=== PATIENT | female | born 1945 | race Caucasian/White ===

== ENCOUNTER → 2020-03-26 | Outpatient (CLI) | payer MEDICARE, OTHER, SELFPAY ==
[2020-03-26 18:52] VITALS: BMI 22.9
[2020-03-26 21:57] LABS: Absolute Lymphocyte Count 1.15 X10^3/uL (0.83-4.51); Absolute Neutrophil Count 4.3 X10^3/uL (2.0-7.7); Basophil# 0.04 X10^3/uL; Basophil% 0.7 % (0-1); Eosinophil# 0.12 X10^3/uL; Hematocrit 42.5 % (37-47); Hemoglobin 14.1 g/dL (12.0-15.0); Lymphocyte # 1.15 X10^3/ul (4.0); Lymphocyte % 18.8 % (19-41); Mean Corp Hgb Conc 33.2 g/dL (32-36); Mean Corpuscular Hgb 31.8 pg (27.0-32.0); Mean Corpuscular Volume 95.7 fL (81-99); Mean Platelet Vol. 9.5 fl (6.2-12.0); Monocyte# 0.49 X10^3/uL; NRBC Flagged by Analyzer 0 % (0-5); Neutrophil % 70.2 % (47-70); Platelet Count 241 K/mm3 (150-450); RBC Distribution Width SD 45.8 fl (35.1-43.9); Red Blood Count 4.44 M/mm3 (4.2-5.4); White Blood Count 6.1 K/mm3 (4.4-11.0)
[2020-03-26 22:18] LABS: ALB/GLOB Ratio 1.2 RATIO (0.9-2.4); AST(SGOT) 21 U/L (15-37); Alanine Aminotransfer ALT/SGPT 30 U/L (13-56); Albumin, Serum 3.6 g/dL (3.2-5.0); Alkaline Phosphatase 81 U/L (45-117); Anion Gap 7 (5-15); BUN 15 mg/dL (7-18); BUN/Creat Ratio 27.2 RATIO (10-20); Calcium,Total 8.3 mg/dL (8.5-10.1); Chloride 107 mmol/L (98-107); Cholesterol 195 mg/dL (200); Creatinine, Serum 0.55 mg/dL (0.55-1.02); EST Glomerular Filtration Rate 114 mL/min (>60); Est Glom Filt Rate - Afr Amer 138 mL/min (>60); Globulin 2.9 g/dL (2.2-4.2); Glucose 92 mg/dL (74-106); High Density Lipoprotein 67 mg/dL; Potassium 3.9 mmol/L (3.5-5.1); Protein, Total 6.5 g/dL (6.4-8.2); Sodium Level 140 mmol/L (136-145); Thyroid Stim Hormone (TSH) 4.82 uIU/mL (0.358-3.74); Triglycerides 161 mg/dL; Very Low Density Lipoprotein 32 mg/dL (5-40)
== END | disposition home or self-care (01) ==
LOC: OLS.AHF 21:53 → LABSPEC 03-27 08:22
PROVIDERS: PCP Nurse Practitioner; Referring Provider Nurse Practitioner; Visit Provider Nurse Practitioner
DX: I10 Essential (primary) hypertension (principal); E03.9 Hypothyroidism, unspecified
CPT/HCPCS: 80053; 80061; 84443; 85025

== ENCOUNTER → 2020-05-26 | Outpatient (CLI) | payer MEDICARE, OTHER, SELFPAY ==
[2020-05-26 22:38] LABS: Thyroid Stim Hormone (TSH) 2.25 uIU/mL (0.358-3.74)
== END | disposition home or self-care (01) ==
PROVIDERS: PCP Nurse Practitioner; Referring Provider Nurse Practitioner; Visit Provider Nurse Practitioner
DX: E03.9 Hypothyroidism, unspecified (principal)
CPT/HCPCS: 84443

== ENCOUNTER → 2021-04-13 | Outpatient (CLI) | payer MEDICARE, OTHER, SELFPAY ==
[2021-04-13 23:38] LABS: Absolute Lymphocyte Count 1.13 X10^3/uL (0.83-4.51); Absolute Neutrophil Count 4.3 X10^3/uL (2.0-7.7); Basophil# 0.05 X10^3/uL; Basophil% 0.8 % (0-1); Eosinophil# 0.11 X10^3/uL; Eosinophils% 1.8 % (0-5); Hematocrit 38.8 % (37-47); Hemoglobin 13.1 g/dL (12.0-15.0); Lymphocyte # 1.13 X10^3/ul (0.83-4.51); Lymphocyte % 18.6 % (19-41); Mean Corp Hgb Conc 33.8 g/dL (32-36); Mean Corpuscular Volume 94.9 fL (81-99); Mean Platelet Vol. 9.5 fl (6.2-12.0); Monocyte# 0.43 X10^3/uL; Monocyte% 7.1 % (0-10); NRBC Flagged by Analyzer 0 % (0-5); Neutrophil # 4.31 X10^3/uL (2.7-7.7); Neutrophil % 70.7 % (47-70); Platelet Count 230 K/mm3 (150-450); RBC Distribution Width CV 12.6 % (11.6-14.6); RBC Distribution Width SD 43.8 fl (35.1-43.9); Red Blood Count 4.09 M/mm3 (4.2-5.4); White Blood Count 6.1 K/mm3 (4.4-11.0)
[2021-04-14 00:04] LABS: ALB/GLOB Ratio 1.3 RATIO (0.9-2.4); AST(SGOT) 22 U/L (15-37); Alanine Aminotransfer ALT/SGPT 28 U/L (13-56); Albumin, Serum 3.8 g/dL (3.2-5.0); Alkaline Phosphatase 79 U/L (45-117); Anion Gap 2 (5-15); BUN 9 mg/dL (7-18); BUN/Creat Ratio 17.2 RATIO (10-20); Calcium,Total 9.1 mg/dL (8.5-10.1); Chloride 106 mmol/L (98-107); Cholesterol 195 mg/dL (200); Creatinine, Serum 0.52 mg/dL (0.55-1.02); EST Glomerular Filtration Rate 121 mL/min (>60); Est Glom Filt Rate - Afr Amer 147 mL/min (>60); Glucose 88 mg/dL (74-106); High Density Lipoprotein 61 mg/dL; Potassium 4.4 mmol/L (3.5-5.1); Protein, Total 6.8 g/dL (6.4-8.2); Sodium Level 137 mmol/L (136-145); Thyroid Stim Hormone (TSH) 2.11 uIU/mL (0.358-3.74); Triglycerides 103 mg/dL; Very Low Density Lipoprotein 21 mg/dL (5-40)
== END | disposition home or self-care (01) ==
LOC: LABSPEC 23:27
PROVIDERS: PCP Nurse Practitioner; Visit Provider Nurse Practitioner
DX: I10 Essential (primary) hypertension (principal); E03.9 Hypothyroidism, unspecified
CPT/HCPCS: 80053; 80061; 84443; 85025

== ENCOUNTER → 2021-04-14 | Outpatient (CLI) | payer MEDICARE, OTHER, SELFPAY | END | disposition home or self-care (01) | PROVIDERS: PCP Nurse Practitioner; Visit Provider Nurse Practitioner | DX: I10 Essential (primary) hypertension (principal); E03.9 Hypothyroidism, unspecified ==

== ENCOUNTER → 2023-03-17 | Outpatient (CLI) | payer MEDICARE, OTHER, SELFPAY ==
[2023-03-17 21:23] LABS: Absolute Lymphocyte Count 1.33 X10^3/uL (0.83-4.51); Absolute Neutrophil Count 4.7 X10^3/uL (2.0-7.7); Basophil# 0.04 X10^3/uL; Basophil% 0.6 % (0-1); Eosinophil# 0.16 X10^3/uL; Eosinophils% 2.4 % (0-5); Hematocrit 43.8 % (37-47); Hemoglobin 14.6 g/dL (12.0-15.0); Lymphocyte # 1.33 X10^3/ul (0.83-4.51); Lymphocyte % 19.9 % (19-41); Mean Corp Hgb Conc 33.3 g/dL (32-36); Mean Corpuscular Hgb 32.7 pg (27.0-32.0); Mean Platelet Vol. 9.9 fl (6.2-12.0); Monocyte# 0.44 X10^3/uL; Monocyte% 6.6 % (0-10); NRBC Flagged by Analyzer 0 % (0-5); Neutrophil % 70.4 % (47-70); Platelet Count 207 K/mm3 (150-450); RBC Distribution Width SD 47.7 fl (35.1-43.9); Red Blood Count 4.47 M/mm3 (4.2-5.4); White Blood Count 6.7 K/mm3 (4.4-11.0)
[2023-03-17 22:20] LABS: ALB/GLOB Ratio 1.3 RATIO (0.9-2.4); AST(SGOT) 26 U/L (15-37); Alanine Aminotransfer ALT/SGPT 45 U/L (13-56); Albumin, Serum 3.6 g/dL (3.2-5.0); Alkaline Phosphatase 85 U/L (45-117); Anion Gap 5 (5-15); BUN 15 mg/dL (7-18); BUN/Creat Ratio 24.1 RATIO (10-20); Calcium,Total 9.1 mg/dL (8.5-10.1); Chloride 106 mmol/L (98-107); Cholesterol 169 mg/dL (200); Creatinine, Serum 0.62 mg/dL (0.55-1.02); EST Glomerular Filtration Rate 99 mL/min (>60); Est Glom Filt Rate - Afr Amer 119 mL/min (>60); Globulin 2.8 g/dL (2.2-4.2); Glucose 86 mg/dL (74-106); High Density Lipoprotein 56 mg/dL; Potassium 4.1 mmol/L (3.5-5.1); Protein, Total 6.4 g/dL (6.4-8.2); Sodium Level 137 mmol/L (136-145); Thyroid Stim Hormone (TSH) 2.22 uIU/mL (0.358-3.74); Triglycerides 71 mg/dL; Very Low Density Lipoprotein 14 mg/dL (5-40)
== END | disposition home or self-care (01) ==
PROVIDERS: PCP Nurse Practitioner; Visit Provider Nurse Practitioner
DX: I10 Essential (primary) hypertension (principal); E03.9 Hypothyroidism, unspecified
CPT/HCPCS: 80053; 80061; 84443; 85025

== ENCOUNTER → 2024-01-24 | Outpatient (CLI) | payer MEDICARE, OTHER, SELFPAY ==
[2024-01-24 22:19] LABS: Absolute Lymphocyte Count 1.18 X10^3/uL (0.83-4.51); Absolute Neutrophil Count 6.4 X10^3/uL (2.0-7.7); Basophil# 0.04 X10^3/uL; Basophil% 0.5 % (0-1); Eosinophil# 0.13 X10^3/uL; Eosinophils% 1.6 % (0-5); Hematocrit 44.8 % (37-47); Hemoglobin 14.9 g/dL (12.0-15.0); Lymphocyte # 1.18 X10^3/ul (0.83-4.51); Lymphocyte % 14.1 % (19-41); Mean Corp Hgb Conc 33.3 g/dL (32-36); Mean Corpuscular Hgb 31.9 pg (27.0-32.0); Mean Corpuscular Volume 95.9 fL (81-99); Mean Platelet Vol. 10.4 fl (6.2-12.0); Monocyte# 0.58 X10^3/uL; Monocyte% 6.9 % (0-10); NRBC Flagged by Analyzer 0 % (0-5); Neutrophil % 76.7 % (47-70); Platelet Count 225 K/mm3 (150-450); RBC Distribution Width CV 12.9 % (11.6-14.6); RBC Distribution Width SD 45.2 fl (35.1-43.9); Red Blood Count 4.67 M/mm3 (4.2-5.4); White Blood Count 8.4 K/mm3 (4.4-11.0)
[2024-01-24 22:46] LABS: ALB/GLOB Ratio 1.5 RATIO (0.9-2.4); AST(SGOT) 18 U/L (15-37); Alanine Aminotransfer ALT/SGPT 25 U/L (13-56); Alkaline Phosphatase 78 U/L (45-117); Anion Gap 5 (5-15); BUN 12 mg/dL (7-18); BUN/Creat Ratio 19.7 RATIO (10-20); Calcium,Total 9.8 mg/dL (8.5-10.1); Chloride 106 mmol/L (98-107); Creatinine, Serum 0.61 mg/dL (0.55-1.02); EST Glomerular Filtration Rate 101 mL/min (>60); Est Glom Filt Rate - Afr Amer 122 mL/min (>60); Globulin 2.7 g/dL (2.2-4.2); Glucose 88 mg/dL (74-106); Potassium 4.1 mmol/L (3.5-5.1); Protein, Total 6.7 g/dL (6.4-8.2); Sodium Level 139 mmol/L (136-145)
[2024-01-26 17:08] LABS: Deamidated Gliadin IgA 5 units (0-19); Deamidated Gliadin IgG 3 units (0-19); Endomysial Antibody IgA Negative (Negative); Immunoglobulin A 122 mg/dL (64-422); t-Transglutaminase IgA <2 U/mL (0-3)
== END | disposition home or self-care (01) ==
PROVIDERS: PCP Nurse Practitioner; Referring Provider Nurse Practitioner; Visit Provider Nurse Practitioner
DX: R19.7 Diarrhea, unspecified (principal); E03.9 Hypothyroidism, unspecified; I10 Essential (primary) hypertension; K21.9 Gastro-esophageal reflux disease without esophagitis
CPT/HCPCS: 80053; 82784; 83516; 84443; 85025; 86255

== ENCOUNTER → 2024-08-22 | Outpatient (CLI) | payer MEDICARE, OTHER, SELFPAY ==
[2024-08-23 00:40] LABS: ALB/GLOB Ratio 1.1 RATIO (0.9-2.4); AST(SGOT) 30 U/L (<=31); Alanine Aminotransfer ALT/SGPT 27 U/L (<=34); Albumin, Serum 1.5 g/dL (3.4-4.8); Alkaline Phosphatase 83 U/L (35-104); Anion Gap 19 (5-15); BUN 4 mg/dL (4-19); BUN/Creat Ratio 7.8 RATIO (10-20); CRP 6.75 mg/L (0.0-3.0); Chloride 104 mmol/L (98-108); Creatinine, Serum 0.56 mg/dL (0.70-1.20); EST Glomerular Filtration Rate 93 (>60); Globulin 1.4 g/dL (2.2-4.2); Glucose 90 mg/dL (70-99); Potassium 4.4 mmol/L (3.3-5.1); Protein, Total 2.9 g/dL (5.9-8.4); Rheumatoid Factor < 10.0 IU/mL (<15); Sodium Level 137 mmol/L (133-145); Total Bilirubin < 0.15 mg/dL (0.00-1.30)
[2024-08-24 11:08] LABS: Anti-Centromere B Ab <0.2 AI (0.0-0.9); Anti-Chromatin <0.2 AI (0.0-0.9); Anti-Jo <0.2 AI (0.0-0.9); Anti-Scleroderma-70 AB <0.2 AI (0.0-0.9); Anti-dsDNA Ab 4 IU/mL (0-9); RNP Ab <0.2 AI (0.0-0.9); SJOGREN'S Anti-SS-A test < 0.2 AI (0.0-0.9); SJOGREN'S Anti-SS-B test < 0.2 AI (0.0-0.9); Smith Ab <0.2 AI (0.0-0.9)
== END | disposition home or self-care (01) ==
PROVIDERS: PCP Nurse Practitioner; Referring Provider Nurse Practitioner; Visit Provider Nurse Practitioner
DX: R60.0 Localized edema (principal); H93.19 Tinnitus, unspecified ear; K52.832 Lymphocytic colitis; R19.7 Diarrhea, unspecified; R06.02 Shortness of breath; T50.905A Adverse effect of unspecified drugs, medicaments and biological substances, initial encounter
CPT/HCPCS: 80053; 84439; 84443; 86140; 86225; 86235; 86431

== ENCOUNTER → 2024-09-13 | Outpatient (CLI) | payer MEDICARE, OTHER, SELFPAY ==
[2024-09-13 22:53] LABS: Absolute Lymphocyte Count 0.91 X10^3/uL (0.83-4.51); Basophil# 0.04 X10^3/uL; Basophil% 0.7 % (0-1); Eosinophil# 0.07 X10^3/uL; Eosinophils% 1.3 % (0-5); Hematocrit 42.8 % (37-47); Hemoglobin 14.3 g/dL (12.0-15.0); Lymphocyte # 0.91 X10^3/ul (0.83-4.51); Lymphocyte % 16.6 % (19-41); Mean Corp Hgb Conc 33.4 g/dL (32-36); Mean Corpuscular Hgb 31.4 pg (27.0-32.0); Mean Corpuscular Volume 94.1 fL (81-99); Mean Platelet Vol. 10.8 fl (6.2-12.0); Monocyte# 0.48 X10^3/uL; Monocyte% 8.8 % (0-10); NRBC Flagged by Analyzer 0 % (0-5); Neutrophil # 3.96 X10^3/uL (2.7-7.7); Neutrophil % 72.4 % (47-70); Platelet Count 165 K/mm3 (150-450); RBC Distribution Width CV 13.4 % (11.6-14.6); RBC Distribution Width SD 46.7 fl (35.1-43.9); Red Blood Count 4.55 M/mm3 (4.2-5.4); White Blood Count 5.5 K/mm3 (4.4-11.0)
[2024-09-13 23:12] LABS: D-Dimer Quantitative (DVT/PE) 0.27 FEU/ug/m (0.27-0.49)
[2024-09-13 23:14] LABS: Pro- Brain NATRIURETIC PEPTIDE 963 pg/mL (<=1800)
== END | disposition home or self-care (01) ==
PROVIDERS: PCP Nurse Practitioner; Referring Provider Nurse Practitioner; Visit Provider Nurse Practitioner
DX: I50.9 Heart failure, unspecified (principal); R06.02 Shortness of breath; R60.0 Localized edema; R23.2 Flushing
CPT/HCPCS: 83880; 84443; 85025; 85379

== ENCOUNTER → 2024-09-26 | Outpatient (CLI) | payer MEDICARE, OTHER, SELFPAY ==
[2024-10-01 05:06] LABS: Alternaria tenuis <0.10 kU/L (Class 0); Ash, White <0.10 kU/L (Class 0); Aspergillus fumigatus <0.10 kU/L (Class 0); Bermuda Grass <0.10 kU/L (Class 0); Birch <0.10 kU/L (Class 0); Black Walnut <0.10 kU/L (Class 0); Cat Hair / Dander,Stand <0.10 kU/L (Class 0); Cedar, Mountain <0.10 kU/L (Class 0); Cladosporium herbarum <0.10 kU/L (Class 0); Cockroach, American <0.10 kU/L (Class 0); Cottonwood <0.10 kU/L (Class 0); D farinae Mite <0.10 kU/L (Class 0); D pteronyssinus <0.10 kU/L (Class 0); Dog Epithelia <0.10 kU/L (Class 0); Elm, American White <0.10 kU/L (Class 0); Immunoglobulin E 5 IU/mL (6-495); Maple/Box Elder <0.10 kU/L (Class 0); Mouse Urine <0.10 kU/L (Class 0); Mulberry, White <0.10 kU/L (Class 0); Oak, White <0.10 kU/L (Class 0); Pecan <0.10 kU/L (Class 0); Penicillium Notatum <0.10 kU/L (Class 0); Pigweed, Rough <0.10 kU/L (Class 0); Ragweed, Short/Common <0.10 kU/L (Class 0); Russian Thistle <0.10 kU/L (Class 0); Sheep Sorrel <0.10 kU/L (Class 0); Sycamore, American <0.10 kU/L (Class 0); Timothy Grass <0.10 kU/L (Class 0)
== END | disposition home or self-care (01) ==
PROVIDERS: PCP Nurse Practitioner; Referring Provider Internal Medicine Critical Care Medicine; Visit Provider Internal Medicine Critical Care Medicine
DX: J45.909 Unspecified asthma, uncomplicated (principal)
CPT/HCPCS: 36415; 82785; 86003

== ENCOUNTER → 2024-10-30 | Outpatient (CLI) | payer MEDICARE, OTHER, SELFPAY ==
[2024-10-30 13:54] VITALS: PULSE 60; PULSE 66; PULSE 72; PULSE 74; PULSE 79; PULSE 82; PULSE 86; PULSE 93; O2SAT 96; O2SAT 97; O2SAT 98; O2SAT 99
--- OUTSIDE RECORDS SUMMARY | 2024-10-30 21:46 | XMS RPT_ITS | CCD ---
Author Organization [facility] Care Team Providers Care Humanities Department Chair Name Role Phone Sabino Harvey Unavailable Unavailable Unavailable Unavailable Unavailable Blanca Coffey Unavailable Unavailable Unavailable Unavailable Unavailable David Bach MD Primary Care Provider David Bach MD Unavailable Queden ACID LEVELER.PRESIDENT [place], Tammy A Unavailable David Bach MD Primary Care Provider [phone] David Bach MD Unavailable Queden ACID LEVELER.PRESIDENT [place], Tammy A Unavailable PROVIDER, UNKNOWN Referring Unavailable GEO PARKINSON Attending Unavailable David Bach MD Primary Care Provider David Bach MD Unavailable Queden ACID LEVELER.ENE, Tammy A Unavailable Prem Felton MD Primary Care Provider Prem Felton MD Primary Care Provider Prem Felton MD Primary Care Provider Prem Felton MD Primary Care Provider Osbaldo Fowler Primary Care Provider NOAH LOWERY Attending Unavailable PREM FELTON Primary Care Unavailable OSBALDO FOWLER Primary Care Unavailable Malcolm ACID LEVELER.Osbaldo LUQUE Primary Care Provide r Osbaldo Fowler Primary Care Provider [phone] OSBALDO FOWLER Primary Care Unavailable ARSENIO COFFEY Attending Unava ilable FOWLER, OSBALDO L Primary Care Unavailable CHRISTOPH LIU Attending Unavailable FOWLER, OSBALDO L Primary Care Unavailable CECILE VARELA Attending Unavailable FOWLER, OSBALDO L Referring Unavailable FOWLER, OSBALDO L Primary Care Unavailable Fowler EXTENSION SERVICE SPECIALIST IN CHARGE-C, Osbaldo Primary Care Provider Fowler EXTENSION SERVICE SPECIALIST IN CHARGE-C, Osbaldo Attending Provider Fowler EXTENSION SERVICE SPECIALIST IN CHARGE-C, Osbaldo Referring Provider Fowler EXTENSION SERVICE SPECIALIST IN CHARGE-C, Osbaldo Primary Care Provider Fowler EXTENSION SERVICE SPECIALIST IN CHARGE-C, Osbaldo Attending Provider Fowler EXTENSION SERVICE SPECIALIST IN CHARGE-C, Osbaldo Referring Provider Fowler, Osbaldo Primary Care Unavailable Jorge Nicole Attending Unavailable Jorge Nicole Referring Unavailable Fowler, Osbaldo Referring Unavailable Fowler, Osbaldo Primary Care Unavailable Fowler, Osbaldo Attending Unavailable Fowler, Osbaldo Referring Unavailable Fowler, Osbaldo Primary Care Unavailable Fowler, Osbaldo Attending Unavailable Fowler, Osbaldo Primary Care Unavailable Jorge Nicole Attending Unavailable Fowler, Osbaldo Referring Unavailable Fowler, Osbaldo Referring Unavailable Fowler, Osbaldo Primary Care Unavailable Fowler, Osbaldo Attending Unavailable Julienne Wright DO Primary Care Provider FOWLER, OSBALDO Primary Care Unavailable FOWLER, OSBALDO Primary Care Unavailable FOWLER, OSBALDO Primary Care Unavailable GEO PARKINSON Attending Unavailable FOWLER, OSBALDO Primary Care Unavailable ESTERLE, JULIENNE Primary Care Unavailable FOWLER, OSBALDO Primary Care Unavailable FOWLER, OSBALDO Primary Care Unavailable FOWLER, OSBALDO Primary Care Unavailable FARIDA THOMAS Referring Unavailable FARIDA THOMAS Attending Unavailable JASON EVERETT Attending Unavailable FOWLER, OSBALDO L Primary Care Unavailable FOWLER, OSBALDO L Primary Care Unavailable BARI KELLEY Attending Unavailable Allergies Allergy Classification Reported Allergen(s) Allergy Type Date of Onset Reaction(s) Facility (2 sources) [facility]ib[facility] ([facility] Adhesive Tape; Translations: [ADHESIVE TAPE (ROSINS)] Propensity to adverse reactions 6 [facility] (20 sources) Sulfonamides (Antibiotic); Translations: [SULFA (SULFONAMIDE ANTIBIOTICS)] Propensity to adverse reactions to drug 0 Mental Status Change, Other [facility] (20 sources) Vancomycin; Translations: [VANCOMYCIN] Drug Allergy 8 Itching [facility] (18 sources) Contact Allergies [Other] Propensity to adverse reactions 0 Rash [facility] (18 sources) Food Allergies [Other] Propensity to adverse reactions 0 GI Upset [facility] (20 sources) Tetanus Vaccines And Toxoid; Translations: [TETANUS VACCINES AND TOXOID] Drug Intolerance 2 Swelling [facility] (18 sources) Tetanus Vaccines And Toxoid Drug Intolerance 2 Swelling [facility] (20 sources) Other; Translations: [OTHER] Propensity to adverse reactions 0 Rash [facility] (3 sources) Sulfonamides (Antibiotic) Allergy to substance 9 Edema, Trouble Breathing [facility] (1 source) Sulfonamides (Antibiotic) Drug allergy (disorder) 5 [facility] (1 source) Vancomycin Drug Allergy 5 [facility] Medications Current Medications Medication Drug Class(es) Dates Sig (Normalized) Sig (Original) acetaminophen 325 mg oral tablet (20 sources) Start: 06-20-2021 take 2 tablets by mouth every four hours as needed acetaminophen (TYLENOL) 325 mg tablet Take 2 tablets by mouth every 4 hours as needed for pain. 06/20/2021 Active Start: 06-20-2021 take 2 tablets by mo ut every six hours as needed acetaminophen (Tylenol) 325 MG tablet Take 650 mg by mouth every 6 hours as needed. 06/20/2021 Active Comment on above: Take 2 tablets by mo [facility] every 4 hours as needed for pain. adapalene 0.001 mg/mg topical gel (7 sources) Retinoid Start: 1 End: 2 adapalene (DIFFERIN) 0.1 % gel [The details of the medication are not available because there are pending changes by a home health clinician.] 0 05/13/2021 05/13/2022 Active Comment on above: [The details of the medication are not available because there are pending changes by a home health clinician.] amoxicillin 875 mg / clavulanate 125 mg oral tablet (18 sources) Penicillin-class Antibacterial Start: End: take 1 tablet by mouth twice daily amoxicillin-clavula manan potassium (AUGMENTIN) 875-125 mg per tablet Take 1 tablet by mouth two times a day for 10 days. 20 tablet 10/25/2024 11/04/2024 Active Start: 09-13-2024 Amoxicillin-Po t Clavulanate 875-125 mg tablet Active 1 {tbl} PO TWICE A DAY September 13, 2024 5:11pm Start: 10-26-2023 End: 11-07-2023 Amoxicillin-Pot Clavulanate 875-125 mg tablet Discontinued 1 {tbl} PO TWICE A DAY October 26, 2023 11:41am November 07, 2023 6:58pm Start: 05-12-2023 End: 10-19-2023 Amoxicillin-Pot Clavulanate 875-125 mg tablet Discontinued 1 {tbl} PO TWICE A DAY May 12, 2023 7:54pm October 19, 2023 2:59pm Start: 03-05-2022 End: 05-25-2022 Amoxicillin-Pot Clavulanate 875-125 mg tablet Discontinued 1 {tbl} PO TWICE A DAY March 05, 2022 3:07pm May 25, 2022 5:10pm Start: 03-05-2022 End: 05-25-2022 take 1 tablet by mouth twice daily Amoxicillin-Pot Clavulanate Discontinued 1 TABLET PO TWICE A DAY March 05, 2022 3:07pm May 25, 2022 5:10pm Start: 12-24-2020 End: 04-13-2021 Amoxicillin-Pot Clavulanate 875-125 mg tablet Discontinued 1 {tbl} PO TWICE A DAY December 24, 2020 12:00am April 13, 2021 4:59pm Start: 12-24-2020 End: 04-13-2021 take 1 tablet by mouth twice daily Amoxicillin-Pot Clavulanate Discontinued 1 TABLET PO TWICE A DAY December 24, 2020 12:00am April 13, 2021 4:59pm Start: 02-28-2020 End: 03-26-2020 Amoxicillin-Pot Clavulanate 875-125 mg tablet Discontinued 1 {tbl} PO TWICE A DAY February 28, 2020 12:00am March 26, 2020 6:58pm Start: 02-28-2020 End: 03-26-2020 take 1 tablet by mouth twice daily Amoxicillin-Pot Clavulanate Discontinued 1 TABLET PO TWICE A DAY February 28, 2020 12:00am March 26, 2020 6:58pm Start: 05-16-2019 End: 02-11-2020 Amoxicillin-Pot Clavulanate 875-125 mg tablet Discontinued 1 {tbl} PO TWICE A DAY May 16, 2019 1:00am February 11, 2020 4:08pm Start: 05-16-2019 End: 02-11-2020 take 1 tablet by mouth twice daily Amoxicillin-Pot Clavulanate Discontinued 1 TABLET PO TWICE A DAY May 16, 2019 1:00am February 11, 2020 4:08pm apixaban 5 mg oral tablet (20 sources) Factor Xa Inhibitor Start: 08-04-2022 End: 04-12-2024 take 1 tablet by mouth twice daily ELIQUIS 5 mg tab(s) Take 5 mg by mouth twice daily. 08/31/2022 Active Comment on above: Take 5 mg by mouth t wice daily. ascorbic acid 1000 mg oral tablet (20 sources) Vitamin C Start: 11-15-2018 take 1 g by mouth every six hours Ascorbic Acid (Vitamin C) 1,000 mg tablet Active 1 g PO EVERY 6 HOURS November 15, 2018 12:00am Start: 11-15-2018 take 1 g by mouth every six ho urs Ascorbic Acid (Vitamin C) Active 1 GM PO EVERY 6 HOURS November 15, 2018 12:00am take 1 tablet by mouth once lion y ascorbic acid, vitamin C, (VITAMIN C) 500 mg tablet Take 500 mg by mouth once daily. Active take 1 tablet by justino th every twenty-four hours as needed ascorbic acid (Vitamin C) 500 MG tablet Take 500 mg by mouth Daily as needed (during winter). Active Comment on above: Take 500 mg by mouth once daily. Ascorbic Acid / Bioflavonoid s (19 sources) Vitamin C ASCORBIC ACID/BIOFLAVONOIDS (RISHABH C ORAL) Take by mouth once daily. winter only Active ASCORBIC ACID/BI OFLAVONOIDS (RISHABH C ORAL) Take by mouth once daily. winter only 0 Active Comment on above: Take by mouth once d aily. winter only B Complex Vitamins (B-Complex/B-12) tablet (20 sources) take 1 tablet by mouth in the morning B Complex Vitamins (B-Complex/B-12) tablet Take 1 tablet by mouth in the morning. Active take 1 tablet by mouth in the mo rning B Complex Vitamins (B-Complex/B-12) tablet Take 1 tablet by mouth in the morning. 0 Active Bcomplex-C #13-folic acid 1 mg-vit D3 1,750 unit disintegrating tablet (1 source) Start: 11-15-2018 take 1 tablet by mouth once daily Bcomplex-C #13-folic acid 1 mg-vit D3 1,750 unit disintegrating tablet Active 1 TABLET PO DAILY November 15, 2018 12:00am Calcium Carb-Cholecalciferol (CALCIUM 1000 + D PO) (20 sources) Calcium Carb-Cholecalciferol (CALCIUM 1000 + D PO) Take 1,000 mg by mouth daily. Active Calcium Carb-Cho lecalciferol (CALCIUM 1000 + D PO) Take 1,000 mg by mouth daily. 0 Active Calcium Carbonate (18 sources) calcium carbonat e (CALCIUM 300 ORAL) Take by mouth. Active calcium carbonat e (CALCIUM 300 ORAL) Take by mouth. 0 Active Comment on above: Take by mouth. cholecalciferol 0.125 mg oral capsule (20 sources) Vitamin D Start: 05-13-2021 End: 08-04-2022 take 1 capsule by mouth once daily Cholecalciferol, Vitamin D3, 125 mcg (5,000 unit) cap Take 1 capsule by mouth once daily. 05/13/2021 Active Start: 11-15-2018 take 1 capsule by [facility] once daily Cholecalciferol (Vitamin D3) 2,000 unit capsule Active 2000 U PO DAILY November 15, 2018 12:00am Comment on above: Take 1 capsule by [facility] once daily. 1 ml denosumab 60 mg/ml prefilled syringe (20 sources) RANK Ligand Inhibitor Start: 08-18-2022 End: 08-12-2023 denosumab 60 mg injection (PROLIA) Start: 07-20-2022 denosumab (Pro mariela) injection 60 mg Start: 06-09-2022 End: 09-20-2023 denosumab (Prolia) 60 MG/ML solution prefilled syringe Indications: Age-related osteoporosis without current pathological fracture Inject 1 mL (60 mg) under the skin every 6 (six) months. 180 mL 0 06/09/2022 09/20/2023 Discontinued Start: 06-01-2021 End: 05-26-2022 denosumab 60 mg injection (P ROLIA) diclofenac sodium 0.01 mg/mg topical gel (20 sources) Nonsteroidal Anti-inflammatory Drug Start: 12-24-2022 End: 05-07-2024 apply 4 g topically once Diclofenac Sodium 1 % gel Active 4 g TOPICAL ONCE May 07, 2024 4:46pm apply to single knee, ankle, foot; for foot includes sole/toes/top of foot Start: 12-24-2022 apply 4 g topically once Diclo fenac Sodium Active 4 GM TOPICAL ONCE December 24, 2022 4:36pm apply to single knee, ankle, foot; for foot includes sole/toes/top of foot Start: 12-24-2022 Diclofenac Sod ium (Voltaren) 1 % gel APPLY FOUR grams topically once DIRECTED. APPLY to single knee, ankle, foot; for foot includes sole/toes/top OF foot. 12/24/2022 Active Start: 02-15-2020 End: 04-13-2021 apply 4 g topically once Diclofenac Sodium 1 % gel Di scontinued 4 g TOPICAL ONCE 50 February 15, 2020 12:00am April 13, 2021 5:00pm apply to single knee, ankle, foot; for foot includes sole/toes/top of foot Start: 02-15-2020 End: 04-13-2021 apply 4 g topically once Diclofenac Sodium Discontinu ed 4 GM TOPICAL ONCE February 15, 2020 12:00am April 13, 2021 5:00pm apply to single knee, ankle, foot; for foot includes sole/toes/top of foot lactobacillus rhamnosus gg [id number] unt oral capsule (20 sources) Start: 06-20-2021 take 1 capsule by mouth once daily lactobacillus rhamnosus (CULTURELLE) 10 billion cell capsule Take 1 capsule by mouth once daily. 06/20/2021 Active Start: 06-20-2021 End: 08-04-2022 take 1 capsule by mouth in the morning Lactobacillus Rhamnosus, GG, ( Probiotic Digestive Care) capsule Take 1 capsule by mouth in the morning. 0 06/20/2021 08/04/2022 Discontinued (Discontinued by another clinician) Comment on above: Take 1 capsule by [facility] once daily. levothyroxine sodium 0.137 mg oral tablet (20 sources) l-Thyroxine Start: take 1 tablet by mouth once daily Levothyroxine 137 mcg tablet Active 137 ug PO daily September 14, 2024 12:00am Start: 08-23-2024 End: 09-14-2024 take 1 tablet by mouth once daily Levothyroxine 125 mc g tablet Discontinued 125 ug PO daily August 23, 2024 12:00am September 14, 2024 11:08am Start: 03-27-2020 End: 09-14-2024 take 1 tablet by mouth once daily for thyroid dysfunction levothyroxine (SYNTHROID) 112 mcg tablet Indications: Hypothyroidism, unspecified type Take 1 tablet by mouth once daily. Take on empty stomach. For thyroid. 05/12/2020 Active Start: 06-05-2018 End: 03-27-2020 take 1 tablet by mouth once daily Levothyroxine 100 mc g tablet Discontinued 100 ug PO DAILY November 15, 2018 12:00am March 27, 2020 1:28pm Comment on above: Take 1 tablet by [facility] once daily. Take on empty stomach. For thyroid. loperamide hydrochloride 2 mg oral capsule (20 sources) Opioid Agonist Start: take 1 capsule by mouth every twelve hours as needed loperamide (IMODIUM) 2 mg cap(s) Take 1 capsule by mouth twice daily as needed for diarrhea. 07/17/2021 Active Start: 11-15-2018 End: 05-07-2024 Loperamide 2 mg capsule Disc ontinued 2 mg PO every 1 to 4 hours as needed for loose stool October 19, 2023 3:01pm May 07, 2024 4:45pm Comment on above: Take 1 capsule by [facility] twice daily as needed for diarrhea. losartan potassium 50 mg oral tablet (20 sources) Angiotensin 2 Receptor Zeke Start: 09-20-19 End: 05-07-20 take 1 tablet by mouth once daily losartan (COZAAR) 50 mg tablet Indications: Essential hypertension Take 1 tablet by mouth once daily. 05/13/2021 Active Comment on above: Take 1 tablet by justino [facility] once daily. metroNIDAZOLE 10 mg/ml topical cream (20 sources) Nitroimidazole Antimicrobial Start: 07-21-19 metroNIDAZOLE (NORITATE) 1 % cream Apply 1 application to affected area once daily. 07/21/2021 Active Start: 02-28-2020 End: 03-09-2020 take 1 tablet by mouth three times daily Metronidazole 250 mg tablet Discontinued 250 mg PO THREE TIMES A DAY 30 February 28, 2020 12:00am March 08, 2020 12:00am March 09, 2020 12:03am Start: 12-24-2019 End: 01-03-2020 take 1 tablet by mouth three times daily Metronidazole 250 mg tablet Discontinued 250 mg PO THREE TIMES A DAY 30 December 24, 2019 12:00am January 02, 2020 12:00am January 03, 2020 12:02am Start: 11-15-2018 End: 04-13-2021 Metronidazole 1 % cream Disc ontinued 1 NMA TOPICAL DAILY November 15, 2018 12:00am April 13, 2021 4:59pm Start: 11-15-2018 End: 04-13-2021 Metronidazole Discontinued 1 APPLIC TOPICAL DAILY November 15, 2018 12:00am April 13, 2021 4:59pm metroNIDAZOLE (M etrogel) 1 % gel Apply topically Daily as needed. With rosacea flare ups in summer Active Comment on above: Apply 1 application to affected area once daily. Fjuzevzbuoegi-Fm-Xxw n-Minerals (ONE-A-DAY WOMENS FORMULA) 27-0.4 mg ORAL Tab (19 sources) Start: 1 take 1 tablet by mouth once daily Kumfbhgmfmvvb-Ad-Xg on-Minerals (ONE-A-DAY WOMENS FORMULA) 27-0.4 mg ORAL Tab Take 1 tablet by mouth once daily. 60 tablet 0 02/09/2011 Active Comment on above: Take 1 tablet by justino once daily. NUTRITIONAL SUPPLEMENT/FIBER (JUICE PLUS FIBRE ORAL) (19 sources) take 2 capsules by mouth twice daily NUTRITIONAL SUPPLEMENT/FIBER (JUICE PLUS FIBRE ORAL) Take 2 capsules by mouth twice daily. Active take 2 capsules by mouth twice d aily NUTRITIONAL SUPPLEMENT/FIBER (JUICE PLUS FIBRE ORAL) Take 2 capsules by mouth twice daily. 0 Active Comment on above: Take 2 capsules by out twice daily. psyllium 3400 mg powder for oral suspension (20 sources) Start: 07-17-2021 take 1 dose by mouth twice daily as needed psyllium (METAMUCIL) 3.4 gram packet Take 1 Packet by mouth twice daily as needed. 07/17/2021 Active Start: 07-17-2021 End: 06-09-2022 take 1 dose by mouth every twelve hours as needed psyllium (Metamucil) 33 % powder Take 1 packet by mouth every 12 hours as needed. 0 07/17/2021 06/09/2022 Discontinued (Med list cleanup) Comment on above: [The details of the medication are not available because there are pending changes by a home health clinician.] valACYclovir 1000 mg oral tablet (2 sources) Herpesvirus Nucleoside Analog DNA Polymerase Inhibitor, Herpes Simplex Virus Nucleoside Analog DNA Polymerase Inhibitor, Herpes Zoster Virus Nucleoside Analog DNA Polymerase Inhibitor Start: Valacyclovir 1 gram tablet Active 2000 mg PO TWICE A DAY as needed for cold sores 4 May 07, 2024 1:00am vit A/vit C/vit E/zinc/copper (PRESERVISION AREDS ORAL) (2 sources) take 1 capsule by mouth twice daily vit A/vit C/vit E/zinc/copper (PRESERVISION AREDS ORAL) Take 1 capsule by mouth two times a day. Active Vit B Complex With C #13-Fa-D3 1-1,750 mg-unit tablet,disintegrating (2 sources) Start: 9 Vit B Complex With C #13-Fa-D3 1-1,750 mg-unit tablet,disintegratin g Active 1 {tbl} PO DAILY November 15, 2018 12:00am Vitamin B Complex (19 sources) take 1 tablet by mouth once daily vitamin b complex tab Take 1 tablet by mouth once daily. Active take 1 tablet by mouth once lion y vitamin b complex tab Take 1 tablet by mouth once daily. 0 Active Comment on above: Take 1 tablet by justino th once daily. Completed/Discontinued Medications Medication Drug Class(es) Dates Sig (Normalized) Sig (Original) acidophillous (3 sources) Start: 11-15-2018 End: 11-15-2021 acidophillous Discontinued PO November 15, 2018 12:00am April 13, 2021 5:01pm activia (3 sources) Start: 11-15-2018 End: 03-18-2023 activia Discontinued PO November 15, 2018 12:00am March 18, 2023 3:26pm alendronic acid 70 mg oral tablet (12 sources) Bisphosphonate Start: 11-15-2018 End: 03-05-2022 take 1 tablet by mouth every week Alendronate 70 mg tablet Discontinued 70 mg PO EVERY WEEK April 13, 2021 5:06pm March 05, 2022 3:02pm shaquilley opth drops (3 sources) Start: 11-15-2018 End: 10-19-2023 aloway opth drops Discontinued TOPICAL November 15, 2018 12:00am October 19, 2023 3:00pm Start: 11-15-2018 dayna serranoh ops Active TOPICAL November 15, 2018 12:00am amoxicillin 875 mg oral tablet (1 source) Penicillin-class Antibacterial Start: 04-22-2019 End: 05-03-2019 take 1 tablet by mouth twice daily, then take 0.5 tablet by mouth Amoxicillin 875 MG Oral Tablet TAKE 1 TABLET BID. CAN BREAK TABLETS IN HALF IF EASIER TO SWALLOW. Consider taking yogurt with medication to avoid yeast infection. Quantity: 20 Refills: 0 Blanca Coffey DO Start : 22-Apr-2019 End : 02-May-2019 Active azithromycin 250 mg oral tablet (3 sources) Macrolide Antimicrobial Start: 12-24-2022 End: 12-29-2022 take 2 tablets by mouth once daily, then take 1 tablet by mouth once daily at mealtime Azithromycin 250 mg tablet Discontinued 250 mg PO daily 6 December 24, 2022 12:00am December 28, 2022 12:00am December 29, 2022 12:03am 2 po qd for 1 day then 1 po qd for 4 days with food or after eating Bioflavonoid Products (RISHABH-C PO) (1 source) End: 06-09-2022 Bioflavonoid Products (RISHABH-C PO) Take by mouth daily. 0 06/09/2022 Discontinued (Med list cleanup) Calcium Carbonate Antacid (CALCIUM CARBONATE PO) (6 sources) End: 08-04-2022 Calcium Carbonate Antacid (CALCIUM CARBONATE PO) Take by mouth. 0 08/04/2022 Discontinued (Duplicate order) Calcium Carbonat e Antacid (CALCIUM CARBONATE PO) Take by mouth. 0 Active cefdinir 300 mg oral capsule (2 sources) Cephalosporin Antibacterial Start: 08-08-2024 End: 09-14-2024 take 1 capsule by mouth twice daily Cefdinir 300 mg capsule Discontinued 300 mg PO TWICE A DAY August 08, 2024 12:00am September 14, 2024 1:39pm ciprofloxacin 500 mg oral tablet (6 sources) Quinolone Antimicrobial Start: 12-27-2019 End: 03-26-2020 take 1 tablet by mouth twice daily Ciprofloxacin Hcl (Cipro) 500 mg tablet Discontinued 500 mg PO TWICE A DAY February 11, 2020 4:09pm March 26, 2020 6:58pm clarithromycin 500 mg oral tablet (2 sources) Macrolide Antimicrobial Start: 11-07-2023 End: 01-24-2024 take 1 tablet by mouth twice daily Clarithromycin 500 mg tablet Discontinued 500 mg PO TWICE A DAY November 07, 2023 12:00am January 24, 2024 3:53pm cyclobenzaprine hydrochloride 10 mg oral tablet (9 sources) Muscle Relaxant Start: 07-17-2021 End: 06-09-2022 cyclobenzaprine (Flexeril) 10 MG tablet TAKE 1 TABLET THREE TIMES DAILY NEEDED FOR MUSCLE SPASMS or pain 0 07/18/2021 06/09/2022 Discontinued (Med list cleanup) Start: 04-11-2019 take 1 tablet by justino [facility] at bedtime Cyclobenzaprine HCl - 10 MG Oral Tablet TAKE 1 TABLET AT BEDTIME. Quantity: 10 Refills: 0 Sabino Harvey MD Start : 11-Apr-2019 Active Comment on above: Take 1 tablet by justino [facility] three times daily as needed for muscle spasm or pain. dexamethasone 6 mg oral tablet (3 sources) Corticosteroid Start: End: take 1 tablet by mouth once daily Dexamethasone (Decadron) 6 mg tablet Discontinued 6 mg PO DAILY December 09, 2020 12:00am April 13, 2021 5:00pm dicyclomine hydrochloride 10 mg oral capsule (6 sources) Anticholinergic Start: End: take 1 capsule by mouth three times daily as needed dicyclomine (BENTYL) 10 mg capsule Indications: Functional diarrhea Take 1 capsule by mouth three times daily as needed. Take this at least 30 minutes before planned activity. 60 capsule 1 05/19/2020 12/19/2021 Discontinued Comment on above: Take 1 capsule by [facility] three times daily as needed. Take this at least 30 minutes before planned activity. docusate sodium 100 mg oral capsule (6 sources) Start: End: take 1 capsule by mouth twice daily docusate sodium (COLACE) 100 mg capsule Take 1 capsule by mouth twice daily. 0 07/17/2021 12/19/2021 Discontinued Comment on above: Take 1 capsule by [facility] twice daily. doxycycline hyclate 100 mg oral capsule (5 sources) Tetracycline-class Drug Start: End: take 1 capsule by mouth twice daily Doxycycline Hyclate 100 mg capsule Discontinued 100 mg PO TWICE A DAY October 19, 2023 12:00am November 07, 2023 6:58pm Start: 12-09-2020 End: 04-13-2021 take 1 capsule by mouth twice daily Doxycycline Hyclate 100 mg capsule Discontinued 100 mg PO TWICE A DAY December 09, 2020 12:00am April 13, 2021 5:00pm DULoxetine 30 mg delayed release oral capsule (7 sources) Serotonin and Norepinephrine Reuptake Inhibitor Start: 2021 End: 06-09-2022 take 1 capsule by mouth once daily DULoxetine (Cymbalta) [address] capsule Take 30 mg by mouth daily. 0 2021 06/09/2022 Discontinued (Med list cleanup) Comment on above: Take 1 capsule by [facility] once daily. fluticasone propionate 0.05 mg/actuat metered dose nasal spray (2 sources) Corticosteroid Start: 04-26-2018 take 2 spray(s) nasal route twice daily Fluticasone Propionate 50 MCG/ACT Nasal Suspension USE 2 SPRAYS IN EACH NOSTRIL TWICE DAILY Quantity: 16 Refills: 0 Start : 26-Apr-2018 Active ibuprofen 600 mg oral tablet (9 sources) Nonsteroidal Anti-inflammatory Drug Start: 02-11-2020 End: 08-04-2022 take 1 tablet by mouth every six hours as needed for pain Ibuprofen 600 mg tablet Discontinued 600 mg PO EVERY 6 HOURS as needed for pain 60 February 11, 2020 12:00am April 13, 2021 5:00pm lidocaine 0.04 mg/mg medicated patch (6 sources) Antiarrhythmic, Amide Local Anesthetic Start: 06-20-2021 End: 12-19-2021 apply 1 dose transdermal route once daily lidocaine (SALONPAS) 4 % patch Apply 1 Patch as directed once daily. 0 06/20/2021 12/19/2021 Discontinued Comment on above: Apply 1 Patch as dir ected once daily. Nutritional Supplements (JUICE PLUS FIBRE PO) (1 source) End: 06-09-2022 take 2 capsules by mouth in the morning Nutritional Supplements (JUICE PLUS FIBRE PO) Take 2 capsules by mouth in the morning and 2 capsules in the evening. 0 06/09/2022 Discontinued (Med list cleanup) polyethylene glycol 3350 37557 mg powder for oral solution (6 sources) Osmotic Laxative Start: 07-17-2021 End: 12-19-2021 polyethylene glycol 3350 (MIRALAX, GLYCOLAX) 17 gram packet Take 1 Packet by mouth once daily as needed for constipation. Dissolve dose in 4 - 8 ounces of liquid and take as directed. 0 07/17/2021 12/19/2021 Discontinued Comment on above: Take 1 Packet by justino once daily as needed for constipation. Dissolve dose in 4 - 8 ounces of liquid and take as directed. predniSONE 20 mg oral tablet (7 sources) Start: 10-19-2023 End: 11-07-2023 take 2 tablets by mouth once daily Prednisone 20 mg tablet Discontinued 40 mg PO DAILY October 26, 2023 11:41am November 07, 2023 6:58pm Start: 12-24-2022 End: 03-18-2023 take 2 tablets by mouth once daily Prednisone 20 mg tablet Discontinued 40 mg PO DAILY December 24, 2022 12:00am March 18, 2023 3:27pm Start: 12-24-2022 End: 03-18-2023 take 40 mg by mouth once daily Prednisone Discontinued 40 MG PO DAILY December 24, 2022 12:00am March 18, 2023 3:27pm sertraline 50 mg oral tablet (20 sources) Serotonin Reuptake Inhibitor Start: 01-24-2024 End: 05-07-2024 take 2 tablets by mouth once daily, then take 3 tablets by mouth once daily Sertraline 50 mg tablet Discontinued 50 mg PO daily January 24, 2024 12:00am May 07, 2024 4:45pm take with the Sertraline 100 mg = 150 mg per day Start: 01-11-2022 End: 05-07-2024 take 1 tablet by mouth once daily sertraline (ZOLOFT) 100 mg tablet Indications: Recurrent major depressive disorder, in partial remission Take 1 tablet by mouth once daily. 90 tablet 1 01/11/2022 Active Start: 01-11-2022 take 1 tablet by justino th once daily sertraline (ZOLOFT) 100 mg tablet Indications: Recurrent major depressive disorder, in partial remission (HCC) Take 1 tablet by mouth once daily. 90 tablet 1 01/11/2022 Active Start: 09-19-2018 End: 03-08-2022 take 1 tablet by mouth once daily Sertraline 100 mg tablet Discontinued 100 mg PO DAILY April 03, 2020 3:03pm April 13, 2021 5:07pm Comment on above: TAKE 1 TABLET BY JUSTINO TH EVERY DAY Take 1 tablet by justino th once daily. tumeric (3 sources) Start: 11-15-2018 End: 02-11-2020 tumeric Discontinued PO November 15, 2018 12:00am February 11, 2020 4:09pm Problems Active Problems Problem Classification Problem Date Documented Da te Episodic/Chronic Asthma (4 sources) Asthmatic bronchitis; Translations: [Unspecified asthma, uncomplicated] Onset: 5 12-12-2020 Chronic Cardiac dysrhythmias (20 sources) Atrial fibrillation; Translations: [Unspecified atrial fibrillation] Onset: 5 Resolved: 2 06-25-2021 Chronic Cataract (20 sources) Bilateral age-related nuclear cataracts; Translations: [Age-related nuclear cataract, bilateral] Onset: 9 06-20-2018 Chronic Chronic obstructive pulmonary disease and bronchiectasis (3 sources) Bronchitis; Translations: [Bronchitis, not specified as acute or chronic] 03-05-2022 Episodic Congestive heart failure; nonhypertensive (2 sources) Congestive heart failure; Translations: [Heart failure, unspecified] Onset: 5 09-13-2024 Chronic Diseases of mouth; excluding dental (1 source) Disturbance of oral epithelium; Translations: [Leukoplakia of oral mucosa, including tongue] 03-30-2023 Episodic Disorders of teeth and jaw (1 source) Jaw pain; Translations: [Jaw pain] 01-18-2023 Episodic E Codes: Adverse effects of medical drugs (2 sources) Allergic reaction to drug; Translations: [Adverse effect of unspecified drugs, medicaments and biological substances, initial encounter] 07-26-2024 Episodic Essential hypertension (20 sources) Essential hypertension; Translations: [Essential (primary) hypertension] Onset: 5 Resolved: 2 06-20-2021 Chronic Fever of unknown origin (3 sources) Hyperpyrexia; Translations: [Fever, unspecified] 12-09-2020 Episodic Fracture of upper limb (2 sources) Fracture of unspecified carpal bone, right wrist, initial encounter for closed fracture; Translations: [Closed extraarticular fracture of distal radius] Onset: 4 05-02-2024 Episodic Hypertension with complications and secondary hypertension (20 sources) Chronic kidney disease stage 3A ; Translations: [Hypertensive chronic kidney disease with stage 1 through stage 4 chronic kidney disease, or unspecified chronic kidney disease] Onset: 3 06-09-2022 Chronic Immunizations and screening for infectious disease (1 source) Viral screening status; Translations: [Encounter for screening for other viral diseases] 01-17-2023 Episodic Mood disorders (20 sources) Recurrent major depression in partial remission; Translations: [Major depressive disorder, recurrent, in partial remission] Onset: 2 Chronic Nausea and vomiting (3 sources) Nausea; Translations: [Nausea] 12-24-2019 Episodic Noninfectious gastroenteritis (2 sources) Lymphocytic colitis; Translations: [Lymphocytic colitis] 07-26-2024 Chronic Nutritional deficiencies (1 source) Vitamin D deficiency; Translations: [Vitamin D deficiency, unspecified] Chronic Open wounds of extremities (6 sources) Puncture wound of foot; Translations: [Puncture wound without foreign body, unspecified foot, initial encounter] 02-29-2020 Episodic Osteoporosis (20 sources) Osteoporosis; Translations: [Age-related osteoporosis without current pathological fracture] Onset: 3 Chronic Other acquired deformities (2 sources) Wrist joint deformity; Translations: [Unspecified acquired deformity of right forearm] 05-07-2024 Episodic Other bone disease and musculoskeletal deformities (2 sources) Metabolic bone disease; Translations: [Other specified disorders of bone, unspecified site] 11-10-2023 Episodic Other circulatory disease (2 sources) Orthostatic hypotension; Translations: [Orthostatic hypotension] Onset: 2 Episodic Other connective tissue disease (3 sources) Foreign body; Translations: [Residual foreign body in soft tissue] 03-08-2022 Episodic Other ear and sense organ disorders (2 sources) Tinnitus; Translations: [Tinnitus, unspecified ear] 08-23-2024 Episodic Other gastrointestinal disorders (3 sources) Diarrhea; Translations: [Diarrhea, unspecified] 02-11-2020 Episodic Other lower respiratory disease (5 sources) Cough; Translations: [Cough] 05-16-2019 Episodic Other lower respiratory disease (3 sources) Wheezing; Translations: [Wheezing] 12-09-2020 Episodic Other lower respiratory disease (3 sources) Dyspnea; Translations: [Shortness of breath] 08-22-2024 Episodic Other lower respiratory disease (2 sources) Shortness of breath; Translations: [Shortness of breath] Onset: 5 Episodic Other nervous system disorders (20 sources) Neuropathy; Translations: [Polyneuropathy, unspecified] Onset: 8 Resolved: 2 Chronic Other nervous system disorders (2 sources) Polyneuropathy, unspecified; Translations: [Polyneuropathy, unspecified] Onset: 2 Chronic Other nervous system disorders (20 sources) Idiopathic peripheral neuropathy; Translations: [Hereditary and idiopathic neuropathy, unspecified] Onset: 2 04-14-2022 Chronic Other nervous system disorders (3 sources) Sensory polyneuropathy; Translations: [Other hereditary and idiopathic neuropathies] Chronic Other nervous system disorders (1 source) Neoplasm related pain (acute) (chronic); Translations: [Malignant bone pain] Onset: 4 Chronic Other nervous system disorders (2 sources) Other hereditary and idiopathic neuropathies; Translations: [Other hereditary and idiopathic neuropathies] Onset: 4 Chronic Other nervous system disorders (2 sources) Atypical facial pain; Translations: [Atypical facial pain] 03-01-2023 Episodic Other non-traumatic joint disorders (3 sources) Shoulder pain; Translations: [Pain in right shoulder] 04-14-2021 Episodic Other non-traumatic joint disorders (1 source) Pain in right wrist; Translations: [Right wrist pain] Onset: 4 Episodic Other non-traumatic joint disorders (1 source) Pain of right wrist; Translations: [Pain in right wrist] 05-01-2024 Episodic Other screening for suspected conditions (not mental disorders or infectious disease) (7 sources) Patient encounter status; Translations: [Encounter for screening mammogram for malignant neoplasm of breast] Episodic Other skin disorders (6 sources) Foot callus; Translations: [Corns and callosities] 12-04-2020 Episodic Other skin disorders (1 source) Rash and other nonspecific skin eruption; Translations: [Facial rash] Onset: 5 Episodic Other upper respiratory infections (4 sources) Maxillary sinusitis; Translations: [Chronic maxillary sinusitis] Onset: 5 05-16-2019 Chronic Other upper respiratory infections (4 sources) Acute recurrent ethmoidal sinusitis; Translations: [Acute ethmoidal sinusitis] Onset: 5 10-25-2024 Episodic Otitis media and related conditions (5 sources) Otitis media of left ear; Translations: [Otitis media, unspecified, left ear] 12-26-2022 Episodic Pneumonia (except that caused by tuberculosis or sexually transmitted disease) (4 sources) Community acquired pneumonia; Translations: [Pneumonia] 12-09-2020 Episodic Residual codes; unclassified (2 sources) Bilateral periorbital edema; Translations: [Localized edema] 07-26-2024 Episodic Residual codes; unclassified (1 source) Face goes red; Translations: [Flushing] 09-13-2024 Episodic Residual codes; unclassified (1 source) Localized edema; Translations: [Localized edema] Onset: 5 Episodic Retinal detachments; defects; vascular occlusion; and retinopathy (20 sources) Epiretinal membrane of left eye; Translations: [Puckering of macula, left eye] Onset: 1 05-13-2021 Chronic Sprains and strains (1 source) Unspecified sprain of right wrist, initial encounter; Translations: [Sprain of right wrist, initial encounter] Onset: 5 Episodic Superficial injury; contusion (8 sources) Contusion of chest; Translations: [Contusion of unspecified front wall of thorax, initial encounter] Onset: 5 02-11-2020 Episodic Thyroid disorders (20 sources) Hypothyroidism; Translations: [Hypothyroidism, unspecified] Onset: 6 Chronic Unclassified (1 source) Other supraventricular tachycardia (HCC); Translations: [Other supraventricular tachycardia (HCC)] Onset: 4 Urinary tract infections (3 sources) Cystitis; Translations: [Cystitis, unspecified without hematuria] 02-11-2020 Episodic Viral infection (4 sources) Herpes labialis; Translations: [Herpesviral vesicular dermatitis] 05-07-2024 Episodic Past or Other Problems Problem Classification Problem Date Documented Da te Episodic/Chronic Abdominal pain (4 sources) Finding of sensation of abdomen; Translations: [Unspecified abdominal pain] Onset: 1 Resolved: 5 07-05-2014 Episodic Allergic reactions (4 sources) Allergic condition; Translations: [Allergy, unspecified, initial encounter] Onset: 7 Resolved: 5 07-05-2014 Episodic Cardiac dysrhythmias (20 sources) Sinus bradycardia; Translations: [Bradycardia, unspecified] Onset: 0 Resolved: 2 06-25-2021 Episodic Conditions associated with dizziness or vertigo (7 sources) Dizziness; Translations: [Dizziness and giddiness] Onset: 4 02-12-2020 Episodic Conduction disorders (20 sources) Left bundle-branch block, unspecified; Translations: [Atrioventricular block, first degree] Onset: 5 Resolved: 3 Chronic Diverticulosis and diverticulitis (4 sources) Diverticulitis; Translations: [Diverticulitis of intestine, part unspecified, without perforation or abscess without bleeding] Onset: 7 Resolved: 0 05-12-2020 Chronic E Codes: Fall (2 sources) Unspecified fall, initial encounter; Translations: [Fall, initial encounter] Onset: 3 Episodic Esophageal disorders (6 sources) Gastroesophageal reflux disease; Translations: [Gastro-esophageal reflux disease without esophagitis] Onset: 8 Resolved: 5 07-05-2014 Chronic Fracture of upper limb (20 sources) Closed fracture of olecranon process of ulna; Translations: [Displaced fracture of olecranon process without intraarticular extension of left ulna, subsequent encounter for closed fracture with routine healing] Onset: 6 Resolved: 3 06-20-2021 Episodic Genitourinary symptoms and ill-defined conditions (4 sources) Female stress incontinence; Translations: [Stress incontinence (female) (male)] Resolved: 5 07-05-2014 Chronic Malaise and fatigue (20 sources) Asthenia; Translations: [Weakness] Onset: 7 Resolved: 3 06-20-2021 Episodic Nervous system congenital anomalies (5 sources) Split cord malformation; 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] Onset: 8 Resolved: 0 05-13-2020 Chronic Nonspecific chest pain (1 source) Other chest pain; Translations: [Chest wall pain] Onset: 3 Episodic Osteoarthritis (9 sources) Degenerative joint disease involving multiple joints; Translations: [Polyosteoarthritis, unspecified] Onset: 4 Resolved: 5 07-05-2014 Chronic Other aftercare (4 sources) Follow-up status; Translations: [Encounter for other specified aftercare] Onset: 2 Resolved: 2 07-17-2021 Episodic Other and unspecified benign neoplasm (4 sources) Leiomyoma; Translations: [Benign neoplasm of connective and other soft tissue, unspecified] Onset: 1 Resolved: 5 07-05-2014 Episodic Other bone disease and musculoskeletal deformities (1 source) Other specified disorders of bone, unspecified site; Translations: [Malignant bone pain] Onset: 4 Episodic Other connective tissue disease (20 sources) Trochanteric bursitis; Translations: [Trochanteric bursitis, unspecified hip] Onset: 7 Resolved: 3 03-15-2017 Episodic Other connective tissue disease (20 sources) Non-traumatic partial tear of right rotator cuff; Translations: [Incomplete rotator cuff tear or rupture of right shoulder, not specified as traumatic] Onset: 1 Resolved: 3 09-29-2020 Episodic Other connective tissue disease (4 sources) Repeated falls; Translations: [Repeated falls] Onset: 2 Episodic Other connective tissue disease (20 sources) Recurrent falls ; Translations: [Repeated falls] Onset: 7 Resolved: 3 06-09-2022 Episodic Other connective tissue disease (4 sources) Pain in limb; Translations: [Pain in unspecified limb] Resolved: 6 06-16-2005 Episodic Other female genital disorders (4 sources) Polyp of corpus uteri; Translations: [Polyp of corpus uteri] Onset: 1 Resolved: 5 07-05-2014 Episodic Other fractures (1 source) Fracture of one rib, left side, initial encounter for closed fracture; Translations: [Closed fracture of one rib of left side, initial encounter] Onset: 3 Episodic Other gastrointestinal disorders (1 source) Diarrhea, unspecified; Translations: [Diarrhea, unspecified] Onset: 4 Episodic Other nervous system disorders (20 sources) Abnormal gait; Translations: [Unspecified abnormalities of gait and mobility] Onset: 7 Episodic Other non-traumatic joint disorders (1 source) Pain in right hip joint; Translations: [Pain in right hip] Onset: 7 Resolved: 0 05-12-2020 Episodic Other non-traumatic joint disorders (3 sources) Hip pain; Translations: [Pain in right hip] Onset: 7 Resolved: 0 05-12-2020 Episodic Other screening for suspected conditions (not mental disorders or infectious disease) (4 sources) Endometrium thickened; Translations: [Abnormal findings on diagnostic imaging of other specified body structures] Onset: 1 Resolved: 5 07-05-2014 Chronic Pathological fracture (20 sources) Pathological fracture due to osteoporosis; Translations: [Age-related osteoporosis with current pathological fracture, unspecified site, sequela] Onset: 4 Resolved: 3 Episodic Residual codes; unclassified (4 sources) Pain; Translations: [Pain, unspecified] Onset: 4 Resolved: 5 07-05-2014 Episodic Spondylosis; intervertebral disc disorders; other back problems (20 sources) Lumbosacral radiculitis; Translations: [Radiculopathy, lumbosacral region] Onset: 2 Resolved: 3 Episodic Suicide and intentional self-inflicted injury (20 sources) Suicidal thoughts; Translations: [Suicidal ideations] Onset: 2 Resolved: 3 06-26-2021 Episodic Syncope (6 sources) Vasovagal syncope; Translations: [Syncope and collapse] Onset: 4 Resolved: 5 07-05-2014 Episodic Thyroid disorders (20 sources) Disorder of thyroid gland; Translations: [Disorder of thyroid, unspecified] Onset: 0 Resolved: 2 03-24-2022 Episodic Unclassified (2 sources) Strain of muscle at thorax level; Translations: [Thoracic myofascial strain, initial encounter] Unclassified (1 source) Other supraventricular tachycardia (HCC); Translations: [Other supraventricular tachycardia (HCC)] Onset: 4 NEGATED: Highlighted row has not occurred!Residual codes; unclassified (2 sources) Disease Episodic Results Test Name Value Interpretation Reference Range Facility [facility] 10-25-2024 CNOV Office Visit (OTOLMM ) YENY TAVERA ([id number]) 1945 F Date Time Provider Department 10/25/24 1:30 PM JASON EVERETT OTOL During your visit today, we recorded the following information about you: Jason Everett MD 10/25/2024 2:40 PM Signed HPI Yeny Tavera is a 78 year old female who presents with sinobronchitis. Patient states for almost 6 weeks she has complained of facial pain swelling cough shortness of breath weakness. Patient was given Omnicef and amoxicillin patient was seen by pulmonary no treatment was rendered yet. Patient gives no history of asthma presently. ROS General Weight loss: No Fatigue: No Night sweats:No Cardiac Chest pain:No Fast heart rate:No Swelling in the feet:No Respiratory Short of breath:No Cough:No Wheezing:No Gastrointestinal Nausea:No Vomiting:No Indigestion:No Past medical history, family history, and social history reviewed. PE There were no vitals taken for this visit. General: Patient is awake, alert, NAD. Voice is normal. Skin: normal Eyes: Extraocular motion and Gaze is normal. Ears: Right external auditory canal is normal. TMJ: normal. Right tympanic membranes normal. Left external auditory canal is normal. Left tympanic membrane normal. Nose: Septum is normal. Turbinates are normal. Mute purulence left middle meatus Nasopharynx:normal Oral Cavity/Oropharynx: Lips normal Dentition normal Tongue normal. Tonsils normal. Palate and uvula normal. Pharynx posterior normal Hypopharynx: Base of tongue normal Pyriform sinus normal. Larynx: Vocal cords normal. Epiglottis normal. Post cricoid normal. Salivary glands: Parotid normal. Submandibular and sublingual normal. Thyroid: normal. Lymphatic/Neck: Lymph nodes normal. Neurologic: Facial nerve normal. CT brain reviewed Lungs clear ASSESSMENT/PLAN: 1. SOB (shortness of breath) - ICD9: 786.05, ICD10: R06.02 (primary diagnosis) 2. Acute recurrent ethmoidal sinusitis - ICD9: 461.2, ICD10: J01.21 3. PND (post-nasal drip) - ICD9: 784.91, ICD10: R09.82 Augmentin for 10 days May need to send formal CT sinus follow through with pulmonary Jason Everett MD Findings will be communicated to the referring physician via mail or electronic medical record. Allergies As of Date: 10/25/2024 Noted Allergy Reaction SULFA (SULFONAMIDE ANTIBIOTICS) 12/02/1999 1 - Mental Status Change Comments: Fever, hallucinations, rash, swelling TETNUS (TETANUS VACCINES AND TOXO*06/25/2021 7 - Swelling Date Reviewed: 10/25/2024 Reviewed by: Jason Everett MD - Fully Assessed Reason for Visit: Sinus Problem [99] Cmt: Pain collarbone up, pounding headache forehead and back of head. Face swollen and red. Sx for more than a month. Took atb x2 in july brain CT . Nasal drainage was green and brown to yellow an white. SOB. Primary Visit Diagnosis:SOB (shortness of breath) [R06.02] Other Visit Diagnoses:Acute recurrent ethmoidal sinusitis [J01.21] PND (post-nasal drip) [R09.82] Order(s):amoxicillin-c lavulanate potassium (AUGMENTIN) 875-125 mg per tabletTake 1 tablet by mouth two times a day for 10 days.Disp: 20 tabletRfl: 0 Prescriptions as of 10/25/2024 - amoxicillin-clavulanat e potassium (AUGMENTIN) 875-125 mg per tablet Take 1 tablet by mouth two times a day for 10 days. - vit A/vit C/vit E/zinc/copper (PRESERVISION AREDS ORAL) Take 1 capsule by mouth two times a day. - ELIQUIS 5 mg tab(s) Take 5 mg by mouth twice daily. - sertraline (ZOLOFT) 100 mg tablet Take 1 tablet by mouth once daily. - calcium carbonate (CALCIUM 300 ORAL) Take by mouth. - metroNIDAZOLE (NORITATE) 1 % cream Apply 1 application to affected area once daily. - loperamide (IMODIUM) 2 mg cap(s) Take 1 capsule by mouth twice daily as needed for diarrhea. - psyllium (METAMUCIL) 3.4 gram packet Take 1 Packet by mouth twice daily as needed. - acetaminophen (TYLENOL) 325 mg tablet Take 2 tablets by mouth every 4 hours as needed for pain. - lactobacillus rhamnosus (CULTURELLE) 10 billion cell capsule Take 1 capsule by mouth once daily. - losartan (COZAAR) 50 mg tablet Take 1 tablet by mouth once daily. - Cholecalciferol, Vitamin D3, 125 mcg (5,000 unit) cap Take 1 capsule by mouth once daily. - ascorbic acid, vitamin C, (VITAMIN C) 500 mg tablet Take 500 mg by mouth once daily. - levothyroxine (SYNTHROID) 112 mcg tablet Take 1 tablet by mouth once daily. Take on empty stomach. For thyroid. - ASCORBIC ACID/BIOFLAVONOIDS (RISHABH C ORAL) Take by mouth once daily. winter only - vitamin b complex tab Take 1 tablet by mouth once daily. - NUTRITIONAL SUPPLEMENT/FIBER (JUICE PLUS FIBRE ORAL) Take 2 capsules by mouth twice daily. - Nuhdojjutmrtw-Do-Nbvx- Minerals (ONE-A-DAY WOMENS FORMULA) 27-0.4 mg ORAL Tab Take 1 tablet by mouth once daily. Problem L (more content not included)... Normal [facility] 36on 10-05-2024 36 S: Patient spoke wit h [facility] nurse regarding cough. B: Onset of symptoms/concern: seen in office yesterday, 10/04/24 A: Patient was seen yesterday to establish care, reports a cough for the past 2-3 weeks, states provider was aware when seen, was a dry cough prior but today it's turned into a deep chest cough, greenish brown with streaks of blood in it, no fever. 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 R: Paged Dr. Wright- recommends and urgent care appointment at the after hours clinic. Patient notified, verbalized understanding, scheduled at the after hours clinic in [place] tomorrow, 10/06/24 at 1145, insurance coverage verified, address provided. Reason for Disposition Coughing up marco-colored (reddish-brown) sputum Protocols used: Cough - Acute [id number] [place] [address] Notified of Echo results [place] [address] ----- Message from RACHELLE Carrera CNP sent at 10/02/2024 4:32 PM EDT ----- ----- Message ----- From: Bari Guerrero DO Sent: 10/02/2024 4:15 PM EDT To: RACHELLE Benson CNP [facility] 36 Pt requesting result s of echo done 10/02/24. OC fu scheduled 11/20/24 [facility] Heart TransthoracicOrdere d By: Bari Guerrero on 10-02-2024 Ao Root Index 1.52 cm/m2 [facility] Work Phone: Aortic Arch 2.9 cm [facility] Work Phone: [phone] Aortic Root 2.7 cm [facility] Work Phone: [phone] Aortic Sinus Valsalva 2.7 cm [facility] Work Phone: [phone] Aortic Sinus Valsalva Index 1.52 cm/m2 [facility] Work Phone: [phone] Aortic valve Orifice area by US 2.5 cm2 [facility] Work Phone: [phone] Ascending Aorta 3.3 cm [facility] Work Phone: [phone] Ascending Aorta Index 1.85 cm/m2 [facility] Work Phone: Est. RA Pressure 15 mmHg [facility] Work Phone: Fractional Shortening 2D 29 % 28 - 44 % [facility] Work Phone: Interpretation and review of laboratory results Abnormal [facility] Work Phone: [phone] IVC Diameter 2.2 cm [facility] [employer] Work Phone: [phone] IVSd 1.1 cm Abnormal 0.6 - 0.9 cm [facility] Work Phone: [phone] LA Diameter 4 cm [facility] Work Phone: LA Size Index 2.25 cm/m2 [facility] Work Phone: [phone] LA Volume 2C 62 mL Abnormal 22 - 52 mL [facility] Work Phone: LA Volume 4C 68 mL Abnormal 22 - 52 mL [facility] [employer] Work Phone: LA Volume A/L 68 mL [facility] Work Phone: LA Volume BP 65 mL Abnormal 22 - 52 mL [facility] [employer] Work Phone: LA Volume Index 2C 35 mL/m2 Abnormal 16 - 34 mL/m2 [facility] Work Phone: LA Volume Index 4C 38 mL/m2 Abnormal 16 - 34 mL/m2 [facility] [employer] Work Phone: LA Volume Index A/L 38 mL/m2 16 - 34 mL/m2 [facility] Work Phone: LA Volume Index BP 37 ml/m2 Abnormal 16 - 34 ml/m2 [facility] Work Phone: LA/AO Root Ratio 1.48 [facility] Work Phone: Left ventricular Ejection fraction by US.2D+Calculated by biplane method of disks 50 % Abnormal 55 - 100 % [facility] Work Phone: LV EDV A2C 65 mL [facility] Work Phone: LV EDV A4C 103 mL [facility] Work Phone: LV EDV BP 82 mL 56 - 104 mL [facility] Work Phone: LV EDV Index A2C 37 mL/m2 [facility] Work Phone: LV EDV Index A4C 58 mL/m2 [facility] Work Phone: LV EDV Index BP 46 mL/m2 [facility] Work Phone: LV Ejection Fraction A2C 56 % [facility] Work Phone: LV Ejection Fraction A4C 44 % [facility] Work Phone: LV ESV A2C 29 mL [facility] Work Phone: LV ESV A4C 58 mL [facility] Work Phone: LV ESV BP 41 mL 19 - 49 mL [facility] Work Phone: LV ESV Index A2C 16 mL/m2 [facility] Work Phone: LV ESV Index A4C 33 mL/m2 [facility] Work Phone: LV ESV Index BP 23 mL/m2 [facility] Work Phone: LV Mass 2D 157.1 g 67 - 162 g [facility] Work Phone: LV Mass 2D Index 88.2 g/m2 43 - 95 g/m2 [facility] Work Phone: LV RWT Ratio 0.52 [facility] Work Phone: LVIDd 4.2 cm 3.9 - 5.3 cm [facility] Work Phone: LVIDd Index 2.36 cm/m2 [facility] Work Phone: LVIDs 3 cm [facility] Work Phone: LVIDs Index 1.69 cm/m2 [facility] [employer] Work Phone: LVOT Cardiac Output 5.8 liter/minute [facility] Work Phone: LVOT Diameter 1.8 cm [facility] [employer] Work Phone: LVOT Mean Gradient 2 mmHg [facility] [employer] Work Phone: LVOT Peak Gradient 3 mmHg [facility] [employer] Work Phone: LVOT Peak Velocity 0.9 m/s [facility] [employer] Work Phone: [phone] LVOT Stroke Volume Index 24.3 mL/m2 [facility] [employer] Work Phone: LVOT SV 43.2 ml [facility] [employer] Work Phone: LVOT VTI 17 cm [facility] [employer] Work Phone: LVPWd 1.1 cm Abnormal 0.6 - 0.9 cm [facility] [employer] Work Phone: MV A Velocity 0.24 m/s [facility] Work Phone: [phone] MV E Velocity 0.98 m/s [facility] Work Phone: MV E Wave Deceleration Time 226.2 ms [facility] [employer] Work Phone: MV E/A 4.08 [facility] [employer] Work Phone: RA Area 4C 73.6 mL [facility] Work Phone: RA Area 4C 70.4 mL [facility] Work Phone: RV Basal Dimension 3.2 cm [facility] Work Phone: RV Free Wall Peak S' 17 cm/s [facility] Work Phone: RV Longitudinal Dimension 5.6 cm [facility] Work Phone: [phone] RV Mid Dimension 2.5 cm [facility] Work Phone: [phone] RVSP 41 mmHg [facility] Work Phone: [phone] Sinotubular Junction 2.2 cm [facility] Work Phone: [phone] TAPSE 1.7 cm 1.7 cm [facility] Work Phone: [phone] TR Max Velocity 2.57 [facility]s [facility]: TR Peak Gradient 27 mmHg [facility] Work Phone: [phone] TR Peak Velocity PISA 2.9 m/s [facility] Work Phone: [phone] TR VTI 87.7 cm [facility] Work Phone: [phone] TV EROA 0.3 cm2 [facility] Work Phone: [phone] TV Nyquist Velocity 36 cm/s [facility] Work Phone: [phone] [facility] Work Phone: US Heart Transthoracicon Left Ventricle: Left ventricle size is normal. Mildly increased wall thickness. Low normal left ventricular systolic function. EF by 2D Simpsons Biplane is 50%. Global hypokinesis present. Low range normal Right Ventricle: Right ventricle size is normal. Pacemaker lead present in the right ventricle. Normal systolic function. TAPSE is normal. Tricuspid Valve: Valve structure is normal. Moderate (2+) regurgitation. Moderately elevated RVSP. RVSP is 41 mmHg. Left Atrium: Left atrium size is mildly increased (LA volume index 35-41 mL/m2). Right Atrium: Right atrium is mildly dilated. Pacemaker lead present in the right atrium. Aorta: Normal sized sinuses of Valsalva and ascending aorta. Pericardium: No pericardial effusion. Left Ventricle Left ventricle size is normal. Mildly increased wall thickness. Low normal left ventricular systolic function. EF by 2D Simpsons Biplane is 50%. Global hypokinesis present. Low range normal Indeterminate diastolic function. Right Ventricle Right ventricle size is normal. Pacemaker lead present in the right ventricle.Normal systolic function. TAPSE is normal. Left Atrium Left atrium size is mildly increased (LA volume index 35-41 mL/m2). Right Atrium Right atrium is mildly dilated. Pacemaker lead present in the right atrium. IVC/SVC IVC is mildly dilated. IVC diameter is dilated and decreases less than 50% during inspiration; therefore the estimated right atrial pressure is elevated (~15 mmHg). Mitral Valve Valve structure is normal. Trace regurgitation. No stenosis noted. Tricuspid Valve Valve structure is normal. Moderate (2+) regurgitation. Moderately elevated RVSP. RVSP is 41 mmHg. Aortic Valve Trileaflet. No cusp thickening. No cusp calcification. No regurgitation. No stenosis. Pulmonic Valve Valve structure is normal. Trace regurgitation. Ascending Aorta Normal sized sinuses of Valsalva and ascending aorta. Pericardium No pericardial effusion. Septum Interatrial septum was not well visualized. No interatrial shunt visualized on color Doppler. Study Details Image quality: adequate. Heart rate: 78 bpm. Blood pressure: 149/64 mmHg. No contrast was given. CV CPACS Allergen Resp. Area 5on 05-0 ALTERNARIA TEN <0.10 Normal Class 0 [facility] Comment on above: Order Comment: Reaso n for Exam: Asthma Performed By: #### L 100.0100, L500.4050, L501.9520, L3410.2350 #### [facility] [address] [place], [address] GM, WHITE <0.10 Normal Class 0 [facility] Comment on above: Order Comment: Reaso n for Exam: Asthma Performed By: #### L 100.0100, L500.4050, L501.9520, L3410.2350 #### [facility] [address] [place], [address] ASPERGILLUS FUM <0.10 Normal Class 0 [facility] Comment on above: Order Comment: Reaso n for Exam: Asthma Performed By: #### L 100.0100, L500.4050, L501.9520, L3410.2350 #### [facility] [address] [place], [address] BERMUDA GRASS <0.10 Normal Class 0 [facility] Comment on above: Order Comment: Reaso n for Exam: Asthma Performed By: #### L 100.0100, L500.4050, L501.9520, L3410.2350 #### [facility] [address] [place], [address] BIRCH <0.10 Normal Class 0 [facility] Comment on above: Order Comment: Reaso n for Exam: Asthma Performed By: #### L 100.0100, L500.4050, L501.9520, L3410.2350 #### [facility] [address] [place], [address] BLACK WALNUT <0.10 Normal Class 0 [facility] Comment on above: Order Comment: Reaso n for Exam: Asthma Performed By: #### L 100.0100, L500.4050, L501.9520, L3410.2350 #### [facility] [address] [place], [address] CAT HAIR/DANDER <0.10 Normal Class 0 [facility] Comment on above: Order Comment: Reaso n for Exam: Asthma Performed By: #### L 100.0100, L500.4050, L501.9520, L3410.2350 #### [facility] [address] [place], [address] CLADOSPOR HERB <0.10 Normal Class 0 [facility] Comment on above: Order Comment: Reaso n for Exam: Asthma Performed By: #### L 100.0100, L500.4050, L501.9520, L3410.2350 #### [facility] [address] [place], [address] COCKROACH,AMER <0.10 Normal Class 0 [facility] Comment on above: Order Comment: Reaso n for Exam: Asthma Performed By: #### L 100.0100, L500.4050, L501.9520, L3410.2350 #### [facility] [address] [place], [address] COMMENT Comment Normal . [facility] Comment on above: Order Comment: Reaso n for Exam: Asthma Result Comment: Daija casiano of Specific IgE Class Description of Class ----- < 0.10 0 Negative 0.10 - 0.31 0/I Equivocal/Low 0.32 - 0.55 I Low 0.56 - 1.40 II Moderate 1.41 - 3.90 III High 3.91 - 19.00 IV Very High 19.01 - 100.00 V Very High >100.00 Very High Performed By: #### L 100.0100, L500.4050, L501.9520, L3410.2350 #### [facility] [address] [place], [address] COTTONWOOD <0.10 Normal Class 0 [facility] Comment on above: Order Comment: Reaso n for Exam: Asthma Performed By: #### L 100.0100, L500.4050, L501.9520, L3410.2350 #### [facility] [address] [place], [address] D FARINAE MITE <0.10 Normal Class 0 [facility] Comment on above: Order Comment: Reaso n for Exam: Asthma Performed By: #### L 100.0100, L500.4050, L501.9520, L3410.2350 #### [facility] [address] [place], [address] D PTERONYSSINUS <0.10 Normal Class 0 [facility] Comment on above: Order Comment: Reaso n for Exam: Asthma Performed By: #### L 100.0100, L500.4050, L501.9520, L3410.2350 #### [facility] [address] [place], [address] DOG EPITHELIA <0.10 Normal Class 0 [facility] Comment on above: Order Comment: Reaso n for Exam: Asthma Performed By: #### L 100.0100, L500.4050, L501.9520, L3410.2350 #### [facility] [address] [place], [address] ELM,AMER WHITE <0.10 Normal Class 0 [facility] Comment on above: Order Comment: Reaso n for Exam: Asthma Performed By: #### L 100.0100, L500.4050, L501.9520, L3410.2350 #### [facility] [address] [place], [address] IMMUNOGLOB E 5 IU/mL Low 6-495 [facility] Comment on above: Order Comment: Reaso n for Exam: Asthma Performed By: #### L 100.0100, L500.4050, L501.9520, L3410.2350 #### [facility] [address] [place], [address] MAPLE/BOX ELDER <0.10 Normal Class 0 [facility] Comment on above: Order Comment: Reaso n for Exam: Asthma Performed By: #### L 100.0100, L500.4050, L501.9520, L3410.2350 #### [facility] [address] [place], [address] MOUNTAIN CEDAR <0.10 Normal Class 0 [facility] Comment on above: Order Comment: Reaso n for Exam: Asthma Performed By: #### L 100.0100, L500.4050, L501.9520, L3410.2350 #### [facility] [address] [place], [address] Mouse Urine <0.10 Normal Class 0 [facility] Comment on above: Order Comment: Reaso n for Exam: Asthma Performed By: #### L 100.0100, L500.4050, L501.9520, L3410.2350 #### [facility] [address] [place], [address] MULBERRY,WHITE <0.10 Normal Class 0 [facility] Comment on above: Order Comment: Reaso n for Exam: Asthma Performed By: #### L 100.0100, L500.4050, L501.9520, L3410.2350 #### [facility] [address] [place], [address] OAK, WHITE <0.10 Normal Class 0 [facility] Comment on above: Order Comment: Reaso n for Exam: Asthma Performed By: #### L 100.0100, L500.4050, L501.9520, L3410.2350 #### [facility] [address] [place], [address] PECAN <0.10 Normal Class 0 [facility] Comment on above: Order Comment: Reaso n for Exam: Asthma Performed By: #### L 100.0100, L500.4050, L501.9520, L3410.2350 #### [facility] [address] [place], [address] PEN NOTATUM <0.10 Normal Class 0 [facility] Comment on above: Order Comment: Reaso n for Exam: Asthma Performed By: #### L 100.0100, L500.4050, L501.9520, L3410.2350 #### [facility] [address] [place], [address] PIGWEED, ROUGH <0.10 Normal Class 0 [facility] Comment on above: Order Comment: Reaso n for Exam: Asthma Performed By: #### L 100.0100, L500.4050, L501.9520, L3410.2350 #### [facility] [address] [place], [address] RAGWEED SH/COM <0.10 Normal Class 0 [facility] Comment on above: Order Comment: Reaso n for Exam: Asthma Performed By: #### L 100.0100, L500.4050, L501.9520, L3410.2350 #### [facility] [address] [place], [address] IRISH THISTLE <0.10 Normal Class 0 [facility] Comment on above: Order Comment: Reaso n for Exam: Asthma Performed By: #### L 100.0100, L500.4050, L501.9520, L3410.2350 #### [facility] [address] [place], [address] SHEEP SORREL <0.10 Normal Class 0 [facility] Comment on above: Order Comment: Reaso n for Exam: Asthma Result Comment: Perf ormed at: - [facility] [id number] Mattress Specialist: Gagandeep Mccullough MD, Phone: [phone] Performed By: #### L 100.0100, L500.4050, L501.9520, L3410.2350 #### [facility] [address] [place], [address] SYCAMORE, AMER <0.10 Normal Class 0 [facility] Comment on above: Order Comment: Reaso n for Exam: Asthma Performed By: #### L 100.0100, L500.4050, L501.9520, L3410.2350 #### [facility] [address] [place], [address] THOMAS GRASS <0.10 Normal Class 0 [facility] Comment on above: Order Comment: Reaso n for Exam: Asthma Performed By: #### L 100.0100, L500.4050, L501.9520, L3410.2350 #### [facility] [address] [place], [address] Pulmonary Visit Reporton Pulmonary Visit Report [facility] [place] [address] [place] [address] OFFICE VISIT Date of Service: 09/26/24 MR#: [id number] Acct: [id number] Name: YENY TAVERA Rep #: [id number] : 1945 Provider: Dr. Jorge Nicole DO Age/Sex: 78/F Location: [facility] Status: Signed Assessment and Plan Assessment and Plan (1) SOB (shortness of breath): Status: Chronic Plan: The exact etiology for the patient's dyspnea is not entirely clear. She has no pre-existing lung conditions nor is she a smoker. Her oxygen saturations are normal at today's office visit. She does have a known history of atrial fibrillation and is status post pacemaker placement. According to the patient, however, her most recent cardiac workup was unremarkable. At this time, we will plan to obtain baseline pulmonary function studies along with a 6-minute walk test. Over concerns that she may also have a component of seasonal allergic rhinitis, we will obtain a RAST profile as well. In addition, I do feel that the patient's underlying anxiety may also be contributing to her perception of dyspnea. If this remains inadequately addressed at her follow-up office visit, will refer to psychiatry for further management and workup. Orders: Orders Simple Pulmonary Exercise Test 10/30/24 R06.02 - Shortness of breath PFT Complete - DLCO, Spirometry b/a bronchodilators, lung volumes 11/02/24 R06.02 - Shortness of breath Allergen Resp. Area 5 Today R06.02 - Shortness of breath HPI HPI Comments Details: The patient is a 78-year-old female who presents to the clinic today in referral for the evaluation of shortness of breath. The patient reported that she has been experiencing predominantly exertional dyspnea since July, but is unable to identify any precipitating or inciting factor. The patient does have a history of atrial fibrillation and is status post pacemaker placement. She is currently followed by Dr. Rucker of cardiology. According to the patient, the pumping function of her heart was last noted to be normal. The patient has never been diagnosed formally with asthma. She is a lifelong non-smoker, but does report prior secondhand smoke exposure. In addition to her dyspnea, she does have an occasional dry, nonproductive cough, but denies any chest tightness or wheezing. She does currently keep 1 dog as a pet in her home environment. She does not utilize any inhalers at her baseline. Again, according to the patient, her thyroid function has been checked recently and her Synthroid was recently adjusted by her primary care provider 2 weeks ago. She is systemically anticoagulated on Eliquis. She did have a recent normal outside chest x-ray along with a CT sinus, which demonstrated evidence of chronic sinusitis. In addition to all of the aforementioned, the patient did report the presence of underlying anxiety. Intake Vital Signs 08/22/24 10:30 09/26/24 08:41 Height 5 ft 8 in 5 ft 8 in Weight: 148 lb BMI 22.5 BP 142/84 H Blood Pressure Location Lt brachial Position Sitting Respiration 18 Pulse 70 Pulse Source Monitor Temp 95.3 F L Temperature Source Temporal Artery Pulse Oximetry (%) 99 Oxygen Delivery Method room air Intake Visit Reasons: Shortness of breath Headwaitress Required: No Accompanied by: Self Allergies Sulfa (Sulfonamide Antibiotics) Allergy (Severe, Verified 09/26/24 10:28) Edema, Trouble Breathing vancomycin Allergy (Severe, Verified 09/26/24 10:28) itchy scalp Medications ???Medication ???Instructions ???Recorded ???Confirmed ???Type Bcomplex-C #13-folic acid 1 mg-vit 1 tab PO DAILY 11/15/18 09/26/24 History D3 1,750 unit disintegrating tablet cholecalciferol (vitamin D3) 50 2,000 unit PO DAILY 11/15/1809/26 History mcg (2,000 unit) capsule apixaban 5 mg tablet (Eliquis) 5 mg PO BID #60 tabs 10/11/2308/30 Rx diclofenac sodium 1 % topical gel 4 g topical ONCE #50 grams 09/26/24 Rx losartan 50 mg tablet 50 mg PO DAILY #90 tabs 05/07/24 0 09/26/24 Rx sertraline 100 mg tablet 100 mg PO DAILY #90 tabs 05/07/24 09/26/24 Rx valacyclovir 1 gram tablet 2,000 mg (2 x 1 gram) PO BID PRN 1 07/08/23 09/26/24 Rx cold sores 1 day #4 tabs levothyroxine 137 mcg tablet 137 mcg PO QDAY #30 tabs 09/14/24 09/26/24 Rx coenzyme Q10 10 mg capsule 10 mg PO ONCE 09/26/24 09/26/24 Hi story vitamins A,C,R-lhkh-fsmpty 4,296 1 cap PO BID 09/26/24 09/26/24 His tory mcg-226 mg-90 mg capsule (PreserVision AREDS) Have you fallen in the past year?: Yes PFSH Medical History Lymphocytic colitis Cold sore Fracture of right wrist Pacemaker Foot callus Osteoarthritis Hypertension Hypothyroidism Seasonal (more content not included)... [facility] 36on 09-17-2024 36 Echo scheduled at [facility] 10/02/24 at 1pm. Pt informed [facility] 36on 09-14-2024 [address] z[address]on t Dr Parkinson ordered an Echo and spoke to Osbaldo Duran [facility] [address] Parkinson's recommendations [facility] 36 Called patient who said that Osbaldo Duran feels that swelling of her head and neck is from CHF 3 ED visit for facial pain diagnosed with sinus infection No swelling in feet or abdomen c/o SOB walking to mailbox Dr Parkinson spoke with Osbaldo Fowler will order an Echo [facility] 36 Pt lvm stating that she was seen by Osbaldo Fowler last night. Pt states that Osbaldo told her that there is defiantly wrong with her heart. Facial swelling and neck pain. Osbaldo told pt she has an irregular pt states she over all feels bad. Pt requesting an appt juana OC fu 10/2024 [facility] Absolute neutrophil countOrd ered By: Osbaldo Fowler on 09-13-2024 Neutrophils (Bld) [#/Vol] 4.0 10*3/uL 2.0-7.7 [facility] Basophil percentageOrdered B y: Osbaldo Fowler on 09-13-2024 Basophils/100 WBC (Bld) 0.7 % 0-1 [facility] CBC W/Diff, Automatedon 04-06 05-2024 Absolute Lymph 0.91 X10 3/uL Normal 0.83-4.51 [facility] Comment on above: Performed By: #### L 100.0100, L500.4050, L501.9520, L3410.2350 #### [facility] [address] [place], [address] Absolute Neut 4.0 X10 3/uL Normal 2.0-7.7 [facility] Comment on above: Performed By: #### L 100.0100, L500.4050, L501.9520, L3410.2350 #### [facility] [address] [place], [address] Basophils/100 WBC (Bld) 0.7 % Normal 0-1 [facility] Comment on above: Performed By: #### L 100.0100, L500.4050, L501.9520, L3410.2350 #### [facility] [address] [place], [address] Eosinophils/100 WBC (Bld) 1.3 % Normal 0-5 [facility] Comment on above: Performed By: #### L 100.0100, L500.4050, L501.9520, L3410.2350 #### [facility] [address] [place], [address] Erythrocyte distribution width (RBC) [Ratio] 13.4 % Normal 11.6-14.6 [facility] Comment on above: Performed By: #### L 100.0100, L500.4050, L501.9520, L3410.2350 #### [facility] [address] [place], [address] Hematocrit (Bld) [Volume fraction] 42.8 % Normal 37-47 [facility] Comment on above: Performed By: #### L 100.0100, L500.4050, L501.9520, L3410.2350 #### [facility] [address] [place], [address] Hemoglobin (Bld) [Mass/Vol] 14.3 g/dL Normal 12.0-15.0 [facility] Comment on above: Performed By: #### L 100.0100, L500.4050, L501.9520, L3410.2350 #### [facility] [address] [place], [address] IG% 0.200 Normal 0.0-0.9 [facility] Comment on above: Result Comment: IG% - Immature Granulocytes (promyelocytes, myelocytes and metamyelocytes) > 1% indicates that a LEFT SHIFT is Present. Performed By: #### L 100.0100, L500.4050, L501.9520, L3410.2350 #### [facility] [address] [place], [address] Lymphocytes/100 WBC (Bld) 16.6 % Low 19-41 [facility] Comment on above: Performed By: #### L 100.0100, L500.4050, L501.9520, L3410.2350 #### [facility] [address] [place], [address] MCH (RBC) [Entitic mass] 31.4 pg Normal 27.0-32.0 [facility] Comment on above: Performed By: #### L 100.0100, L500.4050, L501.9520, L3410.2350 #### [facility] [address] [place], [address] MCHC (RBC) [Mass/Vol] 33.4 g/dL Normal 32-36 [facility] Comment on above: Performed By: #### L 100.0100, L500.4050, L501.9520, L3410.2350 #### [facility] [address] [place], [address] MCV (RBC) [Entitic vol] 94.1 fL Normal 81-99 [facility] Comment on above: Performed By: #### L 100.0100, L500.4050, L501.9520, L3410.2350 #### [facility] [address] [place], [address] Monocytes/100 WBC (Bld) 8.8 % Normal 0-10 [facility] Comment on above: Performed By: #### L 100.0100, L500.4050, L501.9520, L3410.2350 #### [facility] [address] [place], [address] Neutrophils/100 WBC (Bld) 72.4 % High 47-70 [facility] Comment on above: Performed By: #### L 100.0100, L500.4050, L501.9520, L3410.2350 #### [facility] [address] [place], [address] Nucleated RBC (Bld) [#/Vol] 0 10*3/uL Normal 0-5 [facility] Comment on above: Performed By: #### L 100.0100, L500.4050, L501.9520, L3410.2350 #### [facility] [address] [place], [address] Platelet mean volume (Bld) [Entitic vol] 10.8 fL Normal 6.2-12.0 [facility] Comment on above: Performed By: #### L 100.0100, L500.4050, L501.9520, L3410.2350 #### [facility] [address] [place], [address] Platelets (Bld) [#/Vol] 165 10*3/uL Normal 150-450 [facility] Comment on above: Performed By: #### L 100.0100, L500.4050, L501.9520, L3410.2350 #### [facility] [address] [place], [address] RBC (Bld) [#/Vol] 4.55 10*6/uL Normal 4.2-5.4 [facility] Comment on above: Performed By: #### L 100.0100, L500.4050, L501.9520, L3410.2350 #### [facility] [address] [place], [address] RDW SD 46.7 fl High 35.1-43.9 [facility] Comment on above: Performed By: #### L 100.0100, L500.4050, L501.9520, L3410.2350 #### [facility] [address] [place], [address] WBC (Bld) [#/Vol] 5.5 10*3/uL Normal 4.4-11.0 [facility] Comment on above: Performed By: #### L 100.0100, L500.4050, L501.9520, L3410.2350 #### [facility] [address] [place], [address] D-Dimer Quantitative (DVT/PE )on 09-13-2024 D-DIMER QUANT 0.27 FEU/ug/m Normal 0.27-0.49 [facility] Comment on above: Result Comment: NORM AL D-Dimer level (<0.50) indicates no DVT or PE. Performed By: #### L 100.0100, L500.4050, L501.9520, L3410.2350 #### [facility] [address] [place], [address] D-dimer measurement for deep venous thrombosisOrdered By: Osbaldo Fowler on 09-13-2024 D-Dimer Quantitative (PE/DVT) 0.27 FEU/ug/m 0.27-0.49 [facility] Comment on above: NORMAL D-Dimer level (<0.50) indicates no DVT or PE. Eosinophil percentageOrdered By: Osbaldo Fowler on 09-13-2024 Eosinophils/100 WBC (Bld) 1.3 % 0-5 [facility] Erythrocyte distribution wid th (RBC) [Ratio]Ordered By: Osbaldosrinath Fowler on 09-13-2024 Erythrocyte distribution width (RBC) [Entitic vol] 46.7 fL High 35.1-43.9 [facility] Erythrocyte distribution wid th ratioOrdered By: Osbaldosrinath Fowler on 09-13-2024 Erythrocyte distribution width (RBC) [Ratio] 13.4 % 11.6-14.6 [facility] Hematocrit Auto (Bld) [Volum e fraction]Ordered By: Osbaldosrinath Fowler on 09-13-2024 Hematocrit (Bld) [Volume fraction] 42.8 % 37-47 [facility] Hemoglobin measurementOrdere d By: Osbaldo Fowler on 09-13-2024 Hemoglobin (Bld) [Mass/Vol] 14.3 g/dL 12.0-15.0 [facility] Immature granulocytes/100 WB C Auto (Bld)Ordered By: Osbaldo Fowler on 09-13-2024 Immature granulocytes/100 WBC (Bld) 0.200 % 0.0-0.9 [facility] Comment on above: IG% - Immature Granu locytes (promyelocytes, myelocytes and metamyelocytes) > 1% indicates that a LEFT SHIFT is Present. L503.7505on 09-13-2024 Natriuretic peptide B (Bld) [Mass/Vol] 963 pg/mL Normal <=1800 [facility] Comment on above: Result Comment: Hear t Failure Unlikely: < 300 pg/mL Heart Failure Likely < 50 Years: > 450 pg/mL 50-75 Years: > 900 pg/mL >75 Years: > 1800 pg/mL Performed By: #### L 100.0100, L500.4050, L501.9520, L3410.2350 #### [facility] [address] [place], [address] Lymphocytes Auto (Unsp spec) [#/Vol]Ordered By: Osbaldo Fowler on 09-13-2024 Lymphocytes (Bld) [#/Vol] 0.91 10*3/uL 0.83-4.51 [facility] Lymphocytes/100 WBC Auto (Un sp spec)Ordered By: Osbaldo Fowler on 09-13-2024 Lymphocytes/100 WBC (Bld) 16.6 % Low 19-41 [facility] MCV (mean corpuscular volume ) determinationOrdered By: Osbaldo Fowler on 09-13-2024 MCV (RBC) [Entitic vol] 94.1 fL 81-99 [facility] Mean corpuscular hemoglobin (MCH) determinationOrdered By: Osbaldo Fowler on 09-13-2024 MCH (RBC) [Entitic mass] 31.4 pg 27.0-32.0 [facility] Mean corpuscular hemoglobin concentration (MCHC) determinationOrdered By: Osbaldo Fowler on 09-13-2024 MCHC (RBC) [Mass/Vol] 33.4 g/dL 32-36 [facility] Mean platelet volume determi nationOrdered By: Osbaldo Fowler on 09-13-2024 Platelet mean volume (Bld) [Entitic vol] 10.8 fL 6.2-12.0 [facility] Monocyte percentageOrdered B y: Osbaldo Fowler on 09-13-2024 Monocytes/100 WBC (Bld) 8.8 % 0-10 [facility] Natriuretic peptide.B prohor kacey N-Terminal [Mass/Vol]Ordered By: Osbaldo Fowler on 09-13-2024 Natriuretic peptide B (Bld) [Mass/Vol] 963 pg/mL <1800 [facility] Comment on above: Heart Failure Unlike ly: < 300 pg/mLHeart Failure Likely< 50 Years: > 450 pg/mL50-75 Years: > 900 pg/mL>75 Years: > 1800 pg/mL Neutrophil percentageOrdered By: Osbaldo Fowler on 09-13-2024 Neutrophils/100 WBC (Bld) 72.4 % High 47-70 [facility] Nucleated red blood cell per centageOrdered By: Osbaldo Fowler on 09-13-2024 Nucleated RBC/100 WBC (Bld) [Ratio] 0 % 0-5 [facility] Platelet countOrdered By: Fowler on 09-13-2024 Platelets (Bld) [#/Vol] 165 10*3/uL 150-450 [facility] RBC Auto (Bld) [#/Vol]Ordere d By: Osbaldo Douglasson on 09-13-2024 RBC (Bld) [#/Vol] 4.55 10*6/uL 4.2-5.4 [facility] TSH DL <= 0.005 mIU/L QnOrde red By: Osbaldo Fowler on 09-13-2024 Thyroid Stimulating Hormone (TSH) 4.300 uIU/mL High 0.300-4.200 [facility] Thyroid Stim Hormone (TSH)on 09-13-2024 TSH 4.300 uIU/mL High 0.300-4.200 [facility] Comment on above: Performed By: #### L 100.0100, L500.4050, L501.9520, L3410.2350 #### [facility] [address] [place], [address] White blood cell (WBC) count Ordered By: Osbalod Douglasson on 09-13-2024 WBC (Bld) [#/Vol] 5.5 10*3/uL 4.4-11.0 [facility] 36on 08-24-2024 36 Notified patient of device interrogation which was unchanged symptoms of rash swallowing discomfort with c/o thick throat headache need followed up by PCP Normal [facility] 36 Patient does not kno w how to send in remote will ask device clinic to assist her Normal [facility] 36 Pt lvm that she went to the ER in [place] as previously noted. Pt did not send remote reading Normal [facility] BEAN Comprehensive Panelon ANTI-DNA (DS)AB 4 IU/mL Normal 0-9 [facility] Comment on above: Result Comment: Nega tive <5 Equivocal 5 - 9 Positive >9 Performed By: #### L 501.6710, L505.7010, L3100.5440, L500.4050, L506.0400, L501.9520 #### [facility] [address] [place], [address] ANTISCLERODERM <0.2 Normal 0.0-0.9 [facility] Comment on above: Performed By: #### L 501.6710, L505.7010, L3100.5440, L500.4050, L506.0400, L501.9520 #### [facility] [address] [place], [address] 36on 08-23-2024 36 EKG reviewed, V-pace d with underlying atrial flutter . Will follow up with device check once completed Normal [place] [address] EKG received from Do ra Fowler, will forward to Liliana Anderson to review Normal [place] [address] We can do a remote device check Normal [place] [address] PC to patient, state s she is not experiencing any SOB, palpitations, CP, or syncope. C/O generalized body aches, neck pain, flushed skin, puffy face, blurry vision, wrist and collar bone pain. Recent ED visit for mechanical fall 08/03/24, did not hit head/ or have LOC, work-up unremarkable. Visited her PCP to discuss concerns, will review EKG once received. HX of CHB and PPM, 08/21 device showed rate controlled afib on Eliquis. Normal [facility] 36 Lvm w Osbaldo Dixon n to obtain EKG done 08/22/24. Pt HR 47 EKG done last night pt was told that she was bradycardic and throwing pvcs per pt. Pt will email the EKG Pt last seen 04/17/25 OC fu 11/20/24 Normal [facility] ALLIED HEALTHon 08-23-2024 ALLIED HEALTH HNO ID: [id number] Author: SARAH ESTRADA RT(R) Service: ? Author Type: Technologist Type: Allied Health Filed: 08/23/2024 14:38 Note Text: Radiology Service Progress Note PATIENT NAME: Yeny Tavera DATE OF SERVICE: August 23, 2024 TIME: 2:37 PM PATIENT IDENTITY VERIFICATION COMPLETED USING TWO (2) IDENTIFIERS: Name and Date of confirmed by patient verbally. FALL SCREENING: Has the patient had 2 falls in the last year or 1 fall with injury or currently using an Ambulatory Assistive Device (Walker, Cane, Wheelchair, Crutches, etc.)? No PATIENT GENDER DATA: Assigned female at . status: : No status: NO. PATIENT RELEVANT IMPLANT DATA REVIEWED: Yes PATIENT PRESENTS WITH AN IMPLANTABLE OR ATTACHED WOOD POLISHER: No RADIOLOGY DEPARTMENT: CT; Exam(s) Completed: Brain and Neck PERIPHERAL IV DATA: Not applicable SIGNED BY: Sarah Estrada, RT(R) August 23, 2024 2:37 PM Normal [facility] CBC W Auto Differential pane l (Bld)on 08-23-2024 Basophils (Bld) [#/Vol] 0.00 10*3/uL Normal <0.11 [facility] Comment on above: Order Comment: Speci men Type: BLOOD SPECIMENOrdering Facility: [facility] Address: [address] [place] [address] Performed By: #### 5 7021-8 ####[facility] LABCLIA [id number] [place] [address] [place] Basophils/100 WBC (Bld) 0.0 % Normal [facility] Comment on above: Order Comment: Speci men Type: BLOOD SPECIMENOrdering Facility: [facility] Address: [address] [place] [address] Performed By: #### 5 7021-8 ####[facility] LABCLIA [id number] [place] [address] [place] Differential cell count method Nom (Bld) Manual Normal [facility] Comment on above: Order Comment: Speci men Type: BLOOD SPECIMENOrdering Facility: [facility] Address: [address] [place] [address] Performed By: #### 5 7021-8 ####[facility] LABCLIA [id number] [place] [address] [place] Eosinophils (Bld) [#/Vol] 0.13 10*3/uL Normal <0.46 [facility] Comment on above: Order Comment: Speci men Type: BLOOD SPECIMENOrdering Facility: [facility] Address: [address] [place] [address] Performed By: #### 5 7021-8 ####[facility] LABCLIA [id number] [facility] [place] [address] [place] Eosinophils/100 WBC (Bld) 2.0 % Normal [facility] Comment on above: Order Comment: Speci men Type: BLOOD SPECIMENOrdering Facility: [facility] Address: [address] [place] [address] Performed By: #### 5 7021-8 ####[facility] LABCLIA [id number] [facility] [place] [address] [place] Erythrocyte distribution width (RBC) [Ratio] 13.4 % Normal 11.5-15.0 [facility] Comment on above: Order Comment: Speci men Type: BLOOD SPECIMENOrdering Facility: [facility] Address: [address] [place] [address] Performed By: #### 5 7021-8 ####[facility] LABCLIA [id number] [facility] [place] [address] [place] Giant platelets LM Ql (Bld) Occasional Normal [facility] Comment on above: Order Comment: Speci men Type: BLOOD SPECIMENOrdering Facility: [facility] Address: [address] [place] [address] Performed By: #### 5 7021-8 ####[facility] LABCLIA [id number] [facility] [place] [address] [place] Hematocrit (Bld) [Volume fraction] 44.3 % Normal 36.0-46.0 [facility] Comment on above: Order Comment: Speci men Type: BLOOD SPECIMENOrdering Facility: [facility] Address: [address] [place] [address] Performed By: #### 5 7021-8 ####[facility] LABCLIA [id number] [facility] [place] [address] [place] Hemoglobin (Bld) [Mass/Vol] 14.5 g/dL Normal 11.5-15.5 [facility] Comment on above: Order Comment: Speci men Type: BLOOD SPECIMENOrdering Facility: [facility] Address: [address] [place] [address] Performed By: #### 5 7021-8 ####[facility] LABCLIA [id number] [place] [address] [place] Lymphocytes (Bld) [#/Vol] 1.39 10*3/uL Normal 1.00-4.00 [facility] Comment on above: Order Comment: Speci men Type: BLOOD SPECIMENOrdering Facility: [facility] Address: [address] [place] [address] Performed By: #### 5 7021-8 ####[facility] LABCLIA [id number] [place] [address] [place] Lymphocytes/100 WBC (Bld) 21.0 % Normal [facility] Comment on above: Order Comment: Speci men Type: BLOOD SPECIMENOrdering Facility: [facility] Address: [address] [place] [address] Performed By: #### 5 7021-8 ####[facility] LABCLIA [id number] [place] [address] [place] MCH (RBC) [Entitic mass] 31.4 pg Normal 26.0-34.0 [facility] Comment on above: Order Comment: Speci men Type: BLOOD SPECIMENOrdering Facility: [facility] Address: [address] [place] [address] Performed By: #### 5 7021-8 ####[facility] LABCLIA [id number] [place] [address] [place] MCHC (RBC) [Mass/Vol] 32.7 g/dL Normal 30.5-36.0 [facility] Comment on above: Order Comment: Speci men Type: BLOOD SPECIMENOrdering Facility: [facility] Address: [address] [place] [address] Performed By: #### 5 7021-8 ####[facility] [id number] [facility] [place] [address] [place] MCV (RBC) [Entitic vol] 95.9 fL Normal 80.0-100.0 [facility] Comment on above: Order Comment: Speci men Type: BLOOD SPECIMENOrdering Facility: [facility] Address: [address] [place] [address] Performed By: #### 5 7021-8 ####[facility] LABCLIA [id number] [facility] [place] [address] [place] Monocytes (Bld) [#/Vol] 0.53 10*3/uL Normal <0.87 [facility] Comment on above: Order Comment: Speci men Type: BLOOD SPECIMENOrdering Facility: [facility] Address: [address] [place] [address] Performed By: #### 5 7021-8 ####[facility] LABCLIA [id number] [facility] [place] [address] [place] Monocytes/100 WBC (Bld) 8.0 % Normal [facility] Comment on above: Order Comment: Speci men Type: BLOOD SPECIMENOrdering Facility: [facility] Address: [address] [place] [address] Performed By: #### 5 7021-8 ####[facility] LABCLIA [id number] [facility] [place] [address] [place] Neutrophils (Bld) [#/Vol] 4.56 10*3/uL Normal 1.45-7.50 [facility] Comment on above: Order Comment: Speci men Type: BLOOD SPECIMENOrdering Facility: [facility] Address: [address] [place] [address] Performed By: #### 5 7021-8 ####[facility] LABCLIA [id number] [facility] [place] [address] [place] Neutrophils/100 WBC (Bld) 69.0 % Normal [facility] Comment on above: Order Comment: Speci men Type: BLOOD SPECIMENOrdering Facility: [facility] Address: [address] [place] [address] Performed By: #### 5 7021-8 ####[facility] LABCLIA [id number] [facility] [place] [address] [place] Nucleated RBC (Bld) [#/Vol] 10*3/uL Normal <0.01 [facility] Comment on above: Order Comment: Speci men Type: BLOOD SPECIMENOrdering Facility: [facility] Address: [address] [place] [address] Performed By: #### 5 7021-8 ####[facility] LABCLIA [id number] [facility] [place] [address] [facility] [place] Nucleated RBC/100 WBC (Bld) [Ratio] 0.0 /100 WBC Normal [facility] Comment on above: Order Comment: Speci men Type: BLOOD SPECIMENOrdering Facility: [facility] Address: [address] [place] [address] Performed By: #### 5 7021-8 ####[facility] LAB[facility] [id number] [facility] [place] [address] [place] Platelet mean volume (Bld) [Entitic vol] 9.5 fL Normal 9.0-12.7 [facility] Comment on above: Order Comment: Speci men Type: BLOOD SPECIMENOrdering Facility: [facility] Address: [address] [place] [address] Performed By: #### 5 7021-8 ####[facility]CLIA [id number] [facility] [place] [address] [place] Platelets (Bld) [#/Vol] 181 10*3/uL Normal 150-400 [facility] Comment on above: Order Comment: Speci men Type: BLOOD SPECIMENOrdering Facility: [facility] Address: [address] [place] [address] Performed By: #### 5 7021-8 ####[facility] LABCLIA [id number] [place] [address] [place] [facility] Platelets Estimate (Bld) [#/Vol] Adequate Normal [facility] Comment on above: Order Comment: Speci men Type: BLOOD SPECIMENOrdering Facility: [facility] Address: [address] [place] [address] Performed By: #### 5 7021-8 ####[facility] [id number] [facility] [place] [address] [place] RBC (Bld) [#/Vol] 4.62 10*6/uL Normal 3.90-5.20 [facility] Comment on above: Order Comment: Speci men Type: BLOOD SPECIMENOrdering Facility: [facility] Address: [address] [place] [address] Performed By: #### 5 7021-8 ####[facility] LABCLIA [id number] [facility] [place] [address] [facility] RED CELL MORPH Reviewed: unremarkable Normal [facility] Comment on above: Order Comment: Speci men Type: BLOOD SPECIMENOrdering Facility: [facility] Address: [address] [place] [address] Performed By: #### 5 7021-8 ####[facility] [id number] [facility] [place] [address] [facility] WBC (Bld) [#/Vol] 6.61 10*3/uL Normal 3.70-11.00 [facility] Comment on above: Order Comment: Speci men Type: BLOOD SPECIMENOrdering Facility: [facility] Address: [address] [place] [address] Performed By: #### 5 7021-8 ####[facility] [id number] [facility] [place] [address] [facility] CRPon 08-23-2024 C-REACTIVE PROT 6.75 mg/L High 0.0-3.0 [facility] Comment on above: Performed By: #### L 501.6710, L505.7010, L3100.5440, L500.4050, L506.0400, L501.9520 #### [facility] [address] [place], [address] CRP SerPl-mCncon 08-23-2024 CRP [Mass/Vol] 0.4 mg/dL Normal <0.9 [facility] Comment on above: Order Comment: Speci men Type: BLOOD SPECIMENOrdering Facility: [facility] Address: [address] [place] [address] Performed By: #### 3 016-3, 19008-5, 1987-, 64454-3 ####[facility] LABCLIA [id number] [place] [address] [facility] BRAIN WO IVCONon 08-24-[address] BRAIN WO IVCON * * *Final Report* * * DATE OF EXAM: Aug 23 2024 2:40PM [facility] 0504 - CT BRAIN WO IVCON / PROCEDURE REASON: Headache, new or worsening (Age >= 50y) * * * * Physician Interpretation * * * * EXAMINATION: CT BRAIN WO IVCON CLINICAL HISTORY: Headache, pain TECHNIQUE: Serial axial images without IV contrast were obtained from the vertex to the foramen magnum. MQ: CTBWO_3 CT Radiation dose: Integrated Dose-Length Product (DLP) for this visit = 795.52 mGy*cm CT Dose Reduction Employed: No dose reduction techniques were required COMPARISON: Previous studies with the most recent dated 11/16/2023. RESULT: Localizer images: No additional findings. Post-operative change: None. Acute change: No evidence of an acute infarct or other acute parenchymal process. Hemorrhage: No evidence of acute intracranial hemorrhage. ECASS hemorrhagic transformation score: Not Applicable Mass Lesion / Mass Effect: There is no evidence of an intracranial mass or extraaxial fluid collection. No significant mass effect. Chronic change: Scattered patchy foci of low attenuation are present within the supratentorial white matter, a nonspecific finding that most commonly represents mild small vessel disease. Parenchyma: There is mild generalized volume loss. The brain parenchyma is otherwise within normal limits for age. Ventricles: The ventricles are within normal limits of size and configuration for age. Paranasal sinuses and skull base: There is mucosal thickening involving the left maxillary sinus and many left ethmoid air cells. The skull base and imaged soft tissues are unremarkable. IMPRESSION: No acute intracranial abnormality. No significant change. Follow-up as indicated. [employer] Quality Control Technician: ERIC Transcribe Date/Time: Aug 23 2024 2:48P Dictated by : JANE MEDRANO MD This examination was interpreted and the report reviewed and electronically signed by: JANE MEDRANO MD on Aug 23 2024 2:52PM EST [id number] Normal [facility] CT NECK SOFT TISSUE WO IVCON on 08-23-2024 CT NECK SOFT TISSUE WO IVCON * * *Final Report* * * DATE OF EXAM: Aug 23 2024 2:40PM [facility] 0509 - CT NECK SOFT TISSUE WO IVCON / PROCEDURE REASON: Maxillary/facial abscess * * * * Physician Interpretation * * * * EXAMINATION: CT NECK SOFT TISSUE WITHOUT IV CONTRAST HISTORY: Maxillary/facial abscess. Facial pain. Throat pain. Technique: CT of the soft tissues of the neck without IV contrast. A series of contiguous helical scans were performed from the skull base to the aortic arch. M: CTNW_1 CT Dose-Length Product (DLP): 325.05 mGy*cm CT Dose Reduction Employed: No dose reduction techniques were required COMPARISON: No prior available. RESULT: Limitation: Evaluation for abscesses is limited given the lack of IV contrast administration. Lines, tubes, and devices: Port catheter in the left anterior chest wall, tip not included on this exam. Postoperative change: None apparent. Suprahyoid Neck: Nasopharynx and oropharynx appear normal. Parapharyngeal tissue planes are preserved. Oral cavity and floor of mouth appear normal within constraints of artifact from dental amalgam. Parotid and submandibular spaces are normal. Sales Ledger Administrator spaces appear normal. Infrahyoid Neck: Hypopharynx, larynx, and imaged infraglottic trachea appear normal. Imaged upper esophagus is unremarkable. Unenhanced thyroid gland is unremarkable. Lymph Nodes: No cervical lymphadenopathy by size criteria. Carotid Space: No masses. Orbits, Face and Skull Base: Orbital soft tissue planes are preserved. There is mucosal thickening in the anterior and middle left ethmoid air cells along with the left maxillary sinus. Possible small fluid level in the left maxillary sinus. The remaining paranasal sinuses are clear. Mastoid air cells and middle ear cavities are clear. No evidence of an osteolytic or osteoblastic process in the skull base. Imaged intracranial contents: No no mass effect or hydrocephalus. Cervical spine and remaining osseous structures: There is congenital fusion of the C7-T2 vertebra. Minimal anterolisthesis at the C3-C4 and C4-C5 levels. Moderate degenerative disc disease at the C4-C5 through the C6-C7 levels. Multilevel significant facet joint arthrosis. No discrete osteolytic or osteoblastic process. spondylotic changes in the visualized spine. Lung apices: No mass and no focal consolidation in imaged lung apices. Other: Not applicable. IMPRESSION: 1. Chronic sinusitis changes on the left, suspicious for obstruction of the left middle meatus. Acute sinusitis in the left maxillary sinus is difficult to exclude. Correlate clinically. 2. Congenital fusion of C7-T2 vertebra. Multilevel degenerative changes of the cervical spine. 3. No definite CT evidence of abscess in the neck. [employer] Quality Control Technician: [facility] Transcribe Date/Time: Aug 23 2024 3:12P Dictated by : YADIRA DYER MD This examination was interpreted and the report reviewed and electronically signed by: YADIRA DYER MD on Aug 23 2024 3:24PM EST [id number] Normal [facility] Comprehensive Metabolic Prof hion 08-23-2024 Albumin [Mass/Vol] 1.5 g/dL Low 3.4-4.8 [facility] Comment on above: Performed By: #### L 501.6710, L505.7010, L3100.5440, L500.4050, L506.0400, L501.9520 #### [facility] [address] [place], [address] Albumin/Globulin [Mass ratio] 1.1 {ratio} Normal 0.9-2.4 [facility] Comment on above: Performed By: #### L 501.6710, L505.7010, L3100.5440, L500.4050, L506.0400, L501.9520 #### [facility] [address] [place], [address] ALK PHOS 83 U/L Normal 35-104 [facility] Comment on above: Performed By: #### L 501.6710, L505.7010, L3100.5440, L500.4050, L506.0400, L501.9520 #### [facility] [address] [place], [address] ALT [Catalytic activity/Vol] 27 U/L Normal <=34 [facility] Comment on above: Performed By: #### L 501.6710, L505.7010, L3100.5440, L500.4050, L506.0400, L501.9520 #### [facility] [address] [place], [address] AST [Catalytic activity/Vol] 30 U/L Normal <=31 [facility] Comment on above: Performed By: #### L 501.6710, L505.7010, L3100.5440, L500.4050, L506.0400, L501.9520 #### [facility] [address] [place], [address] BUN/CRE 7.8 RATIO Low 10-20 [facility] Comment on above: Performed By: #### L 501.6710, L505.7010, L3100.5440, L500.4050, L506.0400, L501.9520 #### [facility] [address] [place], [address] Calcium [Mass/Vol] 8.0 mg/dL Normal 7.6-11.0 [facility] Comment on above: Performed By: #### L 501.6710, L505.7010, L3100.5440, L500.4050, L506.0400, L501.9520 #### [facility] [address] [place], [address] Chloride [Moles/Vol] 104 mmol/L Normal 98-108 [facility] Comment on above: Performed By: #### L 501.6710, L505.7010, L3100.5440, L500.4050, L506.0400, L501.9520 #### [facility] [address] [place], [address] CO2 [Moles/Vol] 14.0 mmol/L Low 21.0-32.0 [facility] Comment on above: Performed By: #### L 501.6710, L505.7010, L3100.5440, L500.4050, L506.0400, L501.9520 #### [facility] [address] [place], [address] Creatinine [Mass/Vol] 0.56 mg/dL Low 0.70-1.20 [facility] Comment on above: Performed By: #### L 501.6710, L505.7010, L3100.5440, L500.4050, L506.0400, L501.9520 #### [facility] [address] [place], [address] GAP 19 High 5-15 [facility] Comment on above: Performed By: #### L 501.6710, L505.7010, L3100.5440, L500.4050, L506.0400, L501.9520 #### [facility] [address] [place], [address] GFR/1.73 sq M.predicted among non-blacks MDRD (S/P/Bld) [Vol rate/Area] 93 mL/min/{1.73_m2} Normal >60 [facility] Comment on above: Result Comment: mL/m in/1.73m2 CKD-EPI Creatinine Equation (2020) Performed By: #### L 501.6710, L505.7010, L3100.5440, L500.4050, L506.0400, L501.9520 #### [facility] [address] [place], [address] Globulin (S) [Mass/Vol] 1.4 g/dL Low 2.2-4.2 [facility] Comment on above: Performed By: #### L 501.6710, L505.7010, L3100.5440, L500.4050, L506.0400, L501.9520 #### [facility] [address] [place], [address] Glucose [Mass/Vol] 90 mg/dL Normal 70-99 [facility] Comment on above: Performed By: #### L 501.6710, L505.7010, L3100.5440, L500.4050, L506.0400, L501.9520 #### [facility] [address] [place], [address] Potassium [Moles/Vol] 4.4 mmol/L Normal 3.3-5.1 [facility] Comment on above: Performed By: #### L 501.6710, L505.7010, L3100.5440, L500.4050, L506.0400, L501.9520 #### [facility] [address] [place], [address] Sodium [Moles/Vol] 137 mmol/L Normal 133-145 [facility] Comment on above: Performed By: #### L 501.6710, L505.7010, L3100.5440, L500.4050, L506.0400, L501.9520 #### [facility] [address] [place], [address] T BILI < 0.15 Normal 0.00-1.30 [facility] Comment on above: Performed By: #### L 501.6710, L505.7010, L3100.5440, L500.4050, L506.0400, L501.9520 #### [facility] [address] [place], [address] T PROT 2.9 g/dL Low 5.9-8.4 [facility] Comment on above: Performed By: #### L 501.6710, L505.7010, L3100.5440, L500.4050, L506.0400, L501.9520 #### [facility] [address] [place], [address] Urea nitrogen [Mass/Vol] 4 mg/dL Normal 4-19 [facility] Comment on above: Performed By: #### L 501.6710, L505.7010, L3100.5440, L500.4050, L506.0400, L501.9520 #### [facility] [address] [place], [address] Comprehensive metabolic 2000 panelon 08-23-2024 Albumin [Mass/Vol] 4.0 g/dL Normal 3.9-4.9 [facility] Comment on above: Order Comment: Speci men Type: BLOOD SPECIMENOrdering Facility: [facility] Address: [address] [place] [address] Performed By: #### 3 016-3, 78474-2, 1987-09, ####[facility] LABCLIA [id number] [place] [address] [place] ALP [Catalytic activity/Vol] 106 U/L Normal 34-123 [facility] Comment on above: Order Comment: Speci men Type: BLOOD SPECIMENOrdering Facility: [facility] Address: [address] [place], [place] [id number] Performed By: #### 3 016-3, 11839-9, 1987-09, ####[facility] [id number] [place] [address] [place] ALT With P-5'-P [Catalytic activity/Vol] 28 U/L Normal 7-38 [facility] Comment on above: Order Comment: Speci men Type: BLOOD SPECIMENOrdering Facility: [facility] Address: [address] [place] [address] Performed By: #### 3 016-3, 86441-3, 1987-09, ####[facility] LABCLIA [id number] [place] [address] [place] Anion gap [Moles/Vol] 13 mmol/L Normal 8-15 [facility] Comment on above: Order Comment: Speci men Type: BLOOD SPECIMENOrdering Facility: [facility] Address: [address] [place], [place] [address] Performed By: #### 3 016-3, 32634-7, 1987-09, ####[facility] LAB[facility] [id number] [place] [address] [place] AST With P-5'-P [Catalytic activity/Vol] 26 U/L Normal 13-35 [facility] Comment on above: Order Comment: Speci men Type: BLOOD SPECIMENOrdering Facility: [facility] Address: [address] [place] [address] Performed By: #### 3 016-3, , 1987-09, ####[facility] LABCL[facility] [id number] [place] [address] [place] Bilirubin [Mass/Vol] 0.2 mg/dL Normal 0.2-1.3 [facility] Comment on above: Order Comment: Speci men Type: BLOOD SPECIMENOrdering Facility: [facility] Address: [address] [place] [address] Performed By: #### 3 016-3, 95790-0, 1987-09, ####[facility] LAB[facility] [id number] [place] [address] [place] Calcium [Mass/Vol] 9.7 mg/dL Normal 8.5-10.2 [facility] Comment on above: Order Comment: Speci men Type: BLOOD SPECIMENOrdering Facility: [facility] Address: [address] [place] [address] Performed By: #### 3 016-3, , ####[facility] LABCLIA [id number] [facility] [place] [address] [place] Chloride [Moles/Vol] 104 mmol/L Normal 98-107 [facility] Comment on above: Order Comment: Speci men Type: BLOOD SPECIMENOrdering Facility: [facility] Address: [address] [place] [address] Performed By: #### 3 016-3, , ####[facility] [id number] [place] [address] [place] CO2 [Moles/Vol] 24 mmol/L Normal 22-30 [facility] Comment on above: Order Comment: Speci men Type: BLOOD SPECIMENOrdering Facility: [facility] Address: [address] [place] [address] Performed By: #### 3 016-3, , ####[facility] LABCL[facility] [id number] [place] [address] [place] Creatinine [Mass/Vol] 0.57 mg/dL Low 0.58-0.96 [facility] Comment on above: Order Comment: Speci men Type: BLOOD SPECIMENOrdering Facility: [facility] Address: [address] [place] [address] Performed By: #### 3 016-3, , ####[facility] LABCL[facility] [id number] [place] [address] [facility] Creatinine and Glomerular filtration rate.predicted panel (S/P/Bld) 93 mL/min/1.73m??? Normal >=60 [facility] Comment on above: Order Comment: Speci men Type: BLOOD SPECIMENOrdering Facility: [facility] Address: [address] [place] [address] Result Comment: Treva mated Glomerular Filtration Rate (eGFR) is calculated using the 2020 CKD-EPI creatinine equation. This equation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 ILR-DEVICE MODEL [id number] Reveal LINQ ILR-DEVICE SERIAL NUMBER [id number] ILR-DEVICE IMPLANT DATE 09/26/2013 ILR-DEVICE IMPLANTED BY DOCTOR 1 Large fiber neuropathy 08/04/2017 Osteoporosis, unspecified 2005 on fosamax T-score -2.4 nl vit D 02/07 dxa no change losest T-score -2.6 spine Partial nontraumatic tear of right rotator cuff 09/29/2020 Recurrent falls 03/15/2017 Recurrent major depressive disorder, in partial remission ([facility]) Torn meniscus left knee Unspecified asthma(493.90) PAST SURGICAL HISTORY Procedure Laterality Date APPENDECTOMY 1950 COLONOSCOPY 03/22/2013 COLONOSCOPY 05/06/2007 EXC/CURTG BONE CYST/B9 TUMORTARSAL/METATARSAL 1965 excision of scar tissue Right foot HYSTEROSCOPY W/BX ENDO/POLYP 03/08/2011 hsyteroscopy polypectomy and DANDC OVARIAN CYSTECTOMY UNI/BI 1986 dermoid cyst, right ovary TONSILLECTOMY PRIMARY/SECONDARY XTRNL PT ACTIV ECG TRANSMIS W/POLI removed 2018 FAMILY HISTORY Problem Relation Age of Onset Cataract Father Glaucoma Father other (adrenal insufficiency) Father at age 87, vent tachycardia Cataract Mother Glaucoma Mother other (arrthymias) Mother CHF and osteoporosis, at 94 yrs Cancer Paternal Grandmother 92 unknown primary, metastatic Breast Cancer Paternal Aunt 55 @ dx. Living; born 1910 other (lung cancer) Brother other (alzheimers) Sister Down syndrome Social History Tobacco Use Smoking status: Never Smokeless tobacco: Never Vaping Use Vaping status: Never Used Substance and Sexual Activity Alcohol use: Yes Comment: 2 5oz. wine per month. Drug use: No Sexual activity: Yes Partners: Male Comment: ALLERGIES Allergen Reactions Sulfa (Sulfonamide * Mental Status Change Fever, hallucinations, rash, swelling Tetnus [Tetanus Vac* Swelling Adhesive Tape (Jenna* skin irritation Contact Allergies [* Rash wool, itching and skin peels off Food Allergies [Oth* GI Upset allergic to beans- GI upset eye swelling Vancomycin Itching Review of Systems Constitutional: Negative for chills and fever. Eyes: Negative for visual disturbance. Respiratory: Negative for shortness of breath. Cardiovascular: Negative for chest pain. Musculoskeletal: Negative for back pain and neck pain. Skin: Positive for wound. Negative for rash. Neurological: Negative for weakness and numbness. Physical Exam Vitals [08/03/24 1439] BP Pulse Temp Temp src Resp SpO2 Weight Height 152/68 71 36.2 ?C (97.1 ?F) Temporal 18 100 % 65.8 kg (145 lb) -- Physical Exam Vitals and nursing note reviewed. Constitutional: Appearance: Normal appearance. HENT: Head: Normocephalic and atraumatic. Nose: Nose normal. Mouth/Throat: Mouth: Mucous membranes are moist. Pharynx: Oropharynx is clear. Eyes: Extraocular Movements: Extraocular movements intact. Conjunctiva/sclera: Conjunctivae normal. Pupils: Pupils are equal, round, and reactive to light. Cardiovascular: Rate and Rhythm: Normal rate and regular rhythm. Pulmonary: Effort: Pulmonary effort is normal. Breath sounds: Normal breath sounds. Chest: Chest wall: No tenderness. Abdominal: General: Bowel sounds are normal. Palpations: Abdomen is soft. Musculoskeletal: General: Tenderness present. Normal range of motion. Cervical back (more content not included)... Normal [facility] XR ELBOW 2V AP/LAT RTon XR ELBOW 2V AP/LAT RT * * *Final Report* * * DATE OF EXAM: Aug 03 2024 3:18PM LDX 5323 - XR ELBOW 2V AP/LAT RT / PROCEDURE REASON: Elbow trauma, no prior imaging * * * * Physician Interpretation * * * * RIGHT ELBOW, AP AND LATERAL: CLINICAL INDICATION: Right elbow pain following recent mechanical fall. History of osteoporosis. COMPARISON: Right elbow radiographs 11/10/2023 and bone mineral densitometry 02/08/2023. The bones appear demineralized. Distal humeral articulations are maintained. There is no distal humeral fat pad displacement. There is no acute displaced fracture. There is mild soft tissue swelling posterior elbow. IMPRESSION: No acute osseous abnormality. [employer]le House Quality Control Technician: [facility] Transcribe Date/Time: Aug 03 2024 3:28P Dictated by : ARNOL HUI MD This examination was interpreted and the report reviewed and electronically signed by: ARNOL HUI MD on Aug 03 2024 3:44PM EST [id number] Normal [facility] XR FEMUR 2V AP/LAT RTon XR FEMUR 2V AP/LAT RT * * *Final Report* * * DATE OF EXAM: Aug 03 2024 3:18PM LDX 5333 - XR FEMUR 2V AP/LAT RT / PROCEDURE REASON: Upper leg trauma, no prior imaging * * * * Physician Interpretation * * * * RIGHT UPPER LEG, AP AND LATERAL: CLINICAL INDICATION: Right upper leg pain following recent mechanical fall. History of osteoporosis. COMPARISON: Right knee radiographs 11/10/2023, bone mineral densitometry 05/18/2021 and pelvis and right hip radiographs 12/02/2018. AP and lateral radiographs of the proximal upper leg including the hip joint and distal lower leg including the knee joint are submitted. The bones appear demineralized. There is no acute femur fracture. Proximal and distal femoral articulations are maintained. Mild degenerative changes at the hip joint. There is a well-corticated ossific structure redemonstrated projecting inferiorly at the hip joint. There is no sizable suprapatellar fusion. IMPRESSION: No acute radiographic abnormality. [employer]le House Quality Control Technician: [facility] Transcribe Date/Time: Aug 03 2024 3:23P Dictated by : ARNOL HUI MD This examination was interpreted and the report reviewed and electronically signed by: ARNOL HUI MD on Aug 03 2024 3:44PM EST [id number] Normal [facility] XR WRIST 4V PA/LAT/OBL/SCAPH RTon 08-03-2024 XR WRIST 4V PA/LAT/OBL/SCAPH RT * * *Final Report* * * DATE OF EXAM: Aug 03 2024 3:18PM LDX 5273 - XR WRIST 4V PA/LAT/OBL/SCAPH RT / PROCEDURE REASON: Trauma * * * * Physician Interpretation * * * * RIGHT WRIST, PA, OBLIQUE, ULNAR FLEXION AND LATERAL: CLINICAL INDICATION: Right wrist pain following recent mechanical fall. History of osteoporosis. COMPARISON: Right wrist radiographs 11/10/2023 and 12/07/2021. The bones appear demineralized. There is plate and screw fixation hardware dorsal distal radius. Hardware appears intact. There is horizontal linear lucency/sclerosis distal radial metaphyseal level. There are a couple of discrete round lucencies more proximal distal radius, possible ghost tracks. There is absence of the distal ulna distal to the level of the metaphysis. There are moderately advanced degenerative type changes at the thumb CMC joint. IMPRESSION: Postoperative changes distal radius with intact volar plate and screw fixation hardware. Horizontal linear lucency/sclerosis distal radial metaphyseal level which may represent healing/healed fracture or osteotomy. Likely surgical absence of the distal ulna requiring correlation with additional surgical information. Degenerative changes at the thumb CMC joint. If there is persistent clinical concern for scaphoid injury based on physical exam findings close follow-up wrist radiographs are recommended. Bottle [employer] Quality Control Technician: [facility] Transcribe Date/Time: Aug 03 2024 3:33P Dictated by : ARNOL HUI MD This examination was interpreted and the report reviewed and electronically signed by: ARNOL HUI MD on Aug 03 2024 3:44PM EST [id number] [facility] 3607-03-2024 36 Clearance completed and faxed [facility] 06-20-2024 36 Clearance received from [facility] for removal of dental implant no dos. LS 04/17/24 OC fu 11/20/2024 [facility] 36on 05-17-2024 36 Received form, went back and spoke to MA in device team. Nothing on form specifies magnet to cover PPM. Device team noted, typically PPM do not need magnet. Emailed [facility] back with information. [facility] 36 Received clearance form from [facility]. Placed on device teams desk for review. [facility] 36 Received call from [facility] inquiring if a magnet can be placed over device. Advised [facility] to send clearance over for device team and [facility] to review. [place] [address]on 05-14-2024 36 Clearance completed and faxed. Fax confirmation received [place] [address]on 05-11-2024 36 Clearance received from [facility] for sx 05/21/24 [facility] CNOVon 05-02-2024 CNOV Office Visit (STOHST ) YENY TAVERA ([id number]) 1945 F Date Time Provider Department 05/02/24 2:15 PM BARI KELLEY During your visit today, we recorded the following information about you: Bari Kelley MD, PhD 05/09/2024 12:27 PM Signed May 02, 2024 CHIEF COMPLAINT: Right wrist pain HPI: Yeny Tavera is a 78 year old right HD female who presents to clinic with right wrist pain as well as numbness and tingling. Patient states that she had a fall in October 2023 where she broke her wrist and was treated nonoperatively in a cast. She states that ever since then she has had numbness and tingling in her first 3 fingers as well as ulnar-sided wrist pain that initiated since her rehab. She was evaluated and treated by her surgeon at outside facility who recommended multiple procedures so she is here today for second opinion to discuss this. ASSESSMENT: 78 year old female with right first CMC arthritis, right healed distal radius fracture with positive ulnar variance, right carpal tunnel syndrome PLAN: Due to patient's history, exam, and imaging patient is likely experiencing majority of her symptoms related to her positive ulnar variance s/p nonoperative management of right distal radius fracture as well as right first CMC arthritis and carpal tunnel syndrome. We did discuss further plan of care regarding operative versus nonoperative intervention including risk benefits of both. After thorough discussion we agreed with recommendation from her primary surgeon to proceed with operative intervention. All questions were addressed and answered. Patient will follow-up with her primary surgeon. Discussed with patient that if she changes her mind, we would be happy to schedule her for surgery with our team. Patient will otherwise follow-up with us as needed. OBJECTIVE: There were no vitals filed for this visit. There is no height or weight on file to calculate BMI. General: NAD Eyes: Pupils not pinpointed, not overly dilated, anicteric Neck: Full range of motion Cardiovascular: Palpable pulse and brisk capillary refill (<2 sec) to all fingers Lymphatic: Inspection of the arm/hand reveals no lymphedema and palpation of epitrochlear nodes is unremarkable. Respiratory: Respirations even and unlabored, no audible wheezing Integumentary: Inspection of skin reveals no breaks or obvious lesions except for those noted below. Neuro: Intact sensation to light touch over the median, ulnar, and radial nerve distributions. Psychiatric: No obvious anxiety, well kempt, normal affect. Appropriate response to pain. Musculoskeletal: Able to flex and extend all fingers at the DIP and PIP. Able to retropulse the thumb, abduct all fingers against resistance. Patient has about 30 degrees of wrist flexion and 60 degrees of wrist extension, she has about 30 degrees of supination but full pronation to about 90 degrees, tenderness palpation over the ulnar aspect of the wrist with obvious swelling over the ulnar head, positive grind test of the first CMC, patient does have positive Durkan's, Phalen's, and Tinel's at the wrist reproducing numbness and tingling in the first 3 digits in the median nerve distribution IMAGING: Radiographs of the right wrist were obtained on 04/13 at outside facility which were personally reviewed by me and demonstrate well-healed distal radius fracture with loss of height and angulation and positive ulnar variance, she also has severe degenerative changes at the first CMC joint with erosion of the trapezium Supporting Subjective Information Below: Past Medical History: 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 Diverticulitis 09/11/2016 Epiretinal membrane Left Epiretinal membrane (ERM) of left eye 05/13/2021 Esophageal reflux 07/21/2007 Essential hypertension 04/04/2015 Female stress incontinence Generalized osteoarthrosis, unspecified site Greater trochanteric bursitis 03/15/2017 Human papillomavirus in conditions classified elsewhere and of unspecified site Hypothyroidism 06/16/2005 implantable loop recorder 08/22/2014 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 Normal [facility] Office Visiton 04-17-2024 Follow-up visit [id number] Yeny Tavera 1945 F Date Provider Department Center 04/17/2024 [id number] [facility] DO None Family History Problem Relation Age of Onset Arrhythmia Mother Arrhythmia Father Family Status - Relation Status Age at Mother Father Level of Service:99267 [place] OFFICE/OUTPATIENT ESTABLISHED MOD MDM 30 MIN Reason for Visit and Comments: Bradycardia [716764] - CHB PPM Atrial Fibrillation [80] - PAF Rapid Heart Rate [547054] - Atrial Tachycardia Fall [504071] - Frequent Falls with Sensory Polyneuropathy Hypothyroidism [143] Normal [facility] Progress Noteon 04-17-2024 Progress Note [facility] [place] Cardiology/Electrophys iology Follow Up Clinic Note Chief Complaint: Chief Complaint Patient presents with Bradycardia CHB PPM Atrial Fibrillation PAF Rapid Heart Rate Atrial Tachycardia Fall Frequent Falls with Sensory Polyneuropathy Hypothyroidism History of Present Illness: Yeny Tavera is a 78 y.o. female referred here in Feb 2020 by Osbaldo Fowler CNP for dizziness and syncope. 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 Her dizziness/syncope started in 2012. Dr. Rene diagnosed a peripheral neuropathy and a dysautonomia. An ECG showed a LBBB and an event recorder then showed episodes of nocturnal junctional bradycardia. In 2013 an EPS showed prolonged AH and HV and she had an ILR implanted. A tilt table test soon after was abnormal and she was diagnosed with neurocardiogenic syncope. In [address] Fuller who saw some AFib on the ILR, but decided against OAC b/o her frequent falls. At her last visit with Dr Rene in May 2019, she was told she had a large fiber neuropathy. Her ILR battery depleted and she was never found to have a bradycardia. In Dec 2021 , she c/o of frequent unexplained falls while walking preceded by some dizziness. An event monitor showed an episode of complete AV block with a ventricular escape in the 20s on the first evening. We implanted a PPM in Mar 2022. She returns today feeling well. She has not gotten dizzy since the pacer. She has had an occasional fall, the last one in October 2023 leading to a wrist fracture. She has a polyneuropathy and her balance is poor. She is active in the yard and can go to the gym without symptoms. Device Interrogation today shows a normal functioning dual-chamber [employer] PPM. Ventricular pacing and sensing thresholds and lead impedances are within normal. She has been in an atrial tachyarrhythmia since September 2023 c/w Aflutter/Afib and ATach. Her ventricular response remains mostly paced and she is unaware of any palpitation, SOB, SHAH, or decrease in exercise tolerance. She is atrially pacing 11% % and V pacing 76% of the time. A stress echo in Jun 2019 showed that she exercised to 13.7 mets without ischemia Assessment and Plan: 1. Complete AV block/dizziness/Syncop e: As above, it sounds like at [facility] she was thought to have neurocardiogenic/ dysautonomic syncope. The event monitor in Mar 2022 showed a clear episode of third-degree AV block. She had a long first degree AV block, sinus bradycardia, and a LBBB on ECG. She also had unexplained falls and dizziness/syncope. She has had no further dizzy spells, but continues to have some mechanical/balance related falls. 2. Paroxysmal atrial tachyarrhythmias/AFib. She does not recall being told she had this, but it was clearly documented on the ILR at [facility]. On today's pacemaker interrogation she has been in an atypical atrial flutter/atrial fibrillation since September 2023. She is asymptomatic and mostly V-paced. I started her on OAC after some discussion in Jul 2022 as her CHADS Vasc score is 4. We will continue with a rate controlling strategy Past Medical History: Past Medical History: Diagnosis Date Asthma Atrial fibrillation (HCC) 02/20/2020 Bradycardia 02/20/2020 CHB (complete heart block) (HCC) 04/13/2022 CHB (complete heart block) (HCC) Diverticulitis First degree AV block History of electrophysiologic study 09/26/2013 Hypertension Large fiber neuropathy 02/20/2020 LBBB (left bundle branch block) 02/20/2020 Lumbosacral radiculitis 06/19/2021 Thyroid disease 02/20/2020 Hypothyroidism Tilt table evaluation 10/08/2013 Past Surgical History Past Surgical History: Procedure Laterality Date APPENDECTOMY CARDIAC ELECTROPHYSIOLOGY PROCEDURE Left 04/15/2022 Performed by Galileo Ortiz MD at [facility] Cardiac Cath/EP Lab CVHX LOOP RECORDER EVALUATION 09/26/2013 removed 11/08/2017 FOOT SURGERY HYSTEROSCOPY OOPHORECTOMY PACEMAKER (HISTORICAL) TONSILLECTOMY Family History Family History Problem Relation Name Age of Onset Arrhythmia Mother Arrhythmia Father Social History Social History Tobacco Use Smoking status: Never Passive exposure: Never Smokeless tobacco: Never Vaping Use Vaping status: Never Used Substance Use Topics Alcohol use: Yes Alcohol/week: 1.0 standard drink of alcohol Types: 1 Glasses of wine per week Comment: occasional wine Drug use: Never Comment: caffeine: 1 cup coffee/day Medications: Reviewed Allergies: Reviewed Review of Systems: All other systems were reviewed and are negative other than as noted in the HPI. Physical Examination: Vitals: Blood pressure 114/74, pulse 78, height 5' 7 (1.702 m), weight 154 lb (69.9 kg), SpO2 98%. Constitutional: Appears well kept and looks stated age; in NAD Psychiatric: A &O x3 Mood is pleasant; Affect is appropriate Musculoskeletal: Normocephalic; no joint swelling; (more content not included)... [facility] 36on 04-12-2024 36 Called and spoke to pharmacy, they said patient never filled it and the RX was from August RIZWAN-09/20 OC CBC-01/20 CMP-01/20 CR-0.61 Labs in CE 04/10 date [facility] 36 Pt called in for a refill of apixaban (Eliquis) 5 MG tablet 1 tab q12H Pt would like this sent to [facility] Gillian [facility] 09/20/2023 NOV 04/17/2024 [place] [address]39on 03-07-2024 36 Clearance completed and faxed [address] 03-06-2024 [address] 03-01-2024 36 Clearance received from [facility] for colonoscopy TBD Last see 09/20/23 fu 04/17/24 [facility] C diff Tox gens Stl Ql SYDNI+p robeon 01-31-2024 C. difficile toxin genes SYDNI+probe Ql (Stl) Negative Normal Negative for C. difficile toxin by PCR [facility] Comment on above: Order Comment: Speci men Type: STOOL SPECIMENOrdering Facility: [facility] Address: [address] [place] [address] Performed By: #### 5 4067-4 ####[facility] [id number] [address] [place] FECAL LACTOFERRIN/LEUKOCYTES on 01-31-2024 Lactoferrin IA Ql (Stl) Negative for lactoferrin, which may indicate the absence of fecal white blood cells Normal Negative [facility] Comment on above: Order Comment: Speci lizabeth Type: STOOL SPECIMENOrdering Facility: [facility] Address: [address] [place] [address] Performed By: #### F ECWBC ####[facility] [id number] [address] [place] G lamblia+Cryptosp Ag Stl Ql IAon 01-31-2024 G. lamblia+Cryptosporidium sp Ag IA Ql (Stl) CRYPTOSPORIDIUM ANTIGEN BY EIA: Negative for Cryptosporidium by EIA. GIARDIA ANTIGEN BY EIA: Negative for Giardia lamblia by EIA. Normal [facility] Comment on above: Performed By: #### 4 8059-0 #### [facility] CLIA [id number] OF [facility] Gastrointestinal pathogens i dentified SYDNI+probe Nom (Stl)on 01-31-2024 Campylobacter sp DNA SYDNI+probe Nom (Unsp spec) Not detected Normal Not Detected [facility] Comment on above: Order Comment: Speci men Type: STOOL SPECIMENOrdering Facility: [facility] Address: [address] [place] [address] Performed By: #### 7 9390-1 ####[facility] LABCLIA [id number] [address] [place] Salmonella sp DNA SYDNI+probe Ql (Unsp spec) Not detected Normal Not Detected [facility] Comment on above: Order Comment: Speci men Type: STOOL SPECIMENOrdering Facility: [facility] Address: [address] [place] [address] Performed By: #### 7 9390-1 ####[facility] LABCLIA [id number] [address] [place] Shiga toxin stx gene SYDNI+probe Nom (Unsp spec) Not detected Normal Not Detected [facility] Comment on above: Order Comment: Speci men Type: STOOL SPECIMENOrdering Facility: [facility] Address: [address] [place] [address] Performed By: #### 7 9390-1 ####[facility] LABCLIA [id number] [place] [address] [place] Shigella sp DNA SYDNI+probe Ql (Unsp spec) Not detected Normal Not Detected [facility] Comment on above: Order Comment: Speci men Type: STOOL SPECIMENOrdering Facility: [facility] Address: [address] [place] [address] Performed By: #### 7 9390-1 ####[facility] LABCLIA [id number] [place] [id number] [place] Hemoccult Stl Ql IAon 2023 Lower GI hemoglobin IA Ql (Stl) Negative Normal Negative [facility] Comment on above: Order Comment: Speci men Type: STOOL SPECIMENOrdering Facility: [facility] Address: [address] [place] [address] Performed By: #### 2 9771-3 ####[facility] LABCLIA [id number] [place] [address] [place] Celiac AB,Comprehensiveon ANTIGLIADIN IGA 5 units Normal 0-19 [facility] Comment on above: Result Comment: Nega tive 0 - 19 Weak Positive 20 - 30 Moderate to Strong Positive >30 Performed By: #### L 100.0100, L500.4050, L501.9520, L3410.2350 #### [facility] [address], [address] ANTIGLIADIN IGG 3 units Normal 0-19 [facility] Comment on above: Result Comment: Nega tive 0 - 19 Weak Positive 20 - 30 Moderate to Strong Positive >30 Performed By: #### L 100.0100, L500.4050, L501.9520, L3410.2350 #### [facility] [address] [place], [address] ENDOMYSIAL IGA Negative Normal Negative [facility] Comment on above: Performed By: #### L 100.0100, L500.4050, L501.9520, L3410.2350 #### [facility] [address] [place], [address] IMMUNOGLOB A QN 122 mg/dL Normal 64-422 [facility] Comment on above: Result Comment: Perf ormed at: CB - [facility] [address], [place], [place] [id number] Mattress Specialist: Brandt Lazcano PhD, Phone: [phone] Performed By: #### L 100.0100, L500.4050, L501.9520, L3410.2350 #### [facility] [address] [place], [address] tTG IGA <2 Normal 0-3 [facility] Comment on above: Result Comment: Nega tive 0 - 3 Weak Positive 4 - 10 Positive >10 Tissue Transglutaminase (tTG) has been identified as the endomysial antigen. Studies have demonstr- ated that endomysial IgA antibodies have over 99% specificity for gluten sensitive enteropathy. Performed By: #### L 100.0100, L500.4050, L501.9520, L3410.2350 #### [facility] [address] [place], [address] tTG IGG 4 U/mL Normal 0-5 [facility] Comment on above: Result Comment: Nega tive 0 - 5 Weak Positive 6 - 9 Positive >9 Performed By: #### L 100.0100, L500.4050, L501.9520, L3410.2350 #### [facility] [address] [place], [address] CBC W/Diff, Automatedon 08-2 Absolute Lymph 1.18 X10 3/uL Normal 0.83-4.51 [facility] Comment on above: Performed By: #### L 100.0100, L500.4050, L501.9520, L3410.2350 #### [facility] [address] [place], [address] Absolute Neut 6.4 X10 3/uL Normal 2.0-7.7 [facility] Comment on above: Performed By: #### L 100.0100, L500.4050, L501.9520, L3410.2350 #### [facility] [address] [place], [address] Basophils/100 WBC (Bld) 0.5 % Normal 0-1 [facility] Comment on above: Performed By: #### L 100.0100, L500.4050, L501.9520, L3410.2350 #### [facility] [address] [place], [address] Eosinophils/100 WBC (Bld) 1.6 % Normal 0-5 [facility] Comment on above: Performed By: #### L 100.0100, L500.4050, L501.9520, L3410.2350 #### [facility] [address] [place], [address] Erythrocyte distribution width (RBC) [Ratio] 12.9 % Normal 11.6-14.6 [facility] Comment on above: Performed By: #### L 100.0100, L500.4050, L501.9520, L3410.2350 #### [facility] [address] [place], [address] Hematocrit (Bld) [Volume fraction] 44.8 % Normal 37-47 [facility] Comment on above: Performed By: #### L 100.0100, L500.4050, L501.9520, L3410.2350 #### [facility] [address] [place], [address] Hemoglobin (Bld) [Mass/Vol] 14.9 g/dL Normal 12.0-15.0 [facility] Comment on above: Performed By: #### L 100.0100, L500.4050, L501.9520, L3410.2350 #### [facility] [address] [place], [address] IG% 0.200 Normal 0.0-0.9 [facility] Comment on above: Result Comment: IG% - Immature Granulocytes (promyelocytes, myelocytes and metamyelocytes) > 1% indicates that a LEFT SHIFT is Present. Performed By: #### L 100.0100, L500.4050, L501.9520, L3410.2350 #### [facility] [address] [place], [address] Lymphocytes/100 WBC (Bld) 14.1 % Low 19-41 [facility] Comment on above: Performed By: #### L 100.0100, L500.4050, L501.9520, L3410.2350 #### [facility] [address] [place], [address] MCH (RBC) [Entitic mass] 31.9 pg Normal 27.0-32.0 [facility] Comment on above: Performed By: #### L 100.0100, L500.4050, L501.9520, L3410.2350 #### [facility] [address] [place], [address] MCHC (RBC) [Mass/Vol] 33.3 g/dL Normal 32-36 [facility] Comment on above: Performed By: #### L 100.0100, L500.4050, L501.9520, L3410.2350 #### [facility] [address] [place], [address] MCV (RBC) [Entitic vol] 95.9 fL Normal 81-99 [facility] Comment on above: Performed By: #### L 100.0100, L500.4050, L501.9520, L3410.2350 #### [facility] [address] [place], [address] Monocytes/100 WBC (Bld) 6.9 % Normal 0-10 [facility] Comment on above: Performed By: #### L 100.0100, L500.4050, L501.9520, L3410.2350 #### [facility] [address] [place], [address] Neutrophils/100 WBC (Bld) 76.7 % High 47-70 [facility] Comment on above: Performed By: #### L 100.0100, L500.4050, L501.9520, L3410.2350 #### [facility] [address] [place], [address] Nucleated RBC (Bld) [#/Vol] 0 10*3/uL Normal 0-5 [facility] Comment on above: Performed By: #### L 100.0100, L500.4050, L501.9520, L3410.2350 #### [facility] [address] [place], [address] Platelet mean volume (Bld) [Entitic vol] 10.4 fL Normal 6.2-12.0 [facility] Comment on above: Performed By: #### L 100.0100, L500.4050, L501.9520, L3410.2350 #### [facility] [address] [place], [address] Platelets (Bld) [#/Vol] 225 10*3/uL Normal 150-450 [facility] Comment on above: Performed By: #### L 100.0100, L500.4050, L501.9520, L3410.2350 #### [facility] [address] [place], [address] RBC (Bld) [#/Vol] 4.67 10*6/uL Normal 4.2-5.4 [facility] Comment on above: Performed By: #### L 100.0100, L500.4050, L501.9520, L3410.2350 #### [facility] [address] [place], [address] RDW SD 45.2 fl High 35.1-43.9 [facility] Comment on above: Performed By: #### L 100.0100, L500.4050, L501.9520, L3410.2350 #### [facility] [address] [place], [address] WBC (Bld) [#/Vol] 8.4 10*3/uL Normal 4.4-11.0 [facility] Comment on above: Performed By: #### L 100.0100, L500.4050, L501.9520, L3410.2350 #### [facility] [address] [place], [address] Comprehensive Metabolic Prof [facility] 01-24-2024 Albumin [Mass/Vol] 4.0 g/dL Normal 3.2-5.0 [facility] Comment on above: Performed By: #### L 100.0100, L500.4050, L501.9520, L3410.2350 #### [facility] [address] [place], [address] Albumin/Globulin [Mass ratio] 1.5 {ratio} Normal 0.9-2.4 [facility] Comment on above: Performed By: #### L 100.0100, L500.4050, L501.9520, L3410.2350 #### [facility] [address] [place], [address] ALK P 78 U/L Normal 45-117 [facility] Comment on above: Performed By: #### L 100.0100, L500.4050, L501.9520, L3410.2350 #### [facility] [address] [place], [address] ALT [Catalytic activity/Vol] 25 U/L Normal 13-56 [facility] Comment on above: Performed By: #### L 100.0100, L500.4050, L501.9520, L3410.2350 #### [facility] [address] [place], [address] AST [Catalytic activity/Vol] 18 U/L Normal 15-37 [facility] Comment on above: Performed By: #### L 100.0100, L500.4050, L501.9520, L3410.2350 #### [facility] [address] [place], [address] Bilirubin [Mass/Vol] 0.50 mg/dL Normal 0.20-1.00 [facility] Comment on above: Result Comment: For patients on eltrombopag therapy, use of Dimension [place] TBIL is not recommended. Performed By: #### L 100.0100, L500.4050, L501.9520, L3410.2350 #### [facility] [address] [place], [address] BUN/CRE 19.7 RATIO Normal 10-20 [facility] Comment on above: Performed By: #### L 100.0100, L500.4050, L501.9520, L3410.2350 #### [facility] [address] [place], [address] CA,Total 9.8 mg/dL Normal 8.5-10.1 [facility] Comment on above: Performed By: #### L 100.0100, L500.4050, L501.9520, L3410.2350 #### [facility] [address] [place], [address] Chloride [Moles/Vol] 106 mmol/L Normal 98-107 [facility] Comment on above: Performed By: #### L 100.0100, L500.4050, L501.9520, L3410.2350 #### [facility] [address] [place], [address] CO2 [Moles/Vol] 28.0 mmol/L Normal 21.0-32.0 [facility] Comment on above: Performed By: #### L 100.0100, L500.4050, L501.9520, L3410.2350 #### [facility] [address] [place], [address] Creatinine [Mass/Vol] 0.61 mg/dL Normal 0.55-1.02 [facility] Comment on above: Result Comment: The validity of the calculated GFR GFRAA in patients over 70 years has not been determined. Clinical correlation is essential. Performed By: #### L 100.0100, L500.4050, L501.9520, L3410.2350 #### [facility] [address] [place], [address] EST GFR - AA 122 mL/min Normal >60 [facility] Comment on above: Result Comment: Afri can [place] GFR Calc Performed By: #### L 100.0100, L500.4050, L501.9520, L3410.2350 #### [facility] [address] [place], [address] GAP 5 Normal 5-15 [facility] Comment on above: Performed By: #### L 100.0100, L500.4050, L501.9520, L3410.2350 #### [facility] [address] [place], [address] GFR/1.73 sq M.predicted among non-blacks MDRD (S/P/Bld) [Vol rate/Area] 101 mL/min/{1.73_m2} Normal >60 [facility] Comment on above: Result Comment: Non- GFR Calc Performed By: #### L 100.0100, L500.4050, L501.9520, L3410.2350 #### [facility] [address] [place], [address] Globulin (S) [Mass/Vol] 2.7 g/dL Normal 2.2-4.2 [facility] Comment on above: Performed By: #### L 100.0100, L500.4050, L501.9520, L3410.2350 #### [facility] [address] [place], [address] Glucose [Mass/Vol] 88 mg/dL Normal 74-106 [facility] Comment on above: Performed By: #### L 100.0100, L500.4050, L501.9520, L3410.2350 #### [facility] [address] [place], [address] Potassium [Moles/Vol] 4.1 mmol/L Normal 3.5-5.1 [facility] Comment on above: Performed By: #### L 100.0100, L500.4050, L501.9520, L3410.2350 #### [facility] [address] [place], [address] Sodium [Moles/Vol] 139 mmol/L Normal 136-145 [facility] Comment on above: Performed By: #### L 100.0100, L500.4050, L501.9520, L3410.2350 #### [facility] [address] [place], [address] T PROT 6.7 g/dL Normal 6.4-8.2 [facility] Comment on above: Performed By: #### L 100.0100, L500.4050, L501.9520, L3410.2350 #### [facility] [address] [place], [address] Urea nitrogen [Mass/Vol] 12 mg/dL Normal 7-18 [facility] Comment on above: Performed By: #### L 100.0100, L500.4050, L501.9520, L3410.2350 #### [facility] [address] [place], [address] Thyroid Stim Hormone (TSH)on 01-24-2024 TSH 3.440 uIU/mL Normal 0.358-3.740 [facility] Comment on above: Performed By: #### L 100.0100, L500.4050, L501.9520, L3410.2350 #### [facility] [address] [place], [address] COLLAGEN BINDING ASSAYon vWf.collagen binding activity actual/normal IA (PPP) [Relative ratio] 88 % Normal 41-161 [facility] Comment on above: Order Comment: Makenna barone Type: BLOOD SPECIMENOrdering Facility: [facility] Address: [address] [place] [address] Result Comment: This test was developed and its performance characteristics determined by [facility] [place] ([facility]). It has not been cleared or approved by the FDA. -[facility] is regulated under CLIA as qualified to perform high-complexity testing. This test is used for clinical purposes. It should not be regarded as investigational or for research. Performed By: #### C BA ####[facility] [id number] [place] [id number] [place] Collagen crosslinked C-telop eptide [Mass/Vol]on 12-19-2023 C TELOPEPTIDE, BETA CROSS LINKED 549 pg/mL Normal 152-858 [facility] Comment on above: Order Comment: Makenna barone Type: BLOOD SPECIMENOrdering Facility: [facility] Address: [address] [place] [address] Performed By: #### 4 1171-0 ####[facility] [id number] [address] [address] [place] 36on 11-25-[address] Parkinson's last note, she has episodes of AF lasting up to a month. Rates are controlled. She is anticoagulated. Would make no changes unless he feels otherwise. Normal [facility] 36 Add on remote for AF burden >24 hours. Continued AFib/flutter since 10/23/23. Patient has h/o PAF with long episodes. AF burden 17% since 01/18/23. On Eliquis. No BB/AAD on med list. V rates adequate per histogram review. Normal [facility] ALLIED HEALTHon 11-16-2023 ALLIED HEALTH HNO ID: [id number] Author: DONALD MORALES RT(R) Service: Radiology Author Type: Technologist Type: Allied Health Filed: 11/16/2023 15:47 Note Text: Radiology Service Progress Note PATIENT NAME: Yeny Tavera DATE OF SERVICE: November 16, 2023 TIME: 3:47 PM PATIENT IDENTITY VERIFICATION COMPLETED USING TWO (2) IDENTIFIERS: Name and Date of confirmed by patient verbally. FALL SCREENING: Has the patient had 2 falls in the last year or 1 fall with injury or currently using an Ambulatory Assistive Device (Walker, Cane, Wheelchair, Crutches, etc.)? Emergency Room Patient: Screened in ED PATIENT GENDER DATA: Female. status: : No status: NO. PATIENT RELEVANT IMPLANT DATA REVIEWED: Not Applicable PATIENT PRESENTS WITH AN IMPLANTABLE OR ATTACHED WOOD POLISHER: No RADIOLOGY DEPARTMENT: CT; Exam(s) Completed: Brain and Spine PERIPHERAL IV DATA: Not applicable SIGNED BY: RT Za(R) November 16, 2023 3:47 PM [facility] CT BRAIN WO IVCONon 11-16-[address] BRAIN WO IVCON * * *Final Report* * * DATE OF EXAM: Nov 16 2023 3:38PM [facility] 0504 - CT BRAIN WO IVCON / PROCEDURE REASON: Head trauma, moderate-severe * * * * Physician Interpretation * * * * EXAMINATION: CT BRAIN WO IVCON CLINICAL HISTORY: Head trauma. TECHNIQUE: Serial axial images without IV contrast were obtained from the vertex to the foramen magnum. MQ: CTBWO_3 CT Radiation dose: Integrated Dose-Length Product (DLP) for this visit = 706.22 mGy*cm CT Dose Reduction Employed: No dose reduction techniques were required COMPARISON: January 27, 2023. RESULT: Localizer images: Unremarkable. Post-operative change: None. Acute change: No evidence of an acute infarct or other acute parenchymal process. Hemorrhage: No evidence of acute intracranial hemorrhage. ECASS hemorrhagic transformation score: Not Applicable Mass Lesion / Mass Effect: There is no evidence of an intracranial mass or extraaxial fluid collection. No significant mass effect. Chronic change: Scattered patchy foci of low attenuation are present within supratentorial white matter which is a nonspecific finding but likely represents mild microvascular ischemia. Parenchyma: There is no significant volume loss. The brain parenchyma is otherwise within normal limits for age. Ventricles: The ventricles are within normal limits of size and configuration for age. Paranasal sinuses and skull base: The visualized paranasal sinuses are grossly clear. The skull base and imaged soft tissues are unremarkable. IMPRESSION: No acute intracranial abnormality. [employer] Quality Control Technician: PSCB Transcribe Date/Time: Nov 16 2023 3:45P Dictated by : JASON ACEVEDO MD This examination was interpreted and the report reviewed and electronically signed by: JASON ACEVEDO MD on Nov 16 2023 3:51PM EST [id number] [facility] CT CERVICAL SPINE WO IVCONon 11-16-2023 CT CERVICAL SPINE WO IVCON * * *Final Report* * * DATE OF EXAM: Nov 16 2023 3:46PM [facility] 0505 - CT CERVICAL SPINE WO IVCON / PROCEDURE REASON: Spine fracture, cervical, traumatic * * * * Physician Interpretation * * * * EXAMINATION: CT CERVICAL SPINE WO IVCON CLINICAL HISTORY: Spine fracture, cervical, traumatic. Multiple falls in the past 2 weeks. TECHNIQUE: Spiral, high resolution axial unenhanced images were obtained from the skull base to the cervicothoracic junction with sagittal and coronal planar reconstructions. MQ: CTCSPWO_5 CT Radiation dose: Integrated CT Dose-Length Product (DLP) for this visit = 188.51 mGy*cm CT Dose Reduction Employed: No dose reduction techniques were required COMPARISON: CT cervical spine 12/07/2021. RESULT: Counting reference: Craniocervical junction. Anatomic Variants: None. Director Learning (topogram) images: No additional findings. Alignment: Straightening of the cervical spine, unchanged. Craniocervical junction: Craniocervical junction is normal. Osseous structures/fracture: No evidence of a lytic or blastic process in the visualized spine. No evidence of acute or chronic fracture. Cervical soft tissues: The paraspinal soft tissues are within normal limits. Degenerative changes: Severe intervertebral disc space narrowing at C5-C6 and C6-C7. Incomplete osseous fusion of C7-T2. Nonfused spinous process of C6. Multilevel osteophytes predominantly at C5-C7. Severe facet arthropathy at the bilateral C2-C3, left C3-C4, and bilateral C5-C6. Severe narrowing of the left C3-C4 foramina and right C4-C5 foramina. No high-grade spinal canal stenosis. IMPRESSION: No acute osseous findings. Multilevel spondylosis with severe degenerative changes involving C5-C7, as described. Anatomic Variant: None. Assume 7 cervical vertebrae with counting from the craniocervical junction. [employer] Quality Control Technician: PSCB Transcribe Date/Time: Nov 16 2023 4:08P Dictated by : CHELSI SHULTZ MD This examination was interpreted and the report reviewed and electronically signed by: CHELSI SHULTZ MD on Nov 16 2023 4:16PM EST [id number] [facility] ED NOTEon 11-16-2023 ED NOTE HNO ID: [id number] Author: ANA AGUIRRE RN Service: Nursing Author Type: Registered Nurse Type: ED Notes Filed: 11/16/2023 17:06 Note Text: Patient leaves pleasant and cooperative, alert and oriented x 3 with regular and easy respirations. Discharge instructions discussed. There are no additional questions for the provider. Will follow up as directed or return to ED for worsening or life threatening symptoms. [facility] ED NOTE HNO ID: [id number] Author: JAIMEE MELENDEZ RN Service: Emergency Medicine Author Type: Registered Nurse Type: ED Notes Filed: 11/16/2023 15:08 Note Text: Pt got tangled up in dog and blanket, fell hit head no loc, 3 days ago, called PCP and was told to go to ED. Pt also fell last week. This is the 2nd fall in 2 weeks. [facility] ED PROV NOTEon 11-16-2023 ED PROV NOTE HNO ID: [id number] Author: CHRISTOPH LIU MD Service: Emergency Medicine Author Type: Physician Type: ED Provider Notes Filed: 11/17/2023 01:07 Note Text: ED Provider Note Patient Name: Yeny Tavera : 1945 SERVICE DATE: 11/16/23 History Patient presents with: Fall HPI This is a 78-year-old female with history as below, pertinent history of A-fib maintained on Eliquis presenting at the direction of her doctor for assessment after a fall that occurred 3 days ago. History is provided by patient. Reports that she tripped in her room, her foot got tied up in a blanket resulting in her falling to her side hitting the right side of her head on the wall. Denies LOC. No headache lightheadedness or dizziness. No blurred vision double vision loss of vision. No nausea or vomiting. Was overall doing well. 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 Diverticulitis 09/11/2016 Epiretinal membrane Left Epiretinal membrane (ERM) of left eye 05/13/2021 Esophageal reflux 07/21/2007 Essential hypertension 04/04/2015 Female stress incontinence Generalized osteoarthrosis, unspecified site Greater trochanteric bursitis 03/15/2017 Human papillomavirus in conditions classified elsewhere and of unspecified site Hypothyroidism 06/16/2005 implantable loop recorder 08/22/2014 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 ILR-DEVICE MODEL [id number] Reveal LINQ ILR-DEVICE SERIAL NUMBER [id number] ILR-DEVICE IMPLANT DATE 09/26/2013 ILR-DEVICE IMPLANTED BY DOCTOR 1 Large fiber neuropathy 08/04/2017 Osteoporosis, unspecified 2005 on fosamax T-score -2.4 nl vit D 02/07 dxa no change losest T-score -2.6 spine Partial nontraumatic tear of right rotator cuff 09/29/2020 Recurrent falls 03/15/2017 Recurrent major depressive disorder, in partial remission (HCC) Torn meniscus left knee Unspecified asthma(493.90) PAST SURGICAL HISTORY Procedure Laterality Date APPENDECTOMY 1950 COLONOSCOPY 03/22/2013 COLONOSCOPY 05/06/2007 EXC/CURTG BONE CYST/B9 TUMORTARSAL/METATARSAL 1965 excision of scar tissue Right foot HYSTEROSCOPY W/BX ENDO/POLYP 03/08/2011 hsyteroscopy polypectomy and DANDC OVARIAN CYSTECTOMY UNI/BI 1986 dermoid cyst, right ovary TONSILLECTOMY PRIMARY/SECONDARY XTRNL PT ACTIV ECG TRANSMIS W/POLI removed 2017 FAMILY HISTORY Problem Relation Age of Onset Cataract Father Glaucoma Father other (adrenal insufficiency) Father at age 87, vent tachycardia Cataract Mother Glaucoma Mother other (arrthymias) Mother CHF and osteoporosis, at 94 yrs Cancer Paternal Grandmother 92 unknown primary, metastatic Breast Cancer Paternal Aunt 55 @ dx. Living; born [birth year] other (lung cancer) Brother other (alzheimers) Sister Down syndrome Social History Tobacco Use Smoking status: Never Smokeless tobacco: Never Vaping Use Vaping Use: Never used Substance and Sexual Activity Alcohol use: Yes Comment: 2 5oz. wine per month. Drug use: No Sexual activity: Yes Partners: Male Comment: ALLERGIES Allergen Reactions Sulfa (Sulfonamide * Mental Status Change Fever, hallucinations, rash, swelling Tetnus [Tetanus Vac* Swelling Adhesive Tape (Jenna* skin irritation Contact Allergies [* Rash wool, itching and skin peels off Food Allergies [Oth* GI Upset allergic to beans- GI upset eye swelling Vancomycin Itching Review of Systems As per HPI Physical Exam Vitals [11/16/23 1445] BP Pulse Temp Temp src Resp SpO2 Weight Height 123/73 70 36.3 ?C (97.3 ?F) -- 16 96 % 66.7 kg (147 lb) 1.702 m (5' 7) Physical Exam PRIMARY SURVEY Airway is intact Breath sounds present bilaterally and symmetric Bilateral radial, femoral, DP and PT pulses are palpated and symmetric GCS 15 SECONDARY SURVEY Head is atraumatic, normocephalic. No outward signs of trauma. PERRL TM clear without hemotympanum Midface stable Nares are clear without any septal hematoma or active bleeding. Oropharynx is clear without any intraoral trauma. No findings of malocclusion. Trachea midline without deviation. No evidence of JVD. No midline cervical tenderness palpation, step-off or deformity. Chest is atraumatic. No outward signs of trauma. No crepitus or deformity on palpation. No tenderness. Breath sounds present bilateral and symmetric without wheezing, rales or rhonchi. No increased work of breathing, no accessory muscle usage. Heart is regular rate a (more content not included)... [facility] ALLIED HEALTHon 11-10-2023 ALLIED HEALTH HNO ID: [id number] Author: DANIEL IBARRA RT(R) Service: Radiology Author Type: Technologist Type: Allied Health Filed: 11/10/2023 11:34 Note Text: Radiology Service Progress Note PATIENT NAME: Yeny Tavera DATE OF SERVICE: November 10, 2023 TIME: 11:34 AM PATIENT IDENTITY VERIFICATION COMPLETED USING TWO (2) IDENTIFIERS: Name and Date of confirmed by patient verbally and Name and Date of confirmed by identification band. FALL SCREENING: Has the patient had 2 falls in the last year or 1 fall with injury or currently using an Ambulatory Assistive Device (Walker, Cane, Wheelchair, Crutches, etc.)? Emergency Room Patient: Screened in ED PATIENT GENDER DATA: Female. status: : No status: NO. PATIENT RELEVANT IMPLANT DATA REVIEWED: Not Applicable PATIENT PRESENTS WITH AN IMPLANTABLE OR ATTACHED WOOD POLISHER: No RADIOLOGY DEPARTMENT: General X-ray: Exam(s) Completed: Lower Extremity X-Ray(s): Knee, AP / LAT Right Upper Extremity X-Ray(s): Elbow, right and Wrist, bilateral PERIPHERAL IV DATA: Not applicable SIGNED BY: RT Katina(R) November 10, 2023 11:34 AM [facility] ED NOTEon 11-10-2023 ED NOTE HNO ID: [id number] Author: THOMAS THEODORE RN Service: ? Author Type: Registered Nurse Type: ED Notes Filed: 11/10/2023 13:16 Note Text: Discharge instructions d/w pt at bedside. Stated understanding with no further questions for this nurse. Encouraged f/u with PCP and referring doctors given. Stated understanding. Prescription(S) were given X1. [facility] ED NOTE HNO ID: [id number] Author: THOMAS THEODORE RN Service: ? Author Type: Registered Nurse Type: ED Notes Filed: 11/10/2023 12:20 Note Text: Medic (Kylee) at bedside to splint [facility] ED NOTE HNO ID: [id number] Author: JACQUELINE NICHOLS, DELLA Service: ? Author Type: Registered Nurse Type: ED Notes Filed: 11/10/2023 10:17 Note Text: Pt to ED with c/o mechanical fall this am, pt tripped and fell onto bilateral wrists, and right knee. Denies hitting head. Denies LOC. Right wrist +swelling. Small abrasion to right knee. Pain in left wrist as well. [facility] ED PROV NOTEon 11-10-2023 ED PROV NOTE HNO ID: [id number] Author: TOMMY GODOY APRN.ENE Service: Emergency Medicine Author Type: Nurse Practitioner Type: ED Provider Notes Filed: 11/10/2023 13:05 Note Text: ED Provider Note Patient Name: Yeny Tavera : 1945 SERVICE DATE: 11/10/23 History Patient presents with: Fall Patient is a 77-year-old female with a past medical history of A-fib currently on Eliquis, bradycardia with history of pacemaker insertion, essential hypertension, hypothyroidism, osteopenia, osteoporosis, asthma, major depressive disorder, presenting to the ED for complaints of fall. Patient states she was on her way to her senior exercise class, when her pocket got caught by erect front bumper of the vehicle, causing her to lose her balance and fall. Patient states that she braced her fall with her hands, and is experiencing bilateral wrist pain, right greater than left. She currently states her pain is 8 out of 10, sharp stabbing in nature, worse with movement, she has not taken anything, the pain does not radiate. She also mentions hitting her right knee and right elbow. Mentions abrasions to both. She denies any lightheadedness or dizziness, no complaints of fever or chills, no loss of consciousness or head trauma. 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 Diverticulitis 09/11/2016 Epiretinal membrane Left Epiretinal membrane (ERM) of left eye 05/13/2021 Esophageal reflux 07/21/2007 Essential hypertension 04/04/2015 Female stress incontinence Generalized osteoarthrosis, unspecified site Greater trochanteric bursitis 03/15/2017 Human papillomavirus in conditions classified elsewhere and of unspecified site Hypothyroidism 06/16/2005 implantable loop recorder 08/22/2014 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 ILR-DEVICE MODEL [id number] Reveal LINQ ILR-DEVICE SERIAL NUMBER [id number] ILR-DEVICE IMPLANT DATE 09/26/2013 ILR-DEVICE IMPLANTED BY DOCTOR 1 Large fiber neuropathy 08/04/2017 Osteoporosis, unspecified 2005 on fosamax T-score -2.4 nl vit D 02/07 dxa no change losest T-score -2.6 spine Partial nontraumatic tear of right rotator cuff 09/29/2020 Recurrent falls 03/15/2017 Recurrent major depressive disorder, in partial remission ([facility]) Torn meniscus left knee Unspecified asthma(493.90) PAST SURGICAL HISTORY Procedure Laterality Date APPENDECTOMY 1950 COLONOSCOPY 03/22/2013 COLONOSCOPY 05/06/2007 EXC/CURTG BONE CYST/B9 TUMORTARSAL/METATARSAL 1965 excision of scar tissue Right foot HYSTEROSCOPY W/BX ENDO/POLYP 03/08/2011 hsyteroscopy polypectomy and DANDC OVARIAN CYSTECTOMY UNI/BI 1986 dermoid cyst, right ovary TONSILLECTOMY PRIMARY/SECONDARY XTRNL PT ACTIV ECG TRANSMIS W/POLI removed 2017 FAMILY HISTORY Problem Relation Age of Onset Cataract Father Glaucoma Father other (adrenal insufficiency) Father at age 87, vent tachycardia Cataract Mother Glaucoma Mother other (arrthymias) Mother CHF and osteoporosis, at 94 yrs Cancer Paternal Grandmother 92 unknown primary, metastatic Breast Cancer Paternal Aunt 55 @ dx. Living; born [birth year] other (lung cancer) Brother other (alzheimers) Sister Down syndrome Social History Tobacco Use Smoking status: Never Smokeless tobacco: Never Vaping Use Vaping Use: Never used Substance and Sexual Activity Alcohol use: Yes Comment: 2 5oz. wine per month. Drug use: No Sexual activity: Yes Partners: Male Comment: ALLERGIES Allergen Reactions Sulfa (Sulfonamide * Mental Status Change Fever, hallucinations, rash, swelling Tetnus [Tetanus Vac* Swelling Adhesive Tape (Jenna* skin irritation Contact Allergies [* Rash wool, itching and skin peels off Food Allergies [Oth* GI Upset allergic to beans- GI upset eye swelling Vancomycin Itching Review of Systems Constitutional: Negative for activity change, appetite change, chills, fatigue and fever. HENT: Negative for congestion, rhinorrhea, sinus pain, sore throat and trouble swallowing. Eyes: Negative for photophobia, redness and visual disturbance. Respiratory: Negative for cough, shortness of breath and wheezing. Cardiovascular: Negative for chest pain and leg swelling. Gastrointestinal: Negative for abdominal distention, abdominal pain, diarrhea, nausea and vomiting. Endocrine: Negative for polydipsia, polyphagia and polyuria. Genitourinary: Negative for decreased urine volume, flank pain and frequency. Musculoskeletal: Positive for arthralgias and myalgias. Negative for back pain. Skin: Positive for wound (Multiple abrasions). (more content not included)... [facility] XR ELBOW 3V AP/LAT/OTHER RTo n 11-10-2023 XR ELBOW 3V AP/LAT/OTHER RT * * *Final Report* * * DATE OF EXAM: Nov 10 2023 11:33AM MDX 5325 - XR ELBOW 3V AP/LAT/OTHER RT / PROCEDURE REASON: Elbow trauma, no prior imaging * * * * Physician Interpretation * * * * EXAMINATION / TECHNIQUE: XR ELBOW 3V AP/LAT/OTHER RT PATIENT/TECHNOLOGIST PROVIDED HISTORY: FALL TRAUMA CLINICAL INFORMATION ( PROVIDED BY ORDERING CLINICIAN) : Elbow trauma, no prior imaging COMPARISON: None RESULT: No acute fracture or dislocation. No elbow joint effusion. Joint spaces are maintained. Tiny enthesophyte at the origin of the common extensor tendon. IMPRESSION: No acute osseous abnormality. [employer] Quality Control Technician: ToothpickB Transcribe Date/Time: Nov 10 2023 11:38A Dictated by : DAYRON GARCIA MD This examination was interpreted and the report reviewed and electronically signed by: DAYRON GARCIA MD on Nov 10 2023 11:39AM EST [id number] [facility] XR KNEE 2V AP/LAT RTon 11-09 XR KNEE 2V AP/LAT RT * * *Final Report* * * DATE OF EXAM: Nov 10 2023 11:33AM MDX 5207 - XR KNEE 2V AP/LAT RT / PROCEDURE REASON: Trauma * * * * Physician Interpretation * * * * EXAMINATION / TECHNIQUE: XR KNEE 2V AP/LAT RT PATIENT/TECHNOLOGIST PROVIDED HISTORY: FALL TRAUMA CLINICAL INFORMATION ( PROVIDED BY ORDERING CLINICIAN) : Trauma COMPARISON: 02/17/2020 RESULT: No acute fracture or dislocation. No significant knee joint effusion. Minimal osteophytic lipping in the tibiofemoral compartments, similar to prior. Quadriceps tendon insertional enthesophyte. IMPRESSION: No acute osseous abnormality. Bottle [employer] Quality Control Technician: PSCB Transcribe Date/Time: Nov 10 2023 11:37A Dictated by : DAYRON GARCIA MD This examination was interpreted and the report reviewed and electronically signed by: DAYRON GARCIA MD on Nov 10 2023 11:38AM EST [id number] [facility] XR WRIST 4V PA/LAT/OBL/SCAPH LTon 11-10-2023 XR WRIST 4V PA/LAT/OBL/SCAPH LT * * *Final Report* * * DATE OF EXAM: Nov 10 2023 11:33AM MDX 5272 - XR WRIST 4V PA/LAT/OBL/SCAPH LT / PROCEDURE REASON: Trauma * * * * Physician Interpretation * * * * EXAM: XR WRIST 4V PA/LAT/OBL/SCAPH LT, XR WRIST 4V PA/LAT/OBL/SCAPH RT HISTORY: Trauma Bilateral wrist pain status post fall VIEWS: PA, oblique, lateral and navicular both wrists. COMPARISON: 1122 FINDINGS: Right wrist: Comminuted intra-articular fracture of the distal right radius with mild dorsal angulation. The scaphoid is flexed volarly with abnormally increased scapholunate angle. There is capitolunate joint space narrowing. There is severe trapeziometacarpal joint space narrowing with osteophytes and radial subluxation of first metacarpal. Left wrist: There has been interval trapeziectomy. There is an old healed fracture of the distal left radius and positive ulnar variance. No acute fracture is identified. There is radiocarpal joint space narrowing and marginal spurring. The scapholunate distance is slightly increased and there is narrowing of capitolunate and hamatolunate articulations. IMPRESSION: Acute distal right radius fracture. Old healed distal left radius fracture and positive ulnar variance. No clear evidence of acute fracture at the left wrist. Additional chronic features detailed above. [employer] Quality Control Technician: ERIC Transcribe Date/Time: Nov 10 2023 11:34A Dictated by : Joyce ZAPATA MD This examination was interpreted and the report reviewed and electronically signed by: Joyce ZAPATA MD on Nov 10 2023 11:48AM EST [id number] [facility] XR WRIST 4V PA/LAT/OBL/SCAPH RTon 11-10-2023 XR WRIST 4V PA/LAT/OBL/SCAPH RT * * *Final Report* * * DATE OF EXAM: Nov 10 2023 11:33AM MDX 5273 - XR WRIST 4V PA/LAT/OBL/SCAPH RT / PROCEDURE REASON: Trauma * * * * Physician Interpretation * * * * EXAM: XR WRIST 4V PA/LAT/OBL/SCAPH LT, XR WRIST 4V PA/LAT/OBL/SCAPH RT HISTORY: Trauma Bilateral wrist pain status post fall VIEWS: PA, oblique, lateral and navicular both wrists. COMPARISON: 1122 FINDINGS: Right wrist: Comminuted intra-articular fracture of the distal right radius with mild dorsal angulation. The scaphoid is flexed volarly with abnormally increased scapholunate angle. There is capitolunate joint space narrowing. There is severe trapeziometacarpal joint space narrowing with osteophytes and radial subluxation of first metacarpal. Left wrist: There has been interval trapeziectomy. There is an old healed fracture of the distal left radius and positive ulnar variance. No acute fracture is identified. There is radiocarpal joint space narrowing and marginal spurring. The scapholunate distance is slightly increased and there is narrowing of capitolunate and hamatolunate articulations. IMPRESSION: Acute distal right radius fracture. Old healed distal left radius fracture and positive ulnar variance. No clear evidence of acute fracture at the left wrist. Additional chronic features detailed above. Bottle [employer] Quality Control Technician: ERIC Transcribe Date/Time: Nov 10 2023 11:34A Dictated by : Joyce ZAPATA MD This examination was interpreted and the report reviewed and electronically signed by: Joyce ZAPATA MD on Nov 10 2023 11:48AM EST [id number] [facility] Absolute lymphocyte countOrd ered By: Osbaldo Fowler on 03-17-2023 Lymphocytes Auto (Unsp spec) [#/Vol] 1.33 10*3/uL 0.83-4.51 [facility] Basophil percentageOrdered B y: Osbaldo Fowler on 03-17-2023 Basophils/100 WBC (Bld) 0.6 % 0-1 [facility] Bilirubin [Mass/Vol] 0.30 mg/dL 0.20-1.00 [facility] Comment on above: For patients on eltr ombopag therapy, use of Dimension [place] TBIL is not recommended. Chloride [Moles/Vol] 106 mmol/L 98-107 [facility] Cholesterol [Mass/Vol] 169 mg/dL <200 [facility] Comment on above: <200 mg/dL Desirable 200-240 mg/dL Borderline >240 mg/dL High Risk Eosinophils/100 WBC (Bld) 2.4 % 0-5 [facility] Glucose [Mass/Vol] 86 mg/dL 74-106 [facility] Neutrophils (Bld) [#/Vol] 4.7 10*3/uL 2.0-7.7 [facility] Neutrophils/100 WBC (Bld) 70.4 % 47-70 [facility] Potassium [Moles/Vol] 4.1 mmol/L 3.5-5.1 [facility] Protein [Mass/Vol] 6.4 g/dL 6.4-8.2 [facility] Sodium [Moles/Vol] 137 mmol/L 136-145 [facility] Triglyceride [Mass/Vol] 71 mg/dL <199 [facility] Comment on above: The drugs N-Acetylcy steine and Metamizole may falsely depress this assay.Serum Triglycerides Reference Interval Normal <150 mg/dL Borderline high 150 - 199 mg/dL High 200 - 499 mg/dL Very High > or = 500 mg/dL WBC (Bld) [#/Vol] 6.7 10*3/uL 4.4-11.0 [facility] Blood erythrocytes count (nu mber/volume)Ordered By: Osbaldo Fowler on 03-17-2023 RBC (Bld) [#/Vol] 4.47 10*6/uL 4.2-5.4 [facility] Blood hemoglobin measurement (mass/volume)Ordered By: Osbaldo Fowler on 03-17-2023 Hemoglobin (Bld) [Mass/Vol] 14.6 g/dL 12.0-15.0 [facility] Blood lymphocytes/100 leukoc ytesOrdered By: Osbaldo Fowler on 03-17-2023 Lymphocytes/100 WBC (Bld) 19.9 % 19-41 [facility] Blood monocytes/100 leukocyt esOrdered By: Osbaldo Fowler on 03-17-2023 Monocytes/100 WBC (Bld) 6.6 % 0-10 [facility] Blood platelet mean volumeOr dered By: Osbaldo Fowler on 03-17-2023 Platelet mean volume (Bld) [Entitic vol] 9.9 fL 6.2-12.0 [facility] Determination of erythrocyte mean corpuscular volume (MCV)Ordered By: Osbaldo Fowler on 03-17-2023 MCV (RBC) [Entitic vol] 98.0 fL 81-99 [facility] Hematocrit Auto (Bld) [Volum e fraction]Ordered By: Osbaldo Fowler on 03-17-2023 Hematocrit (Bld) [Volume fraction] 43.8 % 37-47 [facility] - Chemistry and C hemistry - challengeOrdered By: Osbaldo Fowler on 03-17-2023 ALP [Catalytic activity/Vol] 85 U/L 45-117 [facility] ALT [Catalytic activity/Vol] 45 U/L 13-56 [facility] CO2 [Moles/Vol] 26.0 mmol/L 21.0-32.0 [facility] Globulin (S) [Mass/Vol] 2.8 g/dL 2.2-4.2 [facility] Urea nitrogen/Creatinine [Mass ratio] 24.1 mg/mg 10-20 [facility] - Hematology and Cell countsOrdered By: Osbaldo Fowler on 03-17-2023 Erythrocyte distribution width (RBC) [Entitic vol] 47.7 fL 35.1-43.9 [facility] Erythrocyte distribution width (RBC) [Ratio] 13.0 % 11.6-14.6 [facility] Immature granulocytes/100 WBC (Bld) 0.100 % 0.0-0.9 [facility] Comment on above: IG% - Immature Granu locytes (promyelocytes, myelocytes and metamyelocytes) > 1% indicates that a LEFT SHIFT is Present. MCH (RBC) [Entitic mass] 32.7 pg 27.0-32.0 [facility] Nucleated RBC/100 WBC (Bld) [Ratio] 0 % 0-5 [facility] MCHC Auto (RBC) [Mass/Vol]Or dered By: Osbaldo Fowler on 03-17-2023 MCHC (RBC) [Mass/Vol] 33.3 g/dL 32-36 [facility] No Panel InformationOrdered By: Osbaldo Fowler on 03-17-2023 Estimated GFR (MDRD) Amer 119 mL/min >60 [facility] Comment on above: GFR Calc Estimated GFR (MDRD) Non-Af Amer 99 mL/min >60 [facility] Comment on above: Non- GFR Calc Thyroid Stimulating Hormone (TSH) 2.22 uIU/mL 0.358-3.74 [facility] Platelets bldOrdered By: Goldy Fowler on 03-17-2023 Platelets (Bld) [#/Vol] 207 10*3/uL 150-450 [facility] Serum or plasma albumin bhavya urement (mass/volume)Ordered By: Osbaldo Fowler on 03-17-2023 Albumin [Mass/Vol] 3.6 g/dL 3.2-5.0 [facility] Serum or plasma albumin/glob ulin mass ratioOrdered By: Osbaldo Fowler on 03-17-2023 Albumin/Globulin [Mass ratio] 1.3 {ratio} 0.9-2.4 [facility] Serum or plasma calcium bhavya urement (mass/volume)Ordered By: Osbaldo Fowler on 03-17-2023 Calcium [Mass/Vol] 9.1 mg/dL 8.5-10.1 [facility] Serum or plasma cholesterol in HDL measurement (mass/volume)Ordered By: Osbaldo Fowler on 03-17-2023 Cholesterol in HDL [Mass/Vol] 56 mg/dL >40 [facility] Comment on above: The drugs N-Acetylcy steine and Metamizole may falsely depress this assay. Reference Range HDL <40 mg/dL Low HDL Cholesterol HDL >or= 60 mg/dL High HDL Cholesterol Serum or plasma cholesterol in VLDL measurement (mass/volume)Ordered By: Osbaldo Fowler on 03-17-2023 Cholesterol in VLDL [Mass/Vol] 14 mg/dL 5-40 [facility] Serum or plasma creatinine m easurement (mass/volume)Ordered By: Osabldo Fowler on 03-17-2023 Creatinine [Mass/Vol] 0.62 mg/dL 0.55-1.02 [facility] Comment on above: The validity of the calculated GFR & GFRAA in patients over 70 years has not been determined. Clinical correlation is essential. Serum or plasma low density lipoprotein (LDL) cholesterol measurement (mass/volume)Ordered By: Osbaldo Fowler on 03-17-2023 Cholesterol in LDL [Mass/Vol] 99 mg/dL 0-130 [facility] Serum or plasma urea nitroge n measurement (mass/volume)Ordered By: Osbaldo Fowler on 03-17-2023 Urea nitrogen [Mass/Vol] 15 mg/dL 7-18 [facility] Thin prep Papanicolaou smear with manual screeningOrdered By: Osbaldo Fowler on 03-17-2023 Thin prep Papanicolaou smear with manual screening 26 U/L 15-37 [facility] Thin prep Papanicolaou smear with manual screening 5 5-15 [facility] No Panel Informationon 03-01 [facility] ALLIED HEALTHon 01-27-2023 ALLIED HEALTH HNO ID: [id number] Author: Juanita Rhodes CT Service: Radiology Author Type: Technologist Type: Allied Health Filed: 01/27/2023 10:17 AM Note Text: Radiology Service Progress Note PATIENT NAME: Yeny Tavera DATE OF SERVICE: January 27, 2023 TIME: 10:17 AM PATIENT IDENTITY VERIFICATION COMPLETED USING TWO (2) IDENTIFIERS: Name and Date of confirmed by patient verbally and Name and Date of confirmed by identification band. FALL SCREENING: Has the patient had 2 falls in the last year or 1 fall with injury or currently using an Ambulatory Assistive Device (Walker, Cane, Wheelchair, Crutches, etc.)? Emergency Room Patient: Screened in ED PATIENT GENDER DATA: Female. status: : No status: NO. PATIENT RELEVANT IMPLANT DATA REVIEWED: Not Applicable RADIOLOGY DEPARTMENT: CT; Exam(s) Completed: Brain PERIPHERAL IV DATA: Not applicable SIGNED BY: Juanita Kev Gentilerin, CT January 27, 2023 10:[address] [facility] [address] BRAIN WO IVCONon 01-28-20 CT BRAIN WO IVCON * * *Final Report* * * DATE OF EXAM: Jan 27 2023 10:19AM [facility] [id number] - CT BRAIN WO IVCON / PROCEDURE REASON: Subarachnoid hemorrhage (SAH) suspected * * * * Physician Interpretation * * * * EXAMINATION: CT BRAIN WO IVCON CLINICAL HISTORY: Subarachnoid hemorrhage suspected. TECHNIQUE: Serial axial images without IV contrast were obtained from the vertex to the foramen magnum. MQ: [id number] CT Radiation dose: Integrated Dose-Length Product (DLP) for this visit = 831 mGy*cm CT Dose Reduction Employed: Automated exposure control(AEC) and iterative recon COMPARISON: CT brain 12/07/2021 RESULT: Post-operative change: None. Acute change: No evidence of an acute infarct or other acute parenchymal process. Hemorrhage: No evidence of acute intracranial hemorrhage. ECASS hemorrhagic transformation score: Not Applicable Mass Lesion / Mass Effect: There is no evidence of an intracranial mass or extraaxial fluid collection. No significant mass effect. Chronic change: Scattered patchy foci of low attenuation are present within supratentorial white matter which is a nonspecific finding but likely represents mild microvascular ischemia. Parenchyma: There is no significant volume loss. The brain parenchyma is otherwise within normal limits for age. Ventricles: The ventricles are within normal limits of size and configuration for age. Paranasal sinuses and skull base: Mild mucosal thickening in the left ethmoid air cells. The remaining visualized paranasal sinuses and mastoid air cells are well aerated. The skull base and imaged soft tissues are unremarkable. Director Learning (topogram) images: Unremarkable. IMPRESSION: No acute intracranial abnormality. [facility] Quality Control Technician: PSCB Transcribe Date/Time: Jan 27 2023 11:07A Dictated by : MICHELLE PINA MD This examination was interpreted and the report reviewed and electronically signed by: MICHELLE PINA MD on Jan 27 2023 11:10AM EST [id number] [facility] ED NOTEon 01-27-2023 ED NOTE HNO ID: [id number] Author: Jose Loomis RN Service: Nursing Author Type: Registered Nurse Type: ED Notes Filed: 01/27/2023 11:47 AM Note Text: Pt discharged to home in stable condition. No noted distress - respirations equal and unlabored. AVS and medications reviewed. Pt verbalized understanding and importance of follow up care. No questions for this RN at this time. [facility] ED NOTE HNO ID: [id number] Author: Wendy Beltran RN Service: ? Author Type: Registered Nurse Type: ED Notes Filed: 01/27/2023 9:48 AM Note Text: Pt to ED with left side pain and right elbow pain after fall that occurred this morning. Pt states she was at an exercise class and tripped over someone's walker. Denies hitting her head/LOC. Pt is on blood thinners. [facility] ED PROV NOTEon 01-27-2023 ED PROV NOTE HNO ID: [id number] Author: Noah Lowery MD Service: ? Author Type: Physician Type: ED Provider Notes Filed: 01/27/2023 11:33 AM Note Text: ED Provider Note Patient Name: Yeny Tavera : 1945 SERVICE DATE: 01/27/23 History Patient presents with: Fall Patient is a 77-year-old female, with a history of asthma, osteoporosis, hypertension, A-fib with pacemaker, multiple other medical problems, who comes in with left chest wall pain from a fall. The patient was walking into an exercise class. She excellently tripped over someone's walker while carrying a cup of coffee. She landed on her left side. She says her left ribs hurt. She is concerned because she has a pacemaker and is on Eliquis. She says she was dazed initially. She is not sure if she hit her head. She does not think she was knocked out. She denies any aches or new visual complaints. She denies any new neck or back pain. She did scrape her knees although denies any major knee pain. She was able to walk in and drive here. There is no dizziness or syncope involved. She denies any trouble breathing. No abdominal or urinary complaints. No new localizing numbness or weakness. No current illnesses. No other associated complaints. 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 Diverticulitis 09/11/2016 Epiretinal membrane Left Epiretinal membrane (ERM) of left eye 05/13/2021 Esophageal reflux 07/21/2007 Essential hypertension 04/04/2015 Female stress incontinence Generalized osteoarthrosis, unspecified site Greater trochanteric bursitis 03/15/2017 Human papillomavirus in conditions classified elsewhere and of unspecified site Hypothyroidism 06/16/2005 implantable loop recorder 08/22/2014 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 ILR-DEVICE MODEL [id number] Reveal LINQ ILR-DEVICE SERIAL NUMBER [id number] ILR-DEVICE IMPLANT DATE 09/26/2013 ILR-DEVICE IMPLANTED BY DOCTOR 1 Large fiber neuropathy 08/04/2017 Osteoporosis, unspecified 2005 on fosamax T-score -2.4 nl vit D 02/07 dxa no change losest T-score -2.6 spine Partial nontraumatic tear of right rotator cuff 09/29/2020 Recurrent falls 03/15/2017 Recurrent major depressive disorder, in partial remission ([facility]) Torn meniscus left knee Unspecified asthma(493.90) PAST SURGICAL HISTORY Procedure Laterality Date APPENDECTOMY 1950 COLONOSCOPY 03/22/2013 COLONOSCOPY 05/06/2007 EXC/CURTG BONE CYST/B9 TUMORTARSAL/METATARSAL 1965 excision of scar tissue Right foot HYSTEROSCOPY W/BX ENDO/POLYP 03/08/2011 hsyteroscopy polypectomy and DANDC OVARIAN CYSTECTOMY UNI/BI 1986 dermoid cyst, right ovary TONSILLECTOMY PRIMARY/SECONDARY XTRNL PT ACTIV ECG TRANSMIS W/POLI removed 2017 FAMILY HISTORY Problem Relation Age of Onset Cataract Father Glaucoma Father other (adrenal insufficiency) Father at age 87, vent tachycardia Cataract Mother Glaucoma Mother other (arrthymias) Mother CHF and osteoporosis, at 94 yrs Cancer Paternal Grandmother 92 unknown primary, metastatic Breast Cancer Paternal Aunt 55 @ dx. Living; born 1910 other (lung cancer) Brother other (alzheimers) Sister Down syndrome Social History Tobacco Use Smoking status: Never Smokeless tobacco: Never Vaping Use Vaping Use: Never used Substance and Sexual Activity Alcohol use: Yes Comment: 2 5oz. wine per month. Drug use: No Sexual activity: Yes Partners: Male Comment: ALLERGIES Allergen Reactions Sulfa (Sulfonamide * Mental Status Change Fever, hallucinations, rash, swelling Tetnus [Tetanus Vac* Swelling Adhesive Tape (Jenna* skin irritation Contact Allergies [* Rash wool, itching and skin peels off Food Allergies [Oth* GI Upset allergic to beans- GI upset eye swelling Vancomycin Itching Review of Systems Constitutional: Negative. HENT: Negative. Eyes: Negative. Respiratory: Negative for shortness of breath. Complains of left chest wall pain. Cardiovascular: Negative. Gastrointestinal: Negative. Genitourinary: Negative. Musculoskeletal: Negative for arthralgias, back pain and neck pain. Skin: Negative. Neurological: Negative for syncope and headaches. Psychiatric/Behavioral : Positive for confusion. Physical Exam Vitals [01/27/23 0946] BP Pulse Temp Temp src Resp SpO2 Weight Height 153/78 (!) 54 36.6 ?C (97.9 ?F) Temporal 18 99 % 65.8 kg (145 lb) -- Physical Exam Vitals and nursing note reviewed. Constitutional: Appearance: Normal appearance. She is well-developed. She is not toxic-appearing. Comments: Patient appears somewhat uncomfortable although nontoxic. HENT: Head: Normocephalic and at (more content not included)... Normal [facility] XR RIB/CHST 3V AP RIB/OBL/CH ST Bahman 01-27-2023 XR RIB/CHST 3V AP RIB/OBL/CHST L * * *Final Report* * * DATE OF EXAM: Jan 27 2023 10:21AM MDX [id number] - XR RIB/CHST 3V AP RIB/OBL/CHST L / PROCEDURE REASON: Rib fracture suspected, traumatic * * * * Physician Interpretation * * * * EXAMINATION: XR RIB/CHST 3V AP RIB/OBL/CHST L PATIENT/TECHNOLOGIST PROVIDED HISTORY: FALL CLINICAL INFORMATION: 77 years old Female with Rib fracture suspected, traumatic. COMPARISON: CT chest 12/07/2021 TECHNIQUE: LEFT XR RIB/CHST 3V AP RIB/OBL/CHST L 3 views. Frontal chest and images of the left ribs RESULT: Ribs: LEFT chest wall pacemaker generator device obscures portion of the LEFT hemithorax with leads terminating in the RIGHT atrium and RIGHT ventricle. Minimally displaced fracture of the LEFT anterolateral 5th rib. Lungs and pleura: No consolidation. No discernible pleural effusion or pneumothorax. Cardiomediastinal silhouette: Normal cardiomediastinal silhouette. Other: Mild dextroscoliosis of the mid-upper thoracic spine. Endplate degenerative changes in the thoracic spine. IMPRESSION: Minimally displaced fracture of the LEFT anterolateral 5th rib. [facility] Quality Control Technician: ERIC Transcribe Date/Time: Jan 27 2023 11:10A Dictated by : JOSE ANGEL CUTLER DO This examination was interpreted and the report reviewed and electronically signed by: JOSE ANGEL CUTLER DO on Jan 27 2023 11:19AM EST [id number] Normal [facility] CBC panel Auto (Bld)on 01-18 Erythrocyte distribution width (RBC) [Ratio] 12.8 % 11.0 - 15.0 % [facility] Hematocrit (Bld) [Volume fraction] 44.6 % 35.0 - 45.0 % [facility] Hemoglobin (Bld) [Mass/Vol] 15.0 g/dL 11.7 - 15.5 g/dL [facility] MCH (RBC) [Entitic mass] 31.6 pg 27. 0 - 33.0 pg [facility] MCHC (RBC) [Mass/Vol] 33.6 g/dL 32.0 - 36.0 g/dL [facility] MCV (RBC) [Entitic vol] 94.1 fL 80.0 - 100.0 fL [facility] Platelet mean volume (Bld) [Entitic vol] 9.6 fL 7.5 - 12.5 fL [facility] Platelets (Bld) [#/Vol] 188 10*3/uL [facility] RBC (Bld) [#/Vol] 4.74 10*6/uL [facility] WBC (Bld) [#/Vol] 5.3 10*3/uL [facility] Comprehensive metabolic 1998 panelon 01-18-2023 Albumin [Mass/Vol] 4.2 g/dL 3.6 - 5.1 g/dL [facility] Albumin/Globulin [Mass ratio] 2.2 {ratio} [facility] ALP [Catalytic activity/Vol] 57 U/L 37 - 153 U/L [facility] ALT [Catalytic activity/Vol] 29 U/L 6 - 29 U/L [facility] AST [Catalytic activity/Vol] 26 U/L 10 - 35 U/L [facility] Bilirubin [Mass/Vol] 0.7 mg/dL 0.2 - 1 .2 mg/dL [facility] Calcium [Mass/Vol] 9.4 mg/dL 8.6 - 10. 4 mg/dL [facility] Chloride [Moles/Vol] 105 mmol/L 98 - 11 0 mmol/L [facility] CO2 [Moles/Vol] 26 mmol/L 20 - 32 mmol/L [facility] Creatinine [Mass/Vol] 0.65 mg/dL 0.60 - 1.00 mg/dL [facility] GFR/1.73 sq M.predicted among non-blacks MDRD (S/P/Bld) [Vol rate/Area] 90 mL/min/{1.73_m2} > OR = 60 mL/min/1.73m 2 [facility] Globulin (S) [Mass/Vol] 1.9 g/dL [facility] Glucose [Mass/Vol] 90 mg/dL 65 - 99 mg/dL [facility] Comment on above: Fasting reference interval Potassium [Moles/Vol] 4.5 mmol/L 3.5 - 5.3 mmol/L [facility] Protein [Mass/Vol] 6.1 g/dL 6.1 - 8.1 g/dL [facility] Sodium [Moles/Vol] 137 mmol/L 135 - 146 mmol/L [facility] Urea nitrogen [Mass/Vol] 12 mg/dL 7 - 25 mg/d L [facility] Urea nitrogen/Creatinine [Mass ratio] SEE NOTE: [facility] Comment on above: Not Reported: BUN an d Creatinine are within reference range. Hemoglobin A1con 01-18-2023 HbA1c (Bld) [Mass fraction] 5.4 % [facility] Comment on above: For the purpose of s creening for the presence of diabetes: <5.7% Consistent with the absence of diabetes 5.7-6.4% Consistent with increased risk for diabetes (prediabetes) > or =6.5% Consistent with diabetes This assay result is consistent with a decreased risk of diabetes. Currently, no consensus exists regarding use of hemoglobin A1c for diagnosis of diabetes in children. According to [place] Diabetes Association (ADA) guidelines, hemoglobin A1c <7.0% represents optimal control in non- diabetic patients. Different metrics may apply to specific patient populations. Standards of Medical Care in Diabetes(ADA). Hepatitis C antibodyon 01-18 HCV Ab IA Ql Non-Reactive NON-REACTIVE [facility] Comment on above: HCV antibody was non-reactive. There is no laboratory evidence of HCV infection. In most cases, no further action is required. However, if recent HCV exposure is suspected, a test for HCV RNA (test code 36270) is suggested. For additional information please refer to http://education.Data3Sixty/faq/YIP83w8 (This link is being provided for informational/ educational purposes only.) Lipid 1996 panelon 3 Cholesterol [Mass/Vol] 194 mg/dL [facility] - 200 mg/dL [facility] Cholesterol in HDL [Mass/Vol] 67 mg/dL > OR = 50 [facility] Cholesterol in LDL [Mass/Vol] 110 mg/dL High mg/dL (calc) [facility] Comment on above: Reference range: <10 0 Desirable range <100 mg/dL for primary prevention; <70 mg/dL for patients with CHD or diabetic patients with > or = 2 CHD risk factors. LDL-C is now calculated using the Yakov-Kaufman calculation, which is a validated novel method providing better accuracy than the Friedewald equation in the estimation of LDL-C. Yakov RICHTER et al. KRYSTAL. 2013;310(19): 2053-2507 (http://education.1010data.Merkle/faq/RNW191) Cholesterol non HDL [Mass/Vol] 127 mg/dL [facility] Comment on above: For patients with di abetes plus 1 major ASCVD risk factor, treating to a non-HDL-C goal of <100 mg/dL (LDL-C of <70 mg/dL) is considered a therapeutic option. Cholesterol.total/Choles terol in HDL [Mass ratio] 2.9 {ratio} [facility] Interpretation and review of laboratory results Abnormal [facility] Triglyceride [Mass/Vol] 80 mg/dL [facility] - 150 mg/dL [facility] No Panel Informationon 01-18 [facility] TSHon 01-18-2023 TSH Qn 1.47 m[IU]/L [facility] SCREENINGon 12-03-2021 [facility] Vital Signs Date Time Vital Sign Value Performing Clinician Facility 10-02-2024 12:52-0400 Body height 170.2 cm Farida Thomas ACID LEVELER - [employer]IDENT [place] Work Phone: [facility] 10-02-2024 12:52-0400 Body mass index (BMI) [Ratio] 23.18 kg/m2 Farida Thomas ACID LEVELER - [employer] [place] Work Phone: [facility] 10-02-2024 12:52-0400 Body weight 67.13 kg Farida Thomas ACID LEVELER - [employer] [place] Work Phone: [facility] 09-13-2024 17:09-0400 Body height 172.72 cm Osbaldo Fowler EXTENSION SERVICE SPECIALIST IN CHARGE-C Work Phone: [facility] 09-13-2024 17:09-0400 Body mass index (BMI) [Ratio] 24.1 kg/m2 Osbaldo Fowler EXTENSION SERVICE SPECIALIST IN CHARGE-C Work Phone: [facility] 09-13-2024 17:09-0400 Body temperature 97.7 [degF] Osbaldo Fowler EXTENSION SERVICE SPECIALIST IN CHARGE-C Work Phone: [facility] 09-13-2024 17:09-0400 Body weight 72.12 kg Osbaldo Fowler EXTENSION SERVICE SPECIALIST IN CHARGE-C Work Phone: [facility] 09-13-2024 17:09-0400 Diastolic blood pressure 70 mm[Hg] Osbaldo Fowler EXTENSION SERVICE SPECIALIST IN CHARGE-C Work Phone: [facility] 09-13-2024 17:09-0400 Heart rate 56 /min Osbaldo Fowler EXTENSION SERVICE SPECIALIST IN CHARGE-C Work Phone: [facility] 09-13-2024 17:09-0400 Respiratory rate 18 /min Osbaldo Fowler EXTENSION SERVICE SPECIALIST IN CHARGE-C Work Phone: [facility] 09-13-2024 17:09-0400 SaO2% (BldA) [Mass fraction] 98 % Osbaldo Fowler EXTENSION SERVICE SPECIALIST IN CHARGE-C Work Phone: [facility] 09-13-2024 17:09-0400 Systolic blood pressure 142 mm[Hg] Osbaldo Fowler EXTENSION SERVICE SPECIALIST IN CHARGE-C Work Phone: [facility] 08-22-2024 10:30-0400 Body height 172.72 cm Osbaldo Fowler EXTENSION SERVICE SPECIALIST IN CHARGE-C Work Phone: [facility] 08-22-2024 10:30-0400 Body mass index (BMI) [Ratio] 21.4 kg/m2 Osbaldo Fowler EXTENSION SERVICE SPECIALIST IN CHARGE-C Work Phone: [facility] 08-22-2024 10:30-0400 Body temperature 97 [degF] Osbaldo Fowler EXTENSION SERVICE SPECIALIST IN CHARGE-C Work Phone: [facility] 08-22-2024 10:30-0400 Body weight 63.95 kg Osbaldo Fowler EXTENSION SERVICE SPECIALIST IN CHARGE-C Work Phone: [facility] 08-22-2024 10:30-0400 Diastolic blood pressure 80 mm[Hg] Osbaldo Fowler EXTENSION SERVICE SPECIALIST IN CHARGE-C Work Phone: [facility] 08-22-2024 10:30-0400 Heart rate 42 /min Osbaldo Fowler EXTENSION SERVICE SPECIALIST IN CHARGE-C Work Phone: [facility] 08-22-2024 10:30-0400 Respiratory rate 18 /min Osbaldo Fowler EXTENSION SERVICE SPECIALIST IN CHARGE-C Work Phone: [facility] 08-22-2024 10:30-0400 SaO2% (BldA) [Mass fraction] 97 % Osbaldo Fowler EXTENSION SERVICE SPECIALIST IN CHARGE-C Work Phone: [facility] 08-22-2024 10:30-0400 Systolic blood pressure 120 mm[Hg] Osbaldo Fowler EXTENSION SERVICE SPECIALIST IN CHARGE-C Work Phone: [facility] 05-07-2024 14:21-0500 Body mass index (BMI) [Ratio] 22.6 kg/m2 Osbaldo Fowler EXTENSION SERVICE SPECIALIST IN CHARGE-C Work Phone: [facility] 05-07-2024 14:21-0500 Body temperature 97.7 [degF] Osbaldosrinath DouglasFowler EXTENSION SERVICE SPECIALIST IN CHARGE-C Work Phone: [facility] 05-07-2024 14:21-0500 Body weight 67.58 kg Osbaldo Fowler EXTENSION SERVICE SPECIALIST IN CHARGE-C Work Phone: [facility] 05-07-2024 14:21-0500 Diastolic blood pressure 60 mm[Hg] Osbaldo Fowler EXTENSION SERVICE SPECIALIST IN CHARGE-C Work Phone: [facility] 05-07-2024 14:21-0500 Heart rate 69 /min Osbaldo Malcolm EXTENSION SERVICE SPECIALIST IN CHARGE-C Work Phone: [facility] 05-07-2024 14:21-0500 Respiratory rate 18 /min Osbaldo Malcolm EXTENSION SERVICE SPECIALIST IN CHARGE-C Work Phone: [facility] 05-07-2024 14:21-0500 SaO2% (BldA) [Mass fraction] 98 % Osbaldo Malcolm EXTENSION SERVICE SPECIALIST IN CHARGE-C Work Phone: [facility] 05-07-2024 14:21-0500 Systolic blood pressure 122 mm[Hg] Osbaldo Malcolm EXTENSION SERVICE SPECIALIST IN CHARGE-C Work Phone: [facility] 04-17-2024 13:46-0500 Body height 170.2 cm Geo Parkinson MD Work Phone: [facility] 04-17-2024 13:46-0500 Body mass index (BMI) [Ratio] 24.12 kg/m2 Geo Parkinson MD Work Phone: [facility] 04-17-2024 13:46-0500 Body weight 69.85 kg Geo Parkinson MD Work Phone: [facility] 04-17-2024 13:46-0500 Diastolic blood pressure 74 mm[Hg] Geo Parkinson MD Work Phone: [facility] 04-17-2024 13:46-0500 Heart rate 78 /min Geo Parkinson MD Work Phone: [facility] 04-17-2024 13:46-0500 SaO2% (BldA) [Mass fraction] 98 % Geo Parkinson MD Work Phone: [facility] 04-17-2024 13:46-0500 Systolic blood pressure 114 mm[Hg] Geo Parkinson MD Work Phone: [facility] 09-20-2023 13:33-0400 Body height 170.2 cm Geo Parkinson MD Work Phone: [facility] 09-20-2023 13:33-0400 Body mass index (BMI) [Ratio] 24.12 kg/m2 Geo Parkinson MD Work Phone: [facility] 09-20-2023 13:33-0400 Body weight 69.85 kg Geo Parkinson MD Work Phone: [facility] 09-20-2023 13:33-0400 Diastolic blood pressure 64 mm[Hg] Geo Parkinson MD Work Phone: [facility] 09-20-2023 13:33-0400 Heart rate 76 /min Geo Parkinson MD Work Phone: [facility] 09-20-2023 13:33-0400 SaO2% (BldA) [Mass fraction] 98 % Geo Parkinson MD Work Phone: [facility] 09-20-2023 13:33-0400 Systolic blood pressure 136 mm[Hg] Geo Parkinson MD Work Phone: [facility] 03-18-2023 15:25-0400 Body height 172.72 cm [facility] 03-18-2023 15:25-0400 Body mass index (BMI) [Ratio] 22.9 kg/m2 [facility] 03-18-2023 15:25-0400 Body temperature 97 [degF] [facility] 03-18-2023 15:25-0400 Body weight 68.49 kg [facility] 03-18-2023 15:25-0400 Diastolic blood pressure 60 mm[Hg] [facility] 03-18-2023 15:25-0400 Heart rate 84 /min [facility] 03-18-2023 15:25-0400 Respiratory rate 18 /min [facility] 03-18-2023 15:25-0400 SaO2% (BldA) [Mass fraction] 99 % [facility] 03-18-2023 15:25-0400 Systolic blood pressure 124 mm[Hg] [facility] 01-18-2023 13:54-0400 Body mass index (BMI) [Ratio] 23.07 kg/m2 Chair 3 [facility] 01-18-2023 13:54-0400 Body temperature 97.11 [degF] Chair 3 [facility] 01-18-2023 13:54-0400 Body weight 66.81 kg Chair 3 [facility] 01-18-2023 13:54-0400 Diastolic blood pressure 63 mm[Hg] Chair 3 [facility] 01-18-2023 13:54-0400 Heart rate 63 /min Chair 3 [facility] 01-18-2023 13:54-0400 Respiratory rate 18 /min Chair 3 [facility] 01-18-2023 13:54-0400 SaO2% (BldA) [Mass fraction] 98 % Chair 3 [facility] 01-18-2023 13:54-0400 Systolic blood pressure 128 mm[Hg] Chair 3 [facility] 01-18-2023 13:09-0400 Body height 170.2 cm Geo Parkinson MD Work Phone: [facility] 01-18-2023 13:09-0400 Body mass index (BMI) [Ratio] 23.02 kg/m2 Geo Parkinson MD Work Phone: [facility] 01-18-2023 13:09-0400 Body weight 66.68 kg Geo Parkinson MD Work Phone: [facility] 01-18-2023 13:09-0400 Diastolic blood pressure 70 mm[Hg] Geo Parkinson MD Work Phone: [facility] 01-18-2023 13:09-0400 Heart rate 60 /min Geo Parkinson MD Work Phone: [facility] 01-18-2023 13:09-0400 SaO2% (BldA) [Mass fraction] 98 % Geo Parkinson MD Work Phone: [facility] 01-18-2023 13:09-0400 Systolic blood pressure 120 mm[Hg] Geo Parkinson MD Work Phone: [facility] 01-17-2023 11:31-0400 Body height 170.2 cm Prem Felton MD Work Phone: [facility] 01-17-2023 11:31-0400 Body mass index (BMI) [Ratio] 22.71 kg/m2 Prem Felton MD Work Phone: [facility] 01-17-2023 11:31-0400 Body weight 65.77 kg Prem Felton MD Work Phone: [facility] 01-17-2023 11:31-0400 Diastolic blood pressure 79 mm[Hg] Prem Felton MD Work Phone: [facility] 01-17-2023 11:31-0400 Heart rate 61 /min Prem Felton MD Work Phone: [facility] 01-17-2023 11:31-0400 SaO2% (BldA) [Mass fraction] 97 % Prem Felton MD Work Phone: [facility] 01-17-2023 11:31-0400 Systolic blood pressure 144 mm[Hg] Prem Felton MD Work Phone: [facility] 12-24-2022 16:32-0400 Body mass index (BMI) [Ratio] 21.9 kg/m2 [facility] 12-24-2022 16:32-0400 Body temperature 97.5 [degF] [facility] 12-24-2022 16:32-0400 Body weight 65.31 kg [facility] 12-24-2022 16:32-0400 Diastolic blood pressure 60 mm[Hg] [facility] 12-24-2022 16:32-0400 Heart rate 59 /min [facility] 12-24-2022 16:32-0400 Respiratory rate 18 /min [facility] 12-24-2022 16:32-0400 SaO2% (BldA) [Mass fraction] 98 % [facility] 12-24-2022 16:32-0400 Systolic blood pressure 110 mm[Hg] [facility] 09-20-2022 11:45-0400 Body height 170.2 cm Katlyn Mayes MD Work Phone: [facility] 09-20-2022 11:45-0400 Body weight 68.04 kg Katlyn Mayes MD Work Phone: [facility] 09-20-2022 11:45-0400 Diastolic blood pressure 86 mm[Hg] Katlyn Mayes MD Work Phone: [facility] 09-20-2022 11:45-0400 Heart rate 59 /min Katlyn Mayes MD Work Phone: [facility] 09-20-2022 11:45-0400 Respiratory rate 16 /min Katlyn Mayes MD Work Phone: [facility] 09-20-2022 11:45-0400 SaO2% (BldA) [Mass fraction] 99 % Katlyn Mayes MD Work Phone: [facility] 09-20-2022 11:45-0400 Systolic blood pressure 148 mm[Hg] Katlyn Mayes MD Work Phone: [facility] 08-04-2022 08:54-0500 Body height 172.1 cm Geo Parkinson MD Work Phone: [facility] 08-04-2022 08:54-0500 Body mass index (BMI) [Ratio] 23.74 kg/m2 Geo Parkinson MD Work Phone: [facility] 08-04-2022 08:54-0500 Body weight 70.31 kg Geo Parkinson MD Work Phone: [facility] 08-04-2022 08:54-0500 Diastolic blood pressure 70 mm[Hg] Geo Parkinson MD Work Phone: [facility] [employer] 08-04-2022 08:54-0500 Heart rate 60 /min Geo Parkinson MD Work Phone: [facility] [employer] 08-04-2022 08:54-0500 SaO2% (BldA) [Mass fraction] 98 % Geo Parkinson MD Work Phone: [facility] [employer] 08-04-2022 08:54-0500 Systolic blood pressure 136 mm[Hg] Geo Parkinson MD Work Phone: [facility] [employer] 07-20-2022 15:08-0500 Body mass index (BMI) [Ratio] 23.85 kg/m2 Chair 2 [facility] 07-20-2022 15:08-0500 Body temperature 96.91 [degF] Chair 2 [facility] 07-20-2022 15:08-0500 Body weight 70.63 kg Chair 2 [facility] [employer] 07-20-2022 15:08-0500 Diastolic blood pressure 70 mm[Hg] Chair 2 [facility] [employer] 07-20-2022 15:08-0500 Heart rate 63 /min Chair 2 [facility] 07-20-2022 15:08-0500 Respiratory rate 16 /min Chair 2 [facility] [employer] 07-20-2022 15:08-0500 SaO2% (BldA) [Mass fraction] 97 % Chair 2 [facility] [employer] 07-20-2022 15:08-0500 Systolic blood pressure 138 mm[Hg] Chair 2 [facility] [employer] 06-09-2022 13:44-0500 Body height 172.1 cm Prem Felton MD Work Phone: [facility] [employer] 06-09-2022 13:44-0500 Body mass index (BMI) [Ratio] 23.59 kg/m2 Prem Felton MD Work Phone: [facility] [employer] 06-09-2022 13:44-0500 Body temperature 98.4 [degF] Prem Felton MD Work Phone: [facility] [employer] 06-09-2022 13:44-0500 Body weight 69.85 kg Prem Felton MD Work Phone: [facility] [employer] 06-09-2022 13:44-0500 Diastolic blood pressure 81 mm[Hg] Prem Felton MD Work Phone: [employer] 06-09-2022 13:44-0500 Heart rate 64 /min Prem Felton MD Work Phone: [employer] 06-09-2022 13:44-0500 SaO2% (BldA) [Mass fraction] 98 % Prem Felton MD Work Phone: [employer] 06-09-2022 13:44-0500 Systolic blood pressure 136 mm[Hg] Prem Felton MD Work Phone: [employer] 06-01-2022 12:57-0500 Body height 171.5 cm Geo Parkinson MD Work Phone: [employer] 06-01-2022 12:57-0500 Body mass index (BMI) [Ratio] 23.3 kg/m2 Geo Parkinson MD Work Phone: [employer] 06-01-2022 12:57-0500 Body weight 68.49 kg Geo Parkinson MD Work Phone: [employer] 06-01-2022 12:57-0500 Diastolic blood pressure 64 mm[Hg] Geo Parkinson MD Work Phone: [employer] 06-01-2022 12:57-0500 Heart rate 60 /min Geo Parkinson MD Work Phone: [employer] 06-01-2022 12:57-0500 SaO2% (BldA) [Mass fraction] 97 % Geo Parkinson MD Work Phone: [employer] 06-01-2022 12:57-0500 Systolic blood pressure 102 mm[Hg] Geo Parkinson MD Work Phone: [employer] 2021 15:04-0400 Body temperature 97.11 [degF] David Bach MD Work Phone: [facility] 2021 15:04-0400 Body weight 68.49 kg David Bach MD Work Phone: [facility] 2021 15:04-0400 Diastolic blood pressure 70 mm[Hg] David Bach MD Work Phone: [facility] 2021 15:04-0400 Heart rate 52 /min David Bach MD Work Phone: [facility] 2021 15:04-0400 Respiratory rate 12 /min David Bach MD Work Phone: [facility] 2021 15:04-0400 Systolic blood pressure 124 mm[Hg] David Bach MD Work Phone: [facility] 04-22-2019 19:02-0500 BMI (Body Mass Index) 22.71 kg/m2 Sabino [facility] Work Phone: 04-22-2019 19:02-0500 Body Temperature 98 [degF] Sabino [facility] Work Phone: 04-22-2019 19:02-0500 Body weight 65.77 kg Sabino Harvey [facility] Work Phone: 04-22-2019 19:02-0500 BP Diastolic 73 mm[Hg] Sabino [facility] Work Phone: 04-22-2019 19:02-0500 BP Systolic 153 mm[Hg] Sabino Harvey [facility] Work Phone: 04-22-2019 19:02-0500 BSA (Body Surface Area) 1.76 m2 Sabino Harvey [facility] Work Phone: 04-22-2019 19:02-0500 Height 170.18 cm Sabino Harvey [facility] Work Phone: 04-22-2019 19:02-0500 Pulse (Heart Rate) 52 /min [facility] Work Phone: 04-22-2019 19:02-0500 Pulse Oximetry 99 % [facility] Work Phone: 04-22-2019 19:02-0500 Respiratory Rate 16 /min [facility] Work Phone: 04-22-2019 19:02-0500 4 1 [facility] Work Phone: Comment on above: Pain Scale 04-11-2019 16:37-0500 BMI (Body Mass Index) 22.71 kg/m2 Sabino [facility] Work Phone: 04-11-2019 16:37-0500 Body Temperature 97.8 [degF] Sabino Harvey [facility] Work Phone: 04-11-2019 16:37-0500 Body weight 65.77 kg Sabino Harvey [facility] Work Phone: 04-11-2019 16:37-0500 BP Diastolic 69 mm[Hg] Sabino Harvey [facility] Work Phone: 04-11-2019 16:37-0500 BP Systolic 149 mm[Hg] Sabino Harvey [facility] Work Phone: 04-11-2019 16:37-0500 BSA (Body Surface Area) 1.76 m2 Sabino Harvey [facility] Work Phone: 04-11-2019 16:37-0500 Height 170.18 cm Sabino Harvey [facility] Work Phone: 04-11-2019 16:37-0500 Pulse (Heart Rate) 53 /min Sabino Harvey [facility] Work Phone: 04-11-2019 16:37-0500 Pulse Oximetry 98 % Sabino Harvey [facility] Work Phone: 04-11-2019 16:37-0500 Respiratory Rate 16 /min Sabino Harvey [facility] Work Phone: 04-11-2019 16:37-0500 9 1 Sabino Harvey [facility] Work Phone: Comment on above: Pain Scale Encounters Encounter Date Encounter Type Care Provider Facility Start: 10-25-2024 End: 10-25-2024 Patient encounter procedure Jason Everett MD Work Phone: Otolaryngology Comment on above: SOB (shortness of br eath) (Primary Dx); Acute recurrent ethmoidal sinusitis; PND (post-nasal drip) Start: 10-25-2024 End: 10-25-2024 ambulatory JASON EVERETT Facility:[facility] Start: 10-10-2024 End: 10-10-2024 ambulatory JULIENNESrinath WRIGHT [facility] Start: 10-05-2024 End: 10-05-2024 [facility] Start: 10-05-2024 End: 10-05-2024 Patient encounter procedure [facility] Start: 10-02-2024 End: 10-02-2024 Subsequent hospital visit by physician Farida Thomas ACID LEVELER - [employer] [place] Work Phone: [facility] Comment on above: Paroxysmal atrial fi brillation (HCC) Start: 10-02-2024 End: 10-02-2024 ambulatory OSBALDO FOWLER [facility] Start: 09-26-2024 End: 09-26-2024 ambulatory Osbaldo Fowler Facility:[facility] Start: 09-26-2024 End: 09-26-2024 ambulatory Osbaldo Fowler Facility:[facility] Start: 09-14-2024 End: 09-14-2024 Orders Only Farida Thomas ACID LEVELER - [employer] [place] Work Phone: [facility] [place] Comment on above: Paroxysmal atrial fi brillation (HCC) (Primary Dx) Appointment Request Start: 09-13-2024 End: 09-13-2024 ambulatory Osbaldo Fowler EXTENSION SERVICE SPECIALIST IN CHARGE-C Work Phone: [facility] Work Phone: Start: 09-13-2024 End: 09-13-2024 Patient encounter procedure Osbaldo Fowler EXTENSION SERVICE SPECIALIST IN CHARGE-C -Laboratory, Specimen Work Phone: Start: 09-13-2024 End: 09-13-2024 ambulatory Osbaldo Fowler Facility:[facility] Start: 08-24-2024 End: 08-24-2024 ambulatory OSBALDO [facility] Start: 08-23-2024 End: 08-23-2024 Emergency department patient visit OSBALDO FOWLER Facility:[facility] Start: 08-22-2024 End: 08-22-2024 ambulatory Osbaldo Fowler EXTENSION SERVICE SPECIALIST IN CHARGE-C Work Phone: [facility] Work Phone: Start: 08-22-2024 End: 08-22-2024 Patient encounter procedure Osbaldo Fowler EXTENSION SERVICE SPECIALIST IN CHARGE-C -Laboratory, Specimen Work Phone: Start: 08-22-2024 End: 08-22-2024 ambulatory Osbaldo Fowler Facility:[facility] Start: 08-03-2024 End: 08-03-2024 Emergency department patient visit OSBALDO FOWLER Facility:[facility] Start: 07-11-2024 End: 07-11-2024 ambulatory OSBALDO FOWLER [facility] Start: 05-11-2024 End: 05-14-2024 Telephone encounter Geo Parkinson MD Work Phone: [facility] Comment on above: Cardiac Clear[facility] Start: 05-02-2024 End: 05-02-2024 ambulatory OSBALDO FOWLER Facility:[facility] Start: 05-02-2024 End: 05-02-2024 Patient encounter procedure Bari Kelley MD, PhD Work Phone: Orthopaedics Comment on above: Closed extra-articul ar fracture of distal end of right radius with malunion (Primary Dx); Diastematomyelia (HCC); Arthritis of carpometacarpal (CMC) joint of right thumb Start: 05-01-2024 End: 05-01-2024 Orders Only Bari Kelley MD, PhD Work Phone: Orthopaedics Comment on above: Pain in right wrist (Primary Dx) Start: 04-17-2024 End: 04-17-2024 ambulatory [facility] Start: 04-17-2024 End: 04-17-2024 Office outpatient visit 25 minutes Geo Parkinson MD Work Phone: [facility] Comment on above: Persistent atrial fi brillation (HCC) (Primary Dx); CHB (complete heart block) (HCC); Pacemaker; Frequent falls; Acquired hypothyroidism; Sensory polyneuropathy; PAT (paroxysmal atrial tachycardia) (HCC); Postural dizziness with near syncope Start: 04-12-2024 End: 04-12-2024 Refill Geo Parkinson MD Work Phone: [facility] Start: 02-08-2024 End: 02-08-2024 ambulatory [facility] Start: 01-24-2024 End: 01-24-2024 ambulatory Osbaldo Fowler Facility:[facility] Start: 12-19-2023 End: 12-19-2023 ambulatory OSBALDO FOWLER Facility:[facility] Start: 11-25-2023 End: 11-25-2023 ambulatory [facility] Start: 11-24-2023 ambulatory [facility] Q Comment on above: MRI-NEEDING INFO Start: 11-24-2023 E-mail encounter tim m caregiver [facility] Provider MRI Q Start: 11-16-2023 End: 11-16-2023 Emergency department patient visit OSBALDO FOWLER Facility:[facility] Start: 11-10-2023 End: 11-10-2023 Emergency department patient visit OSBALDO FOWLER Facility:[facility] Start: 10-26-2023 End: 10-26-2023 ambulatory [facility] Start: 09-20-2023 End: 09-20-2023 Office outpatient visit 25 minutes Geo Parkinson MD Work Phone: [facility] Comment on above: Paroxysmal atrial fi brillation (HCC) (Primary Dx); CHB (complete heart block) (CMS/HCC) (HCC); Pacemaker; Frequent falls; Acquired hypothyroidism; Sensory polyneuropathy Start: 08-31-2023 Refill Geo mcginnis MD Work Phone: [facility] Start: 04-29-2023 Telephone encounter Prem pandey MD Work Phone: [facility] Comment on above: other Appointment Start: 03-17-2023 End: 03-17-2023 ambulatory [facility] Work Phone: Start: 03-17-2023 End: 03-17-2023 Patient encounter procedure [facility]-Laboratory, Specimen Work Phone: Start: 03-08-2023 Telephone encounter Prem pandey MD Work Phone: [facility] Comment on above: OTHER (Returning gertrudis ses call ) Start: 03-01-2023 End: 03-01-2023 Subsequent hospital visit by physician [facility] Work Phone: [facility] Comment on above: Atypical facial pain [G50.1] Start: 02-25-2023 End: 02-25-2023 Patient encounter procedure Vincent Gurrola DDS Work Phone: Dentistry Comment on above: Atypical facial pain (Primary Dx); 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, including tongue Start: 02-14-2023 Telephone encounter Prem pandey MD Work Phone: [facility] Comment on above: returning call Start: 02-09-2023 Documentation procedure Mammog chuy Coordinator [facility] Start: 02-09-2023 Letter encounter Mammography Coordinator [place] [facility] NOT LISTED Start: 02-08-2023 End: 02-08-2023 Subsequent hospital visit by physician Mammo/Bone Density [facility] Comment on above: Encounter for screen ing mammogram for malignant neoplasm of breast [Z12.31] Age-related osteopor osis without current pathological fracture [M81.0] Start: 01-27-2023 End: 01-27-2023 Emergency department patient visit NOAH LOWERY Facility:[facility] Start: 01-18-2023 End: 01-18-2023 Orders Only Franklin Boss MD Work Phone: [facility] Comment on above: Jaw pain (Primary Dx ) Arrived Start: 01-18-2023 End: 01-18-2023 Office outpatient visit 25 minutes Geo Parkinson MD Work Phone: [facility] Comment on above: Paroxysmal atrial fi brillation (CMS/HCC) (HCC) (Primary Dx); CHB (complete heart block) (CMS/HCC) (HCC); Pacemaker; Idiopathic peripheral neuropathy; Frequent falls; Acquired hypothyroidism Start: 01-17-2023 End: 01-17-2023 Assay of hemosiderin, quant Prem Felton MD Work Phone: [facility] Work Phone: Start: 01-17-2023 End: 01-17-2023 Patient encounter procedure Prem Felton MD Work Phone: [facility] Comment on above: Routine [facility] examination at [facility] care facility (Primary Dx); Benign hypertension with stage 3a chronic kidney disease (HCC); CHB (complete heart block) (CMS/HCC) (HCC); Recurrent major depressive disorder, in partial remission (HCC); Paroxysmal atrial fibrillation (CMS/HCC) (HCC); Acquired hypothyroidism; Need for hepatitis C screening test; Abnormal finding of blood chemistry, unspecified; Age-related osteoporosis without current pathological fracture; Encounter for screening mammogram for malignant neoplasm of breast Start: 01-11-2023 Telephone encounter Prem pandey MD Work Phone: [facility] Comment on above: Pre-visit Planning Start: 09-20-2022 End: 09-20-2022 Patient encounter procedure Katlyn Mayes MD Work Phone: Neurology Comment on above: Sensory polyneuropat hy (Primary Dx); Radiculopathy, lumbar region Start: 09-01-2022 Telephone encounter Geo alexandre MD Work Phone: [facility] Comment on above: Advice Only Start: 08-06-2022 Telephone encounter David del rosario MD Work Phone: [facility] Comment on above: Orders Start: 08-04-2022 End: 08-04-2022 Office outpatient visit 25 minutes Geo Parkinson MD Work Phone: [facility] Comment on above: Paroxysmal atrial fi brillation (CMS/HCC) (HCC) (Primary Dx); CHB (complete heart block) (CMS/HCC) (HCC); Pacemaker Start: 07-20-2022 End: 07-20-2022 ambulatory Prem Felton MD Work Phone: [facility] Comment on above: Age-related osteopor osis without current pathological fracture (Primary Dx) Start: 06-10-2022 Orders Only [facility] Comment on above: Age-related osteopor osis without current pathological fracture (Primary Dx) Start: 06-09-2022 End: 06-09-2022 Office outpatient new 45 minutes Prem Felton MD Work Phone: [facility] Comment on above: Age-related osteopor osis without current pathological fracture (Primary Dx); Acquired hypothyroidism; Recurrent major depressive disorder, in partial remission (HCC); Benign hypertension with stage 3a chronic kidney disease (HCC); CHB (complete heart block) (CMS/HCC) (HCC) Start: 06-09-2022 Telephone encounter Prem pandey MD Work Phone: [facility] Comment on above: Care Coordination; I njections (PROLIA) Start: 06-01-2022 End: 06-01-2022 Office outpatient visit 15 minutes Geo Parkinson MD Work Phone: [facility] Comment on above: CHB (complete heart block) (CMS/HCC) (HCC) (Primary Dx); Postural dizziness with near syncope; Frequent falls; Pacemaker; Paroxysmal atrial fibrillation (CMS/HCC) (HCC) Start: 02-17-2022 End: 02-17-2022 Nursing evaluation of patient and report Mi Nurse Work Phone: Family Medicine [place] Comment on above: Osteoporosis, unspec ified (Primary Dx) Start: 02-16-2022 ambulatory UNKNOWN PROVIDER [facility] Start: 12-16-2021 Telephone encounter David del rosario MD Work Phone: [facility] Comment on above: Medication Update Start: 12-03-2021 Documentation procedure Mammog chuy Coordinator [facility] Start: 12-03-2021 Letter encounter Mammography Coordinator [place] [facility] NOT LISTED Start: 12-03-2021 End: 12-03-2021 Subsequent hospital visit by physician Mammo/Bone Density [facility] Comment on above: Screening mammogram for breast cancer [Z12.31] Start: 11-23-2021 Telephone encounter David del rosario MD Work Phone: [facility] Comment on above: Orders Lost Item (Sunglasse s) Start: 2021 End: 2021 Patient encounter procedure David Bach MD Work Phone: [facility] Comment on above: Lumbosacral radiculi tis (Primary Dx); Recurrent major depressive disorder, in partial remission (HCC); Large fiber neuropathy; Impaired gait; Hypothyroidism, unspecified type; Age-related osteoporosis with current pathological fracture, sequela; Vitamin D deficiency Start: 04-22-2019 Patient encounter procedure Sabino Harvey [facility] Work Phone: Start: 04-11-2019 Patient encounter procedure Sabino Harvey [facility] Work Phone: Start: 02-27-2002 End: 06-16-2005 Patient encounter status [facility] Provider Sean lovett Procedures Date Procedure Procedure Detail Performing Clinician Start: 10-02-2024 Echo tthrc r-t 2d w/wom-mode compl spec&colr d Farida Thomas ACID LEVELER - [employer] [place] Work Phone: Start: 08-23-2024 Thyrotropin [Units/v olume] in Serum or Plasma Farida Thomas ACID LEVELER - [employer] [place] Work Phone: Start: 03-01-2023 Ct maxillofacial w/o contrast material Vincent Gurrola DDS Work Phone: Start: 01-17-2023 Comprehensive metabo lic panel Prem Felton MD Work Phone: Start: 01-17-2023 Lipid panel Prem pandey MD Work Phone: Start: 01-17-2023 End: 01-17-2023 Thyrotropin [Units/volume] in Serum or Plasma Prem Felton MD Work Phone: Start: 01-17-2023 Lipid 1996 panel - S anatoly or Plasma Prem Felton MD Work Phone: Start: 12-03-2021 Screening mammograph y bi 2-view breast inc cad Beatris Padmini ACID LEVELER.[employer] [place] Work Phone: Start: 10-31-2020 Lipid 1996 panel - S anatoly or Plasma Geo Parkinson MD Work Phone: Start: 04-22-2019 Follow-up visit Start: 04-22-2019 Follow-up visit Start: 04-11-2019 Follow-up visit Plan of Treatment Date Care Activity Detail Author Start: 02-24-2030 DTaP/Tdap/Td Vaccines (4 - Td or Tdap) DTaP/Tdap/Td Vaccines (4 - Td or Tdap) [facility] Start: 02-24-2030 Urine microalbumin profile [facility] Start: 01-18-2028 Lipid panel Lipid Panel [facility] Start: 08-24-2027 Diabetes Screening Diabetes Screening [facility] Start: 01-17-2026 Diabetes Screening Diabetes Screening [facility] Start: 10-31-2025 Lipid panel Lipid Panel [facility] Start: 10-02-2025 Echocardiography Echocardiogram [facility] Start: 08-23-2025 Thyroid stimulating hormone measurement TSH Level [facility] Start: 02-08-2025 Screening for osteoporosis [facility] Start: 11-23-2024 DIABETES SCREEN DIABETES SCREEN [facility] Start: 11-20-2024 End: 11-20-2024 Patient encounter procedure 11/20/2024 1:15 PM EDT Office Visit [facility] [place] [address] [place] [phone] Geo Parkinson MD [address] [place] [address] [facility] [place] Start: 10-10-2024 End: 10-10-2024 Professional / ancillary services management 10/10/2024 4:00 PM EDT Ancillary Procedure [facility] [place] [address] [place] [address] [facility] [place] Start: 10-02-2024 End: 10-02-2024 Patient encounter procedure 10/02/2024 1:00 PM EDT Appointment [facility] [address] [facility] [address] [place] [phone] Farida Thomas, ACID LEVELER - PRESIDENT [place] [address] [place] [address] [facility] Start: 09-26-2024 Covid-19 Vaccine ( season) Covid-19 Vaccine ( season) [facility] Start: 09-14-2024 End: 09-14-2026 US Heart Transthoracic Transthoracic echocardiogram (TTE) complete with contrast, bubble, strain, and 3D PRN CV Echocardiography Routine Paroxysmal atrial fibrillation (HCC) Expected: 09/14/2024 (Approximate), Expires: 09/14/2026 [facility] Work Phone: Comment on above: Expected: 09/14/2024 (Approximate), Expi res: 09/14/2026 Start: 07-11-2024 End: 07-11-2024 Professional / ancillary services management 07/11/2024 7:30 AM EST Ancillary Procedure [facility] [place] [address] [place] [address] [facility] [place] Start: 06-20-2024 DIABETES SCREEN DIABETES SCREEN [facility] Start: 05-30-2024 Advance Directive Discussion Advance Directive Discussion [facility] Start: 05-02-2024 End: 05-02-2024 Patient encounter procedure 05/02/2024 2:15 PM EST Office Visit Orthopaedics [address] [place] [address] Bari Kelley MD, PhD [address] [address] PATIENT WILL HAND CARRY XRAYS THAT WERE DONE LAST WEEK [facility] Comment on above: PATIENT WILL HAND CARRY XRAYS THAT WERE DONE LAST WEEK Start: 04-17-2024 End: 04-17-2024 Patient encounter procedure [facility] Start: 02-17-2024 Medicare Annual Wellness (AWV) Medicare Annual Wellness (AWV) [facility] Start: 02-09-2024 Screening for osteoporosis Bone Density Scan [facility] Start: 01-29-2024 COVID-19 Vaccine ( season) COVID-19 Vaccine () [facility] Start: 01-29-2024 Covid-19 Vaccine ( season) Covid-19 Vaccine () [facility] Start: 01-29-2024 Influenza vaccination [facility] Start: 01-18-2024 Creatinine measurement Creatinine Level [facility] Start: 01-18-2024 Potassium measurement Potassium Level [facility] Start: 01-18-2024 Thyroid stimulating hormone measurement TSH Level [facility] Start: 12-21-2023 End: 12-21-2023 Professional / ancillary services management 12/21/2023 8:00 AM EDT Ancillary Procedure [facility] [address] [place] [address] [facility] Start: 09-20-2023 End: 09-20-2023 Patient encounter procedure 09/20/2023 1:30 PM EDT Office Visit [facility] [address] [facility] [address] [place] [phone] Geo Parkinson MD [address] [place] [address] [facility] Start: 07-27-2023 Covid-19 Vaccine ( season) Covid-19 Vaccine () [facility] Start: 07-20-2023 Depression Monitoring Depression Monitoring [facility] Start: 07-20-2023 Depresssion Monitoring Depresssion Monitoring [facility] Start: 07-06-2023 End: 07-06-2023 Professional / ancillary services management 07/06/2023 8:00 AM EST Ancillary Procedure [facility] [address] [place] [address] [facility] Start: 05-30-2023 Advance Directive Discussion Advance Directive Discussion [facility] Start: 03-08-2023 End: 03-08-2023 Professional / ancillary services management [facility] Start: 01-28-2023 Covid-19 Vaccine () Covid-19 Vaccine () [facility] Start: 01-28-2023 Influenza vaccination Influenza Vaccine (#1) [facility] Start: 01-18-2023 End: 01-18-2023 ambulatory 01/18/2023 Infusion Infusion Therapy Prem Felton MD [address] [facility] [address] [place] [address] [facility] Start: 01-17-2023 End: 03-19-2024 DBT Breast - bilateral screening Bilateral screening mammogram with tomosynthesis Imaging Routine Encounter for screening mammogram for malignant neoplasm of breast Expected: 01/17/2023, Expires: 03/19/2024 [facility] Work Phone: Comment on above: Expected: 01/17/2023, Expires: Start: 01-17-2023 End: 01-18-2024 DXA Skeletal system.axial Views for bone density DEXA bone density axial skeleton Imaging Routine Age-related osteoporosis without current pathological fracture Expected: 01/17/2023, Expires: 01/18/2024 [facility] Comment on above: Expected: 01/17/2023, Expires: Start: 12-08-2022 End: 12-08-2022 Patient encounter procedure 12/08/2022 Office Visit Family Medicine Prem Felton MD [address] [place] [address] [facility] Start: 12-01-2022 End: 12-01-2022 Patient encounter procedure 12/01/2022 Office Visit Cardiology Geo Parkinson MD [address] [place] [address] [facility] Start: 2022 ANNUAL PCP TEAM CHRONIC DISEASE VISIT ANNUAL PCP TEAM CHRONIC DISEASE VISIT [facility] Start: 2022 BP CONTROLLED (<130/80) BP CONTROLLED (<130/80) [facility] Start: 08-04-2022 End: 08-04-2022 Patient encounter procedure 08/04/2022 Office Visit Cardiology Geo Parkinson MD [address] [place] [address] [facility] Start: 07-17-2022 Covid-19 Vaccine (6 - Moderna series) Covid-19 Vaccine (6 - Moderna series) [facility] Start: 06-09-2022 End: 06-09-2023 Comprehensive metabolic 1998 panel - Serum or Plasma Comprehensive metabolic panel Lab Routine Age-related osteoporosis without current pathological fracture Expected: 06/09/2022 (Approximate), Expires: 06/09/2023 [facility] Work Phone: Comment on above: Expected: 06/09/2022 (Approximate), Expi res: 06/09/2023 Start: 05-30-2022 ADVANCE DIRECTIVE DISCUSSION ADVANCE DIRECTIVE DISCUSSION [facility] Start: 05-14-2022 End: 07-14-2022 25-hydroxyvitamin D3 [Mass/volume] in Serum or Plasma VITAMIN D 25 HYDROXY Lab Routine Vitamin D deficiency Expected: 05/14/2022, Expires: 07/14/2022 [facility] Work Phone: Comment on above: Expected: 05/14/2022, Expires: 3 Start: 05-14-2022 End: 07-14-2022 CBC panel - Blood by Automated count CBC Lab Routine Large fiber neuropathy Expected: 05/14/2022, Expires: 07/14/2022 [facility] Work Phone: Comment on above: Expected: 05/14/2022, Expires: 3 Start: 05-14-2022 End: 07-14-2022 Comprehensive metabolic 2000 panel - Serum or Plasma COMP METABOLIC PANEL Lab Routine Age-related osteoporosis with current pathological fracture, sequela Expected: 05/14/2022, Expires: 07/14/2022 [facility] Work Phone: Comment on above: Expected: 05/14/2022, Expires: 3 Start: 05-14-2022 End: 07-14-2022 Thyrotropin [Units/volume] in Serum or Plasma TSH BLD Lab Routine Hypothyroidism, unspecified type Expected: 05/14/2022, Expires: 07/14/2022 [facility] Work Phone: Comment on above: Expected: 05/14/2022, Expires: 3 Start: 01-28-2022 Influenza vaccination INFLUENZA (#1) [facility] Start: 10-29-2021 COVID-19 VACCINE (5 - Booster for Moderna series) COVID-19 VACCINE (5 - Booster for Moderna series) [facility] Start: 05-30-2021 ADVANCE DIRECTIVE DISCUSSION ADVANCE DIRECTIVE DISCUSSION [facility] Start: 11-13-2019 RSV Immunization for Adults (1 - 1-dose 75+ series) RSV Immunization for Adults (1 - 1-dose 75+ series) [facility] Start: 2004 RSV Immunization aged 60 or older (1 - 1-dose 60+ series) RSV Immunization aged 60 or older (1 - 1-dose 60+ series) [facility] Start: 2004 RSV Vaccine (1 - 1-dose 60+ series) RSV Vaccine (1 - 1-dose 60+ series) [facility] Start: 1962 Anxiety Screening Anxiety Screening [facility] Start: 1962 BP CONTROLLED (<130/80) BP CONTROLLED (<130/80) [facility] Start: 1962 Diabetes mellitus screening Diabetes Screening [facility] Start: 1962 Hepatitis C screening Hepatitis C Screening [facility] Start: 1944 Hepatitis B Vaccines (1 of 3 - 3-dose series) Hepatitis B Vaccines (1 of 3 - 3-dose series) [facility] Start: 1944 Medicare Annual Wellness (AWV) Medicare Annual Wellness (AWV) [facility] Start: 1944 Screening for osteoporosis Bone Density Scan [facility] Start: 1944 Thyroid stimulating hormone measurement TSH Level [facility] Cortisol [Mass/volum e] in Serum or Plasma [facility] RE-EVALUATION - LIMI NIKOLAS, PROBLEM FOCUSED (ESTABLISHED PATIENT; NOT POST-OPERATIVE VISIT) RE-EVALUATION - LIMITED, PROBLEM FOCUSED (ESTABLISHED PATIENT; NOT POST-OPERATIVE VISIT) Dental Routine 1 Occurrences starting 02/25/2023 [facility] Work Phone: Comment on above: 1 Occurrences starting 02/25/2023 End: 12-23-2022 Screening mammography bi 2-view breast inc cad JESÚS SCREENING Radiology Routine Screening mammogram for breast cancer 1 Occurrences starting 11/23/2021 until 12/23/2022 [facility] Work Phone: Comment on above: 1 Occurrences starting 11/23/2021 until 12/23/2022 End: 05-31-2025 XR Wrist - right 4 Views XR WRIST INJURY 4V PA/LAT/OBL/SCAPH RIGHT Radiology Routine Pain in right wrist 1 Occurrences starting 05/01/2024 until 05/31/2025 [facility] Work Phone: Comment on above: 1 Occurrences starting 05/01/2024 until 05/31/2025 [facility] Immunizations Immunization Date Immunization Notes [facility]23 influenza virus vacc ine, unspecified formulation Brai Kelley MD, PhD Work Phone: [facility] 03-16-2022 Covid-19, Moderna Bivalent Booster, (Age 18y+), Im, 50 Mcg/d Geo Parkinson MD Work Phone: [facility] 03-16-2022 Influenza, High-dose Seasonal, Quadrivalent, Preservative Free Geo Parkinson MD Work Phone: [facility] 03-16-2022 influenza virus vacc ine, unspecified formulation Prem Felton MD Work Phone: [facility] 02-14-2021 influenza, high-dose , quadrivalent vaccine (FLUZONE HIGH DOSE QUADRIVALENT) David Bach MD Work Phone: [facility] Work Phone: 07-31-2020 COVID-19 vaccine, fu ll dose (MODERNA) David Bach MD Work Phone: [facility] Work Phone: 07-03-2020 COVID-19 vaccine, fu ll dose (MODERNA) David Bach MD Work Phone: [facility] Work Phone: 03-05-2020 zoster vaccine recombinant David Bach MD Work Phone: [facility] Work Phone: 02-25-2020 tetanus toxoid, redu jake diphtheria toxoid, and acellular pertussis vaccine, adsorbed David Bach MD Work Phone: [facility] 02-11-2020 influenza, high-dose , quadrivalent vaccine (FLUZONE HIGH DOSE QUADRIVALENT) David Bach MD Work Phone: [facility] Work Phone: 07-09-2019 tetanus toxoid, redu jake diphtheria toxoid, and acellular pertussis vaccine, adsorbed David Bach MD Work Phone: [facility] 07-09-2019 zoster vaccine recombinant David Bach MD Work Phone: [facility] 03-19-2019 influenza, high dose seasonal, preservative-free David Bach MD Work Phone: [facility] Work Phone: 03-17-2018 influenza, high dose seasonal, preservative-free David Bach MD Work Phone: [facility] Work Phone: 01-02-2015 pneumococcal conjuga te vaccine, 13 valent David Bach MD Work Phone: [facility] 07-05-2014 pneumococcal polysaccharide vaccine, 23 valent David Bach MD Work Phone: [facility] 03-07-2014 influenza, seasonal, injectable David Bach MD Work Phone: [facility] 03-03-2013 influenza, seasonal, injectable David Bach MD Work Phone: [facility] Work Phone: 04-24-2012 influenza virus vacc ine, unspecified formulation David Bach MD Work Phone: [facility] 02-09-2011 influenza virus vacc ine, unspecified formulation David Bach MD Work Phone: [facility] 11-03-2010 tuberculin skin test ; purified protein derivative solution, intradermal Bari Kelley MD, PhD Work Phone: [facility] 11-03-2009 tuberculin skin test ; purified protein derivative solution, intradermal Bari Kelley MD, PhD Work Phone: [facility] 07-14-2009 pneumococcal polysaccharide vaccine, 23 valent David Bach MD Work Phone: [facility] 03-31-2009 novel influenza-H1N1 -09, preservative-free, injectable David Bach MD Work Phone: [facility] Work Phone: 01-27-2009 tetanus toxoid, redu jake diphtheria toxoid, and acellular pertussis vaccine, adsorbed David Bach MD Work Phone: [facility] 01-27-2009 zoster vaccine, live David Bach MD Work Phone: [facility] 11-11-2008 tuberculin skin test ; purified protein derivative solution, intradermal Bari Kelley MD, PhD Work Phone: [facility] 11-22-2007 tuberculin skin test ; purified protein derivative solution, intradermal Bari Kelley MD, PhD Work Phone: [facility] 11-03-2005 tuberculin skin test ; purified protein derivative solution, intradermal Bari Kelley MD, PhD Work Phone: [facility] 05-19-2004 pneumococcal polysaccharide vaccine, 23 valent David Bach MD Work Phone: [facility] 07-01-1998 tetanus and diphther ia toxoids, adsorbed, preservative free, for adult use (2 Lf of tetanus toxoid and 2 Lf of diphtheria toxoid) David Bach MD Work Phone: [facility] Work Phone: Payers Date Payer Category Payer Self-pay [id number] [id number] 2023 Unknown [id number] 2015 Medicare supplementa l policy (as second payer) [employer] [id number] 2015 Private Health Insurance [facility] AARP SUPPLEMENT [id number] 2015-Present [phone] [address] [place] [address] Indemnity [id number] 2015 Private Health Insurance [id number] 2015 Unknown 2015 Unknown [id number] 2013 Medicare MEDICARE MEDICAR E A AND B [id number] 2013-Present [phone] [address] [address] [place] [address] Medicare [id number] 2013 Medicare [id number] 2013 Medicare [id number] 1944 Unknown [id number] Unknown [id number] Unknown [id number] Unknown [id number] Unknown [id number] Unknown [id number] Social History Date Type Detail Facility Assertion Unknown if ever smoked [facility] Work Phone: Start: 02-09-2011 End: 09-20-2022 Tobacco smoking status NHIS Never smoked tobacco [facility] Work Phone: Start: 2021 End: 10-25-2024 Alcohol intake Current drinker of alcohol (finding) [facility] Start: 05-13-2021 End: 06-09-2022 History SDOH Alcohol Frequency 2 [facility] Start: 05-13-2021 End: 06-09-2022 History SDOH Alcohol Std Drinks 1 [facility] Start: 05-12-2020 History SDOH Alcohol Comment 2 5oz. wine per month. [facility] Start: 05-11-2021 End: 06-09-2022 History SDOH Social Connections Phone 4 [facility] Start: 05-11-2021 End: 06-09-2022 History SDOH Social Connections Orthodoxy 3 [facility] Start: 05-11-2021 End: 06-09-2022 History SDOH Physical Activity DPW 6 [facility] Start: 05-11-2021 History SDOH Physica l Activity MPS 7 [facility] Start: 05-09-2020 Education 17 [facility] Start: 1945 Sex Assigned At Female [facility] Start: 11-02-2021 End: 01-17-2023 Exposure to SARS-CoV-2 (event) Not sure [facility] Work Phone: Start: 02-09-2011 End: 09-20-2022 Tobacco use and exposure Smokeless tobacco non-user [facility] Start: 06-09-2022 History SDOH Social Connections Phone 5 [facility] Start: 03-24-2022 Alcohol Comment occasional wine [facility] Start: 01-17-2023 End: 01-28-2023 Alcohol intake [facility] Start: 06-09-2022 End: 01-28-2023 Humiliation, Afraid, Rape, and Kick questionnaire [HARK] [facility] Within the last year , have you been afraid of your partner or ex-partner? Patient refused [facility] Do you belong to any clubs or organizations such as methodist groups, unions, fraternal or athletic groups, or school groups? Yes [facility] Are you now , , , , never or living with a partner? [facility] How often to you hav e a drink containing alcohol? Monthly or less [facility] How many standard drinks containing alcohol do you have on a typical day? 1 or 2 [facility] How often do you hav e 6 or more drinks on 1 occasion? Never [facility] Do you feel stress - tense, restless, nervous, or anxious, or unable to sleep at night because your mind is troubled all the time - these days [OSQ] Not at all [facility] (I/We) worried wheth er (my/our) food would run out before (I/we) got money to buy more. Never true [facility] In the past 12 month s, was there a time when you were not able to pay the mortgage or rent on time? No [facility] Start: 06-28-2019 Gender identity Identifies as female gender (finding) [facility] Start: 06-28-2019 Sexual orientation Heterosexual (fin ding) [facility] How hard is it for y ou to pay for the very basics like food, housing, medical care, and heating Not very hard [facility] Do you feel stress - tense, restless, nervous, or anxious, or unable to sleep at night because your mind is troubled all the time - these days [OSQ] Only a little [facility] Start: 12-28-2021 End: 09-19-2024 Sex Female (finding) [facility] Tobacco smoking stat us HIIS Unknown if ever smoked [facility] Work Phone: NEGATED: Highlighted rowStart: NINF History of tobacco use Passive smoker [facility] Medical Equipment Procedure Code Equipment Code Equipment Origin al Text Equipment Identifier Dates Lead Ingevity Pl us Pace 52cm - [id number] - [id number] Start: 04-15-2022 Pacemaker Cardia c [place]entio Standard W4.45 Cm X H5.02 Cm Od.[address] Waite: Is1 Rv: Is1 C1785 - [id number] - [id number] Start: 04-15-[address] us Pace 59cm - [id number] - [id number] Start: 04-15-2022 Loop Recorder-Lnq11 Reveal [id number] Start: 09-26-2013 Pacemaker- 22 [id number] Start: 04-14-2022 Comment on above: Description: PM-BSC L111 Essentio MRI [id number] RA Lead [facility] [id number] RV Lead [facility] [id number] Functional Status Date Assessment Result Facility 07-18-2021 Are you deaf, or do you have serious difficulty hearing No 07/18/2021 10:35 AM Verónica Mcginnis, DELLA No [facility] 07-18-2021 Are you blind, or do you have serious difficulty seeing, even when wearing glasses No 07/18/2021 10:35 AM Verónica Mcginnis, DELLA No [facility] 07-18-2021 Do you have serious difficulty walking or climbing stairs No 07/18/2021 10:35 AM Verónica Mcginnis RN No [facility] 07-18-2021 Do you have difficul ty dressing or bathing No 07/18/2021 10:35 AM Verónica Mcginnis, DELLA No [facility] 07-18-2021 Because of a physica l, mental, or emotional condition, do you have difficulty doing errands alone such as visiting a physician's office or shopping Yes 07/18/2021 10:35 AM Verónica Mcginnis, DELLA Yes [facility] NEGATED: Highlighted row Functional performance Functional status health issues are not documented Disease [facility] Work Phone: Mental Status Date Assessment Result Facility 07-18-2021 Because of a physical, mental, or emotional condition, do you have serious difficulty concentrating, remembering, or making decisions Yes 07/18/2021 10:35 AM Verónica Mcginnis RN Yes [facility] NEGATED: Highlighted row Cognitive function [Interpretation] Cognitive status health issues are not documented Disease [facility] Work Phone: Clinical Notes 06-20-2021 to 10-25-2024 Jason Everett MD - 10/25/2024 2:39 PM EDTTelephone Encounter - Kaylene Christy RN - 10/05/2024 3:59 PM EDTTelephone Encounter - Kaylene Christy RN - 10/05/2024 3:59 PM EDT Note Date & Type Note Facility 10-25-2024 Note HNO ID: [id number] Author: JASON EVERETT MD Service: ? Author Type: Physician Type: Progress Notes Filed: 10/25/2024 14:40 Note Text: HPI Yeny Tavera is a 78 year old female who presents with sinobronchitis. Patient states for almost 6 weeks she has complained of facial pain swelling cough shortness of breath weakness. Patient was given Omnicef and amoxicillin patient was seen by pulmonary no treatment was rendered yet. Patient gives no history of asthma presently. ROS General Weight loss: No Fatigue: No Night sweats:No Cardiac Chest pain:No Fast heart rate:No Swelling in the feet:No Respiratory Short of breath:No Cough:No Wheezing:No Gastrointestinal Nausea:No Vomiting:No Indigestion:No Past medical history, family history, and social history reviewed. PE There were no vitals taken for this visit. General: Patient is awake, alert, NAD. Voice is normal. Skin: normal Eyes: Extraocular motion and Gaze is normal. Ears: Right external auditory canal is normal. TMJ: normal. Right tympanic membranes normal. Left external auditory canal is normal. Left tympanic membrane normal. Nose: Septum is normal. Turbinates are normal. Mute purulence left middle meatus Nasopharynx:normal Oral Cavity/Oropharynx: Lips normal Dentition normal Tongue normal. Tonsils normal. Palate and uvula normal. Pharynx posterior normal Hypopharynx: Base of tongue normal Pyriform sinus normal. Larynx: Vocal cords normal. Epiglottis normal. Post cricoid normal. Salivary glands: Parotid normal. Submandibular and sublingual normal. Thyroid: normal. Lymphatic/Neck: Lymph nodes normal. Neurologic: Facial nerve normal. CT brain reviewed Lungs clear ASSESSMENT/PLAN: 1. SOB (shortness of breath) - ICD9: 786.05, ICD10: R06.02 (primary diagnosis) 2. Acute recurrent ethmoidal sinusitis - ICD9: 461.2, ICD10: J01.21 3. PND (post-nasal drip) - ICD9: 784.91, ICD10: R09.82 Augmentin for 10 days May need to send formal CT sinus follow through with pulmonary Jason Everett MD Findings will be communicated to the referring physician via mail or electronic medical record. [facility] 10-25-2024 History of Presen t illness Narrative HPI Yeny Tavera is a 78 year old female who presents with sinobronchitis. Patient states for almost 6 weeks she has complained of facial pain swelling cough shortness of breath weakness. Patient was given Omnicef and amoxicillin patient was seen by pulmonary no treatment was rendered yet. Patient gives no history of asthma presently. ROS General Weight loss: No Fatigue: No Night sweats:No Cardiac Chest pain:No Fast heart rate:No Swelling in the feet:No Respiratory Short of breath:No Cough:No Wheezing:No Gastrointestinal Nausea:No Vomiting:No Indigestion:No Past medical history, family history, and social history reviewed. PE There were no vitals taken for this visit. General: Patient is awake, alert, NAD. Voice is normal. Skin: normal Eyes: Extraocular motion and Gaze is normal. Ears: Right external auditory canal is normal. TMJ: normal. Right tympanic membranes normal. Left external auditory canal is normal. Left tympanic membrane normal. Nose: Septum is normal. Turbinates are normal. Mute purulence left middle meatus Nasopharynx:normal Oral Cavity/Oropharynx: Lips normal Dentition normal Tongue normal. Tonsils normal. Palate and uvula normal. Pharynx posterior normal Hypopharynx: Base of tongue normal Pyriform sinus normal. Larynx: Vocal cords normal. Epiglottis normal. Post cricoid normal. Salivary glands: Parotid normal. Submandibular and sublingual normal. Thyroid: normal. Lymphatic/Neck: Lymph nodes normal. Neurologic: Facial nerve normal. CT brain reviewed Lungs clear ASSESSMENT/PLAN: 1. SOB (shortness of breath) - ICD9: 786.05, ICD10: R06.02 (primary diagnosis) 2. Acute recurrent ethmoidal sinusitis - ICD9: 461.2, ICD10: J01.21 3. PND (post-nasal drip) - ICD9: 784.91, ICD10: R09.82 Augmentin for 10 days May need to send formal CT sinus follow through with pulmonary Jason Everett MD Findings will be communicated to the referring physician via mail or electronic medical record. documented in this encounter [facility] 10-05-2024 Telephone encounter Note S: Patient spoke with [facility] nurse regarding cough. B: Onset of symptoms/concern: seen in office yesterday, 10/04/24 A: Patient was seen yesterday to establish care, reports a cough for the past 2-3 weeks, states provider was aware when seen, was a dry cough prior but today it's turned into a deep chest cough, greenish brown with streaks of blood in it, no fever. 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 R: Paged Dr. Wright- recommends and urgent care appointment at the after hours clinic. Patient notified, verbalized understanding, scheduled at the after hours clinic in [place] tomorrow, 10/06/24 at 1145, insurance coverage verified, address provided. Reason for Disposition Coughing up marco-colored (reddish-brown) sputum Protocols used: Cough - Acute Xcgijiggym-KTVWY-OC [facility] 10-05-2024 Miscellaneous Notes S: Patient spoke with [facility] nurse regarding cough. B: Onset of symptoms/concern: seen in office yesterday, 10/04/24 A: Patient was seen yesterday to establish care, reports a cough for the past 2-3 weeks, states provider was aware when seen, was a dry cough prior but today it's turned into a deep chest cough, greenish brown with streaks of blood in it, no fever. 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 R: Paged Dr. Wright- recommends and urgent care appointment at the after hours clinic. Patient notified, verbalized understanding, scheduled at the after hours clinic in [place] tomorrow, 10/06/24 at 1145, insurance coverage verified, address provided. Reason for Disposition Coughing up marco-colored (reddish-brown) sputum Protocols used: Cough - Acute Tqjdvbnwwh-[id number] documented in this encounter [facility] 09-17-2024 Telephone encounter Note Echo scheduled at [facility] 10/02/24 at 1pm. Pt informed [facility] 09-17-2024 Miscellaneous Notes Echo scheduled at [facility] 10/02/24 at 1pm. Pt informed Notified patient that Dr Parkinson ordered an Echo and spoke to Osbaldo Duran Echo ordered per Dr. Parkinson's recommendations Called patient who said that Osbaldo Duran feels that swelling of her head and neck is from [facility] 3 ED visit for facial pain diagnosed with sinus infection No swelling in feet or abdomen c/o SOB walking to mailbox Dr Parkinson spoke with Osbaldo Fowler will order an Echo Pt lvm stating that she was seen by Osbaldo Fowler last night. Pt states that Osbaldo told her that there is defiantly wrong with her heart. Facial swelling and neck pain. Osbaldo told pt she has an irregular pt states she over all feels bad. Pt requesting an appt juana OC fu 10/2024 documented in this encounter [facility] 09-14-2024 Telephone encounter Note Notified patient that Dr Parkinson ordered an Echo and spoke to Osbaldo Duran [facility] 09-14-2024 Telephone encounter Note Echo ordered per Dr. Parkinson's recommendations [facility] Work Phone: 09-14-2024 Telephone encounter Note Called patient who said that Osbaldo Duran feels that swelling of her head and neck is from [facility] 325 ED visit for facial pain diagnosed with sinus infection No swelling in feet or abdomen c/o SOB walking to mailbox Dr Parkinson spoke with Osbaldo Fowler will order an Echo [facility] 09-14-2024 Telephone encounter Note Pt lvm stating that she was seen by Osbaldo Fowler last night. Pt states that Osbaldo told her that there is defiantly wrong with her heart. Facial swelling and neck pain. Osbaldo told pt she has an irregular pt states she over all feels bad. Pt requesting an appt juana OC fu 10/2024 [facility] 08-23-2024 Note SARS-COV-2 (AGENT OF COVID-19) RNA: Not detected INFLUENZA A RNA: Not detected INFLUENZA B RNA: Not detected RESPIRATORY SYNCYTIAL VIRUS (RSV) RNA: Not detected [facility] Comment on above: Performed By: #### [id number] ####[facility] LABCLIA [id number] [place] [address] [facility] 08-08-2024 Evaluation note Diagnosis Onset Date Resolution Allergic reaction due to correct medicinal substance properly administered acute August 08, 2024 5:16pm Maxillary sinusitis acute August 08, 2024 5:16pm Periorbital edema of both eyes acute August 08, 2024 5:16pm Right wrist deformity acute Jul 5:16pm Diarrhea acute August 22 4:51pm Hypothyroidism acute July 4:51pm Shortness of breath acute August 22, 2024 4:51pm Tinnitus acute August 22 4:51pm Atrial fibrillation and flutter acute September 13, 2024 4:23pm Facial flushing acute August 4:23pm Shortness of breath acute September 13, 2024 4:23pm [facility] Work Phone: 1(720) 220-584112-19-2024 Telephone encounter Note* Telephone Encounter - Catherine Guadalupe - 05/17/2024 10:43 AM EST Received form, went back and spoke to MA in device team. Nothing on form specifies magnet to cover PPM. Device team noted, typically PPM do not need magnet. Emailed [facility] back with information. [id number] Miscellaneous Notes* Telephone Encounter - Catherine Guadalupe - 05/17/2024 10:43 AM EST Received form, went back and spoke to BROCK in device team. Nothing on form specifies magnet to cover PPM. Device team noted, typically PPM do not need magnet. Emailed [facility] back with information. * Telephone Encounter - Catherine Guadalupe - 05/17/2024 10:25 AM EST Received clearance form from [facility]. Placed on device teams desk for review. * Telephone Encounter - Catherine Guadalupe - 05/17/2024 8:57 AM EST Received call from [facility] inquiring if a magnet can be placed over device. Advised [facility] to send clearance over for device team and OC to review. * Telephone Encounter - Veronica Diaz - 05/14/2024 8:59 AM EST Clearance completed and faxed. Fax confirmation received * Telephone Encounter - Veronica Diaz - 05/11/2024 8:33 AM EST Clearance received from [facility] for sx 05/21/24 documented [facility] [id number] Telephone encounter Note* Telephone Encounter - Catherine Guadalupe - 05/17/2024 10:25 AM EST Received clearance form from [facility]. Placed on device teams desk for review. [facility] [id number] Telephone encounter Note* Telephone Encounter - Catherine Guadalupe - 05/17/2024 8:57 AM EST Received call from [facility] inquiring if a magnet can be placed over device. Advised [facility] to send clearance over for device team and OC to review. [facility] [id number] Telephone encounter Note* Telephone Encounter - Veronica Diaz - 05/14/2024 8:59 AM EST Clearance completed and faxed. Fax confirmation received [facility] [id number] Telephone encounter Note* Telephone Encounter - Veronica Joe - 05/11/2024 8:33 AM EST Clearance received from [facility] for sx 05/21/24 [facility] [id number] Evaluation note* Diagnosis Onset Date Resolution Status Admit Date Cold sore acute May 07, 2024 3:17pm Hypothyroidism acute May 072023 3:17pm Right wrist deformity acute Dec er 2023 3:17pm Hypertension chronic April 3:17pm Allergic reaction due to correct medicinal substance properly administered acute July 5:16pm Maxillary sinusitis acute August 08, 2024 5:16pm Periorbital edema of both eyes acute August 08, 2024 5:16pm Right wrist deformity acute Jul 5:16pm Diarrhea acute August 22 4:51pm Hypothyroidism acute July 4:51pm Shortness of breath acute August 22, 2024 4:51pm Tinnitus acute August 22 4:51pm [facility] Work Phone: 1(632) 430-736912-04-2024 NoteHNO ID: [id number] Author: BARI KELLEY MD, PhD Service: ? Author Type: Physician Type: Progress Notes Filed: 05/09/2024 12:27 Note Text: May 02, 2024 CHIEF COMPLAINT: Right wrist pain HPI: Yeny Tavera is a 78 year old right HD female who presents to clinic with right wrist pain as well as numbness and tingling. Patient states that she had a fall in October 2023 where she broke her wrist and was treated nonoperatively in a cast. She states that ever since then she has had numbness and tingling in her first 3 fingers as well as ulnar-sided wrist pain that initiated since her rehab. She was evaluated and treated by her surgeon at outside facility who recommended multiple procedures so she is here today for second opinion to discuss this. ASSESSMENT: 78 year old female with right first CMC arthritis, right healed distal radius fracture with positive ulnar variance, right carpal tunnel syndrome PLAN: Due to patient's history, exam, and imaging patient is likely experiencing majority of her symptoms related to her positive ulnar variance s/p nonoperative management of right distal radius fracture as well as right first CMC arthritis and carpal tunnel syndrome. We did discuss further plan of care regarding operative versus nonoperative intervention including risk benefits of both. After thorough discussion we agreed with recommendation from her primary surgeon to proceed with operative intervention. All questions were addressed and answered. Patient will follow-up with her primary surgeon. Discussed with patient that if she changes her mind, we would be happy to schedule her for surgery with our team. Patient will otherwise follow-up with us as needed. OBJECTIVE: There were no vitals filed for this visit. There is no height or weight on file to calculate BMI. General: NAD Eyes: Pupils not pinpointed, not overly dilated, anicteric Neck: Full range of motion Cardiovascular: Palpable pulse and brisk capillary refill (<2 sec) to all fingers Lymphatic: Inspection of the arm/hand reveals no lymphedema and palpation of epitrochlear nodes is unremarkable. Respiratory: Respirations even and unlabored, no audible wheezing Integumentary: Inspection of skin reveals no breaks or obvious lesions except for those noted below. Neuro: Intact sensation to light touch over the median, ulnar, and radial nerve distributions. Psychiatric: No obvious anxiety, well kempt, normal affect. Appropriate response to pain. Musculoskeletal: Able to flex and extend all fingers at the DIP and PIP. Able to retropulse the thumb, abduct all fingers against resistance. Patient has about 30 degrees of wrist flexion and 60 degrees of wrist extension, she has about 30 degrees of supination but full pronation to about 90 degrees, tenderness palpation over the ulnar aspect of the wrist with obvious swelling over the ulnar head, positive grind test of the first CMC, patient does have positive Durkan's, Phalen's, and Tinel's at the wrist reproducing numbness and tingling in the first 3 digits in the median nerve distribution IMAGING: Radiographs of the right wrist were obtained on 04/13 at outside facility which were personally reviewed by me and demonstrate well-healed distal radius fracture with loss of height and angulation and positive ulnar variance, she also has severe degenerative changes at the first CMC joint with erosion of the trapezium Supporting Subjective Information Below: Past Medical History: PAST MEDICAL HISTORY Diagnosis Date A-fib ([facility]) Abnormality of gait 03/24/2017 Bradycardia 05/12/2020 Closed fracture of olecranon process of left ulna with routine healing 06/20/2021 Closed nondisplaced fracture of distal pole of scaphoid of left wrist with routine healing 11/13/2020 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 Diverticulitis 09/11/2016 Epiretinal membrane Left Epiretinal membrane (ERM) of left eye 05/13/2021 Esophageal reflux 07/21/2007 Essential hypertension 04/04/2015 Female stress incontinence Generalized osteoarthrosis, unspecified site Greater trochanteric bursitis 03/15/2017 Human papillomavirus in conditions classified elsewhere and of unspecified site Hypothyroidism 06/16/2005 implantable loop recorder 08/22/2014 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 ILR-DEVICE MODEL [id number] Reveal LINQ ILR-DEVICE SERIAL NUMBER [id number] ILR-DEVICE IMPLANT DATE 09/26/2013 ILR-DEVICE IMPLANTED BY DOCTOR 1 Large fiber neuropathy 08/04/2017 Osteoporosis, unspecified 2005 on fosamax T-score -2.4 nl vit D 02/07 dxa no change losest T-score -2.6 spine Partial nontraumatic tear of right rotator cuff 09/29/2020 Recurrent falls 03/15/2017 Recurrent major depressive disorder, in partial remission ([facility]) Torn meniscus left knee Unspecified asthma(493.90) Past Surgical History: PAST SURGICAL HISTORY Procedure Laterality Date APPENDECTOMY 1950 COLONOSCOPY 03/22/2013 COLONOS (more content not included)...[facility]12-04-2024 History of Present illness Narrative* Bari Kelley MD, PhD - 05/02/2024 2:36 PM EST May 02, 2024 CHIEF COMPLAINT: Right wrist pain HPI: Yeny Tavera is a 78 year old right HD female who presents to clinic with right wrist painas well as numbness and tingling. Patient states that she had a fall in October 2023 where she broke her wrist and was treated nonoperatively in a cast. She states that ever since then she has had numbness and tingling in her first 3 fingers as well as ulnar-sided wrist pain that initiated since her rehab. She was evaluated and treated by her surgeon at outside facility who recommended multiple procedures so she is here today for second opinion to discuss this. ASSESSMENT: 78 year old female with right first CMC arthritis, right healed distal radius fracture with positive ulnar variance, right carpal tunnel syndrome PLAN: Due to patient's history, exam, and imaging patient is likely experiencing majority of her symptoms related to her positive ulnar variance s/p nonoperative management of right distal radius fracture as well as right first CMC arthritis and carpal tunnel syndrome. We did discuss further plan of care regarding operative versus nonoperative intervention including risk benefits of both. After thorough discussion we agreed with recommendation from her primary surgeon to proceed with operative intervention. All questions were addressed and answered. Patient will follow-up with her primary surgeon. Discussed with patient that if she changes her mind, we would be happy to schedule her for surg claudia with our team. Patient will otherwise follow-up with us as needed. OBJECTIVE: There were no vitals filed for this visit. There is no height or weight on file to calculate BMI. General: NAD Eyes: Pupils not pinpointed, not overly dilated, anicteric Neck: Full range of motion Cardiovascular: Palpable pulse and brisk capillary refill (<2 sec) to all fingers Lymphatic: Inspection of the arm/hand reveals no lymphedema and palpation of epitrochlear nodes is unremarkable. Respiratory: Respirations even and unlabored, no audible wheezing Integumentary: Inspection of skin reveals no breaks or obvious lesions except for those noted below. Neuro: Intact sensation to light touch over the median, ulnar, and radial nerve distributions. Psychiatric: No obvious anxiety, well kempt, normal affect. Appropriate response to pain. Musculoskeletal: Able to flex and extend all fingers at the DIP and PIP. Able to retropulse the thumb, abduct all fingers against resistance. Patient has about 30 degrees of wrist flexion and 60 degrees of wrist extension, she has about 30 degrees of supination but full pronation to about 90 degrees, tenderness palpation over the ulnar aspect of the wrist with obvious swelling over the ulnar head, positive grind test of the first CMC, patient does have positive Durkan's, Phalen's, and Tinel's at the wrist reproducing numbness and tingling in the first 3 digits in the median nerve distribution IMAGING: Radiographs of the right wrist were obtained on 04/13 at outside facility which were personally reviewed by me and demonstrate well-healed distal radius fracture with loss of height and angulation and positive ulnar variance, she also has severe degenerative changes at the first CMC joint with erosion of the trapezium Supporting Subjective Information Below: Past Medical History: PAST MEDICAL HISTORY Diagnosis Date A-fib ([facility]) Abnormality of gait 03/24/2017 Bradycardia 05/12/2020 Closed fracture of olecranon process of left ulna with routine healing 06/20/2021 Closed nondisplaced fracture of distal pole of scaphoid of left wrist with routine healing 11/13/2020 Diastematomyelia ([facility]) 05/03/2018 Diverticulitis 09/11/2016 Epiretinal membrane Left Epiretinal membrane (ERM) of left eye 05/13/2021 Esophageal reflux 07/21/2007 Essential hypertension 04/04/2015 Female stress incontinence Generalized osteoarthrosis, unspecified site Greater trochanteric bursitis 03/15/2017 Human papillomavirus in conditions classified elsewhere and of unspecified site Hypothyroidism 06/16/2005 implantable loop recorder 08/22/2014 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 ILR-DEVICE MODEL [id number] Reveal LINQ ILR-DEVICE SERIAL NUMBER [id number] ILR-DEVICE IMPLANT DATE 09/26/2013 ILR-DEVICE IMPLANTED BY DOCTOR 1 Large fiber neuropathy 08/04/2017 Osteoporosis, unspecified 2005 on fosamax T-score -2.4 nl vit D 02/07 dxa no change losest T-score -2.6 spine Partial nontraumatic tear of right rotator cuff 09/29/2020 Recurrent falls 03/15/2017 Recurrent major depressive disorder, in partial remission ([facility]) Torn meniscus left knee Unspecified asthma(493.90) Past Surgical History: PAST SURGICAL HISTORY Procedure Laterality Date APPENDECTOMY 1950 COLONOSCOPY 03/22/2013 COLONOSCOPY 05/06/2007 EXC/CURTG BONE CYST/B9 TUMORTARSAL/METATARSAL 1965 excision of scar tissue Right foot HYSTEROSCOPY W/BX ENDO/POLYP 03/08/2011 hsyteroscopy polypectomy and D&C OVARIAN CYSTECTOMY UNI/BI 1986 dermoid cyst, right ovary TONSILLECTOMY PRIMARY/SECONDARY <AGE 12 1950 XTRNL PT ACTIV ECG TRANSMIS W/R&I </30 DAYS 09/26/2013 removed 2017 Family History: FAMILY HISTORY Problem Relation Age of Onset Cataract Father Glaucoma Father other (adrenal insufficiency) Father at age 87, vent tachycardia Cataract Mother Glaucoma Mother other (arrthymias) Mother CHF and osteoporosis, at 94 yrs Cancer Paternal Grandmother 92 unknown primary, metastatic Breast Cancer Paternal Aunt 55 @ dx. Living; born 1910 other (lung cancer) Brother other (alzheimers) Sister Down syndrome Medications: Current Outpatient Medications Medication Sig Dispense Refill vit A/vit C/vit E/zinc/copper (PRESERVISION AREDS ORAL) Take 1 capsule by mouth two times a day. ELIQUIS 5 mg tab(s) Take 5 mg by mouth twice daily. sertraline (ZOLOFT) 100 mg tablet Take 1 tablet by mouth once daily. 90 tablet 1 calcium carbonate (CALCIUM 300 ORAL) Take by mouth. metroNIDAZOLE (NORITATE) 1 % cream Apply 1 application to affected area once daily. loperamide (IMODIUM) 2 mg cap(s) Take 1 capsule by mouth twice daily as needed for diarrhea. acetaminophen (TYLENOL) 325 mg tablet Take 2 tablets by mouth every 4 hours as needed for pain. lactobacillus rhamnosus (CULTURELLE) 10 billion cell capsule Take 1 capsule by mouth once daily. losartan (COZAAR) 50 mg tablet Take 1 tablet by mouth once daily. Cholecalciferol, Vitamin D3, 125 mcg (5,000 unit) cap Take 1 capsule by mouth once daily. ascorbic acid, vitamin C, (VITAMIN C) 500 mg tablet Take 500 mg by mouth once daily. levothyroxine (SYNTHROID) 112 mcg tablet Take 1 tablet by mouth once daily. Take on empty stomach. For thyroid. vitamin b complex tab Take 1 tablet by mouth once daily. Orhqrpoibedrp-Or-Vshw-Minerals (ONE-A-DAY WOMENS FORMULA) 27-0.4 mg ORAL Tab Take 1 tablet by mouthonce daily. 60 tablet 0 psyllium (METAMUCIL) 3.4 gram packet Take 1 Packet by mouth twice daily as needed. (Patient not taking: Reported on 05/02/2024) ASCORBIC ACID/BIOFLAVONOIDS (RISHABH C ORAL) Take by mouth once daily. winter only (Patient not taking: Reported on 05/02/2024) NUTRITIONAL SUPPLEMENT/FIBER (JUICE PLUS FIBRE ORAL) Take 2 capsules by mouth twice daily. No current facility-administered medications for this visit. Allergies: ALLERGIES Allergen Reactions Sulfa (Sulfonamide * Mental Status Change Fever, hallucinations, rash, swelling Tetnus [Tetanus Vac* Swelling Adhesive Tape (Jenna* skin irritation Contact Allergies [* Rash wool, itching and skin peels off Food Allergies [Oth* GI Upset allergic to beans- GI upset eye swelling Vancomycin Itching Referring Physician: N/A Hero Falcon DO ATTENDING NOTE: I personally performed a history and physical examination on Yeny Tavera to verify the one performed by Hero Falcon DO. I reviewed their findings, plan and note, and have made changes above as needed so that I agree with the documentation. I discussed the plan with the patient. Omer Kelley MD, PhD Hand & Upper Extremity Orthopaedic Staff Surgeon documented in [facility] NoteHNO ID: [id number] Author: BARI KELLEY MD, PhD Service: ? Author Type: Physician Type: Progress Notes Filed: 05/01/2024 14:57 Note Text[facility] History of Present illness Narrative* Bari Kelley MD, PhD - 05/01/2024 2:57 PM EST wrist documented in this [facility]11-19-2024 History of Present illness Narrative* Geo Parkinson MD - 04/17/2024 1:45 PM EST [facility] [place] [facility]Electrophysiology Follow Up Clinic Note Chief Complaint: Chief Complaint Patient presents with Bradycardia CHB PPM Atrial Fibrillation PAF Rapid Heart Rate Atrial Tachycardia Fall Frequent Falls with Sensory Polyneuropathy Hypothyroidism History of Present Illness: Yeny Tavera is a 78 y.o. female referred here in Feb 2020 by Osbaldo Fowler CNP for dizziness and syncope. 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 Her dizziness/syncope started in 2012. Dr. Rene diagnosed a peripheral neuropathy and a dysautonomia. An ECG showed aLBBB and an event recorder then showed episodes of nocturnal junctional bradycardia. In 2013 an EPSshowed prolonged AH and HV and she had an ILR implanted. A tilt table test soon after was abnormal and she was diagnosed with neurocardiogenic syncope. In [address] Fuller who saw some AFib on the ILR, but decided against OAC b/o her frequent falls. At her last visit with Dr Rene in May 2019 , she was told she had a large fiber neuropathy. Her ILR battery depleted and she was never found to have a bradycardia. In Dec 2021 , she c/o of frequent unexplained falls while walking preceded by some dizziness. An event monitor showed an episode of complete AV block with a ventricular escape inthe 20s on the first evening. We implanted a PPM in Mar 2022. She returns today feeling well. She has not gotten dizzy since the pacer. She has had an occasionalfall, the last one in October 2023 leading to a wrist fracture. She has a polyneuropathy and her balance is poor. She is active in the yard and can go to the gym without symptoms. Device Interrogation today shows a normal functioning dual-chamber [employer] PPM. Ventricular pacing and sensing thresholds and lead impedances are within normal. She has been in an atrial tachyarrhythmia since September 2023 c/w Aflutter/Afib and ATach. Her ventricular response remains mostly paced and she is unaware of any palpitation, SOB, SHAH, or decrease in exercise tolerance. She is atrially pacing 11% % and V pacing 76% of the time. A stress echo in Jun 2019 showed that she exercised to 13.7 mets without ischemia Assessment and Plan: 1. Complete AV block/dizziness/Syncope: As above, it sounds like at [facility] she was thought to have neurocardiogenic/ dysautonomic syncope. The event monitor in Mar 2022 showed a clear episode of third-degree AV block. She had a long first degree AV block, sinus bradycardia, and a LBBB on ECG. She alsohad unexplained falls and dizziness/syncope. She has had no further dizzy spells, but continues to have some mechanical/balance related falls. 2. Paroxysmal atrial tachyarrhythmias/AFib. She does not recall being told she had this, but it wasclearly documented on the ILR at [facility]. On today's pacemaker interrogation she has been in an atypical atrial flutter/atrial fibrillation since September 2023. She is asymptomatic and mostly V-paced. I started her on OAC after some discussion in Jul 2022 as her CHADS Vasc score is 4. We will continue with a rate controlling strategy Past Medical History: Past Medical History: Diagnosis Date Asthma Atrial fibrillation (HCC) 02/20/2020 Bradycardia 02/20/2020 CHB (complete heart block) (HCC) 04/13/2022 CHB (complete heart block) (HCC) Diverticulitis First degree AV block History of electrophysiologic study 09/26/2013 Hypertension Large fiber neuropathy 02/20/2020 LBBB (left bundle branch block) 02/20/2020 Lumbosacral radiculitis 06/19/2021 Thyroid disease 02/20/2020 Hypothyroidism Tilt table evaluation 10/08/2013 Past Surgical History Past Surgical History: Procedure Laterality Date APPENDECTOMY CARDIAC ELECTROPHYSIOLOGY PROCEDURE Left 04/15/2022 Performed by Galileo Ortiz MD at [facility] Cardiac Cath/EP Lab CVHX LOOP RECORDER EVALUATION 09/26/2013 removed 11/08/2017 FOOT SURGERY HYSTEROSCOPY OOPHORECTOMY PACEMAKER (HISTORICAL) TONSILLECTOMY Family History Family History Problem Relation Name Age of Onset Arrhythmia Mother Arrhythmia Father Social History Social History Tobacco Use Smoking status: Never Passive exposure: Never Smokeless tobacco: Never Vaping Use Vaping status: Never Used Substance Use Topics Alcohol use: Yes Alcohol/week: 1.0 standard drink of alcohol Types: 1 Glasses of wine per week Comment: occasional wine Drug use: Never Comment: caffeine: 1 cup coffee/day Medications: Reviewed Allergies: Reviewed Review of Systems: All other systems were reviewed and are negative other than as noted in the HPI. Physical Examination: Vitals: Blood pressure 114/74, pulse 78, height 5' 7 (1.702 m), weight 154 lb (69.9 kg), SpO2 98%. Constitutional: Appears well kept and looks stated age; in NAD Psychiatric: A &O x3 Mood is pleasant; Affect is appropriate Musculoskeletal: Normocephalic; no joint swelling; gait steady ; 5/5 muscle strength bilaterally inupper and lower extremities; no clubbing or cyanosis HEENT: Pupils are equal and round; Conjunctiva are not injected; Sclera are non- icteric; Airway andNares are patent; Ears without external abnormalities. Mucosa is pink; Dentition is normal Neck: Supple; No JVD or Bruits; No thyromegaly; No lymphadenopathy Chest: Left subclavicular wound healing well. No redness, hematoma, or warmth, or discharge. Respiratory: Lungs are clear with no rales or wheezes. Respiratory effort is normal and symmetricalbilaterally; Good air movement bilaterally Heart: RRR without ectopy; Nl S1 and S2 no mcrg Abdomen: NABS soft, non-tender, non-distended; no organomegaly; no obvious masses Extremities/Skin: No LE edema; Skin warm to touch and well perfused; skin discoloration is absent; Peripheral Pulses intact Neuro: sensation and motor function are grossly normal. Cranial Nerves are grossly intact Laboratory Tests: Lab Results Component Value Date WBC 5.3 01/17/2023 WBC 6.5 04/14/2022 WBC 6.1 10/31/2020 HGB 15.0 01/17/2023 HGB 14.8 04/14/2022 HGB 14.1 10/31/2020 HCT 44.6 01/17/2023 HCT 44.2 04/14/2022 MCV 94.1 01/17/2023 MCV 93.6 04/14/2022 MCV 95.7 10/31/2020 PLT 188 01/17/2023 PLT 213 04/14/2022 Lab Results Component Value Date NA 135 04/14/2022 NA 140 10/31/2020 K 4.6 04/14/2022 K 3.9 10/31/2020 CL 102 04/14/2022 CL 107 10/31/2020 CO2 26 01/17/2023 CO2 27 07/06/2022 CO2 24 04/14/2022 BUN 12 01/17/2023 BUN 12 07/06/2022 BUN 14 04/14/2022 CREATININE 0.65 01/17/2023 CREATININE 0.75 07/06/2022 CREATININE 0.64 04/14/2022 Lab Results Component Value Date HGBA1C 5.4 01/17/2023 Lab Results Component Value Date TSH 1.47 01/17/2023 Lab Results Component Value Date HDL 67 10/31/2020 Lab Results Component Value Date LDLCALC 96 10/31/2020 Lab Results Component Value Date TRIG 161 10/31/2020 Geo Parkinson MD DATE of SERVICE: 04/17/2024 documented in this [facility]11-14-2024 Telephone encounter Note* Telephone Encounter - Akilah Steinberg RN - 04/12/2024 3:07 PM EST Called and spoke to pharmacy, they said patient never filled it and the RX was from [facility] CBC8 CMP-8 CR-0.61 Labs in [place] 04/10 date [id number] Miscellaneous Notes* Telephone Encounter - Akilah Steinberg RN - 04/12/2024 3:07 PM EST Called and spoke to pharmacy, they said patient never filled it and the RX was from [facility] CBC CMP-8 CR-0.61 Labs in [place] 04/10 date * Telephone Encounter - Myrtle Max - 04/12/2024 2:43 PM EST Pt called in for a refill of apixaban (Eliquis) 5 MG tablet 1 tab q12H Pt [facility] 09/20/2023 NOV 04/17/2024 documented in this [facility]11-14-2024 Telephone encounter Note* Telephone Encounter - Myrtle Max - 04/12/2024 2:43 PM EST Pt called in for a refill of apixaban (Eliquis) 5 MG tablet 1 tab q12H Pt would like this sent to [facility] 09/20/2023 NOV 04/17/2024 [id number] Telephone encounter Note* Telephone Encounter - Shamika Rucker RT(R) - 11/25/2023 7:06 AM EDT Yeny I was able to get your pacemaker information from your [facility] chart. I have approved your MRI from asafety standpoint. One of our schedulers will call you in the coming days to schedule your appointment. Shamika Miguel(Jewels)(MR),[facility] MRI Safety Team [facility]06-28-2024 Miscellaneous Notes* Telephone Encounter - Shamika Rucker RT(R) - 11/25/2023 7:06 AM EDT Beck Booker was able to get your pacemaker information from your [facility] chart. I have approved your MRI from asafety standpoint. One of our schedulers will call you in the coming days to schedule your appointment. Shamika Miguel(Jewels)(MR),[facility] MRI Safety Team [facility] History of Present illness Narrative* Geo Parkinson MD - 09/20/2023 1:30 PM EDT [facility] [place] Cardiology/Electrophysiology Follow Up Clinic Note Chief Complaint: Chief Complaint Patient presents with Bradycardia CHB PPM Atrial Fibrillation PAF Rapid Heart Rate Atrial Tach Fall Frequent Falls with Sensory Polyneuropathy History of Present Illness: Yeny Tavera is a 77 y.o. female referred here in Feb 2020 by Osbaldo Fowler CNP for dizziness and syncope. 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 Her dizziness/syncope started in 2012. Dr. Rene diagnosed a peripheral neuropathy and a dysautonomia. An ECG showed aLBBB and an event recorder then showed episodes of nocturnal junctional bradycardia. In 2013 an EPSshowed prolonged AH and HV and she had an ILR implanted. A tilt table test soon after was abnormal and she was diagnosed with neurocardiogenic syncope. In [address] Fuller who saw some AFib on the ILR, but decided against OAC b/o her frequent falls. At her last visit with Dr Rene in May 2019 , she was told she had a large fiber neuropathy. Her ILR battery depleted and she was never found to have a bradycardia. In Dec 2021 , she c/o of frequent unexplained falls while walking preceded by some dizziness. An event monitor showed an episode of complete AV block with a ventricular escape inthe 20s on the first evening. We implanted a PPM in Mar 2022. She returns today feeling well. She has not gotten dizzy since the pacer. She has had an occasionalfall, but none in a while. She has a polyneuropathy and her balance is poor. She is active in the yard and can go to the gym without symptoms. Device Interrogation today shows a normal functioning dual-chamber [employer] PPM. Atrial and ventricular pacing and sensing thresholds and lead impedances are within normal. She continues to have episodes of atrial tachyarrhythmias c/w Aflutter/Afib and ATach. One recently lasted about a month. She is asymptomatic and with a paced VR. She is atrially pacing 41% % and V pacing 72% of the time. A stress echo in Jun 2019 showed that she exercised to 13.7 mets without ischemia Assessment and Plan: 1. Complete AV block/dizziness/Syncope: As above, it sounds like at [facility] she was thought to have neurocardiogenic/ dysautonomic syncope. The event monitor in Mar 2022 showed a clear episode of third-degree AV block. She had a long first degree AV block, sinus bradycardia, and a LBBB on ECG. She alsohad unexplained falls and dizziness/syncope. She has had no further dizzy spells, but continues to have some mechanical/balance related falls. 2. Paroxysmal atrial tachyarrhythmias/AFib. She does not recall being told she had this, but it wasclearly documented on the ILR at [facility]. On pacemaker interrogations she continues to have episodes ofatrial tachyarrhythmias lasting as long as a month. They are asymptomatic. I started her on OAC after some discussion in Jul 2022 as her CHADS Vasc score is 4. Past Medical History: Past Medical History: Diagnosis Date Asthma Atrial fibrillation (HCC) 02/20/2020 Bradycardia 02/20/2020 CHB (complete heart block) (CMS/HCC) (HCC) 04/13/2022 CHB (complete heart block) (CMS/HCC) (HCC) Diverticulitis First degree AV block History of electrophysiologic study 09/26/2013 Hypertension Large fiber neuropathy 02/20/2020 LBBB (left bundle branch block) 02/20/2020 Lumbosacral radiculitis 06/19/2021 Thyroid disease 02/20/2020 Hypothyroidism Tilt table evaluation 10/08/2013 Past Surgical History Past Surgical History: Procedure Laterality Date APPENDECTOMY CARDIAC ELECTROPHYSIOLOGY PROCEDURE Left 04/15/2022 Performed by Galileo Ortiz MD at [facility] Cardiac Cath/EP Lab CVHX LOOP RECORDER EVALUATION 09/26/2013 removed 11/08/2017 FOOT SURGERY HYSTEROSCOPY OOPHORECTOMY PACEMAKER (HISTORICAL) TONSILLECTOMY Family History Family History Problem Relation Name Age of Onset Arrhythmia Mother Arrhythmia Father Social History Social History Tobacco Use Smoking status: Never Passive exposure: Never Smokeless tobacco: Never Vaping Use Vaping Use: Never used Substance Use Topics Alcohol use: Yes Alcohol/week: 1.0 standard drink of alcohol Types: 1 Glasses of wine per week Comment: occasional wine Drug use: Never Comment: caffeine: 1 cup coffee/day Medications: Reviewed Allergies: Reviewed Review of Systems: All other systems were reviewed and are negative other than as noted in the HPI. Physical Examination: Vitals: Blood pressure 136/64, pulse 76, height 5' 7 (1.702 m), weight 154 lb (69.9 kg), SpO2 98%. Constitutional: Appears well kept and looks stated age; in NAD Psychiatric: A &O x3 Mood is pleasant; Affect is appropriate Musculoskeletal: Normocephalic; no joint swelling; gait steady ; 5/5 muscle strength bilaterally inupper and lower extremities; no clubbing or cyanosis HEENT: Pupils are equal and round; Conjunctiva are not injected; Sclera are non- icteric; Airway andNares are patent; Ears without external abnormalities. Mucosa is pink; Dentition is normal Neck: Supple; No JVD or Bruits; No thyromegaly; No lymphadenopathy Chest: Left subclavicular wound healing well. No redness, hematoma, or warmth, or discharge. Respiratory: Lungs are clear with no rales or wheezes. Respiratory effort is normal and symmetricalbilaterally; Good air movement bilaterally Heart: RRR without ectopy; Nl S1 and S2 no mcrg Abdomen: NABS soft, non-tender, non-distended; no organomegaly; no obvious masses Extremities/Skin: No LE edema; Skin warm to touch and well perfused; skin discoloration is absent; Peripheral Pulses intact Neuro: sensation and motor function are grossly normal. Cranial Nerves are grossly intact Laboratory Tests: Lab Results Component Value Date WBC 5.3 01/17/2023 WBC 6.5 04/14/2022 WBC 6.1 10/31/2020 HGB 15.0 01/17/2023 HGB 14.8 04/14/2022 HGB 14.1 10/31/2020 HCT 44.6 01/17/2023 HCT 44.2 04/14/2022 MCV 94.1 01/17/2023 MCV 93.6 04/14/2022 MCV 95.7 10/31/2020 PLT 188 01/17/2023 PLT 213 04/14/2022 Lab Results Component Value Date NA 135 04/14/2022 NA 140 10/31/2020 K 4.6 04/14/2022 K 3.9 10/31/2020 CL 102 04/14/2022 CL 107 10/31/2020 CO2 26 01/17/2023 CO2 27 07/06/2022 CO2 24 04/14/2022 BUN 12 01/17/2023 BUN 12 07/06/2022 BUN 14 04/14/2022 CREATININE 0.65 01/17/2023 CREATININE 0.75 07/06/2022 CREATININE 0.64 04/14/2022 Lab Results Component Value Date HGBA1C 5.4 01/17/2023 Lab Results Component Value Date TSH 1.47 01/17/2023 Lab Results Component Value Date HDL 67 10/31/2020 Lab Results Component Value Date LDLCALC 96 10/31/2020 Lab Results Component Value Date TRIG 161 10/31/2020 Radiology: Reviewed Geo Parkinson MD DATE of SERVICE: 09/20/2023 documented in this [place] [id number] Telephone encounter Note* Telephone Encounter - Veronica Diaz - 09/06/2023 9:57 AM EDT Pt requesting refill on eliquis Pharmacy confirmed [place] [id number] Miscellaneous Notes* Telephone Encounter - Veronica Diaz - 09/06/2023 9:57 AM EDT Pt requesting refill on eliquis Pharmacy confirmed * Telephone Encounter - Veronica Reyes RN - 08/31/2023 11:02 AM EDT If she call back will send in refill of Eliquis it has been 1 year * Telephone Encounter - Veronica Reyes RN - 08/31/2023 11:00 AM EDT RIZWAN 01-18-23 NOV 09-20-23 01-17-23 CBC,Bmp/creat 0.65 * Telephone Encounter - Veronica Diaz - 08/31/2023 10:10 AM EDT Pt lvm starting that she has left messages that she is requesting eliquis, pt states that she had afriend venegas for a 30d rx of eliquis. RC to pt to process request for eliquis, lvm instructing pt to return my call. documented in this [place] [address]-03-2024 Telephone encounter Note* Telephone Encounter - Veronica Reyes RN - 08/31/2023 11:02 AM EDT If she call back will send in refill of Eliquis it has been 1 year [id number] Miscellaneous Notes* Telephone Encounter - Veronica Reyes RN - 08/31/2023 11:02 AM EDT If she call back will send in refill of Eliquis it has been 1 year * Telephone Encounter - Veronica Reyes RN - 08/31/2023 11:00 AM EDT RIZWAN 01-18-23 09-20-23 01-17-23 CBC,Bmp/creat 0.65 * Telephone Encounter - Veronica Diaz - 08/31/2023 10:10 AM EDT Pt lvm starting that she has left messages that she is requesting eliquis, pt states that she had afriend venegas for a 30d rx of eliquis. RC to pt to process request for eliquis, lvm instructing pt to return my call. documented in this encounterSRivers[facility] [id number] Telephone encounter Note* Telephone Encounter - Veronica Reyes RN - 08/31/2023 11:00 AM EDT RIZWAN 01-18-23 09-20-23 01-17-23 CBC,Bmp/creat 0.65 [place] [id number] Telephone encounter Note* Telephone Encounter - Veronica Diaz - 08/31/2023 10:10 AM EDT Pt lvm starting that she has left messages that she is requesting eliquis, pt states that she had afriend venegas for a 30d rx of eliquis. RC to pt to process request for eliquis, lvm instructing pt to return my call. [facility] [id number] Telephone encounter Note* Telephone Encounter - Ibis Cordon - 05/19/2023 10:19 AM EST LVM #2 for patient informing of message below, advised to return call if needed. Please relay message to patient if returns call. Will send MC message to patient as well. [facility] [id number] Miscellaneous Notes* Telephone Encounter - Ibis Cordon - 05/19/2023 10:19 AM EST LVM #2 for patient informing of message below, advised to return call if needed. Please relay message to patient if returns call. Will send MC message to patient as well. * Telephone Encounter - Ibis Cordon - 05/10/2023 10:15 AM EST We were waiting on clearance from her dentist to continue Prolia, I still have not received anything. Upon looking in patient's chart there was a TE from Dr. Gurrola's office (dentistry) ; Telephone Encounter - Pratik Saenz - 04/29/2023 1:50 PM EST Santos De La Torreh, Pt has Osteonecrosis and was last seen with Dr. Gurrola in January. The patient needs clearance tocontinue getting her Prolia Shots for Bone building with Dr. Prem Burciaga. Can you please confirmthat the patient got the clearance? Please let me know, thank you! Pratik Telephone Encounter - Pratik Saenz - 05/05/2023 6:34 PM EST Lvm for pt notifying information below. Stated once the pt is ready to schedule an in person appt, give us a call. Gave call back number Looks as though they want patient to schedule an appointment with them for clearance. Called PT and LVM informing of above, advised to return call if needed. Please relay message to patient if she returns call. * Telephone Encounter - Jason Ramsay - 05/09/2023 1:29 PM EST Name of caller: yeny Contact phone number: [phone] Relationship to Patient: patient Provider: Dr. Felton Practice: [facility] Chief Complaint/Reason for Call: Patient is requesting a status update on Polia Injection. Please advise. Best time of day caller can be reached:any Patient advised that office/PCP has 24-48 business hours to return their call: No * Telephone Encounter - Ibis Cordon - 04/29/2023 1:46 PM EST Spoke with Kenneth, she stated she will refax mandible clearance to our office again. Provided her with fax number. * Telephone Encounter - Sia Alvarado - 04/29/2023 11:14 AM EST Name of caller: Kenneth Contact phone number: [phone] Relationship to Patient: [facility] Provider: Dr. Felton Practice: [facility] Chief Complaint/Reason for Call: Kenneth is calling from [facility] asking for what type of information is needed from their office so the patient can get the Prolia injection. Please advise. Best time of day caller can be reached: Any Patient advised that office/PCP has 24-48 business hours to return their call: No documented in this [facility]12-12-2023 Telephone encounter Note* Telephone Encounter - Ibis WatermanGlenna Cordon - 05/10/2023 10:15 AM EST We were waiting on clearance from her dentist to continue Prolia, I still have not received anything. Upon looking in patient's chart there was a TE from Dr. Gurrola's office (dentistry) ; Telephone Encounter - Pratik Saenz - 04/29/2023 1:50 PM EST Santos Hardy, Pt has Osteonecrosis and was last seen with Dr. Gurrola in January. The patient needs clearance tocontinue getting her Prolia Shots for Bone building with Dr. Prem Burciaga. Can you please confirmthat the patient got the clearance? Please let me know, thank you! Pratik Telephone Encounter - Pratik Saenz - 05/05/2023 6:34 PM EST Lvm for pt notifying information below. Stated once the pt is ready to schedule an in person appt, give us a call. Gave call back number Looks as though they want patient to schedule an appointment with them for clearance. Called PT and LVM informing of above, advised to return call if needed. Please relay message to patient if she returns call. [employer] [id number] Miscellaneous Notes* Telephone Encounter - Ibis Kerr Neris - 05/10/2023 10:15 AM EST We were waiting on clearance from her dentist to continue Prolia, I still have not received anything. Upon looking in patient's chart there was a TE from Dr. Gurrola's office (dentistry) ; Telephone Encounter - Pratik Saenz - 04/29/2023 1:50 PM EST Santos Hardy, Pt has Osteonecrosis and was last seen with Dr. Gurrola in January. The patient needs clearance tocontinue getting her Prolia Shots for Bone building with Dr. Prem Burciaga. Can you please confirmthat the patient got the clearance? Please let me know, thank you! Pratik Telephone Encounter - Pratik Saenz - 05/05/2023 6:34 PM EST Lvm for pt notifying information below. Stated once the pt is ready to schedule an in person appt, give us a call. Gave call back number Looks as though they want patient to schedule an appointment with them for clearance. Called PT and LVM informing of above, advised to return call if needed. Please relay message to patient if she returns call. * Telephone Encounter - Jason Ramsay - 05/09/2023 1:29 PM EST Name of caller: yeny Contact phone number: [phone] Relationship to Patient: patient Provider: Dr. Felton Practice: [facility] Chief Complaint/Reason for Call: Patient is requesting a status update on Polia Injection. Please advise. Best time of day caller can be reached:any Patient advised that office/PCP has 24-48 business hours to return their call: No * Telephone Encounter - Ibis Cordon - 04/29/2023 1:46 PM EST Spoke with Kenneth, she stated she will refax mandible clearance to our office again. Provided her with fax number. * Telephone Encounter - Sia Alvarado - 04/29/2023 11:14 AM EST Name of caller: Kenneth Contact phone number: [phone] Relationship to Patient: [facility] Provider: Dr. Felton Practice: [facility] Chief Complaint/Reason for Call: Kenneth is calling from [facility] asking for what type of information is needed from their office so the patient can get the Prolia injection. Please advise. Best time of day caller can be reached: Any Patient advised that office/PCP has 24-48 business hours to return their call: No documented in this encounterSRiverside Methodist [id number] Telephone encounter Note* Telephone Encounter - Jason Ramsay - 05/09/2023 1:29 PM EST Name of caller: yeny Contact phone number: [phone] Relationship to Patient: patient Provider: Dr. Felton Practice: [facility] Chief Complaint/Reason for Call: Patient is requesting a status update on Polia Injection. Please advise. Best time of day caller can be reached:any Patient advised that office/PCP has 24-48 business hours to return their call: No [facility] [id number] Miscellaneous Notes* Telephone Encounter - Jason Ramsay - 05/09/2023 1:29 PM EST Name of caller: yeny Contact phone number: [phone] Relationship to Patient: patient Provider: Dr. Felton Practice: [facility] Chief Complaint/Reason for Call: Patient is requesting a status update on Polia Injection. Please advise. Best time of day caller can be reached:any Patient advised that office/PCP has 24-48 business hours to return their call: No * Telephone Encounter - Ibis Cordon - 04/29/2023 1:46 PM EST Spoke with Kenneth, she stated she will refax mandible clearance to our office again. Provided her with fax number. * Telephone Encounter - Sia Alvarado - 04/29/2023 11:14 AM EST Name of caller: Kenneth Contact phone number: [phone] Relationship to Patient: [facility] Provider: Dr. Felton Practice: [facility] Chief Complaint/Reason for Call: Kenneth is calling from [facility] asking for what type of information is needed from their office so the patient can get the Prolia injection. Please advise. Best time of day caller can be reached: Any Patient advised that office/PCP has 24-48 business hours to return their call: No documented in this encounterSRiverside Methodist [id number] Miscellaneous Notes* Telephone Encounter - Pratik Saenz - 04/29/2023 1:50 PM EST Santos Hardy Pt has Osteonecrosis and was last seen with Dr. Gurrola in January. The patient needs clearance tocontinue getting her Prolia Shots for Bone building with Dr. Prem Burciaga. Can you please confirmthat the patient got the clearance? Please let me know, thank you! Pratik [address] [id number] documented in this encounterAden[facility] System12-[facility]-2023 Telephone encounter Note * Telephone Encounter - Ibis Cordon - 04/29/2023 1:46 PM EST Spoke with Kenneth, she stated she will refax mandible clearance to our office again. Provided her with fax number. [facility] [id number] Miscellaneous Notes* Telephone Encounter - Ibis Cordon - 04/29/2023 1:46 PM EST Spoke with Kenneth, she stated she will refax mandible clearance to our office again. Provided her with fax number. * Telephone Encounter - Sia Alvarado - 04/29/2023 11:14 AM EST Name of caller: Kenneth Contact phone number: [phone] [facility] Provider: Dr. Felton Practice: [facility] Chief Complaint/Reason for Call: Kenneth is calling from [employer] asking for what type of information is needed from their office so the patient can get the Prolia injection. Please advise. Best time of day caller can be reached: Any Patient advised that office/PCP has 24-48 business hours to return their call: No documented in this encounterSRiverside Methodist HospitalFwmjzm87-88-9227 Telephone encounter Note* Telephone Encounter - Sia Alvarado - 04/29/2023 11:14 AM EST Name of caller: Kenneth Contact phone number: [phone] Relationship to Patient: [facility] Provider: Dr. Felton Practice: [facility] Chief Complaint/Reason for Call: Kenneth is calling from [facility] asking for what type of information is needed from their office so the patient can get the Prolia injection. Please advise. Best time of day caller can be reached: Any Patient advised that office/PCP has 24-48 business hours to return their call: No [facility] [id number] Telephone encounter Note* Telephone Encounter - Sara Boss MA - 03/17/2023 9:51 AM EDT Phone call to [facility]. I left a detailed message asking for the mandible clearnace to be refaxed for Ms. Liang. I left our secure fax number and our back line phone number. Sara Boss MA [facility] [id number] Miscellaneous Notes* Telephone Encounter - Sara Boss MA - 03/17/2023 9:51 AM EDT Phone call to [facility]. I left a detailed message asking for the mandible clearnace to be refaxed for Ms. Liang. I left our secure fax number and our back line phone number. Sara Boss MA * Telephone Encounter - Sara Boss MA - 03/11/2023 3:50 PM EDT Phone call to Dentist office at: [phone]. I spoke with Kenneth and asked her to fax over the last office visit note/mandible clearance. Kenneth repeated our secure fax number back to me: [phone] Kenneth states that she will fax note immediately. NOTED. Dr. Felton requesting clearance prior to resuming Prolia. Ms. Yeny Tavera informed of the above and verbalized understanding. I will contact her once I receive direction from Dr. Felton. Sara Boss MA * Telephone Encounter - Sara Boss MA - 03/11/2023 3:39 PM EDT Images from the original note were not included. [facility] Outside Information CT FACIAL BONE/NABEEL WO IVCON Anatomical Region Laterality Modality Mandible -- Computed Tomography Impression IMPRESSION: 1. Moderate degree of soft tissue inflammatory changes of left maxillary and ethmoid sinuses with occlusion of the ostiomeatal complex. Small air-fluid level dependent portion left maxillary sinus. Leading CT diagnostic consideration is acute on chronic left side paranasal sinusitis, not significantly changed since 12/07/2021 CT. 2.Redemonstration of severe deviation midportion nasal septum towards right side of the septal spur markedly compromised right sinonasal cavity/middle meatus. Asymmetrically enlarged left inferior middle nasal turbinates. Soft tissue opacification left upper nasal cavity. 3.Mandible including TMJ joints appears intact without evidence of mandibular necrosis. Visualized oral cavity is unremarkable, limited due to artifact from dental hardware [employer] Quality Control Technician: PSCB Transcribe Date/Time: Mar 02 2023 7:28A Dictated by : ALBERTA LOJA MD This examination was interpreted and the report reviewed and electronically signed by: ALBERTA LOJA MD on Mar 02 2023 7:34AM EST Narrative * * *Final Report* * * DATE OF EXAM: Mar 01 2023 5:02PM [facility] 0507 - CT FACIAL BONE/NABEEL WO IVCON / PROCEDURE REASON: Atypical facial pain * * * * Physician Interpretation * * * * Telephone Encounter - Melodie Childs - 02/15/2023 1:11 PM EDT Message released to patient as written. Patient's further questions if applicable: Were all questions from office addressed or relayed to the patient from encounter: yes * Telephone Encounter - Prem Felton MD - 02/15/2023 7:46 AM EDT If having jaw concerns we would not want to go on Fosamax either. So await oral surgeons evaluation. Fortunately bone loss/growth is slow-years and years so being off meds is not a big problem now. * Telephone Encounter - Sara Boss MA - 02/14/2023 5:14 PM EDT Images from the original note were not included. Mammogram ok. Repeat 1 year Dexa Scan Status: Final result Dexa Scan: Result Notes Prem Felton MD 02/14/2023 3:12 PM EDT Still osteoporosis on bones. Cont Prolia Patient informed of Dr. Felton's result note/recommendation. Prior to disconnecting the phone call,I asked Ms. Tavera if she/he had any questions or concerns? Pt stated : About two weeks ago she went to have her Prolia injection, and was asked the same questions she is always asked before administering the Prolia. She answered yes to the jaw pain question. The nurseinstructed her to see her Dentist., and she did NOT receive the Prolia injection. Pt went to the Dentist and he believes that she needs to see an Oral Surgeon and an Public Safety Police. She has an appointment with Oral Surgeon ([facility]) upcoming. She has not scheduled with an Public Safety Police as of today(there is no one in her network) Pt is awaiting the oral surgeons recommendations. Pt would like to resume Fosamax in the interim. She states that she has tolerated this in the past.Preferred pharmacy [facility]. Pt will update our office after she see's the Oral Surgeon. Allergies verified with the patient. No changes. Please advise. Thank you Dr. Felton * Telephone Encounter - Cynthia Barnhart - 02/14/2023 4:58 PM EDT Name of caller: Yeny Contact phone number: [phone] Relationship to Patient: patient Provider: [facility] Practice: [facility] Chief Complaint/Reason for Call: Patient was returning a call to the office. I was unable to find anything in the chart to release to the patient. Please advise Best time of day caller can be reached: any Patient advised that office/PCP has 24-48 business hours to return their call: Yes documented in this encounterSRiverside Methodist HospitalGnxjhh21-20-6014 Telephone encounter Note* Telephone Encounter - Sara Boss MA - 03/11/2023 3:50 PM EDT Phone call to Dentist office at: [phone]. I spoke with Kenneth and asked her to fax over the last office visit note/mandible clearance. Kenneth repeated our secure fax number back to me: [phone] Kenneth states that she will fax note immediately. NOTED. Dr. Felton requesting clearance prior to resuming Prolia. Ms. Yeny Tavera informed of the above and verbalized understanding. I will contact her once I receive direction from Dr. Felton. Sara Boss MA [facility] [id number] Miscellaneous Notes* Telephone Encounter - Sara Boss MA - 03/11/2023 3:50 PM EDT Phone call to Dentist office at: [phone]. I spoke with Kenneth and asked her to fax over the last office visit note/mandible clearance. Kenneth repeated our secure fax number back to me: [phone] Kenneth states that she will fax note immediately. NOTED. Dr. Felton requesting clearance prior to resuming Prolia. Ms. Yeny Tavera informed of the above and verbalized understanding. I will contact her once I receive direction from Dr. Felton. Sara Boss MA * Telephone Encounter - Sara Boss MA - 03/11/2023 3:39 PM EDT Images from the original note were not included. [facility] Outside Information CT FACIAL BONE/NABEEL WO IVCON Anatomical Region Laterality Modality Mandible -- Computed Tomography Impression IMPRESSION: 1. Moderate degree of soft tissue inflammatory changes of left maxillary and ethmoid sinuses with occlusion of the ostiomeatal complex. Small air-fluid level dependent portion left maxillary sinus. Leading CT diagnostic consideration is acute on chronic left side paranasal sinusitis, not significantly changed since 12/07/2021 CT. 2.Redemonstration of severe deviation midportion nasal septum towards right side of the septal spur markedly compromised right sinonasal cavity/middle meatus. Asymmetrically enlarged left inferior middle nasal turbinates. Soft tissue opacification left upper nasal cavity. 3.Mandible including TMJ joints appears intact without evidence of mandibular necrosis. Visualized oral cavity is unremarkable, limited due to artifact from dental hardware [employer] Quality Control Technician: ERIC Transcribe Date/Time: Mar 02 2023 7:28A Dictated by : ALBERTA LOJA MD This examination was interpreted and the report reviewed and electronically signed by: ALBERTA LOJA MD on Mar 02 2023 7:34AM EST Narrative * * *Final Report* * * DATE OF EXAM: Mar 01 2023 5:02PM [facility] 0507 - CT FACIAL BONE/NABEEL WO IVCON / PROCEDURE REASON: Atypical facial pain * * * * Physician Interpretation * * * * Telephone Encounter - Melodie Amadeo - 02/15/2023 1:11 PM EDT Message released to patient as written. Patient's further questions if applicable: Were all questions from office addressed or relayed to the patient from encounter: yes * Telephone Encounter - Prem Felton MD - 02/15/2023 7:46 AM EDT If having jaw concerns we would not want to go on Fosamax either. So await oral surgeons evaluation. Fortunately bone loss/growth is slow-years and years so being off meds is not a big problem now. * Telephone Encounter - Sara Boss MA - 02/14/2023 5:14 PM EDT Images from the original note were not included. Mammogram ok. Repeat 1 year Dexa Scan Status: Final result Dexa Scan: Result Notes Prem Felton MD 02/14/2023 3:12 PM EDT Still osteoporosis on bones. Cont Prolia Patient informed of Dr. Felton's result note/recommendation. Prior to disconnecting the phone call,I asked Ms. Tavera if she/he had any questions or concerns? Pt stated : About two weeks ago she went to have her Prolia injection, and was asked the same questions she is always asked before administering the Prolia. She answered yes to the jaw pain question. The nurseinstructed her to see her Dentist., and she did NOT receive the Prolia injection. Pt went to the Dentist and he believes that she needs to see an Oral Surgeon and an Public Safety Police. She has an appointment with Oral Surgeon ([facility]) upcoming. She has not scheduled with an Public Safety Police as of today(there is no one in her network) Pt is awaiting the oral surgeons recommendations. Pt would like to resume Fosamax in the interim. She states that she has tolerated this in the past.[facility] pharmacy [facility] , [facility]. Pt will update our office after she see's the Oral Surgeon. Allergies verified with the patient. No changes. Please advise. Thank you Dr. Felton * Telephone Encounter - Cynthia Barnhart - 02/14/2023 4:58 PM EDT Name of caller: Yeny Contact phone number: [phone] Relationship to Patient: patient Provider: [facility] Practice: [facility] Chief Complaint/Reason for Call: Patient was returning a call to the office. I was unable to find anything in the chart to release to the patient. Please advise Best time of day caller can be reached: any Patient advised that office/PCP has 24-48 business hours to return their call: Yes documented in this [facility]10-13-2023 Telephone encounter Note* Telephone Encounter - Sara Boss MA - 03/11/2023 3:39 PM EDT Images from the original note were not included. [facility] Outside Information CT FACIAL BONE/NABEEL WO IVCON Anatomical Region Laterality Modality Mandible -- Computed Tomography Impression IMPRESSION: 1. Moderate degree of soft tissue inflammatory changes of left maxillary and ethmoid sinuses with occlusion of the ostiomeatal complex. Small air-fluid level dependent portion left maxillary sinus. Leading CT diagnostic consideration is acute on chronic left side paranasal sinusitis, not significantly changed since 12/07/2021 CT. 2.Redemonstration of severe deviation midportion nasal septum towards right side of the septal spur markedly compromised right sinonasal cavity/middle meatus. Asymmetrically enlarged left inferior middle nasal turbinates. Soft tissue opacification left upper nasal cavity. 3.Mandible including TMJ joints appears intact without evidence of mandibular necrosis. Visualized oral cavity is unremarkable, limited due to artifact from dental hardware [employer] Quality Control Technician: PSCB Transcribe Date/Time: Mar 02 2023 7:28A Dictated by : ALBERTA LOJA MD This examination was interpreted and the report reviewed and electronically signed by: ALBERTA LOJA MD on Mar 02 2023 7:34AM EST Narrative * * *Final Report* * * DATE OF EXAM: Mar 01 2023 5:02PM [facility] 0507 - CT FACIAL BONE/NABEEL WO IVCON / PROCEDURE REASON: Atypical facial pain * * * * Physician Interpretation * * * [facility] [id number] Telephone encounter Note* Telephone Encounter - Jr Hugo - 03/08/2023 12:08 PM EDT Name of caller: Yeny Contact phone number: [phone] Relationship to Patient: patient Provider: Dr. Felton Practice: [facility] Chief Complaint/Reason for Call: Pt retuning nurse call from triage call this morning question about hormone therapy. Pt did not want to go back in que for a call back. Pt phones doesn't accept number not recognized. Pt stated she would use [employer] Best time of day caller can be reached: any Patient advised that office/PCP has 24-48 business hours to return their call: N/A [facility] [id number] Miscellaneous Notes* Telephone Encounter - Jr Arias - 03/08/2023 12:08 PM EDT Name of caller: Yeny Contact phone number: [phone] Relationship to Patient: patient Provider: Dr. Felton Practice: [facility] Chief Complaint/Reason for Call: Pt retuning nurse call from triage call this morning question about hormone therapy. Pt did not want to go back in que for a call back. Pt phones doesn't accept number not recognized. Pt stated she would use [employer] Best time of day caller can be reached: any Patient advised that office/PCP has 24-48 business hours to return their call: N/A documented in this encounterSRiverside Methodist HospitalZvuzmy38-02-2513 Miscellaneous Notes* [facility] Maris Porras RT(R) - 03/01/2023 5:00 PM EDT Radiology Service Progress Note PATIENT NAME: Yeny Tavera DATE OF SERVICE: March 01, 2023 TIME: 5:14 PM PATIENT IDENTITY VERIFICATION COMPLETED USING TWO (2) IDENTIFIERS: Name and Date of confirmedby patient verbally. FALL SCREENING: Has the patient had 2 falls in the last year or 1 fall with injury or currently using an Ambulatory Assistive Device (Walker, Cane, Wheelchair, Crutches, etc.)? No PATIENT GENDER DATA: Female. status: : No status: NO. PATIENT RELEVANT IMPLANT DATA REVIEWED: Not Applicable RADIOLOGY DEPARTMENT: CT; Exam(s) Completed: Face/Mandible PERIPHERAL IV DATA: Not applicable SIGNED BY: RT Shelton(R) March 01, 2023 5:14 PM documented in this encounterAdena Health System09-29-2023 History of Present illness Narrative* Vincent Gurrola DDS - 02/25/2023 3:35 PM EDT [facility] Head and Neck Surgery open cut examiner Consultation CC: Ms Booker Monica Tavera seen to evaluate jaw pain and leukoplakia prior to a bisphosphonate therapy HPI: Pt is 77 year old y/o female is getting ready to start bisphosphonate therapy. Patient is having some diffuse jaw pain. 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 Review of Symptoms: Yes No Symptoms Yes No Symptoms X Facial pain X Spitting out blood X Pain with chewing X Bleeding gums X Recent dental work X Bleeding disorder X Lumps in the neck X Difficulty swallowing X Allergies sulfa, tetanus, adhesive tape, contact allergies, food allergies, vancomycin X Pain on swallowing X Shortness of breath X Bad breath X TMJ pain X Limited mouth opening X Dry mouth X Numbness or tingling X Headaches X Sinus pain X Fever X Chills X Hoarseness X Nausea/Vomiting X Snoring X Nose bleeding Past Medical History: 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 Diverticulitis 09/11/2016 Epiretinal membrane Left Epiretinal membrane (ERM) of left eye 05/13/2021 Esophageal reflux 07/21/2007 Essential hypertension 04/04/2015 Female stress incontinence Generalized osteoarthrosis, unspecified site Greater trochanteric bursitis 03/15/2017 Human papillomavirus in conditions classified elsewhere and of unspecified site Hypothyroidism 06/16/2005 implantable loop recorder 08/22/2014 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 ILR-DEVICE MODEL [id number] Reveal LINQ ILR-DEVICE SERIAL NUMBER [id number] ILR-DEVICE IMPLANT DATE 09/26/2013 ILR-DEVICE IMPLANTED BY DOCTOR 1 Large fiber neuropathy 08/04/2017 Osteoporosis, unspecified 2005 on fosamax T-score -2.4 nl vit D 02/07 dxa no change losest T-score -2.6 spine Partial nontraumatic tear of right rotator cuff 09/29/2020 Recurrent falls 03/15/2017 Recurrent major depressive disorder, in partial remission ([facility]) Torn meniscus left knee Unspecified asthma(493.90) Past Surgical History: PAST SURGICAL HISTORY Procedure Laterality Date APPENDECTOMY 1950 COLONOSCOPY 03/22/2013 COLONOSCOPY 05/06/2007 EXC/CURTG BONE CYST/B9 TUMORTARSAL/METATARSAL 1965 excision of scar tissue Right foot HYSTEROSCOPY W/BX ENDO/POLYP 03/08/2011 hsyteroscopy polypectomy and D&C OVARIAN CYSTECTOMY UNI/BI 1985 dermoid cyst, right ovary TONSILLECTOMY PRIMARY/SECONDARY <AGE 12 1950 XTRNL PT ACTIV ECG TRANSMIS W/R&I </30 DAYS 09/26/2013 removed 2017 Medication: n Current Outpatient Medications Medication Sig Dispense Refill ELIQUIS 5 mg tab(s) Take 5 mg by mouth twice daily. sertraline (ZOLOFT) 100 mg tablet Take 1 tablet by mouth once daily. 90 tablet 1 calcium carbonate (CALCIUM 300 ORAL) Take by mouth. metroNIDAZOLE (NORITATE) 1 % cream Apply 1 application to affected area once daily. loperamide (IMODIUM) 2 mg cap(s) Take 1 capsule by mouth twice daily as needed for diarrhea. psyllium (METAMUCIL) 3.4 gram packet Take 1 Packet by mouth twice daily as needed. (Patient taking differently: Take 1 Packet by mouth one time a week.) acetaminophen (TYLENOL) 325 mg tablet Take 2 tablets by mouth every 4 hours as needed for pain. lactobacillus rhamnosus (CULTURELLE) 10 billion cell capsule Take 1 capsule by mouth once daily. losartan (COZAAR) 50 mg tablet Take 1 tablet by mouth once daily. Cholecalciferol, Vitamin D3, 125 mcg (5,000 unit) cap Take 1 capsule by mouth once daily. ascorbic acid, vitamin C, (VITAMIN C) 500 mg tablet Take 500 mg by mouth once daily. levothyroxine (SYNTHROID) 112 mcg tablet Take 1 tablet by mouth once daily. Take on empty stomach. For thyroid. ASCORBIC ACID/BIOFLAVONOIDS (RISHABH C ORAL) Take by mouth once daily. winter only vitamin b complex tab Take 1 tablet by mouth once daily. Rjycgfngdlpri-Sm-Jibp-Minerals (ONE-A-DAY WOMENS FORMULA) 27-0.4 mg ORAL Tab Take 1 tablet by mouthonce daily. 60 tablet 0 NUTRITIONAL SUPPLEMENT/FIBER (JUICE PLUS FIBRE ORAL) Take 2 capsules by mouth twice daily. 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 wine per month. Drug use: No Family History: FAMILY HISTORY Problem Relation Age of Onset Cataract Father Glaucoma Father other (adrenal insufficiency) Father at age 87, vent tachycardia Cataract Mother Glaucoma Mother other (arrthymias) Mother CHF and osteoporosis, at 94 yrs Cancer Paternal Grandmother 92 unknown primary, metastatic Breast Cancer Paternal Aunt 55 @ dx. Living; born 1910 other (lung cancer) Brother other (alzheimers) Sister Down syndrome CLINICAL EXAMINATION: Extraoral, Head and Neck exam: Constitutional: general appearance of patient WD,WN No extraoral swelling or erythema Parotid and submandibular glands soft, nonpainful to palpation bilaterally No lesion noted on facial skin Facial palpitation exam reviews no swelling or no lymphadenopathy CN V1, V2, V3, CN VII intact bilaterally No neck masses noted Thyroid midline with no evidence of any swelling Musculoskeletal: TMJ joint seems to be normal. No poping upon opening Maximum mouth opening within normal range Intraoral Soft Tissues: Clear saliva extruded from bilateral [place]'s and Amelia's ducts Tongue soft and non-tender with no apparent lesions Buccal mucosa without lesions bilaterally Hard palate, soft palate, and pharynx are within normal limits no pathology visualized Floor of mouth without an evidence of pathology Gingival tissues are pink, firm, and stippled and without erythema or swelling Dentition: Full complements of maxillary and Mandibular teeth Radiographic examination: Panorex taken and reviewed demonstrates nothing abnormal seen in the x-ray. Was evaluated and no leukoplakia was seen at this present time. CT scan was taken on March 01 IMPRESSION: 1. Moderate degree of soft tissue inflammatory changes of left maxillary and ethmoid sinuses with occlusion of the ostiomeatal complex. Small air-fluid level dependent portion left maxillary sinus. Leading CT diagnostic consideration is acute on chronic left side paranasal sinusitis, not significantly changed since 12/07/2021 CT. 2.Redemonstration of severe deviation midportion nasal septum towards right side of the septal spur markedly compromised right sinonasal cavity/middle meatus. Asymmetrically enlarged left inferior middle nasal turbinates. Soft tissue opacification left upper nasal cavity. 3.Mandible including TMJ joints appears intact without evidence of mandibular necrosis. 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 Intraoral mucosa appeared to be pink and healthy. No tongue lesions or oropharyngeal lesions. Panorex and CT scan were negative for any type of bone inflammation or bone abnormalities RECOMMENDATIONS: Okay to start Prolia Communication to the requesting MD will be via electronic medical record or regular mail. [facility] in this [facility] Telephone encounter Note * Telephone Encounter - Melodie Childs - 02/15/2023 1:11 PM EDT Message released to patient as written. Patient's further questions if applicable: Were all questions from office addressed or relayed to the patient from encounter: yes [facility] [id number] Telephone encounter Note* Telephone Encounter - Prem Felton MD - 02/15/2023 7:46 AM EDT If having jaw concerns we would not want to go on Fosamax either. So await oral surgeons evaluation. Fortunately bone loss/growth is slow-years and years so being off meds is not a big problem now. [facility] [id number] Telephone encounter Note* Telephone Encounter - Sara Boss MA - 02/14/2023 5:14 PM EDT Images from the original note were not included. Mammogram ok. Repeat 1 year Dexa Scan Status: Final result Dexa Scan: Result Notes Prem Felton MD 02/14/2023 3:12 PM EDT Still osteoporosis on bones. Cont Prolia Patient informed of Dr. Felton's result note/recommendation. Prior to disconnecting the phone call,I asked Ms. Tavera if she/he had any questions or concerns? Pt stated : About two weeks ago she went to have her Prolia injection, and was asked the same questions she is always asked before administering the Prolia. She answered yes to the jaw pain question. The nurseinstructed her to see her Dentist., and she did NOT receive the Prolia injection. Pt went to the Dentist and he believes that she needs to see an Oral Surgeon and an Public Safety Police. She has an appointment with Oral Surgeon ([facility]) upcoming. She has not scheduled with an Public Safety Police as of today(there is no one in her network) Pt is awaiting the oral surgeons recommendations. Pt would like to resume Fosamax in the interim. She states that she has tolerated this in the past.Preferred pharmacy [facility]. Pt will update our office after she see's the Oral Surgeon. Allergies verified with the patient. No changes. Please advise. Thank you Dr. Felton [facility] [id number] Telephone encounter Note* Telephone Encounter - Cynthia Barnhart - 02/14/2023 4:58 PM EDT Name of caller: Yeny Contact phone number: [phone] Relationship to Patient: patient Provider: Jose Francisco Practice: [facility] Primary Chief Complaint/Reason for Call: Patient was returning a call to the office. I was unable to find anything in the chart to release to the patient. Please advise Best time of day caller can be reached: any Patient advised that office/PCP has 24-48 business hours to return their call: Yes [facility] [id number] Miscellaneous Notes* Letter - Coordinator, Mammography - 02/09/2023 1:15 PM EDT [address] [address] February 09, 2023 PID: [id number] Yeny Tavera [address] [place] [address] [place] [address] Dear Ms. Tavera, We are pleased to inform you that the results of your recent breast imaging exam on 02/08/2023 are normal. Early detection of cancer is very important. We also understand recommendations regarding breast cancer screening are controversial. Please discuss with your primary care provider which strategy is best for you and whether a mammogram is right for you. Your imaging studies and report will be kept on file at [facility] as part of your permanent medical record and are available for your continuing care. Thank you for allowing us to help in meeting your health care needs. Sincerely, Dr. Rosas Interpreting Radiologist [facility] (Normal over 40) documented in this encounterAdena Health System09-12-2023 History of Present illness Narrative* Martina Pierre, RT(R) - 02/08/2023 4:00 PM EDT Radiology Service Progress Note PATIENT NAME: Yeny Tavera DATE OF SERVICE: February 08, 2023 TIME: 4:11 PM PATIENT IDENTITY VERIFICATION COMPLETED USING TWO (2) IDENTIFIERS: Name and Date of confirmedby patient verbally. FALL SCREENING: Has the patient had 2 falls in the last year or 1 fall with injury or currently using an Ambulatory Assistive Device (Walker, Cane, Wheelchair, Crutches, etc.)? No PATIENT GENDER DATA: Female. status: : No status: N/A PATIENT RELEVANT IMPLANT DATA REVIEWED: Not Applicable RADIOLOGY DEPARTMENT: Mammography PERIPHERAL IV DATA: Not applicable SIGNED BY: RT Kyler([place]els) February 08, 2023 4:11 PM documented in this encounterAdena [facility] System09-12-2023 History of Present illness Narrative* Martina Pierre RT(R) - 02/08/2023 3:30 PM EDT Radiology Service Progress Note PATIENT NAME: Yeny Tavera DATE OF SERVICE: February 08, 2023 TIME: 4:10 PM PATIENT IDENTITY VERIFICATION COMPLETED USING TWO (2) IDENTIFIERS: Name and Date of confirmedby patient verbally. FALL SCREENING: Has the patient had 2 falls in the last year or 1 fall with injury or currently using an Ambulatory Assistive Device (Walker, Cane, Wheelchair, Crutches, etc.)? No PATIENT GENDER DATA: Female. status: : No status: N/A PATIENT RELEVANT IMPLANT DATA REVIEWED: Not Applicable RADIOLOGY DEPARTMENT: Bone Density PERIPHERAL IV DATA: Not applicable SIGNED BY: RT Kyler(Jewels) February 08, 2023 4:10 PM documented in this encounterAdena Health System08-22-2023 Telephone encounter Note * Telephone Encounter - Catherine Lyn - 01/18/2023 2:20 PM EDT Constanza from [facility] called to advise that pt had arrived for her Prolia injection with complaints of jaw pain. Dr Felton was out of office, I consulted with Dr Boss and Nisha and it was determined to ask pt to not have the injection until pt is evaluated by either dentist or oral max surgeon. Gera put referral in pt's chart. [facility] [id number] Miscellaneous Notes* Telephone Encounter - Catherine Lyn - 01/18/2023 2:20 PM EDT Constanza from [facility] called to advise that pt had arrived for her Prolia injection with complaints of jaw pain. Dr Felton was out of office, I consulted with Dr Boss and Nisha and it was determined to ask pt to not have the injection until pt is evaluated by either dentist or oral max surgeon. Gera put referral in pt's chart. * Telephone Encounter - Kristi Sin MA - 01/11/2023 8:56 AM EDT lmom w appt details and to call back for pre visit planning or come in 15 min early for rooming. Will call pt tomorrow for pvp. documented in this [facility]08[facility] History of Present illness Narrative* Constanza Wilkerson RN - 01/18/2023 2:00 PM EDT Arrival Note Infusion Patient is here for Prolia Labs were not ordered. 1400 Patient mentioned jaw pain during assessment. Dr. Felton called to discuss treatment plan and whether evaluation by a dentist is needed. [address] Felton's office, Dr. Boss determined to hold prolia shot today until patient is evaluated by her dentist or an oral maxillofacial surgeon and is cleared by them for her shot. Spoke with patient she is aware and agreeable to this plan. She was discharged ambulatory with no further questions or concerns. documented in this [place] [address]-22-2023 History of Present illness Narrative* Geo Parkinson MD - 01/18/2023 1:00 PM EDT [facility] [place] Cardiology/Electrophysiology Follow Up Clinic Note Chief Complaint: Chief Complaint Patient presents with Bradycardia CHB PPM Atrial Fibrillation PAF Rapid Heart Rate Atrial tachycardia OTHER Frequent falls with Sensory Polyneuropathy History of Present Illness: Yeny Tavera is a 77 y.o. female referred here in Feb 2020 by Osbaldo Fowler CNP for dizziness and syncope. 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 Her dizziness/syncope started in 2012. Dr. Rene diagnosed a peripheral neuropathy and a dysautonomia. An ECG showed aLBBB and an event recorder then showed episodes of nocturnal junctional bradycardia. In 2013 an EPSshowed prolonged AH and HV and she had an ILR implanted. A tilt table test soon after was abnormal and she was diagnosed with neurocardiogenic syncope. In [address] Fuller who saw some AFib on the ILR, but decided against OAC b/o her frequent falls. At her last visit with Dr Rene in May 2019 , she was told she had a large fiber neuropathy. Her ILR battery depleted and she was never found to have a bradycardia. In Dec 2021 , she c/o of frequent unexplained falls while walking preceded by some dizziness. An event monitor showed an episode of complete AV block with a ventricular escape inthe 20s on the first evening. We implanted a PPM in Mar 2022. She returns today feeling well. She has not gotten dizzy since the pacer. She has had an occasionalfall, but none in a bout a month. She has a polyneuropathy. She is active in the yard and can go [employer] without symptoms. Device Interrogation today shows a normal functioning dual-chamber [employer] PPM. Atrial and ventricular pacing and sensing thresholds and lead impedances are within normal. She continues to have episodes of atrial tachyarrhythmias c/w Aflutter/Afib and ATach lasting as long as 24-48 hours w ithout symptoms and with controlled VR. She is atrially pacing 60% and V pacing 70% of the time. When paced in AAI at 90 bpm she is in 2:1 AV block. A set her pacing thresholds to chronic values today. A stress echo in Jun 2019 showed that she exercised to 13.7 mets without ischemia Assessment and Plan: 1. Complete AV block/dizziness/Syncope: As above, it sounds like at [facility] she was thought to have neurocardiogenic/dysautonomic syncope. The event monitor in Mar 2022 showed a clear episode of third-degree AV block. She had a long first degree AV block, sinus bradycardia, and a LBBB on ECG. She also had unexplained falls and dizziness/syncope. She has had no further dizzy spells, but continues to have some mechanical/balance related falls. 2. Paroxysmal atrial tachyarrhythmias/AFib. She does not recall being told she had this, but it wasclearly documented on the ILR at [facility]. On pacemaker interrogations she continues to have episodes ofatrial tachyarrhythmias lasting 24-48 hours without symptoms. I started her on OAC after some discussion in Jul 2022 as her CHADS Vasc score is 4. Past Medical History: Past Medical History: Diagnosis Date Asthma Atrial fibrillation (CMS/HCC) ([facility]) 02/20/2020 Bradycardia 02/20/2020 CHB (complete heart block) (CMS/HCC) ([facility]) 04/13/2022 CHB (complete heart block) (CMS/HCC) ([facility]) Diverticulitis First degree AV block History of electrophysiologic study 09/26/2013 Hypertension Large fiber neuropathy 02/20/2020 LBBB (left bundle branch block) 02/20/2020 Lumbosacral radiculitis 06/19/2021 Thyroid disease 02/20/2020 Hypothyroidism Tilt table evaluation 10/08/2013 Past Surgical History Past Surgical History: Procedure Laterality Date APPENDECTOMY CARDIAC ELECTROPHYSIOLOGY PROCEDURE Left 04/15/2022 Performed by Galileo Ortiz MD at [facility] Cardiac Cath/EP Lab CVHX LOOP RECORDER EVALUATION 09/26/2013 removed 11/08/2017 FOOT SURGERY HYSTEROSCOPY OOPHORECTOMY PACEMAKER (HISTORICAL) TONSILLECTOMY Family History Family History Problem Relation Name Age of Onset Arrhythmia Mother Arrhythmia Father Social History Social History Tobacco Use Smoking status: Never Passive exposure: Never Smokeless tobacco: Never Vaping Use Vaping Use: Never used Substance Use Topics Alcohol use: Yes Alcohol/week: 1.0 standard drink of alcohol Types: 1 Glasses of wine per week Comment: occasional wine Drug use: Never Comment: caffeine: 1 cup coffee/day Medications: Reviewed Allergies: Reviewed Review of Systems: All other systems were reviewed and are negative other than as noted in the HPI. Physical Examination: Vitals: Blood pressure 120/70, pulse 60, height 5' 7 (1.702 m), weight 147 lb (66.7 kg), SpO2 98 %. Constitutional: Appears well kept and looks stated age; in NAD Psychiatric: A &O x3 Mood is pleasant; Affect is appropriate Musculoskeletal: Normocephalic; no joint swelling; gait steady ; 5/5 muscle strength bilaterally inupper and lower extremities; no clubbing or cyanosis HEENT: Pupils are equal and round; Conjunctiva are not injected; Sclera are non- icteric; Airway andNares are patent; Ears without external abnormalities. Mucosa is pink; Dentition is normal Neck: Supple; No JVD or Bruits; No thyromegaly; No lymphadenopathy Chest: Left subclavicular wound healing well. No redness, hematoma, or warmth, or discharge. Respiratory: Lungs are clear with no rales or wheezes. Respiratory effort is normal and symmetricalbilaterally; Good air movement bilaterally Heart: RRR without ectopy; Nl S1 and S2 no mcrg Abdomen: NABS soft, non-tender, non-distended; no organomegaly; no obvious masses Extremities/Skin: No LE edema; Skin warm to touch and well perfused; skin discoloration is absent; Peripheral Pulses intact Neuro: sensation and motor function are grossly normal. Cranial Nerves are grossly intact Laboratory Tests: Lab Results Component Value Date WBC 5.3 01/17/2023 WBC 6.5 04/14/2022 WBC 6.1 10/31/2020 HGB 15.0 01/17/2023 HGB 14.8 04/14/2022 HGB 14.1 10/31/2020 HCT 44.6 01/17/2023 HCT 44.2 04/14/2022 MCV 94.1 01/17/2023 MCV 93.6 04/14/2022 MCV 95.7 10/31/2020 PLT 188 01/17/2023 PLT 213 04/14/2022 Lab Results Component Value Date NA 135 04/14/2022 NA 140 10/31/2020 K 4.6 04/14/2022 K 3.9 10/31/2020 CL 102 04/14/2022 CL 107 10/31/2020 CO2 26 01/17/2023 CO2 27 07/06/2022 CO2 24 04/14/2022 BUN 12 01/17/2023 BUN 12 07/06/2022 BUN 14 04/14/2022 CREATININE 0.65 01/17/2023 CREATININE 0.75 07/06/2022 CREATININE 0.64 04/14/2022 Lab Results Component Value Date HGBA1C 5.4 01/17/2023 Lab Results Component Value Date TSH 1.47 01/17/2023 Lab Results Component Value Date HDL 67 10/31/2020 Lab Results Component Value Date LDLCALC 96 10/31/2020 Lab Results Component Value Date TRIG 161 10/31/2020 Radiology: Reviewed Geo Parkinson MD DATE of SERVICE: 01/18/2023 documented in this [facility] History of Present illness Narrative* Prem Felton MD - 01/17/2023 11:20 AM EDT Images from the original note were not included. [facility] [address] [facility] [facility] [address] [facility] [address] Dept: [phone] Dept 1. Routine general medical examination at health care facility Doing well. -Encouraged healthy lifestyle, exercise and diet. To obtain and maintain health weight. 2. Benign hypertension with stage 3a chronic kidney disease (HCC) Controlled -losartan 50 mg daily - Comprehensive metabolic panel; Future - CBC; Future - Lipid panel; Future - Hemoglobin A1c; Future - TSH; Future - Comprehensive metabolic panel - CBC - Lipid panel - Hemoglobin A1c - TSH 3. 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 Recurrent major depressive disorder, in partial remission ([facility]) Controlled -zoloft - Comprehensive metabolic panel; Future - CBC; Future - Lipid panel; Future - Hemoglobin A1c; Future - TSH; Future - Comprehensive metabolic panel - CBC - Lipid panel - Hemoglobin A1c - TSH 5. Paroxysmal atrial fibrillation (CMS/HCC) ([facility]) Stable -Eliquis -follows paperhanger assistant - Comprehensive metabolic panel; Future - CBC; Future - Lipid panel; Future - Hemoglobin A1c; Future - TSH; Future - Comprehensive metabolic panel - CBC - Lipid panel - Hemoglobin A1c - TSH 6. Acquired hypothyroidism Stable -levothyroxine - Comprehensive metabolic panel; Future - CBC; Future - Lipid panel; Future - Hemoglobin A1c; Future - TSH; Future - Comprehensive metabolic panel - CBC - Lipid panel - Hemoglobin A1c - TSH 7. Need for hepatitis C screening imelda - Hepatitis C antibody; Future - Hepatitis C antibody 8. Abnormal finding of blood chemistry, unspecified - Hemoglobin A1c; Future - Hemoglobin A1c 9. Age-related osteoporosis without current pathological fracture Prolia -check status - DEXA bone density axial skeleton; Future 10. Encounter for screening mammogram for malignant neoplasm of breast - Bilateral screening mammogram with tomosynthesis; Future Chief Complaint Patient presents with Medicare Annual Wellness Visit Subsequent Pt states she has been experiencing random skin bumps for the past week and they don't itch but feel irritated. Noticed them on arms and legs. States she has been working outside regularly. Says she was treated for an ear infection in November and she's wondering if it isn't cleared up all the way because her ear still aches and throat is a little sore. Discuss medication and possible effects on balance. HPI AWV. EXTENSION SERVICE SPECIALIST IN CHARGE here this year. She has HTN CKD 3a, paroxysmal afib, CHB with pacer (sees cardiology), depression, hypothyroidism, osteoporosis on Prolia. DXA 2020. Mild ear pain for about a month after traveling. Mild ST. I have reviewed and reconciled the medication list with the patient today. Current Outpatient Medications Medication Sig Dispense Refill acetaminophen (Tylenol) 325 MG tablet Take 650 mg by mouth every 6 hours as needed. apixaban (Eliquis) 5 MG tablet Take 1 tablet (5 mg) by mouth 2 times daily. 180 tablet 3 ascorbic acid (Vitamin C) 500 MG tablet Take 500 mg by mouth Daily as needed (during winter). B Complex Vitamins (B-Complex/B-12) tablet Take 1 tablet by mouth in the morning. Calcium Carb-Cholecalciferol (CALCIUM 1000 + D PO) Take 1,000 mg by mouth daily. denosumab (Prolia) 60 MG/ML solution prefilled syringe Inject 1 mL (60 mg) under the skin every 6 (six) months. 180 mL 0 Diclofenac Sodium (Voltaren) 1 % gel APPLY FOUR grams topically once DIRECTED. APPLY to single knee, ankle, foot; for foot includes sole/toes/top OF foot. levothyroxine (Synthroid, Levoxyl) 112 MCG tablet Take 112 mcg by mouth in the morning. loperamide (Imodium) 2 MG capsule Take 2 mg by mouth as needed for diarrhea. losartan (Cozaar) 50 MG tablet Take 1 tablet by mouth in the morning. metroNIDAZOLE (Metrogel) 1 % gel Apply topically Daily as needed. With rosacea flare ups in summer sertraline (Zoloft) 100 MG tablet Take 100 mg by mouth See administration instructions. 50 mg alternating with 100mg No current facility-administered medications for this visit. Also reviewed during this visit: Allergies Meds Problems The following health maintenance schedule was reviewed with the patient and provided in printed form in the after visit summary: Health Maintenance Topic Date Due TSH Level Never done Medicare Annual Wellness (AWV) Never done Bone Density Scan Never done Hepatitis C Screening Never done Influenza Vaccine (1) 01/28/2023 Depresssion Monitoring 07/20/2023 Lipid Panel 10/31/2025 DTaP/Tdap/Td Vaccines (4 - Td or Tdap) 02/24/2030 Pneumococcal Vaccine: 65+ Years Completed Zoster Vaccines Completed COVID-19 Vaccine Completed HIB Vaccines Aged Out IPV Vaccines Aged Out Hepatitis A Vaccines Aged Out Meningococcal Vaccine Aged Out Rotavirus Vaccines Aged Out HPV Vaccines Aged Out Hepatitis B Vaccines Discontinued List of current healthcare providers: Patient Care Team: Prem Felton MD as PCP - General (Family Medicine) Orders Placed This Encounter Procedures Bilateral screening mammogram with tomosynthesis Standing Status: Future Standing Expiration Date: 03/19/2024 DEXA bone density axial skeleton Standing Status: Future Standing Expiration Date: 01/18/2024 Comprehensive metabolic panel Standing Status: Future Number of Occurrences: 1 Standing Expiration Date: 01/18/2024 CBC Standing Status: Future Number of Occurrences: 1 Standing Expiration Date: 01/18/2024 Lipid panel Standing Status: Future Number of Occurrences: 1 Standing Expiration Date: 01/18/2024 Hemoglobin A1c Standing Status: Future Number of Occurrences: 1 Standing Expiration Date: 01/18/2024 TSH Standing Status: Future Number of Occurrences: 1 Standing Expiration Date: 01/18/2024 Hepatitis C antibody Standing Status: Future Number of Occurrences: 1 Standing Expiration Date: 01/18/2024 Subjective : Review of Systems Constitutional: Negative for appetite change, fatigue and unexpected weight change. Eyes: Negative for pain and visual disturbance. Respiratory: Negative for apnea, cough, chest tightness and shortness of breath. Cardiovascular: Negative for chest pain, palpitations and leg swelling. Gastrointestinal: Negative for abdominal distention, abdominal pain, anal bleeding, blood in stool,constipation, diarrhea, nausea, rectal pain and vomiting. Genitourinary: Negative for dysuria, frequency and hematuria. Musculoskeletal: Negative for arthralgias, back pain and gait problem. Skin: Negative for rash. Neurological: Negative for dizziness and headaches. Hematological: Negative for adenopathy. Does not bruise/bleed easily. Psychiatric/Behavioral: Negative for dysphoric mood and sleep disturbance. The patient is not nervous/anxious. Physical Exam Vitals and nursing note reviewed. Constitutional: General: She is not in acute distress. Appearance: Normal appearance. She is not ill-appearing, toxic-appearing or diaphoretic. HENT: Head: Normocephalic and atraumatic. Right Ear: Tympanic membrane normal. Left Ear: Tympanic membrane normal. Mouth/Throat: Mouth: Mucous membranes are moist. Pharynx: Oropharynx is clear. No oropharyngeal exudate or posterior oropharyngeal erythema. Eyes: General: No scleral icterus. Extraocular Movements: Extraocular movements intact. Conjunctiva/sclera: Conjunctivae normal. Pupils: Pupils are equal, round, and reactive to light. Cardiovascular: Rate and Rhythm: Normal rate and regular rhythm. Heart sounds: No murmur heard. Pulmonary: Effort: Pulmonary effort is normal. Breath sounds: Normal breath sounds. Abdominal: General: Abdomen is flat. Bowel sounds are normal. Palpations: Abdomen is soft. Tenderness: There is no abdominal tenderness. Musculoskeletal: Cervical back: Normal range of motion and neck supple. Right lower leg: No edema. Left lower leg: No edema. Neurological: General: No focal deficit present. Mental Status: She is alert and oriented to person, place, and time. Psychiatric: Mood and Affect: Mood normal. Behavior: Behavior normal. Thought Content: Thought content normal. Judgment: Judgment normal. Health Risk Assessment: General: General In general, how would you say your health is?: Very good In the past 7 days, have you experienced any of the following: New or Increased Pain, New or Increased Fatigue, Loneliness, Social Isolation, Stress or Anger?: (!) Yes Select all that apply: (!) New or Increased Pain, Loneliness Do you get the social and emotional suppport you need?: Yes Interventions: Pain Issues: Patient declines any further evaluation / treatment for this issue and Loneliness: Patient declines any further intervention for this issue Health Habits/Nutrition: Health Habits / Nutrition On average, how many days per week do you engage in moderate to strenous exercise (like a brisk walk)?: 7 days On average, how man minutes do you engage in exercise at this level?: 120 min Have you lost any weight without trying in the past 3 months? : Yes Have you seen the dentist within the past year?: Yes Hearing/ Vision: Hearing / Vision Do you or your family notice any trouble with your hearing that hasn't been managed with hearing aids?: No Do you have difficulty driving, watching TV, or doing any of your daily activities because of your eyesight?: No Have you had an eye exam within the past year?: Yes No results found. Safety: Safety Do you have a working smoke detector?: Yes Do you have any tripping hazards - loose or unsecured carpets or rugs?: (!) Yes Do you have any tripping hazards - clutter in doorways, halls, or stairs?: No Do you have either shower bars, grab bars, non-slip mats or non-slip surfaces in your shower or bathtub? : Yes Do all your stairways have a railing or banister? : Yes Do you fasten your seatbelt when you are in a car?: Yes Interventions: Home safety tips provided ADL: ADL In the past 7 days, did you need help from others to perform any of the following everyday activities: Eating, dressing, grooming,bathing, toileting, or walking / balance? : No In the past 7 days, did you need help from others to take care of any of the following: laundry, housekeeping, banking / finances,shopping, telephone use, food preparation, transportation, or taking medications? : No Living Will: Living Will Do you have a living will?: Yes Cognitive: Cognitive Screening: Mini-Cog Clock Drawing Test (CDT): 2 Words Recalled: 3 Total Score: 5 Total Score Interpretation: Normal Mini-Cog Fall Risk: Fall Risk One or more falls in the last year:: Yes Advised to use a cane or walker to get around safely:: Yes Feels unsteady when walking:: No Steadies self on furniture while walking at home:: Yes Worried about falling:: Yes Interventions: Depression Screening: Over the past 2 weeks, how often have you been bothered by any of the following problems? Little interest or pleasure in doing things: Not at all Feeling down, depressed, or hopeless: Not at all Patient Health Questionnaire-2 Score: 0 [place] Suicide Severity Rating Scale (Screener/Recent Self-Report) 1. Wish to be (Past 1 Month): No 2. Non-Specific Active Suicidal Thoughts (Past 1 Month): No 6. Suicidal Behavior (Lifetime): No Calculated C-SSRS Risk Score (Lifetime/Recent): No Risk Indicated Interventions: Tobacco Use: Social History Tobacco Use Smoking Status Never Passive exposure: Never Smokeless Tobacco Never Alcohol Use: Audit Alcohol Screening Q1: How often do you have a drink containing alcohol?: Monthly or less Q2: How many drinks containing alcohol do you have on a typical day when you are drinking?: 1 or 2 Q3: How often do you have six or more drinks on one occasion?: Never Audit-C Score: 1 Skip to questions 9-10?: 1 Objective : BP (!) 144/79 (BP Location: Left arm, Patient Position: Sitting, BP Cuff Size: Adult) Pulse 61 Ht 5' 7 (1.702 m) Wt 145 lb (65.8 kg) SpO2 97% BMI 22.71 kg/m No results found. documented in this [facility]08-21-2023 Instructions* Patient Instructions* Prem Felton MD - 01/17/2023 11:20 AM EDT Personalized Preventative Plan for Yeny Tavera - 01/17/2023 Medicare offers a range of preventative health benefits. Some of the tests and screenings are paid in full while others may be subject to a deductible, co- insurance, and / or copay. Some of these benefits include a comprehensive review of your medical history including lifestyle, illnesses that mayrun in your family, and various assessments and screenings as appropriate. After reviewing your medical record and screening and assessments performed today, your provider may have ordered immunizations, labs, imaging, and / or referrals for you. A list of these orders (if applicable) as well as your Preventative Care list are included within your After Visit Summary for your review. Other Preventative Recommendations: A preventive eye exam by an medical certification specialist is recommended every 1-2 years to screen for glaucoma, cataracts, macular degeneration, and other eye disorders. A preventive dental visit is recommended every 6 months. Try to get at least 150 minutes of exercise per week or 10,000 steps per day on a pedometer. You need 1200-1500mg of calcium and 5248-6320 international units of vitamin D per day. It is possible to meet your calcium requirement with diet alone, but a vitamin D supplement is usually necessary to meet this goal. When exposed to the sun, use a sunscreen that protects against both UVA and UVB radiation with an SPF of 30 or greater. Reapply every 2-3 hours or after sweating, drying off with a towel, or swimming. Always wear a seat belt when traveling in a car. Always wear a helmet when riding a bicycle or a motorcycle * Attachments The following attachments cannot be sent through Care Everywhere. * Preventing Falls in Older Adults (Telugu) * Rivaroxaban, ADULT (Telugu) * Edoxaban, ADULT (Telugu) documented in this encounterSRiverside Methodist [id number] Telephone encounter Note* Telephone Encounter - Kristi Sin MA - 01/11/2023 8:56 AM EDT lmom w appt details and to call back for pre visit planning or come in 15 min early for rooming. Will call pt tomorrow for pvp. [facility] [id number] History of Present illness Narrative* Katlyn Mayes MD - 09/20/2022 11:30 AM EDT Images from the original note were not included. General Neurology Outpatient Clinic - f/u visit Date: September 20, 2022 Patient Name: Yeny Tavera Referring physician: Katlyn Mayes [address] [facility] [address] Primary physician: David Bach [address] [place] [address] Reason for Evaluation: neuropathy f/u Previously seen 11/23/2021 for evaluation of falls. [place] to be multifactorial from combination neuropathy, R foot injury, and lumbar disease.. Noted to have history of R local foot injury and R lumbarradicular symptoms for which she was in PT and using TENS. 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 Plan for referral to massage and chiropractor, f/u with spine center, and continue home exercises Interval History: Went to [facility] 04/02/2022 with fall c/b L foot muscle strain. Had been walking her dog when she stepped off the side of the road, causing her to fall forwards and turn her left foot/ankle under. Landed on bilateral hands and R knee. She has had a few falls after our last visit and eventually had heart monitoring showing afib and bradycardia. She had a pacemaker placed in March and was started on Eliquis to prevent strokes. She has had just 2 falls since that time. One time in the year when she stepped into an unexpected hole and lost her balance. Another time also when she tripped. No major injuries. She feels otherwise well. She does notice more right sided low back pain after gardening for a while. Her feet will also sometimes cross over each other when she walks. She does walk 2miles/day for 6/7 days of the week. OUTPATIENT MEDICATIONS Current Outpatient Medications on File Prior to Visit Medication Sig sertraline (ZOLOFT) 100 mg tablet Take 1 tablet by mouth once daily. calcium carbonate (CALCIUM 300 ORAL) Take by mouth. metroNIDAZOLE (NORITATE) 1 % cream Apply 1 application to affected area once daily. loperamide (IMODIUM) 2 mg cap(s) Take 1 capsule by mouth twice daily as needed for diarrhea. psyllium (METAMUCIL) 3.4 gram packet Take 1 Packet by mouth twice daily as needed. (Patient taking differently: Take 1 Packet by mouth one time a week.) acetaminophen (TYLENOL) 325 mg tablet Take 2 tablets by mouth every 4 hours as needed for pain. lactobacillus rhamnosus (CULTURELLE) 10 billion cell capsule Take 1 capsule by mouth once daily. losartan (COZAAR) 50 mg tablet Take 1 tablet by mouth once daily. Cholecalciferol, Vitamin D3, 125 mcg (5,000 unit) cap Take 1 capsule by mouth once daily. ascorbic acid, vitamin C, (VITAMIN C) 500 mg tablet Take 500 mg by mouth once daily. levothyroxine (SYNTHROID) 112 mcg tablet Take 1 tablet by mouth once daily. Take on empty stomach. For thyroid. ASCORBIC ACID/BIOFLAVONOIDS (RISHABH C ORAL) Take by mouth once daily. winter only vitamin b complex tab Take 1 tablet by mouth once daily. NUTRITIONAL SUPPLEMENT/FIBER (JUICE PLUS FIBRE ORAL) Take 2 capsules by mouth twice daily. Kwmyllobbxlnl-Wg-Nwee-Minerals (ONE-A-DAY WOMENS FORMULA) 27-0.4 mg ORAL Tab Take 1 tablet by mouthonce daily. No current facility-administered medications on file prior to visit. 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 Diverticulitis 09/11/2016 Epiretinal membrane Left Epiretinal membrane (ERM) of left eye 05/13/2021 Esophageal reflux 07/21/2007 Essential hypertension 04/04/2015 Female stress incontinence Generalized osteoarthrosis, unspecified site Greater trochanteric bursitis 03/15/2017 Human papillomavirus in conditions classified elsewhere and of unspecified site Hypothyroidism 06/16/2005 implantable loop recorder 08/22/2014 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 ILR-DEVICE MODEL [id number] Reveal LINQ ILR-DEVICE SERIAL NUMBER [id number] ILR-DEVICE IMPLANT DATE 09/26/2013 ILR-DEVICE IMPLANTED BY DOCTOR 1 Large fiber neuropathy 08/04/2017 Osteoporosis, unspecified 2005 on fosamax T-score -2.4 nl vit D 02/07 dxa no change losest T-score -2.6 spine Partial nontraumatic tear of right rotator cuff 09/29/2020 Recurrent falls 03/15/2017 Recurrent major depressive disorder, in partial remission (HCC) Torn meniscus left knee Unspecified asthma(493.90) SURGICAL HISTORY PAST SURGICAL HISTORY Procedure Laterality Date APPENDECTOMY 1950 COLONOSCOPY 03/22/2013 COLONOSCOPY 05/06/2007 EXC/CURTG BONE CYST/B9 TUMORTARSAL/METATARSAL 1965 excision of scar tissue Right foot HYSTEROSCOPY W/BX ENDO/POLYP 03/08/2011 hsyteroscopy polypectomy and D&C OVARIAN CYSTECTOMY UNI/BI 1986 dermoid cyst, right ovary TONSILLECTOMY PRIMARY/SECONDARY <AGE 12 1950 XTRNL PT ACTIV ECG TRANSMIS W/R&I </30 DAYS 09/26/2013 removed 2017 SOCIAL HISTORY Social History Tobacco Use Smoking status: Never Smokeless tobacco: Never Vaping Use Vaping Use: Never used Substance Use Topics Alcohol use: Yes Comment: 2 5oz. wine per month. Drug use: No FAMILY HISTORY FAMILY HISTORY Problem Relation Age of Onset Cataract Father Glaucoma Father other (adrenal insufficiency) Father at age 87, vent tachycardia Cataract Mother Glaucoma Mother other (arrthymias) Mother CHF and osteoporosis, at 94 yrs Cancer Paternal Grandmother 92 unknown primary, metastatic Breast Cancer Paternal Aunt 55 @ dx. Living; born 1910 other (lung cancer) Brother other (alzheimers) Sister Down syndrome ALLERGIES ALLERGIES Allergen Reactions Sulfa (Sulfonamide * Mental Status Change Fever, hallucinations, rash, swelling Tetnus [Tetanus Vac* Swelling Adhesive Tape (Jenna* skin irritation Contact Allergies [* Rash wool, itching and skin peels off Food Allergies [Oth* GI Upset allergic to beans- GI upset eye swelling Vancomycin Itching REVIEW OF SYSTEMS: No fevers, chills No chest pain, palpitations. Does not feel her afib No SOB No abdominal pain See HPI re back pain, falls PHYSICAL EXAM: BP 148/86 (BP Site: Left Arm, BP Position: Sitting, BP Cuff Size: Regular Adult) Pulse (!) 59 Resp 16 Ht 170.2 cm (5' 7) Wt 68 kg (150 lb) SpO2 99% BMI 23.49 kg/m General appearance: Well appearing, alert, in no acute distress Head: Normocephalic, atraumatic. Neurological exam: Mental Status: Alert, oriented to person, place and time and Follows commands. Cranial Nerves: PERRL, visual perez intact to confrontation, extraocular movements intact, facial sensation intact, face symmetric, no facial droop or ptosis, hearing intact to finger rub bilaterally, no dysarthria, palate elevate symmetrically, tongue protrudes midline, and shoulder shrug intact and symmetric. Motor: Right Upper: Left Upper: Deltoid: 5 Deltoid: 5 Triceps: 5 Triceps: 5 Biceps: 5 Biceps: 5 Muffler Mechanic: 5 Muffler Mechanic: 5 Right Lower: Left Lower: Iliopsoas: 5 Iliopsoas: 5 Knee flexor: 5 Knee flexor: 5 Knee extensor: 5 Knee extensor: 5 Dorsiflexion: 5 Dorsiflexion: 5 Plantarflexion: 5 Plantarflexion: 5 Motor Tone: Right Upper: Normal tone Left Upper: Normal tone Right Lower: Normal tone Left Lower: Normal tone Reflexes: 2/4 bicpes brachioradialis, patellars Sensation: diminished vibration distal BLE in toes, intact equally at ankles and knees. Intact BLE to pinprick and touch. Decreased pinprick balls of R foot. Intact BUE to touch, temperature, vibration, proprioception, pinprick Coordination: Finger-to- nose-finger intact bilaterally and Vphb-hu-tmez intact bilaterally. Gait: normal-based. Independent tiptoe, heel. Unsteady but independent tandem Romberg: neg LABS/DATA: Component Latest Ref Rng & Units 11/23/2021 TSH 0.270 - 4.200 mIU/L 1.800 Vitamin D 25 Hydroxy 31.0 - 80.0 ng/mL 44.3 ASSESSMENT: 76 year old RH female with a history of HTN, hypothyroidism, depression, traumatic R foot injuries,diastematomyelia of lumbar spine who presents for follow-up of falls. Risk for falls likely multi-factorial with idiopathic sensory polyneuropathy on EMG, lumbar radiculopathy, and chronic local injury to R foot. Falls have also improved since pacemaker placement for afib. Occasional back pain likely arthritic in origin. Exam overall stable. PLAN: - continue routine exercise and strenghtening - use eyes to assess terrain for fall prevention - f/u prn I spent a total of 20 minutes on the date of the service which included preparing to see the patient, [id number] patient care, completing clinical documentation, obtaining and/or reviewing separately obtained history, performing a medically appropriate examination, counseling and educating the pat ient/family/caregiver, ordering medications, tests, or procedures, independently interpreting results (not separately reported), and communicating results to the patient/family/caregiver. Katlyn Mayes MD Staff, General Neurology Pager: [phone] CC: Referring Physician: Katlyn Mayes [address] [facility] [id number] PCP: David Bach [address] [place] [address] documented in this encounterAdena Health System04-13-2023 Telephone encounter Note * Telephone Encounter - Jacqueline Rizo - 09/09/2022 9:52 AM EDT Patient returned our phone call and unfortunately is over income for financial assistance options for Eliquis. Informed her to contact ins to discuss deductible and future costs. She is going to do so and will continue filling at her local pharmacy. Thank you! [facility] [id number] Miscellaneous Notes* Telephone Encounter - Jacqueline Rizo - 09/09/2022 9:52 AM EDT Patient returned our phone call and unfortunately is over income for financial assistance options for Eliquis. Informed her to contact ins to discuss deductible and future costs. She is going to do so and will continue filling at her local pharmacy. Thank you! * Telephone Encounter - Jacqueline Rizo - 09/01/2022 4:03 PM EDT LVM with patient to introduce [facility] services and discuss financial assistance options. We will make further attempts to contact the patient. [facility] . Thank you! * Telephone Encounter - Veronica Reyes RN - 09/01/2022 2:52 PM EDT Patient called back and she bought Eliquis but would like to have [facility] to review for any financial assistance with Eliquis * Telephone Encounter - Veronica Diaz - 09/01/2022 2:49 PM EDT Pt would like to try [facility] * Telephone Encounter - Veronica Reyes RN - 09/01/2022 9:14 AM EDT LMOAM that with her permission we can have [facility] look into financially helping with Eliquis and I can give her samples for now * Telephone Encounter - Veronica Diaz - 09/01/2022 8:31 AM EDT Pt states that she can not afford eliquis ($500), pt asking if there is something else she can take. documented in this encounterSRiverside Methodist [id number] Telephone encounter Note* Telephone Encounter - Jacqueline Rizo - 09/01/2022 4:03 PM EDT LVM with patient to introduce [facility] services and discuss financial assistance options. We will make further attempts to contact the patient. [facility] can be reached at . Thank you! [facility] [id number] Telephone encounter Note* Telephone Encounter - Veronica Reyes RN - 09/01/2022 2:52 PM EDT Patient called back and she bought Eliquis but would like to have [facility] to review for any financial assistance with Eliquis [facility] [id number] Telephone encounter Note* Telephone Encounter - Veronica Diaz - 09/01/2022 2:49 PM EDT Pt would like to try [facility] [id number] Telephone encounter Note* Telephone Encounter - Veronica Reyes RN - 09/01/2022 9:14 AM EDT LMOAM that with her permission we can have [facility] look into financially helping with Eliquis and I can give her samples for now [facility] [id number] Telephone encounter Note* Telephone Encounter - Veronica Diaz - 09/01/2022 8:31 AM EDT Pt states that she can not afford eliquis ($500), pt asking if there is something else she can take. [facility] [id number] Miscellaneous Notes* Telephone Encounter - Kyung Ryan LPN - 08/06/2022 9:06 AM EST Patient scheduled for nurse visit 08/18/22 to receive Prolia. Please place new administration order at this time. Kyung Ryan LPN documented in this encounterAdena Health System03-08-2023 History of Present illness Narrative* Geo Parkinson MD - 08/04/2022 8:45 AM EST [facility] [place] Cardiology/Electrophysiology Follow Up Clinic Note Chief Complaint: Chief Complaint Patient presents with Bradycardia CHB Atrial Fibrillation Atrial Tachycardia History of Present Illness: Yeny Tavera is a 76 y.o. female referred here in Feb 2020 by Osbaldo Fowler CNP for dizziness and syncope. 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 Her dizziness/syncope started in 2012. Dr. Rene diagnosed a peripheral neuropathy and a dysautonomia. An ECG showed aLBBB and an event recorder then showed episodes of nocturnal junctional bradycardia. In 2013 an EPSshowed prolonged AH and HV and she had an ILR implanted. A tilt table test soon after was abnormal and she was diagnosed with neurocardiogenic syncope. In [address] Fuller who saw some AFib on the ILR, but decided against OAC b/o her frequent falls. At her last visit with Dr Rene in May 2019 , she was told she had a large fiber neuropathy. Her ILR battery depleted and she was never found to have a bradycardia. In Dec 2021 , she c/o of frequent unexplained falls while walking preceded by some dizziness. An event monitor showed an episode of complete AV block with a ventricular escape inthe 20s on the first evening. We implanted a PPM in Mar 2022. She returns today feeling OK. Althoug hshe thinks she feels about the same, she has not gotten dizzy and has not fallen. She has some exertional shortness of breath going up stairs, but she can exercise at the gym. Device Interrogation today shows a normal functioning dual-chamber [employer] PPM. Atrial and ventricular pacing and sensing thresholds and lead impedances are within normal. She continues to have episodes of atrial tachyarrhythmias c/w Aflutter/Afib and Atach lasting as long as 24-48 hours w ithout symptoms and with controlled VR. She is atrially pacing 30% and V pacing 86% of the time. A stress echo in Jun 2019 showed that she exercised to 13.7 mets without ischemia Assessment and Plan: 1. Complete AV block/dizziness/Syncope: As above, it sounds like at [facility] she was thought to have neurocardiogenic/dysautonomic syncope. The event monitor in Mar 2022 showed a clear episode of third-degree AV block. She had a long first degree AV block, sinus bradycardia, and a LBBB by ECG, unexplained falls, and unexplained dizziness/syncope. I felt that a pacemaker was indicated. She has had no further falls or dizzy spells. 2. Paroxysmal atrial tachyarrhythmias/AFib. She does not recall being told she had this, but it wasclearly documented on the ILR at [facility]. On pacemaker interrogations she continues to have episodes ofatrial tachyarrhythmias lasting 24-48 hours without symptoms. I will start her on OAC, after some discussion, today as her CHADS Vasc score is 4. Past Medical History: Past Medical History: Diagnosis Date Asthma Atrial fibrillation (CMS/HCC) ([facility]) 02/20/2020 Bradycardia 02/20/2020 CHB (complete heart block) (CMS/HCC) ([facility]) 04/13/2022 CHB (complete heart block) (CMS/HCC) ([facility]) Diverticulitis First degree AV block History of electrophysiologic study 09/26/2013 Hypertension Large fiber neuropathy 02/20/2020 LBBB (left bundle branch block) 02/20/2020 Lumbosacral radiculitis 06/19/2021 Thyroid disease 02/20/2020 Hypothyroidism Tilt table evaluation 10/08/2013 Past Surgical History Past Surgical History: Procedure Laterality Date APPENDECTOMY CARDIAC ELECTROPHYSIOLOGY PROCEDURE Left 04/15/2022 Performed by Galileo Ortiz MD at [facility] Cardiac Cath/EP Lab CVHX LOOP RECORDER EVALUATION 09/26/2013 removed 11/08/2017 FOOT SURGERY HYSTEROSCOPY OOPHORECTOMY TONSILLECTOMY Family History Family History Problem Relation Name Age of Onset Arrhythmia Mother Arrhythmia Father Social History Social History Tobacco Use Smoking status: Never Passive exposure: Never Smokeless tobacco: Never Vaping Use Vaping Use: Never used Substance Use Topics Alcohol use: Yes Comment: occasional wine Drug use: Never Comment: caffeine: 1 cup coffee/day Medications: Reviewed Allergies: Reviewed Review of Systems: All other systems were reviewed and are negative other than as noted in the HPI. Physical Examination: Vitals: Blood pressure 136/70, pulse 60, height 5' 7.75 (1.721 m), weight 155 lb (70.3 kg), SpO2 98 %. Constitutional: Appears well kept and looks stated age; in NAD Psychiatric: A &O x3 Mood is pleasant; Affect is appropriate Musculoskeletal: Normocephalic; no joint swelling; gait steady ; 5/5 muscle strength bilaterally inupper and lower extremities; no clubbing or cyanosis HEENT: Pupils are equal and round; Conjunctiva are not injected; Sclera are non- icteric; Airway andNares are patent; Ears without external abnormalities. Mucosa is pink; Dentition is normal Neck: Supple; No JVD or Bruits; No thyromegaly; No lymphadenopathy Chest: Left subclavicular wound healing well. No redness, hematoma, or warmth, or discharge. Respiratory: Lungs are clear with no rales or wheezes. Respiratory effort is normal and symmetricalbilaterally; Good air movement bilaterally Heart: RRR without ectopy; Nl S1 and S2 no mcrg Abdomen: NABS soft, non-tender, non-distended; no organomegaly; no obvious masses Extremities/Skin: No LE edema; Skin warm to touch and well perfused; skin discoloration is absent; Peripheral Pulses intact Neuro: sensation and motor function are grossly normal. Cranial Nerves are grossly intact Laboratory Tests: Lab Results Component Value Date WBC 6.5 04/14/2022 WBC 6.1 10/31/2020 HGB 14.8 04/14/2022 HGB 14.1 10/31/2020 HCT 44.2 04/14/2022 MCV 93.6 04/14/2022 MCV 95.7 10/31/2020 PLT 213 04/14/2022 Lab Results Component Value Date NA 135 04/14/2022 NA 140 10/31/2020 K 4.6 04/14/2022 K 3.9 10/31/2020 CL 102 04/14/2022 CL 107 10/31/2020 CO2 27 07/06/2022 CO2 24 04/14/2022 CO2 36.0 10/31/2020 BUN 12 07/06/2022 BUN 14 04/14/2022 BUN 15 10/31/2020 CREATININE 0.75 07/06/2022 CREATININE 0.64 04/14/2022 CREATININE 0.55 10/31/2020 Lab Results Component Value Date HDL 67 10/31/2020 Lab Results Component Value Date LDLCALC 96 10/31/2020 Lab Results Component Value Date TRIG 161 10/31/2020 Radiology: Reviewed Geo Parkinson MD DATE of SERVICE: 08/04/2022 documented in this [facility]02[facility] History of Present illness Narrative* Piper Ennis RN - 07/20/2022 2:00 PM EST ARRIVAL NOTE INFUSION Patient is here for Prolia Labs were not ordered. Labs were drawn 07/06/22. 1525 Creat Clearance 70.04 ml/min, Calcium 9.5 mg/dl. Prolia given subcutaneous in left upper, posterior arm. Patient tolerated well and site benign. Reinforced to patient to follow up regularly withdentist and to report and dental issues or jaw pain immediately due to rare but serious adverse effects of osteonecrosis. Patient should continue to take Calcium and Vit D as recommended by physician. Patient understands adverse effects to report to physician office and next appointment is scheduled in 6 months. documented [facility] this [facility] Telephone encounter Note* Telephone Encounter - Ibis Cordon - 06/09/2022 3:[address] Felton came to my office while this patient was checking out to inform me that the patient would like to continue her Prolia injections through our office/infusion center. All forms were completed and signed by Dr. Felton, see media. The patient has medicare so no auth needs to be obtained. CMP already ordered. All forms given to Evelina at Infusion Center. Dr. Felton stated patient's last injection was around December 2021 which would make patient due for her next injection in June. Called patient to double check as these injections need to be 6 months apart. PT stated her last injection was on 01.07.2022. PT was informed of all above and will await a call from the Infusion Center to schedule her. She was also advised to complete CMP before her injection. Nothing further needed at this time. [id number] Miscellaneous Notes* Telephone Encounter - Ibis Cordon - 06/09/2022 3:[address] Felton came to my office while this patient was checking out to inform me that the patient would like to continue her Prolia injections through our office/infusion center. All forms were completed and signed by Dr. Felton, see [employer]. The patient has medicare so no auth needs to be obtained. CMP already ordered. All forms given to Evelina at [facility]fusion Center. Dr. Felton stated patient's last injection was around December 2021 which would make patient due for her next injection in June. Called patient to double check as these injections need to be 6 months apart. PT stated her last injection was on 01.07.2022. PT was informed of all above and will await a call from the Infusion Center to schedule her. She was also advised to complete CMP before her injection. Nothing further needed at this time. documented in this [facility] History of Present illness Narrative* Prem Felton MD - 06/09/2022 2:00 PM EST Images from the original note were not included. [facility] [id number] [facility] [id number] Visit type: Established Patient Reason for Visit: Annual Exam (Yeny Tavera is here today as a new patient to establish care, last routine labs 11/23/21. No refills needed. ) Assessment and Plan 1. Age-related osteoporosis without current pathological fracture Resume meds -update DXA when appropriate - Comprehensive metabolic panel; Future - Comprehensive metabolic panel - denosumab (Prolia) 60 MG/ML solution prefilled syringe; Inject 1 mL (60 mg) under the skin every 6 (six) months. Dispense: 180 mL; Refill: 0 2. Acquired hypothyroidism Stable on last labs -levothyroxine 3. Recurrent major depressive disorder, in partial remission (HCC) Controlled -sertraline 4. Benign hypertension with stage 3a chronic kidney disease (HCC) Controlled -losartan 50 mg dialy 5. CHB (complete heart block) (CMS/HCC) (HCC) Controlled -pacer with cardiology Follow up in about 6 months (around 12/07/2022) for awv , cpe 40, labs prior to next office visit, Jose Francisco. 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 She wanted an appt to meet new PCP. She reports she sees a Walk-in Primary Care provider for acute needs and has a PCP in [place] but too far to drive. She believes had CPE in last 6 months. She also sees paperhanger assistant She has CHB with pacer, HTN CKD 3a on losartan, osteoporosis on Prolia and she reports is overdue for this, depression on sertraline that is effective, and hypothyroidism on levothyroxine replacement. She still gets mammograms. Has no new concerns today. Taking medications fine. Review of Systems Constitutional: Negative for appetite change, fatigue and unexpected weight change. Eyes: Negative for pain and visual disturbance. Respiratory: Negative for apnea, cough, chest tightness and shortness of breath. Cardiovascular: Negative for chest pain, palpitations and leg swelling. Gastrointestinal: Negative for abdominal distention, abdominal pain, anal bleeding, blood in stool,constipation, diarrhea, nausea, rectal pain and vomiting. Genitourinary: Negative for dysuria, frequency and hematuria. Musculoskeletal: Negative for arthralgias, back pain and gait problem. Skin: Negative for rash. Neurological: Negative for dizziness and headaches. Hematological: Negative for adenopathy. Does not bruise/bleed easily. Psychiatric/Behavioral: Negative for dysphoric mood and sleep disturbance. The patient is not nervous/anxious. Allergies Allergen Reactions Sulfa Antibiotics Other Fever, hallucinations, rash, swelling Tetanus Toxoid Swelling Vancomycin Itching Other Rash skin irritation Other reaction(s): GI Upset allergic to beans- GI upset eye swelling wool, itching and skin peels off Outpatient Medications Prior to Visit Medication Sig Dispense Refill acetaminophen (Tylenol) 325 MG tablet Take 650 mg by mouth every 6 hours as needed. ascorbic acid (Vitamin C) 500 MG tablet Take 500 mg by mouth Daily as needed (during winter). B Complex Vitamins (B-Complex/B-12) tablet Take 1 tablet by mouth in the morning. Calcium Carbonate Antacid (CALCIUM CARBONATE PO) Take by mouth. cholecalciferol (Vitamin D-3) 125 MCG (5000 UT) capsule Take 5,000 Units by mouth Nightly. ibuprofen 600 MG tablet Take 600 mg by mouth every 6 hours as needed. Lactobacillus Rhamnosus, GG, ( Probiotic Digestive Care) capsule Take 1 capsule by mouth in the morning. levothyroxine (Synthroid, Levoxyl) 112 MCG tablet Take 112 mcg by mouth in the morning. loperamide (Imodium) 2 MG capsule Take 2 mg by mouth as needed for diarrhea. losartan (Cozaar) 50 MG tablet Take 1 tablet by mouth in the morning. metroNIDAZOLE (Metrogel) 1 % gel Apply topically. sertraline (Zoloft) 100 MG tablet Take 100 mg by mouth in the morning. cyclobenzaprine (Flexeril) 10 MG tablet TAKE 1 TABLET THREE TIMES DAILY NEEDED FOR MUSCLE SPASMSor pain denosumab (Prolia) 60 MG/ML solution prefilled syringe Inject 60 mg under the skin every 6 (six) months. Bioflavonoid Products (RISHABH-C PO) Take by mouth daily. DULoxetine (Cymbalta) [address] capsule Take 30 mg by mouth daily. Nutritional Supplements (JUICE PLUS FIBRE PO) Take 2 capsules by mouth in the morning and 2 capsules in the evening. psyllium (Metamucil) 33 % powder Take 1 packet by mouth every 12 hours as needed. No facility-administered medications prior to visit. Past Medical History: Diagnosis Date Asthma Atrial fibrillation (CMS/HCC) ([facility]) 02/20/2020 Bradycardia 02/20/2020 CHB (complete heart block) (CMS/HCC) ([facility]) 04/13/2022 CHB (complete heart block) (CMS/HCC) ([facility]) Diverticulitis First degree AV block History of electrophysiologic study 09/26/2013 Hypertension Large fiber neuropathy 02/20/2020 LBBB (left bundle branch block) 02/20/2020 Lumbosacral radiculitis 06/19/2021 Thyroid disease 02/20/2020 Hypothyroidism Tilt table evaluation 10/08/2013 Social History Socioeconomic History Marital status: Tobacco Use Smoking status: Never Passive exposure: Never Smokeless tobacco: Never Vaping Use Vaping Use: Never used Substance and Sexual Activity Alcohol use: Yes Comment: occasional wine Drug use: Never Comment: caffeine: 1 cup coffee/day Social Determinants of Health Financial Resource Strain: Low Risk Difficulty of Paying Living Expenses: Not hard at all Food Insecurity: No Food Insecurity Worried About Running Out of Food in the Last Year: Never true Ran Out of Food in the Last Year: Never true Transportation Needs: No Transportation Needs Lack of Transportation (Medical): No Lack of Transportation (Non-Medical): No Physical Activity: Sufficiently Active Days of Exercise per Week: 5 days Minutes of Exercise per Session: 60 min Stress: No Stress Concern Present Feeling of Stress : Not at all Social Connections: Moderately Integrated Frequency of Communication with Friends and Family: More than three times a week Frequency of Social Gatherings with Friends and Family: More than three times a week Attends [employer] Services: More than 4 times per year Active Member of Clubs or Organizations: Yes Attends Club or Organization Meetings: More than 4 times per year Marital Status: Intimate Partner Violence: Unknown Fear of Current or Ex-Partner: Patient refused Emotionally Abused: Patient refused Physically Abused: Patient refused Sexually Abused: Patient refused Housing Stability: Low Risk Unable to Pay for Housing in the Last Year: No Number of Places Lived in the Last Year: 1 Unstable Housing in the Last Year: No Past Surgical History: Procedure Laterality Date APPENDECTOMY CARDIAC ELECTROPHYSIOLOGY PROCEDURE Left 04/15/2022 Performed by Galileo Ortiz MD at [facility] Cardiac Cath/EP Lab CVHX LOOP RECORDER EVALUATION 09/26/2013 removed 11/08/2017 FOOT SURGERY HYSTEROSCOPY OOPHORECTOMY TONSILLECTOMY Past Surgical History: Procedure Laterality Date APPENDECTOMY CARDIAC ELECTROPHYSIOLOGY PROCEDURE Left 04/15/2022 Performed by Galileo Ortiz MD at [facility] Cardiac Cath/EP Lab CVHX LOOP RECORDER EVALUATION 09/26/2013 removed 11/08/2017 FOOT SURGERY HYSTEROSCOPY OOPHORECTOMY TONSILLECTOMY Family History Problem Relation Name Age of Onset Arrhythmia Mother Arrhythmia Father Objective BP 136/81 (BP Location: Right arm, Patient Position: Sitting, BP Cuff Size: Adult) Pulse 64 Temp 36.9 C (98.4 F) (Oral) Ht 5' 7.75 (1.721 m) Wt 154 lb (69.9 kg) SpO2 98% BMI 23.59 kg/m Patient Weight 06/09/22 154 lb (69.9 kg) 06/01/22 151 lb (68.5 kg) 05/05/22 145 lb (65.8 kg) Physical Exam Nursing note reviewed. Constitutional: Appearance: Normal appearance. Cardiovascular: Rate and Rhythm: Normal rate and regular rhythm. Pulmonary: Effort: Pulmonary effort is normal. Breath sounds: Normal breath sounds. Comments: Normal speaking effort Neurological: Mental Status: She is alert. Psychiatric: Mood and Affect: Mood normal. Behavior: Behavior normal. Thought Content: Thought content normal. Judgment: Judgment normal. Chart Clean Up: Medications Discontinued During This Encounter Medication Reason Nutritional Supplements (JUICE PLUS FIBRE PO) Med list cleanup Bioflavonoid Products (RISHABH-C PO) Med list cleanup DULoxetine (Cymbalta) [address] capsule Med list cleanup psyllium (Metamucil) 33 % powder Med list cleanup cyclobenzaprine (Flexeril) 10 MG tablet Med list cleanup denosumab (Prolia) 60 MG/ML solution prefilled syringe Reorder denosumab (Prolia) 60 MG/ML solution prefilled syringe Reorder Prem Felton MD 06/10/2022 9:02 AM documented in this [facility]01[facility] History of Present illness Narrative* Geo Parkinson MD - 06/01/2022 1:00 PM EST [facility] [place] Cardiology/Electrophysiology Follow Up Clinic Note Chief Complaint: Chief Complaint Patient presents with Bradycardia CHB History of Present Illness: Yeny Tavera is a 76 y.o. female referred here in Feb 2020 by Osbaldo Fowler CNP for dizziness and syncope. 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 Her dizziness/syncope started in 2012. Dr. Rene diagnosed a peripheral neuropathy and a dysautonomia. An ECG showed aLBBB and an event recorder then showed episodes of nocturnal junctional bradycardia. In 2013 an EPSshowed prolonged AH and HV and she had an ILR implanted. A tilt table test soon after was abnormal and she was diagnosed with neurocardiogenic syncope. In [address] Fuller who saw some AFib on the ILR, but decided against OAC b/o her frequent falls. At her last visit with Dr Rene in May 2019 , she was told she had a large fiber neuropathy. Her ILR battery depleted and she was never found to have a bradycardia. In December 2021 , she c/o of frequent unexplained falls while walking preceded by some dizziness. An event monitor showed an episode of complete AV block with a ventricular escapein the 20s on the first evening. She returns today after having a pacemaker put in in Mar 2022. She has some incisional itching, butthe wound looks well-healed, without hematoma or redness. She thinks she feels about the same. However, she has not fallen or gotten dizzy. She has some exertional shortness of breath going up stairs. Device interrogation today shows a normal functioning dual-chamber [employer] PPM. Atrial and ventricular pacing and sensing thresholds and lead impedances are within normal. She has had 2 episodes of an atrial tachyarrhythmia most consistent with an atrial tachycardia lasting as long as 46 hours in Apr 2022 This episode is most consistent with an atrial flutter with a ventricular responsein the 90s. She is atrially pacing 23% and V pacing 88% of the time. A stress echo in Jun 2019 showed that she exercised to 13.7 mets without ischemia Assessment and Plan: 1. Complete AV block/dizziness/Syncope: As above, it sounds like at [facility] she was thought to have neurocardiogenic/dysautonomic syncope. The event monitor in March showed a clear episode of third-degree AV block. She had a long first degree AV block, sinus bradycardia, and a LBBB by ECG, unexplained falls, and unexplained dizziness/syncope. I felt that a pacemaker was indicated. She has had no further falls or dizzy spells. We will see how she does in the long run. 2. Paroxysmal atrial tachyarrhythmias/AFib. She does not recall being told she had this, but it wasclearly documented on the ILR at [facility]. On the pacemaker interrogation she had 1 prolonged episode ofan atrial tachyarrhythmia that is most consistent with atrial flutter lasting 48 hours. I will monitor for now, but she may well need oral anticoagulation in the future. Past Medical History: Past Medical History: Diagnosis Date Asthma Atrial fibrillation (CMS/HCC) (HCC) 02/20/2020 Bradycardia 02/20/2020 CHB (complete heart block) (CMS/HCC) (HCC) 04/13/2022 CHB (complete heart block) (CMS/HCC) (HCC) Diverticulitis First degree AV block History of electrophysiologic study 09/26/2013 Hypertension Large fiber neuropathy 02/20/2020 LBBB (left bundle branch block) 02/20/2020 Lumbosacral radiculitis 06/19/2021 Thyroid disease 02/20/2020 Hypothyroidism Tilt table evaluation 10/08/2013 Past Surgical History Past Surgical History: Procedure Laterality Date APPENDECTOMY CARDIAC ELECTROPHYSIOLOGY PROCEDURE Left 04/15/2022 Performed by Galileo Ortiz MD at [facility] Cardiac Cath/EP Lab CVHX LOOP RECORDER EVALUATION 09/26/2013 removed 11/08/2017 FOOT SURGERY HYSTEROSCOPY OOPHORECTOMY TONSILLECTOMY Family History Family History Problem Relation Name Age of Onset Arrhythmia Mother Arrhythmia Father Social History Social History Tobacco Use Smoking status: Never Smokeless tobacco: Never Substance Use Topics Alcohol use: Yes Comment: occasional wine Drug use: Never Comment: caffeine: 1 cup coffee/day Medications: Reviewed Allergies: Reviewed Review of Systems: All other systems were reviewed and are negative other than as noted in the HPI. Physical Examination: Vitals: Blood pressure 102/64, pulse 60, height 5' 7.5 (1.715 m), weight 151 lb (68.5 kg), SpO2 97%. Constitutional: Appears well kept and looks stated age; in NAD Psychiatric: A &O x3 Mood is pleasant; Affect is appropriate Musculoskeletal: Normocephalic; no joint swelling; gait steady ; 5/5 muscle strength bilaterally inupper and lower extremities; no clubbing or cyanosis HEENT: Pupils are equal and round; Conjunctiva are not injected; Sclera are non- icteric; Airway andNares are patent; Ears without external abnormalities. Mucosa is pink; Dentition is normal Neck: Supple; No JVD or Bruits; No thyromegaly; No lymphadenopathy Chest: Left subclavicular wound healing well. No redness, hematoma, or warmth, or discharge. Respiratory: Lungs are clear with no rales or wheezes. Respiratory effort is normal and symmetricalbilaterally; Good air movement bilaterally Heart: RRR without ectopy; Nl S1 and S2 no mcrg Abdomen: NABS soft, non-tender, non-distended; no organomegaly; no obvious masses Extremities/Skin: No LE edema; Skin warm to touch and well perfused; skin discoloration is absent; Peripheral Pulses intact Neuro: sensation and motor function are grossly normal. Cranial Nerves are grossly intact Laboratory Tests: Lab Results Component Value Date WBC 6.5 04/14/2022 WBC 6.1 10/31/2020 HGB 14.8 04/14/2022 HGB 14.1 10/31/2020 HCT 44.2 04/14/2022 MCV 93.6 04/14/2022 MCV 95.7 10/31/2020 PLT 213 04/14/2022 Lab Results Component Value Date NA 135 04/14/2022 NA 140 10/31/2020 K 4.6 04/14/2022 K 3.9 10/31/2020 CL 102 04/14/2022 CL 107 10/31/2020 CO2 24 04/14/2022 CO2 36.0 10/31/2020 BUN 14 04/14/2022 BUN 15 10/31/2020 CREATININE 0.64 04/14/2022 CREATININE 0.55 10/31/2020 Lab Results Component Value Date HDL 67 10/31/2020 Lab Results Component Value Date LDLCALC 96 10/31/2020 Lab Results Component Value Date TRIG 161 10/31/2020 Radiology: Reviewed Geo Parkinson MD DATE of SERVICE: 06/01/2022 documented [facility] this [facility] History of Present illness Narrative* Kyung Ryan LPN - 02/17/2022 3:16 PM EDT Patient presents for Prolia injection. Denies any problems at this time. Patient instructed on any SE of medication, verbalized understanding and agreed to proceed with treatment. Tolerated injectionwell. Kyung Ryan LPN [facility]22 Miscellaneous Notes* Telephone Encounter - David Bach MD - 12/19/2021 11:26 AM EDT Patient's request for medication is as follows Signed Prescriptions Disp Refills sertraline (ZOLOFT) 100 mg tablet 90 tablet 1 Sig: Take 1 tablet by mouth once daily. FANI: No Authorizing Provider: DAVID BACH MD * Telephone Encounter - Constance Patel RN - 12/16/2021 12:43 PM EDT Patient calls to let provider know that she has quit taking the Cymbalta that is ordered d/t the way it was making her feel. Patient reports that while taking it she felt suicidal and that her friends noted a personality change. Patient has started back taking her sertraline 100 mg daily as orderedpreviously and is already starting to feel better. Patient hasn't taken Cymbalta for 3 days. Deniesany current suicidal thoughts, intent, or plan. Patient reports she has at least a month supply of sertraline And will call when needs a refill. Constance Patel RN documented in this encounterAden[facility]07-07-2022 Miscellaneous Notes* Letter - Mammography Coordinator - 12/03/2021 3:00 PM EDT [address] [address] December 03, 2021 PID: [id number] Yeny Tavera [address] [place] [address] Dear Ms. Tavera, We are pleased to inform you that the results of your recent breast imaging exam on 12/03/2021 are normal. Early detection of cancer is very important. We also understand recommendations regarding breast cancer screening are controversial. Please discuss with your primary care provider which strategy is best for you and whether a mammogram is right for you. Your imaging studies and report will be kept on file at [facility] as part of your permanent medical record and are available for your continuing care. Thank you for allowing us to help in meeting your health care needs. Sincerely, Dr. Flores Interpreting Radiologist [facility] (Normal over 40) documented in this encounterAdena [facility] System07-07-2022 History of Present illness Narrative* Martina Pierre, (R) - 12/03/2021 11:00 AM EDT Radiology Service Progress Note PATIENT NAME: Yeny Tavera DATE OF SERVICE: December 03, 2021 TIME: 10:46 AM PATIENT IDENTITY VERIFICATION COMPLETED USING TWO (2) IDENTIFIERS: Name and Date of confirmedby patient verbally. FALL SCREENING: Has the patient had 2 falls in the last year or 1 fall with injury or currently using an Ambulatory Assistive Device (Walker, Cane, Wheelchair, Crutches, etc.)? No PATIENT GENDER DATA: Female. status: : No status: N/A PATIENT RELEVANT IMPLANT DATA REVIEWED: Not Applicable RADIOLOGY DEPARTMENT: Mammography PERIPHERAL IV DATA: Not applicable SIGNED BY: RT Kyler(R) December 03, 2021 10:46 AM documented in this encounterAden[facility] System06-27-2022 Miscellaneous Notes* Telephone Encounter - Lindsay Florez - 11/23/2021 4:44 PM EDT Patient returned and picked up items. Lindsay Florez * Telephone Encounter - Lindsay Florez - 11/23/2021 4:41 PM EDT Patient left AVS and possibly a pair of sunglasses in the waiting room of Dr. Mayes's office. Called patient and left voicemail stating that we have these items for her at the front end assistant and they are available for pickup. Lindsay Florez documented in this encounterAdena [facility] System06-27-2022 Miscellaneous Notes* Telephone Encounter - Ibis Gray - 11/23/2021 4:25 PM EDT LM on patient's VM in first attempt to schedule mammogram screening. * Telephone Encounter - Constance Patel RN - 11/23/2021 12:59 PM EDT Patient calling the call center to schedule a Mammogram. No current order on file. Order pended. Last mammogram on 08/07/2020. Please call patient at [phone] once order placed to schedule. Constance Patel RN documented in this encounterAdena [facility] System06-16-2022 Instructions* Patient Instructions* David Bach MD - 2021 3:37 PM EDT STOP SERTRALINE AND TRY CYMBALTA DISCUSSED. MESSAGE FOR ISSUES, REFILLS, OR DOSE ADJUSTMENT. documented in this encounterAdena Health System06-16-2022 History of Present illness Narrative* David Bach MD - 2021 3:19 PM EDT This note was created using [employer]. Subjective Yeny Tavera is a 76 year old female. Admission from 06/20-07/18/21 summarized as follows: Patient presented to the ED due to debilitating lower back pain. She had a fall on 06/12 after slipping on black ice and was found to have a left olecranon fracture. She had a splint placed and was instructed to follow up with orthopedics. A few days later, the patient began experiencing back pain. She was seen in the ED on 06/17. She had a CT completed which showed degenerative changes foraminal narrowing and was discharged home. The patient's pain progressively worsened prompting her to return to the ED. Due to her intractable pain, it was felt she would benefit from admission for pain management and a therapy evaluation. Therapy saw the patient who felt she would benefit from rehab. Her pain was better managed, so it was felt she could transition to rehab. However, her therapy progress was initially slow due to worsening, uncontrolled back pain. She did see pain management but they were unable to do anything due to her new fracture in her left arm. She was evaluated by Dr. Felix for orthopedics without any new orders. She will remain in a splint and has a follow up appointment in the first week of July. Her pain medication was adjusted and her pain became more tolerable. A lumbar spine MRI was completed which showed inflammation of her sacrum, lumbar spinal stenosis, and broad-based disc bulging at her L5-S1. She has an appointment with a spine surgeon with [facility] the first week of July. Her heart rate remained bradycardic and her paperhanger assistant was notified. No new orders were obtained. She will also need to follow up with her PCP after discharge. She will be returning home with PT, OT, and fpc. She was much better. She saw clinical reimbursement specialist at [facility] and supportive care was recommended. Low back pain was ongoing in her lumbosacral area, interfering with some activities of daily living. she just completed home physical therapy. She missed her neurology consultation for abnormal gait Review of Systems Constitutional: Negative. Respiratory: Negative. Cardiovascular: Negative. Gastrointestinal: Negative. Musculoskeletal: Positive for back pain and gait problem. Psychiatric/Behavioral: Negative. ACTIVE PROBLEM LIST Recurrent Major Depressive Disorder, in Partial Remission ([facility]) Age-Related Osteoporosis With Current Pathological Fracture Hypothyroidism A-Fib ([facility]) Essential Hypertension Greater Trochanteric Bursitis Generalized Weakness Impaired Gait Large Fiber Neuropathy Age-Related Nuclear Cataract of Both Eyes Sinus Bradycardia Partial Nontraumatic Tear of Right Rotator Cuff Epiretinal Membrane (Erm) of Left Eye Lumbosacral Radiculitis Suicidal Ideation Closed Fracture of Olecranon Process of Left Ulna With Routine Healing Current Outpatient Medications Medication Sig metroNIDAZOLE (NORITATE) 1 % cream Apply 1 application to affected area once daily. loperamide (IMODIUM) 2 mg cap(s) Take 1 capsule by mouth twice daily as needed for diarrhea. psyllium (METAMUCIL) 3.4 gram packet Take 1 Packet by mouth twice daily as needed. (Patient taking differently: Take 1 Packet by mouth one time a week.) polyethylene glycol 3350 (MIRALAX, GLYCOLAX) 17 gram packet Take 1 Packet by mouth once daily as needed for constipation. Dissolve dose in 4 - 8 ounces of liquid and take as directed. docusate sodium (COLACE) 100 mg capsule Take 1 capsule by mouth twice daily. cyclobenzaprine (FLEXERIL) 10 mg tablet Take 1 tablet by mouth three times daily as needed for muscle spasm or pain. acetaminophen (TYLENOL) 325 mg tablet Take 2 tablets by mouth every 4 hours as needed for pain. lidocaine (SALONPAS) 4 % patch Apply 1 Patch as directed once daily. lactobacillus rhamnosus (CULTURELLE) 10 billion cell capsule Take 1 capsule by mouth once daily. losartan (COZAAR) 50 mg tablet Take 1 tablet by mouth once daily. Cholecalciferol, Vitamin D3, 125 mcg (5,000 unit) cap Take 1 capsule by mouth once daily. adapalene (DIFFERIN) 0.1 % gel Apply to affected area daily at bedtime. (Patient taking differently: Apply 1 application to affected area daily at bedtime.) dicyclomine (BENTYL) 10 mg capsule Take 1 capsule by mouth three times daily as needed. Take this at least 30 minutes before planned activity. ascorbic acid, vitamin C, (VITAMIN C) 500 mg tablet Take 500 mg by mouth once daily. levothyroxine (LEVOXYL) 112 mcg tablet Take 1 tablet by mouth once daily. Take on empty stomach. For thyroid. sertraline (ZOLOFT) 100 mg tablet TAKE 1 TABLET BY MOUTH EVERY DAY ASCORBIC ACID/BIOFLAVONOIDS (RISHABH C ORAL) Take by mouth once daily. winter only vitamin b complex tab Take 1 tablet by mouth once daily. NUTRITIONAL SUPPLEMENT/FIBER (JUICE PLUS FIBRE ORAL) Take 2 capsules by mouth twice daily. Yetxxuiisrmbb-Ci-Ytgj-Minerals (ONE-A-DAY WOMENS FORMULA) 27-0.4 mg ORAL Tab Take 1 tablet by mouthonce daily. Current Facility-Administered Medications Medication Dose Route Frequency denosumab 60 mg injection (PROLIA) 60 mg SUBCUTANEOUS Q 6 MONTH Objective BP 124/70 (BP Site: Left Arm, BP Position: Sitting, BP Cuff Size: Large Adult) Pulse (!) 52 Temp 36.2 C (97.1 F) (Temporal Artery) Resp 12 Wt 68.5 kg (151 lb) BMI 22.96 kg/m Physical Exam Constitutional: General: She is not in acute distress. Cardiovascular: Rate and Rhythm: Bradycardia present. Pulmonary: Breath sounds: Normal breath sounds. Musculoskeletal: General: No tenderness. Normal range of motion. Right lower leg: No edema. Left lower leg: No edema. Neurological: General: No focal deficit present. Mental Status: She is alert. Gait: Gait normal. Assessment and Plan 1. Lumbosacral radiculitis - ICD9: 724.4, ICD10: M54.17 (primary diagnosis) Chronic low back pain Shared Medical Decision Making was done: Medication: duloxetine. Benefits: Medication may help depression and chronic pain in the long term care social worker. Risks: Possible side effects were discussed. Possible interactions: sertraline. Warnings: n/a. Approved use or off label use: FDA approved. Duration: long term care social worker. - DULOXETINE 30 MG CAPSULE,DELAYED RELEASE. This replaces SERTRALINE from Osbaldo Fowler CNP. Message for side effects, refill if effective, or dosage adjustment if needed. 2. Recurrent major depressive disorder, in partial remission (HCC) - ICD9: 296.35, ICD10: F33.41 See above. - DULOXETINE 30 MG CAPSULE,DELAYED RELEASE 3. Large fiber neuropathy - ICD9: 355.9, ICD10: G62.9 Consider rescheduling missed neurology consultation. - CBC 4. Impaired gait - ICD9: 781.2, ICD10: R26.9 See #3 5. Hypothyroidism, unspecified type - ICD9: 244.9, ICD10: E03.9 - continue current dose of Synthroid - TSH BLD 6. Age-related osteoporosis with current pathological fracture, sequela - ICD9: 905.5, 733.01, ICD10: M80.00XS - continue tx with PROLIA - Reviewed the need for Calcium and Vitamin D supplements and weight bearing exercise as tolerated - COMP METABOLIC PANEL 7. Vitamin D deficiency - ICD9: 268.9, ICD10: E55.9 Recheck. 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 Pain in right hip 03/24/2017 05/12/2020 Recurrent falls 03/15/2017 08/11/2020 Diverticulitis 09/11/2016 05/12/2020 implantable loop recorder 08/22/20142019 Overview: 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 ILR-DEVICE MODEL LNQ11 Reveal LINQ ILR-DEVICE SERIAL NUMBER [id number] ILR-DEVICE IMPLANT DATE 09/26/2013 ILR-DEVICE IMPLANTED BY DOCTOR 1 Pain 10/16/2013 07/05/2014 Vasovagal syncope 10/08/2013 07/05/2014 CMC arthritis, thumb, degenerative 10/07/2013 07/05/2014 Thickened endometrium 02/18/2011 07/05/2014 Fibroids 02/18/2011 07/05/2014 Uterine polyp 02/18/2011 07/05/2014 Abdominal cramping 02/18/2011 07/05/2014 Esophageal reflux 07/21/2007 07/05/2014 Allergy, unspecified not elsewhere classified 07/05/2014 Closed fracture of unspecified phalanx or phalan ges of hand 04/08/2006 07/05/2014 Routine general medical exam ination at a health care facility 02/27/2002 06/16/2005 GENERAL OSTEOARTHROSIS 5 Female stress incontinence 07/05 Pain in limb 06/16/2005 documented as of this encounter (statuses as of 2021) [facility] of Past illness Narrative* Problem Noted Date Resolved Date Aftercare 06/20/2021 07/17/2021 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 Pain in right hip 03/24/2017 05/12/2020 Recurrent falls 03/15/2017 08/11/2020 Diverticulitis 09/11/2016 05/12/2020 implantable loop recorder 08/22/20142019 Overview: 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 ILR-DEVICE MODEL LNQ11 Reveal LINQ ILR-DEVICE SERIAL NUMBER [id number] ILR-DEVICE IMPLANT DATE 09/26/2013 ILR-DEVICE IMPLANTED BY DOCTOR 1 Pain 10/16/2013 07/05/2014 Vasovagal syncope 10/08/2013 07/05/2014 CMC arthritis, thumb, degenerative 10/07/2013 07/05/2014 Thickened endometrium 02/18/2011 07/05/2014 Fibroids 02/18/2011 07/05/2014 Uterine polyp 02/18/2011 07/05/2014 Abdominal cramping 02/18/2011 07/05/2014 Esophageal reflux 07/21/2007 07/05/2014 Allergy, unspecified not elsewhere classified 07/05/2014 Closed fracture of unspecified phalanx or phalan ges of hand 04/08/2006 07/05/2014 Routine general medical exam ination at a health care facility 02/27/2002 06/16/2005 GENERAL OSTEOARTHROSIS 02/06/201 5 Female stress incontinence 07/05 Pain in limb 06/16/2005 documented as of this encounter (statuses as of 11/23/2021) [facility] Narrative* Problem Noted Date Resolved Date Aftercare 06/20/2021 07/17/2021 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 Pain in right hip 03/24/2017 05/12/2020 Recurrent falls 03/15/2017 08/11/2020 Diverticulitis 09/11/2016 05/12/2020 implantable loop recorder 08/22/20142019 Overview: 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 ILR-DEVICE MODEL LNQ11 Reveal LINQ ILR-DEVICE SERIAL NUMBER [id number] ILR-DEVICE IMPLANT DATE 09/26/2013 ILR-DEVICE IMPLANTED BY DOCTOR 1 Pain 10/16/2013 07/05/2014 Vasovagal syncope 10/08/2013 07/05/2014 CMC arthritis, thumb, degenerative 10/07/2013 07/05/2014 Thickened endometrium 02/18/2011 07/05/2014 Fibroids 02/18/2011 07/05/2014 Uterine polyp 02/18/2011 07/05/2014 Abdominal cramping 02/18/2011 07/05/2014 Esophageal reflux 07/21/2007 07/05/2014 Allergy, unspecified not elsewhere classified 07/05/2014 Closed fracture of unspecified phalanx or phalan ges of hand 04/08/2006 07/05/2014 Routine general medical exam ination at a health care facility 02/27/2002 06/16/2005 GENERAL OSTEOARTHROSIS 5 Female stress incontinence 07/05 Pain in limb 06/16/2005 documented as of this encounter (statuses as of 11/23/2021) [facility] illness Narrative* Problem Noted Date Resolved Date Aftercare 06/20/2021 07/17/2021 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 Pain in right hip 03/24/2017 05/12/2020 Recurrent falls 03/15/2017 08/11/2020 Diverticulitis 09/11/2016 05/12/2020 implantable loop recorder 08/22/20142019 Overview: 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 ILR-DEVICE MODEL LNQ11 Reveal LINQ ILR-DEVICE SERIAL NUMBER [id number] ILR-DEVICE IMPLANT DATE 09/26/2013 ILR-DEVICE IMPLANTED BY DOCTOR 1 Pain 10/16/2013 07/05/2014 Vasovagal syncope 10/08/2013 07/05/2014 CMC arthritis, thumb, degenerative 10/07/2013 07/05/2014 Thickened endometrium 02/18/2011 07/05/2014 Fibroids 02/18/2011 07/05/2014 Uterine polyp 02/18/2011 07/05/2014 Abdominal cramping 02/18/2011 07/05/2014 Esophageal reflux 07/21/2007 07/05/2014 Allergy, unspecified not elsewhere classified 07/05/2014 Closed fracture of unspecified phalanx or phalan ges of hand 04/08/2006 07/05/2014 Routine general medical exam ination at a health care facility 02/27/2002 06/16/2005 GENERAL OSTEOARTHROSIS 5 Female stress incontinence 07/05 Pain in limb 06/16/2005 documented as of this encounter (statuses as of 12/04/2021) [facility] Narrative* Problem Noted Date Resolved Date Aftercare 06/20/2021 07/17/2021 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 Pain in right hip 03/24/2017 05/12/2020 Recurrent falls 03/15/2017 08/11/2020 Diverticulitis 09/11/2016 05/12/2020 implantable loop recorder 08/22/20142019 Overview: 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 ILR-DEVICE MODEL LNQ11 Reveal LINQ ILR-DEVICE SERIAL NUMBER [id number] ILR-DEVICE IMPLANT DATE 09/26/2013 ILR-DEVICE IMPLANTED BY DOCTOR 1 Pain 10/16/2013 07/05/2014 Vasovagal syncope 10/08/2013 07/05/2014 CMC arthritis, thumb, degenerative 10/07/2013 07/05/2014 Thickened endometrium 02/18/2011 07/05/2014 Fibroids 02/18/2011 07/05/2014 Uterine polyp 02/18/2011 07/05/2014 Abdominal cramping 02/18/2011 07/05/2014 Esophageal reflux 07/21/2007 07/05/2014 Allergy, unspecified not elsewhere classified 07/05/2014 Closed fracture of unspecified phalanx or phalan ges of hand 04/08/2006 07/05/2014 Routine general medical exam ination at a health care facility 02/27/2002 06/16/2005 GENERAL OSTEOARTHROSIS 5 Female stress incontinence 07/05 Pain in limb 06/16/2005 documented as of this encounter (statuses as of 12/05/2021) [facility] illness Narrative* Problem Noted Date Resolved Date Aftercare 06/20/2021 07/17/2021 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 Pain in right hip 03/24/2017 05/12/2020 Recurrent falls 03/15/2017 08/11/2020 Diverticulitis 09/11/2016 05/12/2020 implantable loop recorder 08/22/20142019 Overview: 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 ILR-DEVICE MODEL LNQ11 Reveal LINQ ILR-DEVICE SERIAL NUMBER [id number] ILR-DEVICE IMPLANT DATE 09/26/2013 ILR-DEVICE IMPLANTED BY DOCTOR 1 Pain 10/16/2013 07/05/2014 Vasovagal syncope 10/08/2013 07/05/2014 CMC arthritis, thumb, degenerative 10/07/2013 07/05/2014 Thickened endometrium 02/18/2011 07/05/2014 Fibroids 02/18/2011 07/05/2014 Uterine polyp 02/18/2011 07/05/2014 Abdominal cramping 02/18/2011 07/05/2014 Esophageal reflux 07/21/2007 07/05/2014 Allergy, unspecified not elsewhere classified 07/05/2014 Closed fracture of unspecified phalanx or phalan ges of hand 04/08/2006 07/05/2014 Routine general medical exam ination at a health care facility 02/27/2002 06/16/2005 GENERAL OSTEOARTHROSIS 5 Female stress incontinence 07/05 Pain in limb 06/16/2005 documented as of this encounter (statuses as of 12/19/2021) [facility] illness Narrative* Problem Noted Date Resolved Date Aftercare 06/20/2021 07/17/2021 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 Pain in right hip 03/24/2017 05/12/2020 Recurrent falls 03/15/2017 08/11/2020 Diverticulitis 09/11/2016 05/12/2020 implantable loop recorder 08/22/20142019 Overview: 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 ILR-DEVICE MODEL LNQ11 Reveal LINQ ILR-DEVICE SERIAL NUMBER [id number] ILR-DEVICE IMPLANT DATE 09/26/2013 ILR-DEVICE IMPLANTED BY DOCTOR 1 Pain 10/16/2013 07/05/2014 Vasovagal syncope 10/08/2013 07/05/2014 CMC arthritis, thumb, degenerative 10/07/2013 07/05/2014 Thickened endometrium 02/18/2011 07/05/2014 Fibroids 02/18/2011 07/05/2014 Uterine polyp 02/18/2011 07/05/2014 Abdominal cramping 02/18/2011 07/05/2014 Esophageal reflux 07/21/2007 07/05/2014 Allergy, unspecified not elsewhere classified 07/05/2014 Closed fracture of unspecified phalanx or phalan ges of hand 04/08/2006 07/05/2014 Routine general medical exam ination at a health care facility 02/27/2002 06/16/2005 GENERAL OSTEOARTHROSIS 5 Female stress incontinence 07/05 Pain in limb 06/16/2005 documented as of this encounter (statuses as of 02/17/2022) [facility] Narrative* Problem Noted Date Resolved Date Aftercare 06/20/2021 07/17/2021 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 Pain in right hip 03/24/2017 05/12/2020 Recurrent falls 03/15/2017 08/11/2020 Diverticulitis 09/11/2016 05/12/2020 implantable loop recorder 08/22/20142019 Overview: 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 ILR-DEVICE MODEL LNQ11 Reveal LINQ ILR-DEVICE SERIAL NUMBER [id number] ILR-DEVICE IMPLANT DATE 09/26/2013 ILR-DEVICE IMPLANTED BY DOCTOR 1 Pain 10/16/2013 07/05/2014 Vasovagal syncope 10/08/2013 07/05/2014 CMC arthritis, thumb, degenerative 10/07/2013 07/05/2014 Thickened endometrium 02/18/2011 07/05/2014 Fibroids 02/18/2011 07/05/2014 Uterine polyp 02/18/2011 07/05/2014 Abdominal cramping 02/18/2011 07/05/2014 Esophageal reflux 07/21/2007 07/05/2014 Allergy, unspecified not elsewhere classified 07/05/2014 Closed fracture of unspecified phalanx or phalan ges of hand 04/08/2006 07/05/2014 Routine general medical exam ination at a health care facility 02/27/2002 06/16/2005 GENERAL OSTEOARTHROSIS 5 Female stress incontinence 07/05 Pain in limb 06/16/2005 documented as of this encounter (statuses as of 09/03/2022) [facility] Narrative* Problem Noted Date Resolved Date Aftercare 06/20/2021 07/17/2021 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 Pain in right hip 03/24/2017 05/12/2020 Recurrent falls 03/15/2017 08/11/2020 Diverticulitis 09/11/2016 05/12/2020 implantable loop recorder 08/22/20142019 Overview: 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 ILR-DEVICE MODEL LNQ11 Reveal LINQ ILR-DEVICE SERIAL NUMBER [id number] ILR-DEVICE IMPLANT DATE 09/26/2013 ILR-DEVICE IMPLANTED BY DOCTOR 1 Pain 10/16/2013 07/05/2014 Vasovagal syncope 10/08/2013 07/05/2014 CMC arthritis, thumb, degenerative 10/07/2013 07/05/2014 Thickened endometrium 02/18/2011 07/05/2014 Fibroids 02/18/2011 07/05/2014 Uterine polyp 02/18/2011 07/05/2014 Abdominal cramping 02/18/2011 07/05/2014 Esophageal reflux 07/21/2007 07/05/2014 Allergy, unspecified not elsewhere classified 07/05/2014 Closed fracture of unspecified phalanx or phalan ges of hand 04/08/2006 07/05/2014 Routine general medical exam ination at a health care facility 02/27/2002 06/16/2005 GENERAL OSTEOARTHROSIS 5 Female stress incontinence 07/05 Pain in limb 06/16/2005 documented as of this encounter (statuses as of 09/20/2022) [facility] Narrative* Problem Noted Date Diagnosed Date Resolved Date Aftercare 06/20/2021 07/17/2021 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 Pain in right hip 03/24/2017 05/12/2020 Recurrent falls 03/15/2017 08/11/2020 Diverticulitis 09/11/2016 05/12/2020 implantable loop recorder 08/22/2014 Overview: 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 ILR-DEVICE MODEL LNQ11 Reveal LINQ ILR-DEVICE SERIAL NUMBER [id number] ILR-DEVICE IMPLANT DATE 09/26/2013 ILR-DEVICE IMPLANTED BY DOCTOR 1 Pain 10/16/2013 07/05/2014 Vasovagal syncope 10/08/2013 07/05/2014 CMC arthritis, thumb, degenerative 10/07/2013 07/05/2014 Thickened endometrium 02/18/20112014 Fibroids 02/18/2011 07/05/2014 Uterine polyp 02/18/2011 07/05/2014 Abdominal cramping 02/18/2011 5 Esophageal reflux 07/21/2007 07/05/2014 Allergy, unspecified not elsewhere classified 02/08/20 07 07/05/2014 Closed fracture of unspecifi ed phalanx or phalanges of hand 04/08/2006 07/05/2014 Routine general medical exam ination at a health care facility 02/27/2002 06/16/2005 GENERAL OSTEOARTHROSIS 07/05 Female stress incontinence 0 07/05/2014 Pain in limb 06/16/2005 documented as of this encounter (statuses as of 02/09/2023) [facility] Narrative* Problem Noted Date Diagnosed Date Resolved Date Aftercare 06/20/2021 07/17/2021 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 Pain in right hip 03/24/2017 05/12/2020 Recurrent falls 03/15/2017 08/11/2020 Diverticulitis 09/11/2016 05/12/2020 implantable loop recorder 08/22/2014 Overview: 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 ILR-DEVICE MODEL LNQ11 Reveal LINQ ILR-DEVICE SERIAL NUMBER [id number] ILR-DEVICE IMPLANT DATE 09/26/2013 ILR-DEVICE IMPLANTED BY DOCTOR 1 Pain 10/16/2013 07/05/2014 Vasovagal syncope 10/08/2013 07/05/2014 CMC arthritis, thumb, degenerative 10/07/2013 07/05/2014 Thickened endometrium 02/18/20112014 Fibroids 02/18/2011 07/05/2014 Uterine polyp 02/18/2011 07/05/2014 Abdominal cramping 02/18/2011 5 Esophageal reflux 07/21/2007 07/05/2014 Allergy, unspecified not elsewhere classified 02/08/20 07 07/05/2014 Closed fracture of unspecifi ed phalanx or phalanges of hand 04/08/2006 07/05/2014 Routine general medical exam ination at a health care facility 02/27/2002 06/16/2005 GENERAL OSTEOARTHROSIS 07/05 Female stress incontinence 0 07/05/2014 Pain in limb 06/16/2005 documented as of this encounter (statuses as of 02/11/2023) [facility] Narrative* Problem Noted Date Diagnosed Date Resolved Date Aftercare 06/20/2021 07/17/2021 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 Pain in right hip 03/24/2017 05/12/2020 Recurrent falls 03/15/2017 08/11/2020 Diverticulitis 09/11/2016 05/12/2020 implantable loop recorder 08/22/2014 Overview: 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 ILR-DEVICE MODEL LNQ11 Reveal LINQ ILR-DEVICE SERIAL NUMBER [id number] ILR-DEVICE IMPLANT DATE 09/26/2013 ILR-DEVICE IMPLANTED BY DOCTOR 1 Pain 10/16/2013 07/05/2014 Vasovagal syncope 10/08/2013 07/05/2014 CMC arthritis, thumb, degenerative 10/07/2013 07/05/2014 Thickened endometrium 02/18/20112014 Fibroids 02/18/2011 07/05/2014 Uterine polyp 02/18/2011 07/05/2014 Abdominal cramping 02/18/2011 5 Esophageal reflux 07/21/2007 07/05/2014 Allergy, unspecified not elsewhere classified 02/08/20 07 07/05/2014 Closed fracture of unspecifi ed phalanx or phalanges of hand 04/08/2006 07/05/2014 Routine general medical exam ination at a health care facility 02/27/2002 06/16/2005 GENERAL OSTEOARTHROSIS 07/05 Female stress incontinence 0 07/05/2014 Pain in limb 06/16/2005 documented as of this encounter (statuses as of 03/03/2023) [facility] Narrative* Problem Noted Date Diagnosed Date Resolved Date Aftercare 06/20/2021 07/17/2021 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 Pain in right hip 03/24/2017 05/12/2020 Recurrent falls 03/15/2017 08/11/2020 Diverticulitis 09/11/2016 05/12/2020 implantable loop recorder 08/22/2014 Overview: 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 ILR-DEVICE MODEL LNQ11 Reveal LINQ ILR-DEVICE SERIAL NUMBER [id number] ILR-DEVICE IMPLANT DATE 09/26/2013 ILR-DEVICE IMPLANTED BY DOCTOR 1 Pain 10/16/2013 07/05/2014 Vasovagal syncope 10/08/2013 07/05/2014 CMC arthritis, thumb, degenerative 10/07/2013 07/05/2014 Thickened endometrium 02/18/20112014 Fibroids 02/18/2011 07/05/2014 Uterine polyp 02/18/2011 07/05/2014 Abdominal cramping 02/18/2011 5 Esophageal reflux 07/21/2007 07/05/2014 Allergy, unspecified not elsewhere classified 02/08/20 07 07/05/2014 Closed fracture of unspecifi ed phalanx or phalanges of hand 04/08/2006 07/05/2014 Routine general medical exam ination at a health care facility 02/27/2002 06/16/2005 GENERAL OSTEOARTHROSIS 07/05 Female stress incontinence 0 07/05/2014 Pain in limb 06/16/2005 documented as of this encounter (statuses as of 03/31/2023) [facility]arrative* Problem Noted Date Diagnosed Date Resolved Date Aftercare 06/20/2021 07/17/2021 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 Pain in right hip 03/24/2017 05/12/2020 Recurrent falls 03/15/2017 08/11/2020 Diverticulitis 09/11/2016 05/12/2020 implantable loop recorder 08/22/2014 Overview: 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 ILR-DEVICE MODEL LNQ11 Reveal LINQ ILR-DEVICE SERIAL NUMBER [id number] ILR-DEVICE IMPLANT DATE 09/26/2013 ILR-DEVICE IMPLANTED BY DOCTOR 1 Pain 10/16/2013 07/05/2014 Vasovagal syncope 10/08/2013 07/05/2014 CMC arthritis, thumb, degenerative 10/07/2013 07/05/2014 Thickened endometrium 02/18/20112014 Fibroids 02/18/2011 07/05/2014 Uterine polyp 02/18/2011 07/05/2014 Abdominal cramping 02/18/2011 5 Esophageal reflux 07/21/2007 07/05/2014 Allergy, unspecified not elsewhere classified 02/08/20 07 07/05/2014 Closed fracture of unspecifi ed phalanx or phalanges of hand 04/08/2006 07/05/2014 Routine general medical exam ination at a health care facility 02/27/2002 06/16/2005 GENERAL OSTEOARTHROSIS 07/05 Female stress incontinence 0 07/05/2014 Pain in limb 06/16/2005 documented as of this encounter (statuses as of 04/29/2023) [facility] note* Diagnosis Lumbosacral radiculitis- Primary Thoracic or lumbosacral neuritis or radiculitis, unspecified Recurrent major depressive disorder, in partial remission (HCC) Large fiber neuropathy Impaired gait Abnormality of gait Hypothyroidism, unspecified type Age-related osteoporosis with current pathological fracture, sequela Vitamin D deficiency Unspecified vitamin D deficiency documented in this encounter [facility] note* Diagnosis Screening mammogram for breast cancer- Primary [facility] Diagnosis Screening mammogram for breast cancer [facility]* Diagnosis Recurrent major depressive disorder, in partial remission (HCC)- Primary documented in this encounter [facility] note* Diagnosis Osteoporosis, unspecified- Primary documented in this encounter [facility] note* Diagnosis Osteoporosis, unspecified- Primary Age-related osteoporosis with current pathological fracture, sequela documented in this encounter [facility] note* Diagnosis Sensory polyneuropathy- Primary Hereditary sensory neuropathy Radiculopathy, lumbar region Thoracic or lumbosacral neuritis or radiculitis, unspecified documented in this encounter [facility] note* Diagnosis Routine general medical examination at health care facility- Primary Routine general medical examination at a health care facility Benign hypertension with stage 3a chronic kidney disease (HCC) CHB (complete heart block) (CMS/HCC) (HCC) Atrioventricular block, complete Recurrent major depressive disorder, in partial remission (HCC) Paroxysmal atrial fibrillation (CMS/HCC) (HCC) Atrial fibrillation Acquired hypothyroidism Unspecified hypothyroidism Need for hepatitis C screening test Special screening examination for other specified viral diseases Abnormal finding of blood chemistry, unspecified Age-related osteoporosis without current pathological fracture Encounter for screening mammogram for malignant neoplasm of breast Encounter for adjustment or management of cardiac device documented in this encounter [facility] note* Diagnosis Paroxysmal atrial fibrillation (CMS/HCC) (HCC)- Primary Atrial fibrillation CHB (complete heart block) (CMS/HCC) (HCC) Atrioventricular block, complete Pacemaker Cardiac pacemaker in situ Idiopathic peripheral neuropathy Unspecified hereditary and idiopathic peripheral neuropathy Frequent falls Acquired hypothyroidism Unspecified hypothyroidism Encounter for adjustment or management of cardiac device documented in this encounter [facility] note* Diagnosis Jaw pain- Primary Encounter for adjustment or management of cardiac device [facility]* Diagnosis Atypical facial pain Atypical face pain documented in this encounter [facility] note* Diagnosis Onset Date Resolution Status Bronchitis acute Left otitis media acute Wheezing acute Hypothyroidism acute Hypertension chronic Hypothyroidism acute Hypertension [facility] Work Phone: Evaluation note* Diagnosis Atypical facial pain- Primary Atypical face pain 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 note* Diagnosis Persistent atrial fibrillation (HCC)- Primary Atrial fibrillation CHB (complete heart block) (HCC) Atrioventricular block, complete Pacemaker Cardiac pacemaker in situ Frequent falls Acquired hypothyroidism Unspecified hypothyroidism Sensory polyneuropathy Hereditary sensory neuropathy PAT (paroxysmal atrial tachycardia) (HCC) Paroxysmal supraventricular tachycardia Postural dizziness with near syncope Encounter for adjustment or management of cardiac device documented in this encounter [facility] note* Diagnosis Pain in right wrist- Primary Pain in joint, forearm documented in this encounter [facility] note* Diagnosis Closed extra-articular fracture of distal end of right radius with malunion- Primary Diastematomyelia (HCC) Diastematomyelia Arthritis of carpometacarpal (CMC) joint of right thumb documented in this encounter [facility] note* Diagnosis CHB (complete heart block) (CMS/HCC) (HCC)- Primary Atrioventricular block, complete Postural dizziness with near syncope Frequent falls Pacemaker Cardiac pacemaker in situ Paroxysmal atrial fibrillation (CMS/HCC) (HCC) Atrial fibrillation documented in this encounter 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 note* Diagnosis Age-related osteoporosis without current pathological fracture- Primary [facility]* Diagnosis Paroxysmal atrial fibrillation (CMS/HCC) (HCC)- Primary Atrial fibrillation CHB (complete heart block) (CMS/HCC) (HCC) Atrioventricular block, complete Pacemaker Cardiac pacemaker in situ Encounter for adjustment or management of cardiac device documented in this encounter [facility] note* Diagnosis Paroxysmal atrial fibrillation (HCC)- Primary Atrial fibrillation Encounter for adjustment or management of cardiac device documented in this encounter [facility] note* Diagnosis Paroxysmal atrial fibrillation (HCC) Atrial fibrillation Encounter for adjustment or management of cardiac device documented in this encounter [facility] note* Diagnosis SOB (shortness of breath)- Primary Shortness of breath Acute recurrent ethmoidal sinusitis Acute ethmoidal sinusitis PND (post-nasal drip) Postnasal drip documented in this encounter [facility] for referral (narrative)* Diagnostic Procedure Only (Routine) - Pending Review Specialty Diagnoses / Procedures Referred By Kennedi flannery Referred To Contact BR IMAGING Diagnoses Screening mammogram for breast cancer Procedures JESÚS SCREENING SCREENING MAMMOGRAPHY BI 2-VIEW BREAST INC Beatris Schaffer APRN.[employer] [address] [place] [address] [facility] Imaging [address] [place] [address] Referral ID Status Reason Start Date Expiration Date Visits Requested Visits Authorized [id number] Pending Review Auto-Generat ed Referral 11/23/2021 12/23/2022 1 1 [facility] for referral (narrative)* Diagnostic Procedure Only (Routine) - Closed Specialty Diagnoses / Procedures Referred By Knenedi flannery Referred To Contact BR IMAGING Diagnoses Screening mammogram for breast cancer Procedures JESÚS SCREENING SCREENING MAMMOGRAPHY BI 2-VIEW BREAST INC Beatris Schaffer APRN.[employer] [address] [place] [address] [facility] [address] [place] [address] Referral ID Status Reason Start Date Expiration Date V isits Requested Visits Authorized [id number] Closed Auto-Generate d Referral 11/23/2021 12/23/2022 1 1 [facility] for referral (narrative)* Consultation (Routine) - Pending Review Specialty Diagnoses / Procedures Referred By Contac t Referred To Contact Oral Surgery Diagnoses Jaw pain Procedures [place] OFFICE/OUTPATIENT NEW HIGH MDM 60-74 MINUTES Franklin Boss MD [address] [facility] [address] [place] [address] Thad Pedroza MD [address] [facility] [address] [place] [address] Referral ID Status Reason Start Date Expiration Date Visits Requested Visits Authorized [id number] Pending Review Specialty Services Required 01/18/2023 01/18/2024 1 1 [facility] for referral (narrative)* Diagnostic Procedure Only (Routine) - Authorized Specialty Diagnoses / Procedures Referred By Kennedi flannery Referred To Contact XR IMAGING Diagnoses Pain in right wrist Procedures XR WRIST INJURY 4V PA/LAT/OBL/SCAPH RIGHT RADEX WRIST COMPLETE MINIMUM 3 VIEWS Bari Kelley MD, PhD [address] [place] [address] [place] [address] Referral ID Status Reason Start Date Expiration Date Visits Requested Visits Authorized [id number] Authorized Auto-Generat ed Referral 05/01/2024 05/31/2025 1 1 [facility] for referral (narrative)No reason for referral information [facility]WC[facility] Work Phone: Reason for visit Narrative* Diagnostic Procedure Only (Routine) - Closed Specialty Diagnoses / Procedures Referred By Kennedi t Referred To Contact BR IMAGING Diagnoses Screening mammogram for breast cancer Procedures JESÚS SCREENING SCREENING MAMMOGRAPHY BI 2-VIEW BREAST INC Beatris Schaffer, ACID LEVELER.[employer] [address] [place] [address] Br Imaging [address] [place] [address] Referral ID Status Reason Start Date Expiration Date V isits Requested Visits Authorized [id number] Closed Auto-Generate d Referral 11/23/2021 12/23/2022 1 1 [facility] for visit Narrative* Imaging (Routine) - Closed Specialty Diagnoses / Procedures Referred By Kennedi t Referred To Contact Cardiology Diagnoses Paroxysmal atrial fibrillation (HCC) Procedures Transthoracic echocardiogram (TTE) complete with contrast, bubble, strain, and 3D PRN MN ECHO TTHRC R-T 2D W/WOM-MODE COMPL SPEC&COLR D MN TTE W OR WO FOL WCON,DOPPLER Farida Thomas, ACID LEVELER - [employer] [address] [place] [address] Phone: tel: fax: Referral ID Status Reason Start Date Expiration Date Visits Re quested Visits Authorized [id number] Closed 09/14/2024 09/14/2025 1 1 [employer] [facility] Summary Purpose Family History No Family History Records FoundNo Family History Records FoundNo Family History Records FoundNo Family History Records FoundNo Family History Records FoundNo Family History Records FoundNo Family History Records Found Advance Directives No Advanced Directives Records FoundDocuments on File Type Date Recorded Patient Readers' Advisory Service Librarian Expl anation Advance Directive(s) Advance Directive(s) 06/20/2021 4:04 PM Advance Directive(s) 06/19/2021 10:33 AM Advance Directive(s) 06/16/2021 10:03 AM Advance Directive(s) 06/12/2021 7:05 PM Advance Directive(s) 11/25/2020 3:15 PM Advance Directive(s) 11/13/2020 10:14 AM Advance Directive(s) 02/25/2020 1:01 PM Advance Directive(s) 01/26/2020 3:31 PM Advance Directive(s) 07/05/2019 1:05 PM Advance Directive(s) 10/19/2018 4:43 PM Advance Directive(s) 11/08/2017 7:17 AM Advance Directive(s) 02/20/2014 11:52 AM Advance Directive(s) 03/04/2011 5:39 PM Latest Code Status on File Code Status Date Activated Date Inactivated Comments Full Code 07/21/2021 1:00 PM Documents on File Type Date Recorded Patient Readers' Advisory Service Librarian Expl anation Advance Directive(s) Advance Directive(s) 06/20/2021 4:04 PM Advance Directive(s) 06/19/2021 10:33 AM Advance Directive(s) 06/16/2021 10:03 AM Advance Directive(s) 06/12/2021 7:05 PM Advance Directive(s) 11/25/2020 3:15 PM Advance Directive(s) 11/13/2020 10:14 AM Advance Directive(s) 02/25/2020 1:01 PM Advance Directive(s) 01/26/2020 3:31 PM Advance Directive(s) 07/05/2019 1:05 PM Advance Directive(s) 10/19/2018 4:43 PM Advance Directive(s) 11/08/2017 7:17 AM Advance Directive(s) 02/20/2014 11:52 AM Advance Directive(s) 03/04/2011 5:39 PM Latest Code Status on File Code Status Date Activated Date Inactivated Comments Full Code 07/21/2021 1:00 PM Documents on File Type Date Recorded Patient Readers' Advisory Service Librarian Expl anation Advance Directive(s) Advance Directive(s) 12/07/2021 6:09 PM Advance Directive(s) 06/20/2021 4:04 PM Advance Directive(s) 06/19/2021 10:33 AM Advance Directive(s) 06/16/2021 10:03 AM Advance Directive(s) 06/12/2021 7:05 PM Advance Directive(s) 11/25/2020 3:15 PM Advance Directive(s) 11/13/2020 10:14 AM Advance Directive(s) 02/25/2020 1:01 PM Advance Directive(s) 01/26/2020 3:31 PM Advance Directive(s) 07/05/2019 1:05 PM Advance Directive(s) 10/19/2018 4:43 PM Advance Directive(s) 11/08/2017 7:17 AM Advance Directive(s) 02/20/2014 11:52 AM Advance Directive(s) 03/04/2011 5:39 PM Latest Code Status on File Code Status Date Activated Date Inactivated Comments Full Code 07/21/2021 1:00 PM 12/07/2021 4:19 PM Documents on File Type Date Recorded Patient Readers' Advisory Service Librarian Expl anation Advance Directive(s) 02/20/2014 11:52 AM Advance Directive(s) 03/04/2011 5:39 PM Latest Code Status on File Code Status Date Activated Date Inactivated Comments Full Code 04/15/2022 9:06 AM 04/15/2022 5:49 PM Latest Code Status on File Code Status Date Activated Date Inactivated Comments Full Code 04/15/2022 9:06 AM 04/15/2022 5:49 PM Latest Code Status on File Code Status Date Activated Date Inactivated Comments Full Code 07/21/2021 1:00 PM 12/07/2021 4:19 PM Documents on File Type Date Recorded Patient Readers' Advisory Service Librarian Expl anation Advance Directive(s) 02/20/2014 11:52 AM Advance Directive(s) 03/04/2011 5:39 PM Latest Code Status on File Code Status Date Activated Date Inactivated Comments Full Code 07/21/2021 1:00 PM 12/07/2021 4:19 PM Date Activated Date Inactivated Comments 07/21/2021 1:00 PM 12/07/2021 4:19 PM Date Activated Date Inactivated Comments 04/15/2022 9:06 AM 04/15/2022 5:49 PM Date Activated Date Inactivated Comments 07/21/2021 1:00 PM 12/07/2021 4:19 PM Date Activated Date Inactivated Comments 04/15/2022 9:06 AM 04/15/2022 5:49 PM Medications Administered Section Inactive Administered Medications - up to 3 most recent administrations Medication Order MAR Action Action Date Dose Rate Site denosumab 60 mg injection (PROLIA) 60 mg, SUBCUTANEOUS, EVERY 6 MONTHS, 2 doses, First dose on 06/01/21 at 0000, Last dose on 11/28/21 at 0000, Allow To Come To Room Temperature Before Administration. REFRIGERATE Given 02/17/2022 3:17 PM EDT 60 mg Arm, Left Given 08/04/2021 2:09 PM EST 60 mg Ar m, Right Chief Complaint and Reason for Visit Chief Complaint Cough & Sinus lab(TSH) medication refills Reason for Visit Bronchitis Left otitis media Wheezing Hypothyroidism Hypertension Hypothyroidism Hypertension Chief Complaint Admit Date medication refills/right wrist pain Dece mber 2023 3:17pm F/up from hospital August 08, 2024 5:1 6pm Congestion/Sinus/EKG August 22, 2024 4: 51pm Reason for Visit Admit Date Cold sore May 07, 2024 3 :17pm Hypothyroidism May 07, 2024 3 :17pm Right wrist deformity May 07, 2024 3:17pm Hypertension May 07, 2024 3 :17pm Allergic reaction due to cor rect medicinal substance properly administered August 08, 2024 5:16pm Maxillary sinusitis August 08, 2024 5:1 6pm Periorbital edema of both eyes July 5:16pm Right wrist deformity August 08, 2024 5 :16pm Diarrhea August 22, 2024 4:5 1pm Hypothyroidism August 22, 2024 4:5 1pm Shortness of breath August 22, 2024 4:5 1pm Tinnitus August 22, 2024 4:5 1pm Chief Complaint Admit Date F/up from hospital August 08, 2024 5:1 6pm Congestion/Sinus/EKG August 22, 2024 4: 51pm Sinus infection/Labs September 13, 2024 4: 23pm Reason for Visit Admit Date Allergic reaction due to cor rect medicinal substance properly administered August 08, 2024 5:16pm Maxillary sinusitis August 08, 2024 5:1 6pm Periorbital edema of both eyes July 5:16pm Right wrist deformity August 08, 2024 5 :16pm Diarrhea August 22, 2024 4:5 1pm Hypothyroidism August 22, 2024 4:5 1pm Shortness of breath August 22, 2024 4:5 1pm Tinnitus August 22, 2024 4:5 1pm Atrial fibrillation and flutter September 132024 4:23pm Facial flushing September 13, 2024 4:2 3pm Shortness of breath September 13, 2024 4:2 3pm Reason for Referral Specialty Diagnoses / Procedures Referred By Kennedi t Referred To Contact CT IMAGING Diagnoses Atypical facial pain Procedures CT FACIAL BONE/NABEEL WO IVCON CT MAXILLOFACIAL W/O CONTRAST MATERIAL Vincent Gurrola, LIDYA [address] [place] [address] [place] [address] Referral ID Status Reason Start Date Expiration Date V isits Requested Visits Authorized [id number] Closed Auto-Generate d Referral 02/25/2023 03/26/2024 1 1 Additional Source Comments INFORMATION SOURCE (unrecogn ized section and content) DATE CREATED AUTHOR 04/22/2019 [facility] DATE CREATED AUTHOR AUTHOR'S ORGANIZ ATION 02/27/2022 [facility] DATE CREATED AUTHOR AUTHOR'S ORGANIZ ATION 11/11/2023 [facility] DATE CREATED AUTHOR AUTHOR'S ORGANIZ ATION 08/26/2024 [facility] DATE CREATED AUTHOR AUTHOR'S ORGANIZ ATION 10/04/2024 [facility] DATE CREATED AUTHOR AUTHOR'S ORGANIZ ATION 10/14/2024 [facility] DATE CREATED AUTHOR AUTHOR'S ORGANIZ ATION 10/27/2024 [facility] Source Comments (unrecognize d section and content) In the event this informatio n is protected by the Federal Confidentiality of Alcohol and Drug Abuse Patient Records regulations: The Federal rules restrict any use of the information to criminally investigate or prosecute any alcohol or drug abuse patient.[facility] System[facility] the event this information is protected by the Federal Confidentiality of Alcohol and Drug Abuse Patient Records regulations: The Federal rules restrict any use of the information to criminally investigate or prosecute any alcohol or drug abuse patient.[facility] System[facility] the event this information is protected by the Federal Confidentiality of Alcohol and Drug Abuse Patient Records regulations: The Federal rules restrict any use of the information to criminally investigate or prosecute any alcohol or drug abuse patient.[facility] SystemIn the event this information is protected by the Federal Confidentiality of Alcohol and Drug Abuse Patient Records regulations: The Federal rules restrict any use of the information to criminally investigate or prosecute any alcohol or drug abuse patient.[facility] SystemIn the event this information is protected by the Federal Confidentiality of Alcohol and Drug Abuse Patient Records regulations: The Federal rules restrict any use of the information to criminally investigate or prosecute any alcohol or drug abuse patient.[facility] SystemIn the event this information is protected by the Federal Confidentiality of Alcohol and Drug Abuse Patient Records regulations: The Federal rules restrict any use of the information to criminally investigate or prosecute any alcohol or drug abuse patient.[facility] SystemIn the event this information is protected by the Federal Confidentiality of Alcohol and Drug Abuse Patient Records regulations: The Federal rules restrict any use of the information to criminally investigate or prosecute any alcohol or drug abuse patient.[facility] SystemIn the event this information is protected by the Federal Confidentiality of Alcohol and Drug Abuse Patient Records regulations: The Federal rules restrict any use of the information to criminally investigate or prosecute any alcohol or drug abuse patient.[facility] System[facility] the event this information is protected by the Federal Confidentiality of Alcohol and Drug Abuse Patient Records regulations: The Federal rules restrict any use of the information to criminally investigate or prosecute any alcohol or drug abuse patient.[facility] SystemIn the event this information is protected by the Federal Confidentiality of Alcohol and Drug Abuse Patient Records regulations: The Federal rules restrict any use of the information to criminally investigate or prosecute any alcohol or drug abuse patient.[facility] SystemIn the event this information is protected by the Federal Confidentiality of Alcohol and Drug Abuse Patient Records regulations: The Federal rules restrict any use of the information to criminally investigate or prosecute any alcohol or drug abuse patient.[facility] SystemIn the event this information is protected by the Federal Confidentiality of Alcohol and Drug Abuse Patient Records regulations: The Federal rules restrict any use of the information to criminally investigate or prosecute any alcohol or drug abuse patient.[facility] SystemIn the event this information is protected by the Federal Confidentiality of Alcohol and Drug Abuse Patient Records regulations: The Federal rules restrict any use of the information to criminally investigate or prosecute any alcohol or drug abuse patient.[facility] SystemIn the event this information is protected by the Federal Confidentiality of Alcohol and Drug Abuse Patient Records regulations: The Federal rules restrict any use of the information to criminally investigate or prosecute any alcohol or drug abuse patient.[facility] SystemIn the event this information is protected by the Federal Confidentiality of Alcohol and Drug Abuse Patient Records regulations: The Federal rules restrict any use of the information to criminally investigate or prosecute any alcohol or drug abuse patient.[facility] SystemIn the event this information is protected by the Federal Confidentiality of Alcohol and Drug Abuse Patient Records regulations: The Federal rules restrict any use of the information to criminally investigate or prosecute any alcohol or drug abuse patient.[facility] SystemIn the event this information is protected by the Federal Confidentiality of Alcohol and Drug Abuse Patient Records regulations: The Federal rules restrict any use of the information to criminally investigate or prosecute any alcohol or drug abuse patient.[facility] SystemIn the event this information is protected by the Federal Confidentiality of Alcohol and Drug Abuse Patient Records regulations: The Federal rules restrict any use of the information to criminally investigate or prosecute any alcohol or drug abuse patient.[facility] SystemIn the event this information is protected by the Federal Confidentiality of Alcohol and Drug Abuse Patient Records regulations: The Federal rules restrict any use of the information to criminally investigate or prosecute any alcohol or drug abuse patient.[facility] Reason for Visit (unrecogniz ed section and content) Reason Comments OP Infusion Specialty Diagnoses / Procedures Referred By Kennedi flannery Referred To Contact Diagnoses Age-related osteoporosis without current pathological fracture Prem Felton MD [address] [facility] [address] [place] [address] [facility] [address] [place] [id number] Referral ID Status Reason Start Date Expiration Date V isits Requested Visits Authorized [id number] Pending Review 06/10/2022 12/07/2022 1 1 Reason Comments F/U 6 months Reason Comments Orders Reason Comments Lost Item Sunglasses Reason Comments Medication Update Reason Comments Imm/Inj Reason Comments Orders Reason Onset Date Comments Advice Only 09/01/2022 Reason Comments Follow Up Reason Comments Medicare Annual Wellness Visit Giorgio flannery Pt states she has been experiencing random skin bumps for the past week and they don't itch but feel irritated. Noticed them on arms and legs. States she has been working outside regularly. Says she was treated for an ear infection in November and she's wondering if it isn't cleared up all the way because her ear still aches and throat is a little sore. Discuss medication and possible effects on balance. Reason Comments Bradycardia CHB PPM Atrial Fibrillation PAF Rapid Heart Rate Atrial tachycardia OTHER Frequent falls with Sensory Polyneuropathy Reason Onset Date Comments Pre-visit Planning 01/11/2023 Specialty Diagnoses / Procedures Referred By Kennedi flannery Referred To Contact CT IMAGING Diagnoses Atypical facial pain Procedures CT FACIAL BONE/NABEEL WO IVCON CT MAXILLOFACIAL W/O CONTRAST MATERIAL Vincent Gurrola, DDS [address] [place] [address] Ct Imaging [id number] Referral ID Status Reason Start Date Expiration Date V isits Requested Visits Authorized [id number] Closed Auto-Generate d Referral 02/25/2023 03/26/2024 1 1 Reason Onset Date Comments returning call 02/14/2023 Reason Onset Date Comments OTHER 03/08/2023 Returning nurses call Reason Onset Date Comments other 04/29/2023 Reason Comments Appointment Reason Onset Date Comments Med Refill 08/31/2023 Reason Comments Bradycardia CHB PPM Atrial Fibrillation PAF Rapid Heart Rate Atrial Tach Fall Frequent Falls with Sensory Polyneuropathy Reason Onset Date Comments Med Refill 04/12/2024 apixaban (Eliqui s) 5 MG tablet 1 tab q12H Reason Comments Bradycardia CHB PPM Atrial Fibrillation PAF Rapid Heart Rate Atrial Tachycardia Fall Frequent Falls with Sensory Polyneuropathy Hypothyroidism Reason Comments New Pain Reason Comments Bradycardia CHB Reason Onset Date Comments Care Coordination 06/09/2022 Injections 06/09/2022 PROLIA Reason Comments Annual Exam Yeny Tavera is he re today as a new patient to establish care, last routine labs 11/23/21. No refills needed. Reason Comments Bradycardia CHB Atrial Fibrillation Atrial Tachycardia Reason Onset Date Comments Cardiac Clearance 05/11/2024 Reason Onset Date Comments Appointment Request 09/14/2024 Reason Onset Date Comments Cough 10/05/2024 Reason Comments Sinus Problem Pain collarbone up, pounding headache forehead and back of head. Face swollen and red. Sx for more than a month. Took atb x2 [place]uly brain [place] . Nasal drainage was green and brown to yellow an white. SOB. Care Teams (unrecognized sec tion and content) Humanities Department Chair Relationship Specialty Start Date End Date David Bach MD [address] [place], [place] [id number] PCP - General Internal Medicine 05/25/21 David Bach MD [address] [place], [place] [id number] Home Care Physician Internal Medicine 07/15/21 Tammy Valle, ACID LEVELER.[employer] [place] [address] [place] [address] Referring Family Practice 07/20/21 Humanities Department Chair Relationship Specialty Start Date End Date David Bach MD [address] [facility] [place] [address] PCP - General Internal Medicine 05/25/21 David Bach MD [address] [facility] [place] [address] Home Care Physician Internal Medicine 07/15/21 Tammy Valle, ACID LEVELER.[employer] [place] [address] [place] [address] Referring Family Practice 07/20/21 Humanities Department Chair Relationship Specialty Start Date End Date David Bach MD [address] [facility] [place] [address] PCP - General Internal Medicine 05/25/21 David Bach MD [address] [facility] [place] [address] Home Care Physician Internal Medicine 07/15/21 Tammy Valle, ACID LEVELER.[employer] [place] [address] [place] [address] Referring Family Practice 07/20/21 Humanities Department Chair Relationship Specialty Start Date End Date David Bach MD [address] [facility] [place] [address] PCP - General Internal Medicine 05/25/21 David Bach MD [address] [facility] [place] [address] Home Care Physician Internal Medicine 07/15/21 Tammy Valle, ACID LEVELER.[employer] [place] [address] [place] [address] Referring Family Practice 07/20/21 Humanities Department Chair Relationship Specialty Start Date End Date David Bach MD [address] [facility] [place] [address] PCP - General Internal Medicine 05/25/21 David Bach MD [address] [facility] [place] [address] Home Care Physician Internal Medicine 07/15/21 Tammy Valle, ACID LEVELER.[employer] [place] [address] [place] [address] Referring Family Practice 07/20/21 Humanities Department Chair Relationship Specialty Start Date End Date David Bach MD [address] [facility] [place] [address] PCP - General Internal Medicine 05/25/21 David Bach MD [address] [facility] [place] [address] Home Care Physician Internal Medicine 07/15/21 Tammy Valle, ACID LEVELER.[employer] [place] [address] [place] [address] Referring Family Practice 07/20/21 Humanities Department Chair Relationship Specialty Start Date End Date David Bach MD [address] [facility] [place] [address] PCP - General Internal Medicine 05/25/21 David Bach MD [address] [facility] [place] [address] Home Care Provider Internal Medicine 07/15/21 Tammy Valle, ACID LEVELER.[employer] [place] [address] [place] [address] Referring Family Medicine 07/20/21 Humanities Department Chair Relationship Specialty Start Date End Date David Bahc MD [address] [facility] [place] [address] PCP - General Internal Medicine 05/25/21 David Bach MD [address] [facility] [place] [address] Home Care Provider Internal Medicine 07/15/21 Tammy Valle, ACID LEVELER.[employer] [place] [address] [place] [address] Referring Family Medicine 07/20/21 Humanities Department Chair Relationship Specialty Start Date End Date Prem Felton MD [facility] [place] [address] PCP - General Family Medicine 06/09/22 Humanities Department Chair Relationship Specialty Start Date End Date David Bach MD [address] [facility] [place] [address] PCP - General Internal Medicine 05/25/21 David Bach MD [address] [facility] [place] [address] Home Care Provider Internal Medicine 07/15/21 Tammy Valle, ACID LEVELER.[employer] [place] [address] [place] [address] Referring Family Medicine 07/20/21 Humanities Department Chair Relationship Specialty Start Date End Date Prem Felton MD [facility] [place] [address] PCP - General Family Medicine 06/09/22 Humanities Department Chair Relationship Specialty Start Date End Date Prem Felton MD [facility] [place] [address] PCP - General Family Medicine 06/09/22 Humanities Department Chair Relationship Specialty Start Date End Date Prem Felton MD [address] [place] [address] PCP - General Family Medicine 06/09/22 Humanities Department Chair Relationship Specialty Start Date End Date Prem Felton MD [address] [place] [address] PCP - General Family Medicine 06/09/22 Humanities Department Chair Relationship Specialty Start Date End Date Prem Felton MD [address] [place] [address] PCP - General Family Medicine 01/27/23 David Bach MD [address] [place], [place] [id number] Home Care Provider Internal Medicine 07/15/21 Tammy Valle, ACID LEVELER.[employer] [place] [address] [place], [place] [phone] Referring Family Medicine 07/20/21 Humanities Department Chair Relationship Specialty Start Date End Date Prem Felton MD [facility] [place] [address] PCP - General Family Medicine 01/27/23 David Bach MD [address] [place], [place] [address] Home Care Provider Internal Medicine 07/15/21 Tammy Valle, ACID LEVELER.[employer] [place] [address] [place], [place] [phone] Referring Family Medicine 07/20/21 Humanities Department Chair Relationship Specialty Start Date End Date Prem Felton MD [address] [place] [address] PCP - General Family Medicine 01/27/23 David Bach MD [address] [facility] [place] [address] Home Care Provider Internal Medicine 07/15/21 Tammy Valle, ACID LEVELER.[employer] [place] [address] [place] [address] Referring Family Medicine 07/20/21 Humanities Department Chair Relationship Specialty Start Date End Date Prem Felton MD [facility] [place] [address], [place] [address] PCP - General Family Medicine 06/09/22 Humanities Department Chair Relationship Specialty Start Date End Date Prem Felton MD [facility] [place] [address], [place] [id number] PCP - General Family Medicine 06/09/22 Team Status: Active Member Role Status Dates Osbaldo Fowler EXTENSION SERVICE SPECIALIST IN CHARGE, EXTENSION SERVICE SPECIALIST IN CHARGE-C Primary Care Provider Active Team Status: Inactive Member Role Status Dates Osbaldo Fowler EXTENSION SERVICE SPECIALIST IN CHARGE, EXTENSION SERVICE SPECIALIST IN CHARGE-C Primary Care Pr ovider, Attending Provider, Referring Provider Active Team Status: Inactive Member Role Status Dates Osbaldo Fowler EXTENSION SERVICE SPECIALIST IN CHARGE, EXTENSION SERVICE SPECIALIST IN CHARGE-C Primary Care Provider, Attend ing Provider Active Humanities Department Chair Relationship Specialty Start Date End Date Prem Felton MD [address] [place], [place] [phone] PCP - General Family Medicine 06/09/22 Humanities Department Chair Relationship Specialty Start Date End Date Prem Felton MD [address] [place], [place] [phone] PCP - General Family Medicine 01/27/23 David Bach MD [address] [place], [place] [address] Home Care Provider Internal Medicine 07/15/21 Tammy Valle, ACID LEVELER.[employer] [place] [address] [place], [place] [phone] Referring Family Medicine 07/20/21 Humanities Department Chair Relationship Specialty Start Date End Date Prem Felton MD [address] [place], [place] [phone] PCP - General Family Medicine 06/09/22 Humanities Department Chair Relationship Specialty Start Date End Date Prem Felton MD [facility] [place], [place] [phone] PCP - General Family Medicine 01/27/23 David Bach MD [facility] [place], [place] [address] Home Care Provider Internal Medicine 07/15/21 Tammy Valle, ACID LEVELER.[employer] [place] [address] [place] [address] Referring Family Medicine 07/20/21 Humanities Department Chair Relationship Specialty Start Date End Date Prem Felton MD [address] [place], [place] [id number] PCP - General Family Medicine 06/09/22 Humanities Department Chair Relationship Specialty Start Date End Date Prem Felton MD [address] [place], [place] [phone] PCP - General Family Medicine 06/09/22 Humanities Department Chair Relationship Specialty Start Date End Date Prem Felton MD [address] [place] [id number] PCP - General Family Medicine 06/09/22 Humanities Department Chair Relationship Specialty Start Date End Date Osbaldo Fowler [address] [facility] [place], [place] [address] PCP - General Nurse Practitioner 09/20/23 Humanities Department Chair Relationship Specialty Start Date End Date Osbaldo Fowler, ACID LEVELER.[employer] [place] [address] [address] PCP - General Family Medicine 11/10/23 David Bach MD [address] [place] [address] Home Care Provider Internal Medicine 07/15/21 Tammy Valle, ACID LEVELER.[employer] [place] [address] [place] [address] Referring Family Medicine 07/20/21 Humanities Department Chair Relationship Specialty Start Date End Date Osbaldo Fowler [address] [place], [place] [address] [address] PCP - General Nurse Practitioner 09/20/23 Humanities Department Chair Relationship Specialty Start Date End Date Osbaldo Fowler, ACID LEVELER.[employer] [place] [address] [address] PCP - General Family Medicine 11/10/23 David Bach MD [facility]0 [place], [place] [phone] Home Care Provider Internal Medicine 07/15/21 Tammy Valle ACID LEVELER.[employer] [place] [address] [place], [place] [phone] Referring Family Medicine 07/20/21 Humanities Department Chair Relationship Specialty Start Date End Date Osbaldo Fowler L, ACID LEVELER.[employer] [place] [address] [facility] [address] [place] [address] PCP - General Family Medicine 11/10/23 David Bach MD [address] [place] [address] Home Care Provider Internal Medicine 07/15/21 Tammy Valle, ACID LEVELER.[employer] [place] [address] [place] [address] Referring Family Medicine 07/20/21 Humanities Department Chair Relationship Specialty Start Date End Date Osbaldo Fowler [address] [place] [address] PCP - General 03/05/20 Humanities Department Chair Relationship Specialty Start Date End Date Prem Felton MD [facility] [place] [address] PCP - General Family Medicine 06/09/22 Humanities Department Chair Relationship Specialty Start Date End Date Prem Felton MD [address] [place] [address] PCP - General Family Medicine 06/09/22 Humanities Department Chair Relationship Specialty Start Date End Date Prem Felton MD [facility] [place], [place] [phone] PCP - General Family Medicine 06/09/22 Humanities Department Chair Relationship Specialty Start Date End Date Prem Felton MD [address] [place], [place] [phone] PCP - General Family Medicine 06/09/22 Humanities Department Chair Relationship Specialty Start Date End Date Prem Felton MD [address] [facility] [address] [place] [address] PCP - General Family Medicine 06/09/22 Humanities Department Chair Relationship Specialty Start Date End Date Osbaldo Fowler [address] [place] [address] PCP - General Nurse Practitioner 09/20/23 Team Status: Inactive Member Role Status Dates Osbaldo Fowler EXTENSION SERVICE SPECIALIST IN CHARGE, EXTENSION SERVICE SPECIALIST IN CHARGE-C Primary Care Provider Active Start: May 07, 2024 End: May 07, 2024 Osbaldo Fowler EXTENSION SERVICE SPECIALIST IN CHARGE, EXTENSION SERVICE SPECIALIST IN CHARGE-C Attending Provider Active Start: May 07, 2024 End: May 07, 2024 Osbaldo Fowler EXTENSION SERVICE SPECIALIST IN CHARGE, EXTENSION SERVICE SPECIALIST IN CHARGE-C Referring Provider Active Start: May 07, 2024 End: May 07, 2024 Team Status: Inactive Member Role Status Dates Osbaldo Fowler EXTENSION SERVICE SPECIALIST IN CHARGE, EXTENSION SERVICE SPECIALIST IN CHARGE-C Primary Care Provider Active Start: August 08, 2024 End: August 08, 2024 Osbaldo Fowler EXTENSION SERVICE SPECIALIST IN CHARGE, EXTENSION SERVICE SPECIALIST IN CHARGE-C Attending Provider Active Start: August 08, 2024 End: August 08, 2024 Osbaldo Fowler EXTENSION SERVICE SPECIALIST IN CHARGE, EXTENSION SERVICE SPECIALIST IN CHARGE-C Referring Provider Active Start: August 08, 2024 End: August 08, 2024 Team Status: Inactive Member Role Status Dates Osbaldo Fowler EXTENSION SERVICE SPECIALIST IN CHARGE, EXTENSION SERVICE SPECIALIST IN CHARGE-C Primary Care Provider Active Start: August 22, 2024 End: August 22, 2024 Osbaldo Fowler EXTENSION SERVICE SPECIALIST IN CHARGE, EXTENSION SERVICE SPECIALIST IN CHARGE-C Attending Provider Active Start: August 22, 2024 End: August 22, 2024 Osbaldo Fowler EXTENSION SERVICE SPECIALIST IN CHARGE, EXTENSION SERVICE SPECIALIST IN CHARGE-C Referring Provider Active Start: August 22, 2024 End: August 22, 2024 Humanities Department Chair Relationship Specialty Start Date End Date Osbaldo Fowler [address] [place] [address] PCP - General Nurse Practitioner 09/20/23 Humanities Department Chair Relationship Specialty Start Date End Date Fowler, Dora [address] [place] [address] PCP - General Nurse Practitioner 09/20/23 Team Status: Inactive Member Role Status Dates Osbaldo Fowler EXTENSION SERVICE SPECIALIST IN CHARGE, EXTENSION SERVICE SPECIALIST IN CHARGE-C Primary Care Provider Active Start: September 13, 2024 End: September 13, 2024 Osbaldo Fowler EXTENSION SERVICE SPECIALIST IN CHARGE, EXTENSION SERVICE SPECIALIST IN CHARGE-C Attending Provider Active Start: September 13, 2024 End: September 13, 2024 Osbaldo Fowler EXTENSION SERVICE SPECIALIST IN CHARGE, EXTENSION SERVICE SPECIALIST IN CHARGE-C Referring Provider Active Start: September 13, 2024 End: September 13, 2024 Humanities Department Chair Relationship Specialty Start Date End Date Osbaldo Fowler [address] [place] [place], [place] [address] PCP - General Nurse Practitioner 09/20/23 Humanities Department Chair Relationship Specialty Start Date End Date Julienne Wright DO [address] [phone] PCP - General Family Medicine 10/05/24 Humanities Department Chair Relationship Specialty Start Date End Date Osbaldo Fowler, ACID LEVELER.[employer] [place] [address] [address] PCP - General Family Medicine 11/10/23 David Bach MD [address] [place] [address] Home Care Provider Internal Medicine 07/15/21 Tammy Valle, ACID LEVELER.[employer] [place] [address] [place] [address] Referring Family Medicine 07/20/21 Goals (unrecognized section and content) Goals may be documented in a n alternate sectionGoals may be documented in an alternate sectionGoals may be documented in an alternate section FOR RECORDS PERTAINING TO PATIENTS WHO ARE OR HAVE BEEN ENROLLED IN A CHEMICAL DEPENDENCY/SUBSTANCEABUSE PROGRAM, SOME INFORMATION MAY BE OMITTED. This clinical summary was aggregated from multiple sources. Caution should be exercised in using it in the provision of clinical care. This summary normalizes information from multiple sources, and as a consequence, information in this document may materially change the coding, format and clinical context of patient data. In addition, data may be omitted in some cases. CLINICAL DECISIONS SHOULD BE BASED ON THE PRIMARY CLINICAL RECORDS. [employer] provides no warranty or guarantee of the accuracy or completeness of information in this document.
--- NOTE | 2024-11-02 13:09 | PCM.PSN.6M ---
PSN 6 Minute Walk Test 6 Minute Walk Test 6 Minute Walk Test: 6 Minute Walk Test PSN:6-Minute Walk Test Start: 10/30/24 13:54 Freq: Status: Active Protocol: RESP.6MINW Document 10/30/24 13:54 MEHRANCLAUDIA (Rec: 10/30/24 13:56 [email or web address] [id number]) 6 Minute Walk Test Date Performed 10/30/24 Time Performed 13:45 Height 5 ft 8 in Weight: 149 lb Weight in Pounds [address]: Jorge Nicole Assistive device None used: Pre-test Oxygen Delivery Room Air Method Pulse Ox (%) 96 Pulse Rate (60-100 66 beats/min) Dyspnea Vira Scale ( 0 0-10) Exertion Vira Scale 6 (6-20) 1st minute Oxygen Delivery Room Air Method Pulse Ox (%) 98 Pulse Rate (60-100 72 beats/min) 2nd minute Oxygen Delivery Room Air Method Pulse Ox (%) 98 Pulse Rate (60-100 86 beats/min) 3rd minute Oxygen Delivery Room Air Method Pulse Ox (%) 97 Pulse Rate (60-100 74 beats/min) 4th minute Oxygen Delivery Room Air Method Pulse Ox (%) 97 Pulse Rate (60-100 79 beats/min) 5th minute Oxygen Delivery Room Air Method Pulse Ox (%) 97 Pulse Rate (60-100 93 beats/min) 6th minute Oxygen Delivery Room Air Method Pulse Ox (%) 98 Pulse Rate (60-100 82 beats/min) Dyspnea Vira Scale ( 2 0-10) Exertion Vira Scale 12 (6-20) Post-test Oxygen Delivery Room Air Method Pulse Ox (%) 99 Pulse Rate (60-100 60 beats/min) Full Laps Walked 18 Partial Lap, Number 6 of Tiles Walked Total Distance 1068 Walked (ft) Interpretation Interpretation: The patient ambulated 1060 feet over the course of 6 minutes beginning on room air without assistive devices. Pretesting oxygen saturation was noted to be 96% on room air. With ambulation, the ranjan oxygen saturation was 97%. There was no significant exertional oxygen desaturation. Recommendations Recommendations: There is no indication for the use of supplemental oxygen at this time.
== END | disposition home or self-care (01) ==
LOC: PSN 13:19
PROVIDERS: PCP Nurse Practitioner; Referring Provider Internal Medicine Critical Care Medicine; Visit Provider Internal Medicine Critical Care Medicine
DX: R06.02 Shortness of breath (principal)
CPT/HCPCS: 94618

== ENCOUNTER → 2024-11-06 | Outpatient (CLI) | payer MEDICARE, OTHER, SELFPAY ==
[2024-11-06 23:28] LABS: ALB/GLOB Ratio 2.1 RATIO (0.9-2.4); AST(SGOT) 35 U/L (<=31); Alanine Aminotransfer ALT/SGPT 53 U/L (<=34); Albumin, Serum 4.4 g/dL (3.4-4.8); Alkaline Phosphatase 89 U/L (35-104); Anion Gap 12 (5-15); BUN 27 mg/dL (4-19); BUN/Creat Ratio 36.8 RATIO (10-20); Calcium,Total 9.5 mg/dL (7.6-11.0); Carbon Dioxide 22.9 mmol/L (21.0-32.0); Chloride 101 mmol/L (98-108); Creatinine, Serum 0.73 mg/dL (0.70-1.20); EST Glomerular Filtration Rate 84 (>60); Globulin 2.1 g/dL (2.2-4.2); Glucose 93 mg/dL (70-99); Potassium 4.6 mmol/L (3.3-5.1); Protein, Total 6.5 g/dL (5.9-8.4); Sodium Level 136 mmol/L (133-145); Total Bilirubin 0.44 mg/dL (0.00-1.30)
== END | disposition home or self-care (01) ==
PROVIDERS: PCP Nurse Practitioner; Referring Provider Nurse Practitioner; Visit Provider Nurse Practitioner
DX: E03.9 Hypothyroidism, unspecified (principal); R79.89 Other specified abnormal findings of blood chemistry; R06.02 Shortness of breath
CPT/HCPCS: 80053; 84443

== ENCOUNTER → 2024-11-28 | Outpatient (CLI) | payer MEDICARE, OTHER, SELFPAY | END | disposition home or self-care (01) | PROVIDERS: PCP Nurse Practitioner; Referring Provider Internal Medicine Critical Care Medicine; Visit Provider Internal Medicine Critical Care Medicine | DX: R06.02 Shortness of breath (principal) | CPT/HCPCS: 94060; 94726; 94729 ==